=== PATIENT | male | born 1960 | race Caucasian/White ===

== ENCOUNTER 2019-09-05 14:11 | Inpatient (IN) | payer OTHER, SELFPAY ==
[2019-09-05] VITALS (10 sets, daily range): BP systolic 158–192; BP diastolic 67–90; PULSE 64–92; RESP 16–24; TEMP 36.2–36.9; O2SAT 93–97; BMI 31.1
--- NOTE | ~2019-09-05 | XR_ITS ---
EXAMINATION: XR chest 2V EXAM DATE: 09/05/2019 16:00 INDICATION: Shortness of breath, right-sided chest pain. Lightheadedness. TECHNIQUE: Frontal and lateral projections of the chest obtained and reviewed. Comparison is made to prior examination from 08/29/2019. FINDINGS: Near-complete resolution of previously seen rather extensive abnormal reticulation. There a re no pleural effusions. The cardiomediastinal silhouette is within normal limits. There is no pneu mothorax suspected. The bones and soft tissues are unremarkable. IMPRESSION: Nearly resolved bilateral edema or pneumonia. Reviewed, dictated and finalized at location A. [place] ASSOCIATE
--- NOTE | ~2019-09-05 | US_ITS ---
EXAMINATION: US venous doppler LE EXAM DATE: 09/06/2019 08:31 INDICATION: Shortness of breath and bilateral leg edema. TECHNIQUE: Multiple grayscale, color flow and Doppler images of the lower extremity deep venous syste ms bilaterally were obtained and reviewed. Comparison is made to prior examination from 03/31/2013. FINDINGS: Right side: The right common femoral, femoral and profunda veins demonstrate normal color flow, respi ratory variation, augmentation and compressibility. Compressibility, color flow confirmed within the right popliteal, posterior tibial, peroneal, and greater saphenous veins. Left side: The left common femoral, femoral and profunda veins demonstrate normal color flow, respira tory variation, augmentation and compressibility. Compressibility, color flow confirmed within the l eft popliteal, posterior tibial, peroneal, and greater saphenous veins. IMPRESSION: 1. No lower extremity deep venous thrombosis bilaterally. Reviewed, dictated and finalized at location A. EWORKING BELT SANDER
--- NOTE | 2019-09-05 14:33 | ECG_ITS ---
Measurements Intervals [place] Rate: 69 P: 60 TN: 175 QRS: 80 QRSD: 89 T: 70 QT: 371 QTc: 400 Interpretive Statements SINUS RHYTHM WITH SINUS ARRHYTHMIA NORMAL ECG Electronically Signed On 09-05-2019 16:38:56 [employer] by Carmelo Graham D.O.
[2019-09-05 14:49] LABS: Basophils Absolute Auto 0.1 K/mm3 (0.0-0.1); Basophils Percent Auto 0.2 % (0.2-1.2); Eosinophils Absolute Auto 0.1 K/mm3 (0-0.3); Eosinophils Percent Auto 0.6 % (0-4.4); Hematocrit 44.7 % (42.0-52.0); Hemoglobin 14.2 g/dL (14.0-18.0); Immature Granulocyte Absolute 0.24 K/mm3 (0.00-0.031); Immature Granulocyte Percent A 1.1 % (0-0.5); Lymphocytes Absolute Auto 4.31 K/mm3 (0.9-3.2); Mean Corpuscular HGB Conc 31.8 g/dl (32-36); Mean Corpuscular Hemoglobin 29.5 pg (26-34); Mean Corpuscular Volume 92.9 fl (80-100); Monocytes Absolute Auto 0.9 K/mm3 (0.1-0.6); Monocytes Percent Auto 4.1 % (2.6-8.5); Platelet Count Result 329 k/mm3 (150-375); Red Blood Count 4.81 M/mm3 (4.6-6.20); Red Cell Distribution Width 15.2 % (11.5-14.5); White Blood Count 21.6 K/mm3 (4.5-10.0)
--- NOTE | 2019-09-05 14:49 | ED.GENADULT ---
HPI - General Adult General Chief complaint: Shortness of Breath/Dyspnea Stated complaint: sob Time Seen by Provider: 09/05/19 14:44 Source: patient Mode of arrival: ambulatory Limitations: no limitations History of Present Illness HPI narrative: The pt is a 58 y/o male who presents to the ED with c/o SOB that began 1 week ago. The pt was just here last week and was diagnosed with pneumonia. He left against advice but states that he has been taking his antibiotics as prescribed. He states that he feels like he is choking and cannot catch his breath. He reports a cough, rt sided CP upon coughing, and dysphagia, but denies fever. The pt has a PMHx of COPD, for which he uses 5 different inhalers for and O2 at night. He smokes 1/2 PPD. complaint: SOB Onset (ago): week(s) (1) Associated symptoms: chest pain (upon coughing), cough and other (dysphagia) Related Data Home Medications Medication Instructions Recorded Confirmed Incruse Ellipta 1 inh INHALATION DAILY 08/30/19 08/30/19 fluticasone propion-salmeterol 1 puff INHALATION BID 08/30/19 08/30/19 hydrocodone-acetaminophen 1 tablet PO TID 08/30/19 08/30/19 lisinopril 40 mg PO DAILY 08/30/19 08/30/19 montelukast 10 mg PO DAILY 08/30/19 08/30/19 Allergies Allergy/AdvReac Type Severity Reaction Status Date / Time codeine Allergy Unknown Verified 09/03/18 07:08 iohexol Allergy Unknown Verified 08/30/19 00:05 [From CONTRAST - CT, XRAY] Review of Systems Review of Systems: All systems reviewed & are unremarkable except as noted in HPI and below Constitutional: Constitutional: Denies fever(s) ENT: Reports dysphagia Cardiovascular: Cardiovascular: Reports chest pain (upon coughing) Respiratory: Respiratory: Reports cough and Reports dyspnea PMFSH Past Medical History Medical History (Updated 09/05/19 @ 16:24 by Richie Vance MD) Arthritis (Acute) Asthma (Acute) Back pain (Acute) Cataracts, bilateral (Acute) COPD (chronic obstructive pulmonary disease) (Acute) Use uses home O2 most of the time GERD (gastroesophageal reflux disease) (Acute) HTN (hypertension) (Chronic) Kidney stones (Acute) Peripheral neuropathy (Acute) Pneumonia (Acute) Pulmonary hypertension (Acute) Sleep apnea (Acute) No longer uses CPAP Surgical History Surgical History History of prostate surgery (Acute) Hx of cataract surgery (Acute) Hx of cholecystectomy (Acute) Social History Social History (Updated 09/05/19 @ 14:57 by Shara Soto) Social History: but from his for 20 years. 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 No children. Smoking packs per day: 0.5 Smoking cigarettes per day: 10.0 Years smoked: 50 Smoking pack-years: 25.00 Smoking status: Current every day smoker Tobacco type: cigarettes Alcohol intake: former Substance use: never Substance use type: does not use Gender identity (if verbalized by the patient): Male Agree to blood products: Yes Exam Const: General: healthy appearing, no acute distress and well developed Nutritional Appearance: well nourished Orientation/consciousness: oriented x3 (alert) and other (Alert) Limitations: no limitations HENMT: Head: normocephalic and atraumatic Ears: external ears normal General nose exam: no nasal discharge and no epistaxis Face and sinus: face symmetric Mouth: Yes lip normal and Yes moist mucous membranes Eyes: Conjunctivae: conjunctivae normal Sclera: sclerae normal EOM: EOM intact bilaterally Neck: Neck: full ROM Chest: Chest palpation & inspection: no tenderness Resp: Effort & Inspection: normal respiratory effort Auscultation: rales on the right, no rhonchi, wheezes (scattered, bilateral) and other (breath sounds equal) Other: decreased breath sounds Cardio: Rate: regular rate Rhythm: regular rhythm Heart sounds: no gallops and no murmurs GI: Inspection: non-distended Palpation (GI): No abdomina
[2019-09-05] MEDS: ALBUTEROL SULFATE NEB 2.5 MG/0.5 ML INH 5 MG INHALATION ×2 (15:05→20:48)
[2019-09-05] MEDS: IPRATROPIUM BR 0.02% INH SOLN 0.5 MG/2.5 ML VIAL INHALATION ×2 (15:05→20:48)
[2019-09-05 15:13] LABS: Alveolar/Arterial O2 Gradient 30.7 mmHg; Base Excess ABG 7.5 mEq/l (+/-2.0); Fractional Inspired Oxygen 21 %; Oxygen Content ABG 18.6 %vol (16.0-22.0); Oxygen Saturation ABG 94.2 % (95.0-100.0); Oxyhemoglobin 91.2 % THb (90.0-100.0); PCO2 ABG 44.3 mmHg (35.0-45.0); PO2 FiO2 Ratio Arterial Blood 3.14 %; Total Hemoglobin 14.5 g/dL (12.0-18.0); pH ABG 7.477 (7.350-7.450)
[2019-09-05 15:14] LABS: Modified Allen's Test Pass; Site Drawn RIGHT RADIAL
[2019-09-05 15:21] LABS: Blood Urea Nitrogen 25 mg/dL (9-20); Calcium 8.8 mg/dL (8.4-10.2); Carbon Dioxide 34 mmol/L (22-30); Chloride 97 mmol/L (98-107); Estimated CRCL calculation 108 ml/min; Estimated Glomerular Filt Rate > 60; Glucose 93 mg/dL (75-110); Sodium 138 mmol/L (137-145)
[2019-09-05] MEDS: LACTATED RINGERS 1,000 ML 60 ML IV CONT (18:03)
--- NOTE | 2019-09-05 18:08 | ADMGEN ---
This patient, Manny Garcia, was admitted to Medical Room 341-01. Patient/family oriented to hospital policies and general routines including ID bracelet, bed and alarms, visiting hours, pain management, procedures, bathroom and other care routines, personal items, smoking policy, room service/diet, and visiting hours. Valuables list has been completed. Information on how to activate the Rapid Response Team has been discussed. Patient/Family are encouraged to report perceived risks to care and to ask questions if they do not understand what they are told or what they should do.
--- NOTE | 2019-09-05 19:40 | PM.IMHP ---
H&P: HPI History of Present Illness Chief complaint: Shortness of breath. Narrative: Manny Garcia is a 58 year old male smoker with COPD, sleep apnea, diastolic congestive heart failure, pulmonary hypertension, and hypertension who presented to the emergency department earlier this afternoon via private vehicle from home for evaluation of shortness of breath. He is known to the hospitalist service as he was admitted to us on August 29, 2019 after he presented to the emergency department with severe shortness of breath with findings of pulmonary edema, superimposed pneumonia, and hypercapnic respiratory failure (intolerant to BiPAP). Echocardiogram did show diastolic dysfunction and pulmonary hypertension. Sputum culture later came back growing Haemophilus influenzae. His lower extremity edema and breathing improved with IV Lasix and IV antibiotics. He was eager for discharge and asked to leave on , although probably not quite ready to go home, retrospectively. He continues to smoke despite telling the discharge physician a few days ago that he was going to quit. He was discharged on azithromycin, cefdinir, and prednisone, which he states compliance. Unfortunately he continues to be short of breath and his girlfriend notes that he is not any better than when he was initially admitted to the hospital. He continues to have a cough, which is no longer green thick sputum but is now more clear white phlegm. He continues to have pretty significant coughing jags, worse when lying supine. He chronically sleeps on 2-3 pillows and that is unchanged. He has had sweats, but is uncertain if he has had a fever. Appetite has been good and he denies nausea and vomiting. His lower extremity edema is about the same as it was when he was discharged and he denies calf pain and tenderness. He has not had chest pain or pleuritic pain. No palpitations. No dysphagia or concerns for aspiration. He is eating a Super sized [employer] meal at the time of my evaluation and he has no complaints. Review of Systems Review of Systems: All systems reviewed & are unremarkable except as noted in HPI and below PMFSH Past Medical History Medical History (Updated 09/05/19 @ 22:06 by Ya Kendall PA-C) Arthritis (Acute) Asthma (Acute) Back pain (Acute) Cataracts, bilateral (Acute) COPD (chronic obstructive pulmonary disease) (Acute) Uses 2 L nasal cannula at nighttime in lieu of CPAP. Diastolic congestive heart failure (Acute) GERD (gastroesophageal reflux disease) (Acute) HTN (hypertension) (Acute) Kidney stones (Acute) Peripheral neuropathy (Acute) Pneumonia (Acute) Pulmonary hypertension (Acute) Sleep apnea (Acute) No longer uses CPAP Tobacco dependence (Acute) Surgical History Surgical History History of prostate surgery (Acute) Hx of cataract surgery (Acute) Hx of cholecystectomy (Acute) Family History Family History Father Family history of chronic obstructive pulmonary disease, Onset Age: 74 Mother End stage renal disease on dialysis Other Carcinoma of colon Diabetes mellitus Social History Social History (Updated 09/05/19 @ 22:02 by Ya Kendall PA-C) Social History: but from his for 20 years. 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 Full code. Smoking packs per day: 0.5 Smoking cigarettes per day: 10.0 Years smoked: 50 Smoking pack-years: 25.00 Smoking status: Current every day smoker Tobacco type: cigarettes Alcohol intake: former Substance use: never Substance use type: does not use Gender identity (if verbalized by the patient): Male Spiritual care concerns: No Agree to blood products: Yes Meds Home Medications and Allergies Home Medications Medication Instructions Recorded Confirmed Type Incruse Ellipta
[2019-09-05] MEDS: CEFDINIR 300 MG CAPSULE PO (22:40)
[2019-09-05] MEDS: methylPREDNISolone SOD SUCC 125 MG VIAL IV PUSH (22:40)
[2019-09-06] VITALS (11 sets, daily range): BP systolic 157–159; BP diastolic 71–75; PULSE 63–91; RESP 18–20; TEMP 36.3–37.2; O2SAT 91–96
[2019-09-06] MEDS: ALBUTEROL SULFATE NEB 2.5 MG/0.5 ML INH 5 MG INHALATION ×4 (02:43→20:09)
[2019-09-06] MEDS: IPRATROPIUM BR 0.02% INH SOLN 0.5 MG/2.5 ML VIAL INHALATION ×4 (02:43→19:50)
[2019-09-06] MEDS: methylPREDNISolone SOD SUCC 125 MG VIAL 60 MG IV PUSH ×4 (05:29→23:12)
[2019-09-06 05:38] LABS: Basophils Percent Auto 0.1 % (0.2-1.2); Eosinophils Percent Auto 0.1 % (0-4.4); Hematocrit 44.5 % (42.0-52.0); Hemoglobin 14.3 g/dL (14.0-18.0); Immature Granulocyte Absolute 0.14 K/mm3 (0.00-0.031); Immature Granulocyte Percent A 0.9 % (0-0.5); Lymphocytes Absolute Auto 1.36 K/mm3 (0.9-3.2); Mean Corpuscular HGB Conc 32.1 g/dl (32-36); Mean Corpuscular Hemoglobin 29.6 pg (26-34); Mean Corpuscular Volume 92.1 fl (80-100); Mean Platelet Volume 9.8 fl (7.4-10.4); Monocytes Absolute Auto 0.1 K/mm3 (0.1-0.6); Monocytes Percent Auto 0.3 % (2.6-8.5); Neutrophils Absolute Auto 13.5 K/mm3 (1.3-6.7); Neutrophils Percent Auto 89.6 % (45.5-73.1); Platelet Count Result 305 k/mm3 (150-375); Red Blood Count 4.83 M/mm3 (4.6-6.20); Red Cell Distribution Width 15.1 % (11.5-14.5)
[2019-09-06 05:54] LABS: Blood Urea Nitrogen 21 mg/dL (9-20); Carbon Dioxide 33 mmol/L (22-30); Chloride 96 mmol/L (98-107); Estimated CRCL calculation 122 ml/min; Estimated Glomerular Filt Rate > 60; Glucose 179 mg/dL (75-110); Potassium 4.5 mmol/L (3.4-5.0); Sodium 139 mmol/L (137-145)
[2019-09-06] MEDS: AZITHROMYCIN 250 MG TABLET 500 MG PO (09:23)
[2019-09-06] MEDS: LISINOPRIL 20 MG TABLET 40 MG PO (09:23)
[2019-09-06] MEDS: CEFDINIR 300 MG CAPSULE PO ×2 (09:23→20:17)
[2019-09-06] MEDS: FUROSEMIDE 20 MG TABLET PO (09:23)
[2019-09-06] MEDS: MONTELUKAST SODIUM 10 MG TABLET PO (09:23)
[2019-09-06] MEDS: ENOXAPARIN 40 MG/0.4 ML SYRINGE SUB-Q (09:23)
--- NOTE | 2019-09-06 10:38 | PM.IMPN ---
Progress Note: A&P Assessment and Plan (1) COPD exacerbation: Code(s): J44.1 - Chronic obstructive pulmonary disease with (acute) exacerbation Status: Acute Assessment and Plan: -----the patient appears to be presenting with a COPD exacerbation with diffuse expiratory wheezing and dyspnea on exertion. This has improved a little bit with the current treatment. He was just admitted on August 29 and had H flu in his sputum and was treated with azithromycin, cefdinir and prednisone. Since then he has been having worsening shortness of breath and just not feeling better although he did better with the antibiotics when he was admitted. Will continue Solu-Medrol Q 6 and will add insulin to this since his blood glucose was elevated earlier today. Continue azithromycin, cefdinir and breathing treatments at this time as well. (2) Diastolic congestive heart failure: Code(s): I50.30 - Unspecified diastolic (congestive) heart failure Status: Acute Assessment and Plan: -----patient has significant swelling his lower extremities which he said happened about 2 months ago. He had an echo done August 30 which showed diastolic dysfunction with normal systolic dysfunction. I will increase his Lasix today. I will also order a UA to check for protein in his urine as this could be the cause of his lower extremity swelling as well. He has been on steroids but this started 2 months ago (before the steroids) and is not normal for him. He does, however, have a high salt diet. (3) Acute and chronic respiratory failure: Code(s): J96.20 - Acute and chronic respiratory failure, unspecified whether with hypoxia or hypercapnia Status: Acute Assessment and Plan: -----continue oxygen at night. Patient is currently on room air satting 91% which is within normal limits for patient with COPD. Continue to monitor (4) History of recent pneumonia: Code(s): Z87.01 - Personal history of pneumonia (recurrent) Status: Acute Assessment and Plan: -----see above. Continue cefdinir and azithromycin as well as steroids. (5) Tobacco dependence: Code(s): F17.200 - Nicotine dependence, unspecified, uncomplicated Status: Acute Assessment and Plan: -----patient denies the need for nicotine patch at this time. He understands smoking will only worsen his chronic disease. (6) Sleep apnea: Code(s): G47.30 - Sleep apnea, unspecified Status: Acute Assessment and Plan: -----intolerant to CPAP and understands the importance of CPAP (7) Hyperglycemia: Code(s): R73.9 - Hyperglycemia, unspecified Status: Acute Assessment and Plan: -----patient has been having hyperglycemia likely due to steroids. His last admission he was also hyperglycemic over 200. For this reason we will check an A1c. He has no personal history of diabetes. Will initiate sliding scale insulin for the meantime. Time Spent With Patient Time with patient: 25 - 35 minutes Subjective Interval history: Pt is a 58-year-old male who presented emergency room for worsening shortness of breath and dyspnea on exertion. The patient states today that his shortness of breath visible better but he still having dyspnea on exertion and is still coughing. His dyspnea on exertion has not gotten any better or worse. He denies fevers, chills, nausea, vomiting, diarrhea or hemoptysis. He says his legs are still swollen and this happened about 2 months ago and has not gotten much better. He also feels bloated in his abdomen which hurts when he coughs. He had a bowel movement yesterday but none today. He has no further complaints Review of Systems Review of Systems: All systems reviewed & are unremarkable except as noted in HPI and below Exam Narrative: Exam Narrative: General: Well developed well nourished patient resting in bed in [facility] HEENT: normocephalic Neck
[2019-09-06] MEDS: FUROSEMIDE INJ 40 MG/4 ML VIAL IV PUSH (11:54)
[2019-09-06 12:22] LABS: Add Urine Microscopic? NO; Appearance Urine Clear (Clear); Bilirubin Urine Negative (Negative); Blood Urine Negative (Negative); Color Urine Straw (Yellow); Glucose Urine UA Negative (Negative); Ketones Urine Negative (Negative); Leukocyte Esterase Ur Negative LEU/UL (Negative); Nitrate Urine Negative (Negative); Protein Urine Negative (Negative); Urobilinogen Urine Negative mg/dL (<2.0)
[2019-09-06 12:37] LABS: Glucose Point of Care 144 (65-105)
[2019-09-06] MEDS: POLYETHYLENE GLYCOL 3350 17 GM POWD.PACK PO (15:08)
[2019-09-06 16:12] LABS: Glucose Point of Care 141 (65-105)
[2019-09-06] MEDS: ACETAMINOPHEN 325 MG TABLET 650 MG PO (17:45)
[2019-09-06 20:46] LABS: Glucose Point of Care 302 (65-105)
[2019-09-07] VITALS (10 sets, daily range): BP systolic 144–151; BP diastolic 69–79; PULSE 74–100; RESP 16–20; TEMP 36.2–36.4; O2SAT 94–100
[2019-09-07] MEDS: ALBUTEROL SULFATE NEB 2.5 MG/0.5 ML INH 5 MG INHALATION ×3 (01:55→15:09)
[2019-09-07] MEDS: IPRATROPIUM BR 0.02% INH SOLN 0.5 MG/2.5 ML VIAL INHALATION ×3 (01:55→15:09)
[2019-09-07] MEDS: methylPREDNISolone SOD SUCC 125 MG VIAL 60 MG IV PUSH ×3 (05:20→19:52)
[2019-09-07 06:49] LABS: Hematocrit 46.4 % (42.0-52.0); Hemoglobin 14.8 g/dL (14.0-18.0); Mean Corpuscular HGB Conc 31.9 g/dl (32-36); Mean Corpuscular Hemoglobin 29.1 pg (26-34); Mean Corpuscular Volume 91.2 fl (80-100); Mean Platelet Volume 9.6 fl (7.4-10.4); Platelet Count Result 358 k/mm3 (150-375); Red Blood Count 5.09 M/mm3 (4.6-6.20); Red Cell Distribution Width 15.2 % (11.5-14.5); White Blood Count 21.7 K/mm3 (4.5-10.0)
[2019-09-07 07:08] LABS: Alanine Aminotransferase 78 U/L (4-50); Alkaline Phosphatase 143 U/L (38-126); Aspartate Amino Transferase 31 U/L (17-59); Bilirubin,Total 0.5 mg/dL (0.2-1.3); Blood Urea Nitrogen 27 mg/dL (9-20); Calcium 9.2 mg/dL (8.4-10.2); Carbon Dioxide 31 mmol/L (22-30); Chloride 100 mmol/L (98-107); Estimated CRCL calculation 139 ml/min; Estimated Glomerular Filt Rate > 60; Glucose 149 mg/dL (75-110); Potassium 4.4 mmol/L (3.4-5.0); Sodium 140 mmol/L (137-145)
[2019-09-07 07:43] LABS: Glucose Point of Care 182 (65-105)
[2019-09-07] MEDS: AZITHROMYCIN 250 MG TABLET 500 MG PO (07:43)
[2019-09-07] MEDS: FUROSEMIDE INJ 40 MG/4 ML VIAL IV PUSH (07:44)
[2019-09-07] MEDS: ENOXAPARIN 40 MG/0.4 ML SYRINGE SUB-Q (07:44)
[2019-09-07] MEDS: LISINOPRIL 20 MG TABLET 40 MG PO (07:44)
[2019-09-07] MEDS: CEFDINIR 300 MG CAPSULE PO ×2 (07:44→20:00)
[2019-09-07] MEDS: MONTELUKAST SODIUM 10 MG TABLET PO (07:45)
[2019-09-07] MEDS: ACETAMINOPHEN 325 MG TABLET 650 MG PO (08:07)
[2019-09-07 08:19] LABS: Hemoglobin A1C 6.5 % (<5.7)
[2019-09-07 11:13] LABS: Glucose Point of Care 151 (65-105)
--- NOTE | 2019-09-07 15:30 | PM.IMPN ---
Progress Note: A&P Assessment and Plan (1) COPD exacerbation: Code(s): J44.1 - Chronic obstructive pulmonary disease with (acute) exacerbation Status: Acute Assessment and Plan: Patient presents with COPD exacerbation with significant cough and exertional dyspnea. He was just discharged last week. He admits he did not feel very well when he left, but he insisted on leaving on Thanksgiving to see family. Sputum cultures grew Haemophilus flu during his last stay and he was treated with azithromycin, cefdinir, and prednisone. Continue the course of azithromycin and cefdinir. Continue IV Solu-Medrol, will decrease the dose today. Patient wears 2 L O2 at nighttime. Plan for home O2 eval prior to discharge. Likely discharge 1-2 days. (2) Diastolic congestive heart failure: Code(s): I50.30 - Unspecified diastolic (congestive) heart failure Status: Acute Assessment and Plan: Patient presented with significant lower extremity edema. Echocardiogram last admission showed diastolic dysfunction with normal systolic function. His Lasix was increased. Reiterated the importance of a low-sodium diet. (3) Acute and chronic respiratory failure: Code(s): J96.20 - Acute and chronic respiratory failure, unspecified whether with hypoxia or hypercapnia Status: Acute Assessment and Plan: Continue his O2 regimen at night. Tolerating. Continue to monitor. Ordered home O2 eval. (4) History of recent pneumonia: Code(s): Z87.01 - Personal history of pneumonia (recurrent) Status: Acute Assessment and Plan: See above. Admitted here last week and treated for pneumonia. Leukocytosis may be due to acute infection, could be worsened by steroids. (5) Tobacco dependence: Code(s): F17.200 - Nicotine dependence, unspecified, uncomplicated Status: Acute Assessment and Plan: Reiterate the importance smoking cessation. Patient denies need for nicotine patch. (6) Sleep apnea: Code(s): G47.30 - Sleep apnea, unspecified Status: Acute Assessment and Plan: Intolerant to CPAP. Discussed the cardiovascular and pulmonary risks of untreated sleep apnea. (7) Hyperglycemia: Code(s): R73.9 - Hyperglycemia, unspecified Status: Acute Assessment and Plan: A1c is 6.5. Patient denies a history of diabetes. Hyperglycemia is likely related to steroid use. Will wean steroids today. Continue to monitor and cover with sliding scale insulin. (8) DVT prophylaxis: Code(s): Z29.9 - Encounter for prophylactic measures, unspecified Status: Acute Assessment and Plan: Lovenox Subjective Interval history: 09/07/19 1530 Mr. Garcia is a 58yo M admitted with COPD exacerbation and acute on chronic diastolic CHF. He reports feeling a little better today. He reports some shortness of breath with activity. He continues with a productive cough today. He denies any chest pain, but he does describe discomfort to right lower ribs with coughing. His leg swelling has improved. He is tolerating PO intake without nausea or vomiting. Review of Systems Review of Systems: Narrative: Twelve systems were reviewed with pertinent positives and negatives outlined above. Except as documented, all other systems were reviewed and are negative. Exam Narrative: Exam Narrative: General: Male appears older than stated age, sitting up in bedside chair in no acute distress. HEENT: Normocephalic, EOMI, oral mucosa tacky. Cardiovascular: Rate and rhythm are regular. Respiratory: Expiratory wheezing throughout. Abdomen: Soft, non-tender, bowel sounds present. Extremities: Peripheral pulses intact. Trace lower extremity edema to mid [place]. [place]
[2019-09-07 16:51] LABS: Glucose Point of Care 162 (65-105)
[2019-09-07 19:52] LABS: Glucose Point of Care 205 (65-105)
[2019-09-08 05:08] VITALS: BP 145/81; PULSE 69; RESP 16; TEMP 36.1; O2SAT 94
[2019-09-08] MEDS: methylPREDNISolone SOD SUCC 125 MG VIAL 60 MG IV PUSH (05:11)
[2019-09-08 06:26] VITALS: BP 145/81; PULSE 69; RESP 16; TEMP 36.1; O2SAT 94
[2019-09-08 07:10] VITALS: PULSE 95; RESP 18
[2019-09-08] MEDS: ALBUTEROL SULFATE NEB 2.5 MG/0.5 ML INH 5 MG INHALATION (07:16)
[2019-09-08] MEDS: IPRATROPIUM BR 0.02% INH SOLN 0.5 MG/2.5 ML VIAL INHALATION (07:17)
[2019-09-08 07:22] VITALS: PULSE 95; RESP 18; O2SAT 95
[2019-09-08 07:44] LABS: Glucose Point of Care 129 (65-105)
[2019-09-08 08:18] LABS: Basophils Percent Auto 0.2 % (0.2-1.2); Hematocrit 48.5 % (42.0-52.0); Immature Granulocyte Absolute 0.16 K/mm3 (0.00-0.031); Immature Granulocyte Percent A 0.8 % (0-0.5); Lymphocytes Absolute Auto 1.81 K/mm3 (0.9-3.2); Lymphocytes Percent Auto 8.5 % (18.3-44.2); Mean Corpuscular HGB Conc 30.9 g/dl (32-36); Mean Corpuscular Hemoglobin 29.4 pg (26-34); Mean Corpuscular Volume 95.1 fl (80-100); Mean Platelet Volume 9.8 fl (7.4-10.4); Monocytes Absolute Auto 0.4 K/mm3 (0.1-0.6); Monocytes Percent Auto 1.7 % (2.6-8.5); Neutrophils Absolute Auto 18.9 K/mm3 (1.3-6.7); Neutrophils Percent Auto 88.8 % (45.5-73.1); Platelet Count Result 337 k/mm3 (150-375); Red Cell Distribution Width 15.8 % (11.5-14.5); White Blood Count 21.3 K/mm3 (4.5-10.0)
[2019-09-08] MEDS: AZITHROMYCIN 250 MG TABLET 500 MG PO (08:20)
[2019-09-08] MEDS: CEFDINIR 300 MG CAPSULE PO (08:20)
[2019-09-08] MEDS: LISINOPRIL 20 MG TABLET 40 MG PO (08:20)
[2019-09-08] MEDS: ENOXAPARIN 40 MG/0.4 ML SYRINGE SUB-Q (08:20)
[2019-09-08] MEDS: MONTELUKAST SODIUM 10 MG TABLET PO (08:21)
[2019-09-08] MEDS: FUROSEMIDE INJ 40 MG/4 ML VIAL IV PUSH (08:21)
[2019-09-08 08:42] LABS: Blood Urea Nitrogen 33 mg/dL (9-20); Calcium 9.1 mg/dL (8.4-10.2); Carbon Dioxide 32 mmol/L (22-30); Chloride 99 mmol/L (98-107); Estimated CRCL calculation 121 ml/min; Estimated Glomerular Filt Rate > 60; Glucose 200 mg/dL (75-110); Potassium 4.6 mmol/L (3.4-5.0); Sodium 143 mmol/L (137-145)
--- NOTE | 2019-09-08 10:00 | PM.DS ---
DS: Diagnosis Admitting Diagnosis Admitting Diagnosis: Chronic obstructive pulmonary disease with (acute) exacerbation Discharge Diagnosis (1) COPD exacerbation: Code(s): J44.1 - Chronic obstructive pulmonary disease with (acute) exacerbation Status: Acute Assessment and Plan: Date of Service 09/09/19: Mr. Garcia is a 58yo M with history of COPD, diastolic CHF, sleep apnea not able to tolerate CPAP who presented to the ED for evaluation of shortness of breath and lower extremity swelling. It was noted that he was just hospitalized the week prior to this admission and treated for COPD exacerbation and pneumonia. The patient admits he did not feel very well when he last left, but he insisted on leaving on to see family visiting from out of town. He was again treated for COPD exacerbation with IV steroids and bronchodilator therapy with duo nebs. Antibiotic therapy with azithromycin and cefdinir was continued. He wears 2L O2 at home at bedtime. Home O2 eval showed he did not need O2 during the day at rest or with ambulation. Patient was also treated for acute on chronic diastolic CHF. His lower extremity swelling greatly improved with IV lasix. He was found to be eating [employer] and other outside food brought in for him multiple times. It was discussed at length more than once the importance of him following a low-sodium diet given his heart failure. He also continues to smoke and it was explained that it is absolutely necessary for him to quit smoking. It is felt that the patient may have poor insight regarding his medical conditions. In any regard, his symptoms did improve with the therapy outlined above and he was hemodynamically stable for discharge with plans for short-interval follow up with PCP. Patient presents with COPD exacerbation with significant cough and exertional dyspnea. He was just discharged last week. He admits he did not feel very well when he left, but he insisted on leaving on to see family. Sputum cultures grew Haemophilus flu during his last stay and he was treated with azithromycin, cefdinir, and prednisone. Continued the course of azithromycin and cefdinir. Treated with IV solu-medrol, discharged with tapered course of oral prednisone. Patient wears 2 L O2 at nighttime. Home O2 eval confirms he does not have any O2 requirement at rest or with activity. (2) Diastolic congestive heart failure: Code(s): I50.30 - Unspecified diastolic (congestive) heart failure Status: Acute Assessment and Plan: Patient presented with significant lower extremity edema, improved prior to discharge. Echocardiogram last admission showed diastolic dysfunction with normal systolic function. His Lasix was increased. Reiterated the importance of a low-sodium diet. (3) Acute and chronic respiratory failure: Code(s): J96.20 - Acute and chronic respiratory failure, unspecified whether with hypoxia or hypercapnia Status: Acute Assessment and Plan: Continue his O2 regimen at night. (4) History of recent pneumonia: Code(s): Z87.01 - Personal history of pneumonia (recurrent) Status: Acute Assessment and Plan: See above. Admitted here last week and treated for pneumonia. Leukocytosis may be due to acute infection, could be worsened by steroids. (5) Tobacco dependence: Code(s): F17.200 - Nicotine dependence, unspecified, uncomplicated Status: Acute Assessment and Plan: Reiterate the importance smoking cessation. Patient denies need for nicotine patch. (6) Sleep apnea: Code(s): G47.30 - Sleep apnea, unspecified Status: Acute Assessment and Plan: Intolerant to CPAP. Discussed the cardiovascular and pulmonary risks of untreated sleep apnea.
[2019-09-08 10:30] VITALS: PULSE 89; O2SAT 96
[2019-09-08 10:40] VITALS: O2SAT 94
--- NOTE | 2019-09-08 11:08 | HOMEO2EVAL ---
Home Oxygen Evaluation RC: Home Oxygen (O2) Evaluation Start: 09/07/19 16:06 Freq: ONCE Status: Active Protocol: RPE Activity Type Activity Date Activity User E-Sign Co-Sign Detail Recorded Client Recorded Date Recorded By Document 09/08/19 10:30 KMV [id number] 09/08/19 11:07 KMV Document 09/08/19 10:40 KMV [id number] 09/08/19 11:07 KMV 09/08/19 09/08/19 10:30 10:40 Home O2 Evaluation Test Phase Resting Exercise Oxygen Delivery Room Air Room Air Pulse Oximetry (90-100 %) 96 94 Pulse Rate (60-100 beats/min) 89 Activity Tolerance Good Treatment Charges O2 Evaluation
== END 2019-09-08 11:15 | disposition home or self-care (01) | DRG 140 ==
LOC: ANHED 16:31 → ANH3MED 18:57
PROVIDERS: Physician Assistant; Admitting Provider Internal Medicine; Emergency Provider Emergency Medicine; PCP Family Medicine; Visit Provider Physician Assistant
DX: J44.1 Chronic obstructive pulmonary disease with (acute) exacerbation (principal); I50.33 Acute on chronic diastolic (congestive) heart failure; J18.9 Pneumonia, unspecified organism; M19.90 Unspecified osteoarthritis, unspecified site; Z98.41 Cataract extraction status, right eye; Z98.42 Cataract extraction status, left eye; Z87.442 Personal history of urinary calculi; K21.9 Gastro-esophageal reflux disease without esophagitis; I10 Essential (primary) hypertension; G62.9 Polyneuropathy, unspecified; I27.20 Pulmonary hypertension, unspecified; G47.30 Sleep apnea, unspecified; F17.200 Nicotine dependence, unspecified, uncomplicated; J44.0 Chronic obstructive pulmonary disease with (acute) lower respiratory infection; J96.20 Acute and chronic respiratory failure, unspecified whether with hypoxia or hypercapnia; R73.9 Hyperglycemia, unspecified
CPT/HCPCS: 36415; 36600; 71046; 80048; 80053; 81003; 82805; 83036; 85025; 85027; 93005; 93970; 94618; 94640; 99285; A9270; G0365; J1650; J1940; J2543; J2930; J7120

== ENCOUNTER 2020-11-18 07:43 | Outpatient (CLI) | payer OTHER, SELFPAY ==
--- NOTE | ~2020-11-18 | XR_ITS ---
EXAMINATION: XR chest 2V DATE: 11/18/2020 07:58 INDICATION: Cough and chest pain TECHNIQUE: PA and lateral views of the chest are obtained. COMPARISON: 10/01/2019 FINDINGS: The lungs are free of acute opacities. There is no pleural effusion or pneumothorax. The ca rdiomediastinal silhouette is normal. There is mild thoracic spondylosis. IMPRESSION: 1. No acute cardiopulmonary abnormality. Reviewed, dictated and finalized at location A. RO SERVER
== END 2020-11-18 07:44 | disposition home or self-care (01) ==
LOC: ANHCARD 07:46
PROVIDERS: PCP Family Medicine; Visit Provider Nurse Practitioner
DX: R07.9 Chest pain, unspecified (principal)
CPT/HCPCS: 71046

== ENCOUNTER 2021-02-17 14:36 | Outpatient (CLI) | payer OTHER, SELFPAY ==
--- NOTE | ~2021-02-17 | XR_ITS ---
XR chest 2V DATE: 02/17/2021 15:20 INDICATION: Chronic obstructive pulmonary disease, with acute exacerbation TECHNIQUE: Frontal and lateral views COMPARISON: 11/18/2020 2 view chest 10/01/2019 CTA chest high resolution scan FINDINGS: Normal heart size. Bilateral hyperinflation suggesting COPD. No pulmonary infiltrate or consolidation, pleural effusion or pulmonary vascular congestion or pneumo thorax is detected. Diffuse osteopenia. IMPRESSION: Bilateral hyperinflation consistent with COPD Reviewed, dictated and finalized at location A.
[2021-02-17 15:16] LABS: Basophils Absolute Auto 0.1 K/mm3 (0.0-0.1); Basophils Percent Auto 0.5 % (0.2-1.2); Eosinophils Absolute Auto 0.2 K/mm3 (0-0.3); Eosinophils Percent Auto 1.1 % (0-4.4); Hematocrit 48.8 % (42.0-52.0); Hemoglobin 15.7 g/dL (14.0-18.0); Immature Granulocyte Absolute 0.09 K/mm3 (0.00-0.031); Immature Granulocyte Percent A 0.5 % (0-0.5); Lymphocytes Absolute Auto 4.78 K/mm3 (0.9-3.2); Mean Corpuscular HGB Conc 32.2 g/dl (32-36); Mean Corpuscular Hemoglobin 28.9 pg (26-34); Mean Corpuscular Volume 89.9 fl (80-100); Mean Platelet Volume 9.5 fl (7.4-10.4); Monocytes Percent Auto 5.9 % (2.6-8.5); Neutrophils Absolute Auto 10.4 K/mm3 (1.3-6.7); Platelet Count Result 294 k/mm3 (150-375); Red Blood Count 5.43 M/mm3 (4.6-6.20); Red Cell Distribution Width 16.2 % (11.5-14.5); White Blood Count 16.5 K/mm3 (4.5-10.0)
[2021-02-17 15:26] LABS: Potassium 4.2 mmol/L (3.4-5.0)
[2021-02-17 15:40] LABS: Anion Gap 3 mmol/L (8-16); Blood Urea Nitrogen 20 mg/dL (9-20); Calcium 10.1 mg/dL (8.4-10.2); Carbon Dioxide 36 mmol/L (22-30); Chloride 101 mmol/L (98-107); Estimated Glomerular Filt Rate > 60; Glucose 109 mg/dL (75-110); Sodium 140 mmol/L (137-145)
[2021-02-17 16:07] LABS: Atypical Lymphocytes Present; Platelet Estimate Adequate (Adequate)
== END 2021-02-17 14:37 | disposition home or self-care (01) ==
LOC: ANHLAB 14:39
PROVIDERS: PCP Family Medicine; Visit Provider Internal Medicine Critical Care Medicine
DX: J44.1 Chronic obstructive pulmonary disease with (acute) exacerbation (principal)
CPT/HCPCS: 36415; 71046; 80048; 85025

== ENCOUNTER 2021-02-17 17:57 | Emergency (ER) | payer OTHER, SELFPAY ==
[2021-02-17] VITALS (10 sets, daily range): BP systolic 133–153; BP diastolic 61–74; PULSE 70–100; RESP 14–32; TEMP 36.7; O2SAT 88–100
--- NOTE | 2021-02-17 18:14 | ECG_ITS ---
Measurements Intervals [place] Rate: 76 P: 56 [place]: 193 QRS: 80 QRSD: 81 T: 76 QT: 335 QTc: 377 Interpretive Statements SINUS RHYTHM BASELINE ARTIFACT- I, II, III, AVR, AVL,A VF NORMAL ECG Electronically Signed On 02-17-2021 18:55:59 CDT by Carmelo Graham D.O.
--- NOTE | 2021-02-17 18:18 | PC.NURSE ---
Pt states he is supposed to wear 02 at 2l NC at all times. Has not had any oxygen on since 1300 today because he was at the doctor's office and then here for testing. Didn't bring his oxygen because it doesn't have wheels.
--- NOTE | 2021-02-17 18:51 | ED.RECABL ---
HPI - Recheck/Abnormal Lab/Rx General Chief Complaint: Recheck/Abnormal Lab/Rx Stated Complaint: recheck Time Seen by Provider: 02/17/21 18:51 History of Present Illness HPI narrative: 60 yo male w/ h/o COPD presents to the ED for lab check. He is a very poor historian, but tells me that he was here earlier today for labs and a chest x-ray and he was called and told to come back for an EKG. He says that they told him that if he goes to sleep he may not wake up. He reports that he has had a cough productive of green sputum for 2 weeks. On review of the chart he was called by pulmonology because he had an elevated bicarb level and they were concerned that he may be retaining CO2. They want him to get an ABG. There was no mention of an EKG in their note. Related Data Home Medications Medication Instructions Recorded Confirmed fluticasone propion-salmeterol 1 puff INHALATION BID 08/30/19 10/01/19 hydrocodone-acetaminophen 1 tablet PO TID 08/30/19 10/01/19 lisinopril 40 mg PO DAILY 08/30/19 10/01/19 montelukast 10 mg PO DAILY 08/30/19 10/01/19 fenofibrate 160 mg tablet 160 mg PO DAILY 02/17/21 furosemide 40 mg tablet 40 mg PO QAM 02/17/21 gabapentin 300 mg capsule 300 mg PO TID 02/17/21 prednisone 20 mg tablet 20 mg PO DAILY 02/17/21 Allergies Allergy/AdvReac Type Severity Reaction Status Date / Time codeine Allergy Unknown Itching Verified 02/17/21 18:11 iohexol Allergy Unknown Redness of Verified 02/17/21 18:11 [From CONTRAST - CT, XRAY] Skin Review of Systems Review of Systems: All systems reviewed & are unremarkable except as noted in HPI and below Constitutional: Constitutional: Denies chills and Denies fever(s) ENT: Reports system reviewed and no additional complaints, except as documented Cardiovascular: Cardiovascular: Reports chest pain Respiratory: Respiratory: Reports cough, Reports dyspnea and Reports wheezing Gastrointestinal: Gastrointestinal: Reports no additional gastrointestinal complaints Genitourinary: Genitourinary: Reports no additional male genitourinary complaints Musculoskeletal: Musculoskeletal: Reports no additional musculoskeletal complaints Neurologic: Reports system reviewed and no additional complaints, except as documented PMFSH Past Medical History Medical History (Updated 02/17/21 @ 20:26 by Forest Constantino MD) Arthritis Asthma Back pain Cataracts, bilateral COPD (chronic obstructive pulmonary disease) Uses 2 L nasal cannula at nighttime in lieu of CPAP. Diastolic congestive heart failure GERD (gastroesophageal reflux disease) HTN (hypertension) Kidney stones Peripheral neuropathy Pneumonia Pulmonary hypertension Sleep apnea No longer uses CPAP Tobacco dependence Surgical History Surgical History History of prostate surgery Hx of cataract surgery Hx of cholecystectomy Family History Family History Father Family history of chronic obstructive pulmonary disease, Onset Age: 74 Mother End stage renal disease on dialysis Other Carcinoma of colon Diabetes mellitus Social History Social History Social History: but from his for 20 years. 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 No children. Full code. Smoking packs per day: 1.5 Smoking cigarettes per day: 30.0 Years smoked: 50 Smoking pack-years: 75.00 Smoking status: Heavy tobacco smoker Tobacco type: cigarettes Alcohol intake: former Substance use: never Substance use type: does not use Gender identity (if verbalized by the patient): Male Spiritual care concerns: No Agree to blood products: Yes Exam Const: General: no acute distress, alert and ill appearing Nutritional Appearance: obese Orientation/consciousness: patient oriented x3 HENMT:
[2021-02-17] MEDS: DEXAMETHASONE SOD PHOS INJ 4 MG/ML VIAL 10 MG IV PUSH (19:05)
--- NOTE | 2021-02-17 19:13 | PC.NURSE ---
Assumed care at this time. Report from Lorena WARD.
[2021-02-17] MEDS: ALBUTEROL SULFATE NEB 2.5 MG/0.5 ML INH 10 MG INHALATION (19:15)
[2021-02-17] MEDS: IPRATROPIUM BR 0.02% INH SOLN 0.5 MG/2.5 ML VIAL 1 MG INHALATION (19:15)
[2021-02-17 19:25] LABS: Alveolar/Arterial O2 Gradient 79.9 mmHg; Base Excess ABG 4.8 mEq/l (+/-2.0); Carboxyhemoglobin 4.9 % THb (0-2.0); Fractional Inspired Oxygen 30 %; HCO3 ABG 30.8 mEq/l (22.0-26.0); Methemoglobin ABG 0.1 %THb (0-1.5); Oxygen Content ABG 20.7 %vol (16.0-22.0); Oxygen Saturation ABG 94.9 % (95.0-100.0); Oxyhemoglobin 90.3 % THb (90.0-100.0); PCO2 ABG 50.3 mmHg (35.0-45.0); PO2 ABG 74.9 mmHg (80.0-100.0); Reduced Hemoglobin 4.7 %THb (0-5.0); Total Hemoglobin 16.3 g/dL (12.0-18.0); pH ABG 7.405 (7.350-7.450)
[2021-02-17 19:28] LABS: Device NASAL CANNULA; Liters per Minute 2.5 LPM; Modified Allen's Test Pass; Site Drawn LEFT RADIAL
[2021-02-17 19:58] LABS: Alanine Aminotransferase 45 U/L (4-50); Albumin Level 4.3 g/dL (3.5-5.1); Alkaline Phosphatase 117 U/L (38-126); Aspartate Amino Transferase 31 U/L (17-59); Bilirubin,Total 0.4 mg/dL (0.2-1.3)
[2021-02-17 20:11] LABS: NT Pro B Type Natriuretic Pept 116 pg/mL (5-100); Troponin I < 0.012 ng/mL (0.000-0.034)
== END 2021-02-17 20:44 | disposition home or self-care (01) ==
PROVIDERS: Emergency Provider Emergency Medicine; PCP Family Medicine
DX: J44.1 Chronic obstructive pulmonary disease with (acute) exacerbation (principal); F17.210 Nicotine dependence, cigarettes, uncomplicated; I11.0 Hypertensive heart disease with heart failure; I50.30 Unspecified diastolic (congestive) heart failure; K21.9 Gastro-esophageal reflux disease without esophagitis; G62.9 Polyneuropathy, unspecified; G47.30 Sleep apnea, unspecified; M19.90 Unspecified osteoarthritis, unspecified site
CPT/HCPCS: 36415; 36600; 71046; 80048; 80076; 82375; 82805; 83050; 83880; 84484; 85025; 93005; 94640; 96374; 99284; J1100

== ENCOUNTER 2021-03-16 08:04 | Observation (INO) | payer OTHER, SELFPAY ==
[2021-03-16] VITALS (24 sets, daily range): BP systolic 85–129; BP diastolic 42–109; PULSE 61–96; RESP 14–27; TEMP 36.3–37.1; O2SAT 88–98; BMI 35.2; BMI 34.3
--- NOTE | ~2021-03-16 | XR_ITS ---
EXAMINATION: XR chest 1V portable EXAM DATE: 03/16/2021 08:56 INDICATION: Dyspnea COPD HTN. TECHNIQUE: Portable AP frontal chest x-ray was obtained. Comparison is made to prior examination from 02/17/2021. FINDINGS: The lungs are clear. There are no pleural effusions. Cardiac silhouette is prominent but magnified on this AP technique. There is no pneumothorax suspected. The bones and soft tissues are unremarkable. IMPRESSION: No acute cardiopulmonary findings. Reviewed, dictated and finalized at location A.
--- NOTE | 2021-03-16 08:28 | ECG_ITS ---
Measurements Intervals [place] Rate: 80 P: 71 [place]: 195 QRS: 82 QRSD: 82 T: 58 QT: 305 QTc: 353 Interpretive Statements SINUS RHYTHM BORDERLINE ST ABNORMALITY- INFERIOR LEADS BASELINE ARTIFACT- V3-V6 BORDERLINE ECG Electronically Signed On 03-16-2021 10:09:52 CDT by Carmelo Graham D.O.
[2021-03-16 08:36] LABS: Basophils Absolute Auto 0.1 K/mm3 (0.0-0.1); Basophils Percent Auto 0.5 % (0.2-1.2); Eosinophils Absolute Auto 0.2 K/mm3 (0-0.3); Eosinophils Percent Auto 2.3 % (0-4.4); Hematocrit 47.2 % (42.0-52.0); Hemoglobin 14.5 g/dL (14.0-18.0); Immature Granulocyte Absolute 0.02 K/mm3 (0.00-0.031); Immature Granulocyte Percent A 0.2 % (0-0.5); Lymphocytes Absolute Auto 4.66 K/mm3 (0.9-3.2); Mean Corpuscular HGB Conc 30.7 g/dl (32-36); Mean Corpuscular Hemoglobin 29.3 pg (26-34); Mean Corpuscular Volume 95.4 fl (80-100); Mean Platelet Volume 9.6 fl (7.4-10.4); Monocytes Absolute Auto 0.9 K/mm3 (0.1-0.6); Monocytes Percent Auto 8.8 % (2.6-8.5); Neutrophils Absolute Auto 4.7 K/mm3 (1.3-6.7); Neutrophils Percent Auto 44.2 % (45.5-73.1); Platelet Count Result 236 k/mm3 (150-375); Red Blood Count 4.95 M/mm3 (4.6-6.20); Red Cell Distribution Width 16.6 % (11.5-14.5); White Blood Count 10.6 K/mm3 (4.5-10.0)
--- NOTE | 2021-03-16 08:37 | ED.GENADULT ---
HPI - General Adult General Chief complaint: Unspecified Stated complaint: SHAKES AND DROPPING THINGS Time Seen by Provider: 03/16/21 08:17 History of Present Illness HPI narrative: Patient is a 60-year-old male who presents ER with shaking. Patient reports since waking up he has been having shaking his hands when he intends to do something. When he tries to take a drink water drinking coffee he spells the liquid. Patient reports he is chronically O2 dependent and wears 3 L at a time. No increased shortness of breath or productive cough. No chest pain or chest pressure. Reports he had spent some time outside yesterday in the heat that may have caused some weakness. Patient continues to smoke. He has been without fevers and chills. Related Data Home Medications Medication Instructions Recorded Confirmed fluticasone propion-salmeterol 1 puff INHALATION BID 08/30/19 03/16/21 lisinopril 40 mg PO DAILY 08/30/19 03/16/21 montelukast 10 mg PO DAILY 08/30/19 03/16/21 fenofibrate 160 mg tablet 160 mg PO DAILY 02/17/21 03/16/21 furosemide 40 mg tablet 40 mg PO QAM 02/17/21 03/16/21 gabapentin 300 mg capsule 1,200 mg PO TID 02/17/21 03/16/21 amlodipine 10 mg PO DAILY 03/16/21 03/16/21 hydrocodone-acetaminophen 1 tablet PO Q4-6H 03/16/21 03/16/21 Allergies Allergy/AdvReac Type Severity Reaction Status Date / Time codeine Allergy Unknown Itching Verified 02/17/21 18:11 iohexol Allergy Unknown Redness of Verified 02/17/21 18:11 [From CONTRAST - CT, XRAY] Skin Review of Systems Review of Systems: All systems reviewed & are unremarkable except as noted in HPI and below Constitutional: Constitutional: Denies chills, Reports fatigue, Denies fever(s) and Denies night sweats ENT: Denies nasal congestion and Denies sore throat Cardiovascular: Cardiovascular: Denies chest pain, Denies palpitations and Denies dyspnea Respiratory: Respiratory: Denies cough and Denies dyspnea Neurologic: Denies dizziness, Denies syncope, Denies focal weakness, Denies numbness and Reports tremor(s) [facility] Past Medical History Medical History (Updated 03/16/21 @ 15:14 by Josh Andrews) Arthritis Asthma Back pain Chronic obstructive pulmonary disease Diastolic congestive heart failure Gastroesophageal reflux disease Hypertension Kidney stones Learning disability Patient is unable to read or write fluently. Obstructive sleep apnea Uses 2 L nasal cannula at nighttime in lieu of CPAP. Peripheral neuropathy Pneumonia Pulmonary hypertension Pulmonary nodule Tobacco dependence Surgical History Surgical History (Updated 03/16/21 @ 15:01 by Ya Kendall PA-C) History of cataract extraction History of cholecystectomy History of prostate surgery Family History Family History (Updated 03/16/21 @ 11:29 by Muriel Rosen, ED) Father Family history of chronic obstructive pulmonary disease, Onset Age: 74 Acute myocardial infarction Cerebrovascular accident Mother End stage renal disease on dialysis Acute myocardial infarction Cerebrovascular accident Sibling History of blood clots Diabetes mellitus Sibling Chronic obstructive pulmonary disease Hypertension Grandparent Diabetes mellitus Son Leukemia Other Carcinoma of colon Social History Social History (Updated 03/16/21 @ 14:08 by Ya Kendall PA-C) Social History: but from his for 20 years. 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 No children. Full code. Smoking packs per day: 1.5 Smoking cigarettes per day: 30.0 Years smoked: 54 Smoking pack-years: 81.00 Smoking status: Current every day smoker Tobacco type: cigarettes Alcohol intake: former Substance use: former Substance use type: marijuana Sexual Orientation (if Verbalized by the Patient): . Exam Narrative: Exam Narrative: GENERAL: Chronically ill-appearing, obese, and in no acute distress. HEAD: [place]
[2021-03-16 08:50] LABS: Anion Gap 8 mmol/L (8-16); Blood Urea Nitrogen 51 mg/dL (9-20); Calcium 9.5 mg/dL (8.4-10.2); Carbon Dioxide 28 mmol/L (22-30); Chloride 106 mmol/L (98-107); Estimated CRCL calculation 34 ml/min; Estimated Glomerular Filt Rate 25; Glucose 137 mg/dL (75-110); Potassium 5.2 mmol/L (3.4-5.0); Sodium 142 mmol/L (137-145)
[2021-03-16] MEDS: IPRATROPIUM BR 0.02% INH SOLN 0.5 MG/2.5 ML VIAL INHALATION (08:52)
[2021-03-16] MEDS: ALBUTEROL SULFATE NEB 2.5 MG/0.5 ML INH 5 MG INHALATION (08:52)
[2021-03-16] MEDS: SODIUM CHLORIDE 0.9% IV 1,000 ML 999 ML IV CONT ×2 (09:05)
--- NOTE | 2021-03-16 11:08 | PC.NURSE ---
This patient, Manny Garcia, was admitted to Medical Room 261-01. Patient/family oriented to hospital policies and general routines including ID bracelet, bed and alarms, visiting hours, pain management, procedures, bathroom and other care routines, personal items, smoking policy, room service/diet, and visiting hours. Information on how to activate the Rapid Response Team has been discussed. Patient/Family are encouraged to report perceived risks to care and to ask questions if they do not understand what they are told or what they should do.
--- NOTE | 2021-03-16 13:00 | PM.IMHP ---
H&P: HPI History of Present Illness Date/Time: 03/16/21 13:00 Chief Complaint: Shaky. Narrative: This is a 60-year-old male smoker with COPD, sleep apnea on nighttime oxygen, diastolic congestive heart failure, pulmonary hypertension, hypertension, and dyslipidemia who presented to the emergency department earlier today with reports of feeling ?shaky.? He and his sister went to visit family in [place] and returned home yesterday evening. He seemed to be in his usual state at that time but when he woke this morning he was shaky, and was having a difficult time holding on to a glass of water or even his coffee cup without spilling it. On arrival to the emergency department his blood pressures were soft but have responded to IV fluids. He was found to have an acute kidney injury and with further questioning he thinks he may be a bit dehydrated as he was out in the heat quite a bit during his recent travel. He was admitted for IV fluid rehydration and not long after arrival to the floor I received a call from his nurse that he was hypoxic and had to be placed on 3 liters nasal cannula. A subsequent ABG demonstrated acute respiratory acidosis and he was started on BiPAP and transferred to the IMU. He does not tolerate the BiPAP well and in fact does not use a CPAP at home and is only on oxygen at nighttime to treat his sleep apnea. He has restless sleep a majority of the time however over the last several days he has slept really well which he thinks is due to the muscle relaxer he was prescribed recently for back spasms. Aside from the muscle relaxer he has not had any recent change in medications. He does admit having issues starting his urinary stream on occasion it sounds like he may have had a TURP at 1 point in time. On exam his bladder was markedly distended and upon Fuentes catheter insertion, 1300 cc of urine was collected prior to clamping. At the time of my evaluation he is not having any shakes and his only complaint is that of having to wear the BiPAP. He denies fever, chills, syncope, near syncope, headache, paresthesias, focal weakness, auditory and visual changes, cold and flu symptoms, chest pain, pleuritic pain, palpitations, shortness of breath worse than baseline, wheezing, nausea, vomiting, diarrhea, and dysuria. Review of Systems Review of Systems: Narrative: Twelve systems were reviewed with pertinent positives and negatives as per HPI. He reports that he sweats a lot. He has lost about 7 pounds in the last couple of months and has been trying to lose weight. He has been having issues with back spasms and was given a muscle relaxer which seems to have helped. Reportedly the patient had imaging of his spine that he had degenerative disease although for some reason he thinks he may have cancer in his spine but he cannot further elaborate. Except as documented, all other systems were reviewed and are negative. [facility] Past Medical History Medical History Arthritis Asthma Back pain Chronic obstructive pulmonary disease Diastolic congestive heart failure Gastroesophageal reflux disease Hypertension Kidney stones Learning disability Patient is unable to read or write fluently. Obstructive sleep apnea Uses 2 L nasal cannula at nighttime in lieu of CPAP. Peripheral neuropathy Pneumonia Pulmonary hypertension Pulmonary nodule Tobacco dependence Surgical History Surgical History History of cataract extraction History of cholecystectomy History of prostate surgery Family History Family History Father Family history of chronic obstructive pulmonary disease, Onset Age: 74 Acute myocardial infarction Cerebrovascular accident Mother End stage renal disease on dialysis Acute myocardial infarction Cerebrovascular accident Sibling Hi
[2021-03-16] MEDS: SODIUM CHLORIDE 0.9% IV 1,000 ML 125 ML IV CONT (13:14)
[2021-03-16 13:15] LABS: Base Excess ABG -2.5 mEq/l (+/-2.0); Carboxyhemoglobin 5.3 % THb (0-2.0); Fractional Inspired Oxygen 30 %; HCO3 ABG 26.5 mEq/l (22.0-26.0); Methemoglobin ABG 0.2 %THb (0-1.5); Oxygen Content ABG 18.3 %vol (16.0-22.0); Oxygen Saturation ABG 90.7 % (95.0-100.0); Oxyhemoglobin 88.4 % THb (90.0-100.0); PO2 ABG 70.9 mmHg (80.0-100.0); PO2 FiO2 Ratio Arterial Blood 2.36 %; Reduced Hemoglobin 6.1 %THb (0-5.0); Total Hemoglobin 14.7 g/dL (12.0-18.0)
[2021-03-16 13:16] LABS: PCO2 ABG 64.7 mmHg (35.0-45.0)
[2021-03-16 13:17] LABS: Device NASAL CANNULA; Liters per Minute 2.5 LPM; Site Drawn RIGHT BRACHIAL
[2021-03-16 15:30] LABS: Magnesium 1.9 mg/dL (1.6-2.3)
[2021-03-16 15:31] LABS: Alanine Aminotransferase 27 U/L (4-50); Albumin Level 3.9 g/dL (3.5-5.1); Alkaline Phosphatase 102 U/L (38-126); Anion Gap 6 mmol/L (8-16); Aspartate Amino Transferase 35 U/L (17-59); Bilirubin,Total 0.5 mg/dL (0.2-1.3); Blood Urea Nitrogen 43 mg/dL (9-20); Calcium 8.8 mg/dL (8.4-10.2); Carbon Dioxide 28 mmol/L (22-30); Chloride 107 mmol/L (98-107); Creatine Kinase 203 U/L (55-170); Estimated CRCL calculation 54 ml/min; Estimated Glomerular Filt Rate 41; Glucose 91 mg/dL (75-110); Potassium 5.1 mmol/L (3.4-5.0); Sodium 141 mmol/L (137-145)
[2021-03-16 17:15] LABS: Alveolar/Arterial O2 Gradient 82.5 mmHg; Base Excess ABG 0.5 mEq/l (+/-2.0); Carboxyhemoglobin 3.5 % THb (0-2.0); Fractional Inspired Oxygen 30 %; HCO3 ABG 28.1 mEq/l (22.0-26.0); Methemoglobin ABG 0.3 %THb (0-1.5); Oxygen Content ABG 18.6 %vol (16.0-22.0); Oxygen Saturation ABG 90.2 % (95.0-100.0); Oxyhemoglobin 88.7 % THb (90.0-100.0); PCO2 ABG 57.2 mmHg (35.0-45.0); PO2 ABG 64.2 mmHg (80.0-100.0); PO2 FiO2 Ratio Arterial Blood 2.14 %; Reduced Hemoglobin 7.5 %THb (0-5.0); Total Hemoglobin 14.9 g/dL (12.0-18.0); pH ABG 7.309 (7.350-7.450)
[2021-03-16 17:16] LABS: Device NON-INVASIVE VENT; Modified Allen's Test Pass; Non-Invasive Expiratory Pressure 8 CMH2O; Non-Invasive Inspiratory Pressure 15 CMH2O; Non-Invasive Vent Rate 20 /MIN; Site Drawn LEFT RADIAL
--- NOTE | 2021-03-16 20:18 | PC.NURSE ---
pt adamant about leaving pt alert to self and place. States that nurse thinks i am dumb. Explained to the patient that he was admitted for respiratory failure due to copd. That the dr had ordered the use of he bipap machine to decrease the CO2 to a safe level and that if he goes home his condition will get worse and his respiratory condition will get worse. PT said I dont care thats your fault I want to go home and I will be calling the police.PT signed AMA paperwork IV discontinued and mojica cath removed. pt transported to [facility] in a wheelchair and assisted to a vehicle
== END 2021-03-16 20:05 | disposition left against medical advice (07) ==
LOC: ANHED 08:58 → ANH2MED 10:32 → ANHIMU 15:13
PROVIDERS: Physician Assistant; Admitting Provider Internal Medicine; Emergency Provider Emergency Medicine; PCP Family Medicine; Visit Provider Internal Medicine
DX: N17.9 Acute kidney failure, unspecified (principal); J96.02 Acute respiratory failure with hypercapnia; J96.01 Acute respiratory failure with hypoxia; R25.1 Tremor, unspecified; J44.9 Chronic obstructive pulmonary disease, unspecified; G47.33 Obstructive sleep apnea (adult) (pediatric); E78.5 Hyperlipidemia, unspecified; I11.0 Hypertensive heart disease with heart failure; I50.30 Unspecified diastolic (congestive) heart failure; R33.9 Retention of urine, unspecified; F17.210 Nicotine dependence, cigarettes, uncomplicated; Z99.81 Dependence on supplemental oxygen
CPT/HCPCS: 36415; 36600; 71045; 80048; 80053; 82375; 82550; 82805; 83050; 83735; 85025; 93005; 94002; 94640; 96360; 99285; G0378; G0379; J7030

== ENCOUNTER → 2021-03-21 05:01 | Outpatient (CLI) | payer OTHER, SELFPAY ==
[2021-03-21 18:46] LABS: SARS-CoV-2 RNA PCR Negative
== END ==
PROVIDERS: PCP Family Medicine; Visit Provider Internal Medicine Critical Care Medicine
DX: J44.9 Chronic obstructive pulmonary disease, unspecified (principal); Z20.822 Contact with and (suspected) exposure to COVID-19
CPT/HCPCS: C9803; U0003; U0005

== ENCOUNTER 2021-03-21 11:08 | Emergency (ER) | payer OTHER, SELFPAY ==
--- NOTE | ~2021-03-21 | XR_ITS ---
EXAMINATION: XR chest 1V portable 03/21/2021 12:10 INDICATION: Shortness PROCEDURE: AP portable chest COMPARISON: Comparison to multiple prior studies sequentially, with oldest reviewed study dated 09/04. FINDINGS: The lungs are clear. The cardiomediastinal silhouette is within normal limits. There are no pleural effusions. There is no pneumothorax suspected. IMPRESSION: 1: NO ACUTE CARDIOPULMONARY DISEASE. Reviewed, dictated and finalized at location A.
[2021-03-21 11:22] VITALS: BP 69/31; PULSE 91; RESP 16; O2SAT 91
[2021-03-21 11:30] VITALS: BP 64/52; PULSE 85; RESP 15; O2SAT 93
--- NOTE | 2021-03-21 11:48 | ECG_ITS ---
Measurements Intervals [place] Rate: 81 P: 51 [place]: 185 QRS: 72 QRSD: 102 T: 56 QT: 329 QTc: 383 Interpretive Statements SINUS RHYTHM BASELINE ARTIFACT- V5 NORMAL ECG Electronically Signed On 03-21-2021 11:59:10 CDT by Carmelo Graham D.O.
[2021-03-21] MEDS: SODIUM CHLORIDE 0.9% IV 1,000 ML 999 ML (11:52)
--- NOTE | 2021-03-21 12:04 | PC.NURSE ---
patient reports that he signed out AMA this past week because he was not going to have people being mean to him. Patient states They were putting that machine on my face and I didnt like how they put it on so I left. I have not been wearing my oxygen at home and if you need any medical history of medications you can call my PCP because she can tell you. patient has oxygen of 83% at time of arrival to ED room 8. Patient placed on 3L (which patient is supposed to have at all times) and oxygen up to 96%. Patient threatening to push his medical alert button to go to another hospital if people are mean to him.
[2021-03-21 12:05] LABS: Basophils Absolute Auto 0.1 K/mm3 (0.0-0.1); Basophils Percent Auto 0.3 % (0.2-1.2); Eosinophils Absolute Auto 0.1 K/mm3 (0-0.3); Eosinophils Percent Auto 0.9 % (0-4.4); Hematocrit 49.3 % (42.0-52.0); Hemoglobin 15.3 g/dL (14.0-18.0); Immature Granulocyte Absolute 0.08 K/mm3 (0.00-0.031); Immature Granulocyte Percent A 0.5 % (0-0.5); Mean Corpuscular Hemoglobin 29.3 pg (26-34); Mean Corpuscular Volume 94.3 fl (80-100); Mean Platelet Volume 9.6 fl (7.4-10.4); Monocytes Absolute Auto 1.3 K/mm3 (0.1-0.6); Monocytes Percent Auto 7.6 % (2.6-8.5); Neutrophils Absolute Auto 9.4 K/mm3 (1.3-6.7); Neutrophils Percent Auto 56.7 % (45.5-73.1); Platelet Count Result 258 k/mm3 (150-375); Red Blood Count 5.23 M/mm3 (4.6-6.20); Red Cell Distribution Width 16.5 % (11.5-14.5); White Blood Count 16.5 K/mm3 (4.5-10.0)
[2021-03-21 12:17] VITALS: BP 95/39; PULSE 87; RESP 19; O2SAT 96
[2021-03-21 12:22] LABS: Lactic Acid Reflex 1.7 mmol/L (0.7-2.1)
[2021-03-21 12:23] LABS: Anion Gap 18 mmol/L (8-16); Blood Urea Nitrogen 59 mg/dL (9-20); Calcium 9.4 mg/dL (8.4-10.2); Carbon Dioxide 22 mmol/L (22-30); Chloride 100 mmol/L (98-107); Estimated CRCL calculation 13 ml/min; Estimated Glomerular Filt Rate 8; Glucose 125 mg/dL (75-110); Potassium 5.3 mmol/L (3.4-5.0); Sodium 140 mmol/L (137-145)
[2021-03-21 12:34] VITALS: BP 98/48; PULSE 89; RESP 16; O2SAT 98
--- NOTE | 2021-03-21 12:55 | PC.NURSE ---
patient requesting to leave ED KYM, patient angry and reporting that he wants to go to [place] because the food and care are better there. patient states last week they were mean to me and I am not eating shit food here this time. I have been coming here for 14 years and I am not staying. Patient denies any poor care today and states that he is upset about his care the last time he was here. Patient states I am not wanting to be hateful, and you have taken care of me, but I want to go to [facility]. Patient told of the risks and concerns from the RN and EDP with him leaving hospital. patient's anger escalating and patient starts to yell about leaving. patients sister at bedside, understands the risks of patient leaving facility. patient taken out of ED by wheelchair.
--- NOTE | 2021-03-21 18:08 | ED.GENADULT ---
HPI - General Adult General Chief complaint: Recheck/Abnormal Lab/Rx Stated complaint: low bp Time Seen by Provider: 03/21/21 12:37 Source: patient Mode of arrival: ambulatory Limitations: no limitations History of Present Illness HPI narrative: 60-year-old with a history of hypertension tension, COPD, chronic back pain here with complaints of fall. Patient states that he was unable to sleep last night because of pain in the lower back which he has been having it for quite some time this morning he was trying to fix his car fell. He also complains of shortness of breath. He denies any chest pain, nausea or vomiting. Onset (ago): hour(s) (2) Exacerbating factors: none Associated symptoms: denies other symptoms Related Data Home Medications Medication Instructions Recorded Confirmed fluticasone propion-salmeterol 1 puff INHALATION BID 08/30/19 03/16/21 lisinopril 40 mg PO DAILY 08/30/19 03/16/21 montelukast 10 mg PO DAILY 08/30/19 03/16/21 fenofibrate 160 mg tablet 160 mg PO DAILY 02/17/21 03/16/21 furosemide 40 mg tablet 40 mg PO QAM 02/17/21 03/16/21 gabapentin 300 mg capsule 1,200 mg PO TID 02/17/21 03/16/21 amlodipine 10 mg PO DAILY 03/16/21 03/16/21 hydrocodone-acetaminophen 1 tablet PO Q4-6H 03/16/21 03/16/21 Allergies Allergy/AdvReac Type Severity Reaction Status Date / Time codeine Allergy Unknown Itching Verified 03/21/21 11:46 iohexol Allergy Unknown Redness of Verified 03/21/21 11:46 [From CONTRAST - CT, XRAY] Skin Review of Systems Review of Systems: All systems reviewed & are unremarkable except as noted in HPI and below Constitutional: Constitutional: Reports no additional constitutional complaints Eyes: Eyes: Reports no additional eye complaints ENT: Reports system reviewed and no additional complaints, except as documented Cardiovascular: Cardiovascular: Reports no additional cardiovascular complaints Respiratory: Respiratory: Reports as per HPI Gastrointestinal: Gastrointestinal: Reports no additional gastrointestinal complaints Musculoskeletal: Musculoskeletal: Reports no additional musculoskeletal complaints PMFSH Past Medical History Medical History Arthritis Asthma Back pain Chronic obstructive pulmonary disease Diastolic congestive heart failure Gastroesophageal reflux disease Hypertension Kidney stones Learning disability Patient is unable to read or write fluently. Obstructive sleep apnea Uses 2 L nasal cannula at nighttime in lieu of CPAP. Peripheral neuropathy Pneumonia Pulmonary hypertension Pulmonary nodule Tobacco dependence Surgical History Surgical History History of cataract extraction History of cholecystectomy History of prostate surgery Family History Family History Father Family history of chronic obstructive pulmonary disease, Onset Age: 74 Acute myocardial infarction Cerebrovascular accident Mother End stage renal disease on dialysis Acute myocardial infarction Cerebrovascular accident Sibling History of blood clots Diabetes mellitus Sibling Chronic obstructive pulmonary disease Hypertension Grandparent Diabetes mellitus Son Leukemia Other Carcinoma of colon Social History Social History (Updated 03/17/21 @ 00:44 by Ya Kendall PA-C) Social History: The patient lives in a trailer in [place]. He is but he and his have been for well over 20 years. He has one son. 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 No alcohol or illicit substance use. He designates his step daughter, Karely Flores, as his surrogate decision maker. Code status: Full code. Smoking packs per day: 1.5 Smoking cigarettes per day: 30.0 Years smoked: 50 Smoking pack-years: 75.00 Exam [place]
--- NOTE | 2021-03-27 08:13 | PC.NURSE ---
LATE ENTRY This note is being entered to document information to the patient's record. The following information was omitted on [03/21/2021], by [Hyacinth Cruz RN pt 1000 mL of IV normal saline finished at 1253].
== END 2021-03-21 13:11 | disposition left against medical advice (07) ==
PROVIDERS: Emergency Provider Family Medicine; PCP Family Medicine
DX: I95.9 Hypotension, unspecified (principal); M19.90 Unspecified osteoarthritis, unspecified site; J45.909 Unspecified asthma, uncomplicated; I10 Essential (primary) hypertension; K21.9 Gastro-esophageal reflux disease without esophagitis; F17.210 Nicotine dependence, cigarettes, uncomplicated
CPT/HCPCS: 36415; 71045; 80048; 83605; 85025; 87040; 93005; 96360; 99284; C9803; J7030; U0003; U0005

== ENCOUNTER 2021-03-24 12:40 | Inpatient (IN) | payer OTHER, SELFPAY ==
[2021-03-24] VITALS (46 sets, daily range): BP systolic 72–142; BP diastolic 41–78; PULSE 53–85; RESP 12–25; TEMP 36–37.1; O2SAT 91–99; BMI 31.6
--- NOTE | ~2021-03-24 | XR_ITS ---
XR abdomen NG/feed tube insert INDICATION: Evaluate NG tube position. TECHNIQUE: Limited KUB perform for evaluating NG tube . COMPARISON: 06/06/2013 FINDINGS: NG tube tip in the stomach. Visualized bowel gas pattern is nonspecific with mild dilation of small bowel in the left abdomen. IMPRESSION: 1: NG tube tip in the stomach. 2: Nonspecific bowel gas pattern, incompletely visualized. Mild small bowel dilation may represent il eus or obstruction. Reviewed, dictated and finalized at location B. IMPRESSION: 1: NG tube tip in the stomach. 2: Nonspecific bowel gas pattern, incompletely visualized. Mild small bowel dil ation may represent ileus or obstruction.
--- NOTE | ~2021-03-24 | XR_ITS ---
EXAMINATION: XR chest ET placement, XR abdomen NG/feed tube insert DATE: 03/27/2021 08:53 INDICATION: Endotracheal tube and orogastric tube placement TECHNIQUE: 1. Frontal view of the chest was obtained. 2. Portable AP supine view of the abdomen was obtained. COMPARISON: Chest radiograph dated 03/27/2021 FINDINGS: Chest: Endotracheal tube tip 1.5 cm above the ramiro. Right internal jugular central venous catheter with di stal tip at the midsuperior vena cava. Persistent airspace opacity at the left lower lung zone consistent with atelectasis and/or pneumonia. Small calcified nodule at the lateral left lower lung zone consistent with old granulomatous disease . Mild streaky right basilar atelectasis. No pulmonary edema, pleural effusion or pneumothorax. The c ardiomediastinal silhouette is normal. KUB: Orogastric tube tip in proximal side port in the body of the stomach. IMPRESSION: 1. Endotracheal tube and orogastric tube in expected positions. 2. Unchanged patchy airspace opacity left lower lung zone consistent with atelectasis and/or pneumoni a. Reviewed, dictated and finalized at location A. IMPRESSION: 1. Endotracheal tube and orogastric tube in expected positions. 2. Unchanged patchy airspace opacity left lower lung zone consistent with atele ctasis and/or pneumonia.
--- NOTE | ~2021-03-24 | XR_ITS ---
EXAMINATION: XR chest 1V portable DATE: 03/27/2021 05:37 INDICATION: Respiratory failure TECHNIQUE: frontal view of the chest was obtained. COMPARISON: Chest radiograph dated 03/26/2021 FINDINGS: Endotracheal tube tip 3.5 cm above the ramiro. Nasogastric tube extends below the left hemidiaphragm with distal tip collimated off the study. Right internal jugular central venous catheter with distal tip at the midsuperior vena cava. No significant change in patchy airspace opacities in the bilateral lower lung zones. Interval improv ement in the early superimposed mild pulmonary edema. No pneumothorax. Small left pleural effusions. The cardiomediastinal silhouette is normal. IMPRESSION: 1. Resolution of prior pulmonary edema with no significant change in a more patchy airspace opacities in the lateral lower lung zones which could represent atelectasis and/or pneumonia. 2. Unchanged small left pleural effusion. Reviewed, dictated and finalized at location A. IMPRESSION: 1. Resolution of prior pulmonary edema with no significant change in a more pat suzie airspace opacities in the lateral lower lung zones which could represent at electasis and/or pneumonia. 2. Unchanged small left pleural effusion.
--- NOTE | ~2021-03-24 | XR_ITS ---
XR abdomen obstructive series 03/29/2021 10:22 Indication: Distended abdomen Procedure: Supine and upright views of the abdomen Comparison: Comparison to multiple prior studies sequentially, with oldest reviewed study dated 11/2012. Findings: There are is moderate gas throughout the colon. NG tube in the stomach. No free intraperito francisca air. No significant small bowel dilation.. Small left pleural effusion. Left basilar atelectasis . Impression: 1: Moderate gas throughout the colon, likely ileus. Reviewed, dictated and finalized at location A. Impression: 1: Moderate gas throughout the colon, likely ileus.
--- NOTE | ~2021-03-24 | XR_ITS ---
XR chest 1V portable 03/29/2021 05:19 Indication: Acute respiratory failure. Pneumonia. Procedure: AP portable chest Comparison: Comparison to multiple prior studies sequentially, with oldest reviewed study dated 03/26. Findings: Endotracheal tube tip 4.6 cm above the ramiro. NG tube not visualized distally. Mild inters titial edema. Small left pleural effusion. No pneumothorax. Impression: 1: Diffuse bilateral interstitial infiltrates with perihilar prevalence, likely interstitial edema. P neumonia less favored. Reviewed, dictated and finalized at location A. Impression: 1: Diffuse bilateral interstitial infiltrates with perihilar prevalence, likely interstitial edema. Pneumonia less favored.
--- NOTE | ~2021-03-24 | XR_ITS ---
EXAMINATION: XR chest 1V portable DATE: 04/02/2021 05:57 INDICATION: Respiratory failure and pneumonia. TECHNIQUE: frontal view of the chest was obtained. COMPARISON: Chest radiograph dated 04/01/2021 FINDINGS: Endotracheal tube tip 6.1 cm above the ramiro. Right upper extremity peripherally inserted central ve nous catheter (PICC) tip at the mid superior vena cava. Nasogastric tube extends below the left hem idiaphragm with distal tip collimated off the study. Scattered opacities in the bilateral perihilar regions and lower lung zones with improvement in the l eft lower lung zone. Blunting at the left costophrenic angle consistent with small left pleural effus ion. No pneumothorax. The cardiomediastinal silhouette is normal. IMPRESSION: 1. Mild bilateral perihilar and lower lung zone opacities which could represent mild pulmonary edema, atelectasis, pneumonia or some combination thereof. 2. Small left pleural effusion. Reviewed, dictated and finalized at location A.
--- NOTE | ~2021-03-24 | XR_ITS ---
EXAMINATION: XR chest 1V portable DATE: 03/28/2021 05:34 INDICATION: Acute respiratory failure. Pneumonia. TECHNIQUE: frontal view of the chest was obtained. COMPARISON: Chest radiograph dated 03/27/2021 FINDINGS: Endotracheal tube tip 3.2 cm above the ramiro. Nasogastric tube extends below the left hemidiaphragm with distal tip collimated off the study. Right internal jugular central venous catheter with distal tip at the midsuperior vena cava. No significant change in airspace opacity along with a small calcified nodule left lower lung zone or streaky mild right basilar atelectasis. Small left pleural effusion. No pneumothorax. The cardiomedi astinal silhouette is normal. IMPRESSION: 1. Unchanged opacities in the left lower lobe which could represent atelectasis and/or pneumonia. 2. Small left pleural effusion. Reviewed, dictated and finalized at location A.
--- NOTE | ~2021-03-24 | XR_ITS ---
XR abdomen obstructive series 03/30/2021 08:32 Indication: Ileus. Procedure: Supine and upright views of the abdomen Comparison: Comparison to multiple prior studies sequentially, with oldest reviewed study dated 12/2012. Findings: Persistent dilation of the transverse colon. NG tube in the stomach. No free air identified . No significant small bowel dilation. There is gas throughout the colon and rectum. Bibasilar atelec tasis. Probable small effusions. Impression: 1: Mild persistent dilation of the transverse colon without significant change, likely ileus. Reviewed, dictated and finalized at location A. Impression: 1: Mild persistent dilation of the transverse colon without significant change, likely ileus.
--- NOTE | ~2021-03-24 | CT_ITS ---
EXAMINATION:CT diagnostic chest wo con DATE: 03/24/2021 16:29 INDICATION: Respiratory failure. TECHNIQUE: Computed tomography (CT) of the chest was performed without intravenous contrast. Automate d exposure control and iterative reconstruction technique were employed. The dose-length product (DLP ) was 681.00 mGy-cm. COMPARISON: Chest CT 10/01/2019 FINDINGS: There is mild emphysema. There is a stable 5 mm nodule in right upper lobe. There are tree- in-bud opacities in right upper lobe, consistent with pneumonia. There is mild atelectasis in right l edilma. There is volume loss of left hemithorax. There is complete collapse of left lower lobe. There is opacification of the left lower lobe bronchus. There is moderate atelectasis in left upper lobe. A c alcified left lung nodule is consistent with old granulomatous disease. There is no pleural effusion. The endotracheal tube tip is 1.7 cm above the ramiro. The heart size is normal. There are coronary a rtery calcifications. No pericardial effusion. There is diffuse hepatic steatosis. There is a 2.0 cm mass in the right gland measuring low-attenuation, consistent with an adenoma. IMPRESSION: 1. Areas of atelectasis including complete collapse of left lower lobe. Opacification of the left low er lobe bronchus may be mucous plugging. 2. Mild pneumonia in right upper lobe. 3. Mild emphysema. 4. Diffuse hepatic steatosis. Reviewed, dictated and finalized at location A. IMPRESSION: 1. Areas of atelectasis including complete collapse of left lower lobe. Opacifi cation of the left lower lobe bronchus may be mucous plugging. 2. Mild pneumonia in right upper lobe. 3. Mild emphysema. 4. Diffuse hepatic steatosis.
--- NOTE | ~2021-03-24 | XR_ITS ---
EXAMINATION: XR chest 1V portable DATE: 03/31/2021 05:36 INDICATION: Acute respiratory failure. Pneumonia. TECHNIQUE: frontal view of the chest was obtained. COMPARISON: Chest radiograph dated 03/30/2021 FINDINGS: Endotracheal tube tip 7.0 cm above the ramiro. Nasogastric tube extends below the left hemidiaphragm with distal tip collimated off the study. Bilateral mild diffuse increased interstitial pattern consistent with mild pulmonary edema. Mild airs pace opacities in the bilateral lower lung zones which could represent more focal pulmonary edema, at electasis or pneumonia. No pneumothorax or right-sided pleural effusion. Possible small left pleural effusion. The cardiomediastinal silhouette is normal. IMPRESSION: 1. Diffuse interstitial pattern with more focal opacities in the bilateral lower lung zones consisten t with mild pulmonary edema and basilar atelectasis and/or pneumonia. 2. Possible small left pleural effusion. Reviewed, dictated and finalized at location A. IMPRESSION: 1. Diffuse interstitial pattern with more focal opacities in the bilateral lowe r lung zones consistent with mild pulmonary edema and basilar atelectasis and/o r pneumonia. 2. Possible small left pleural effusion.
--- NOTE | ~2021-03-24 | XR_ITS ---
EXAMINATION: XR chest 1V portable, XR abdomen NG/feed tube insert DATE: 04/01/2021 05:44 INDICATION: Acute respiratory failure. Orogastric tube placement. TECHNIQUE: 1. Frontal view of the chest was obtained. 2. Semiupright AP view of the abdomen was obtained. COMPARISON: Chest radiograph dated 03/31/2021 and obstructive series dated 03/30/2021 FINDINGS: Chest: Endotracheal tube tip 5.5 cm above the ramiro. Improvement in prior pulmonary edema. Persistent mild bibasilar opacities. Small calcified nodule at the left lower lung zone consistent with old granuloma tous disease. No pneumothorax or definitive pleural effusion. The cardiomediastinal silhouette is nor mal. Abdomen: Orogastric tube tip in proximal side port in the body of the stomach. Gas is seen extending across th e visualized portion of the transverse colon. The lower abdomen and pelvis are excluded from the fiel d-of-view. IMPRESSION: 1. Improvement in prior pulmonary edema with residual bibasilar opacities which could represent atele ctasis, minimal residual pulmonary edema or pneumonia. 2. Endotracheal tube and orogastric tubes in expected positions. Reviewed, dictated and finalized at location A. IMPRESSION: 1. Improvement in prior pulmonary edema with residual bibasilar opacities which could represent atelectasis, minimal residual pulmonary edema or pneumonia. 2. Endotracheal tube and orogastric tubes in expected positions.
--- NOTE | ~2021-03-24 | XR_ITS ---
XR chest 1V portable 03/30/2021 06:09 Indication: Acute respiratory failure. Pneumonia. Procedure: AP portable chest Comparison: Comparison to multiple prior studies sequentially, with oldest reviewed study dated 03/27. Findings: Stable diffuse bilateral airspace disease with peribronchial thickening. Endotracheal tube tip 6 cm above the ramiro. NG tube in the stomach. Right IJ central venous catheter removed. Possible small left pleural effusion. No pneumothorax. Impression: 1: Stable diffuse bilateral airspace disease which may represent edema or pneumonia. Reviewed, dictated and finalized at location A. Impression: 1: Stable diffuse bilateral airspace disease which may represent edema or pneum onia.
--- NOTE | ~2021-03-24 | US_ITS ---
US renal BI 03/24/2021 16:11 Procedure: Realtime transabdominal ultrasound of the kidneys and bladder. Indication: Acute renal insufficiency Comparison: Ultrasound dated 12/19/2012. Findings: Renal echotexture is normal bilaterally without hydronephrosis, contour deforming mass or r enal calculus. The right kidney measures 11.8 cm and left kidney measures 11.2 cm. Bladder not well visualized due to Fuentes catheter. Impression: 1: Unremarkable renal ultrasound. No stones, masses or hydronephrosis. Reviewed, dictated and finalized at location B. Impression: 1: Unremarkable renal ultrasound. No stones, masses or hydronephrosis.
--- NOTE | ~2021-03-24 | CT_ITS ---
EXAMINATION: CT brain wo con DATE: 03/24/2021 16:28 INDICATION: Confusion. Lethargy. TECHNIQUE: Computed tomography (CT) of the head was performed without intravenous contrast. The mA wa s adjusted according to patient size. Iterative reconstruction technique was employed. The dose-lengt h product was 681.00 mGy-cm. COMPARISON: Head CT 03/19/2013 FINDINGS: There is no intracranial hemorrhage, acute infarction, or abnormal intracranial mass lesion . The ventricles are normal in size. There are likely changes of ocular lens replacement surgeries. T here is a small right mastoid effusion. There is mild mucosal thickening in the paranasal sinuses. IMPRESSION: 1. Normal brain. Reviewed, dictated and finalized at location A. IMPRESSION: 1. Normal brain.
--- NOTE | ~2021-03-24 | XR_ITS ---
XR chest ET placement 03/24/2021 14:05 Indication: Respiratory distress Procedure: AP view of the chest Comparison: Comparison to multiple prior studies sequentially, with oldest reviewed study dated 11/18. Findings: Cardiomegaly with mild interstitial edema. Endotracheal tube tip 2.4 cm above the ramiro. N G tube in the stomach. Small left effusion. Right costophrenic recess is excluded limiting evaluation for right effusion. No pneumothorax. Impression: 1: Cardiomegaly with mild interstitial edema. Pneumonia less favored. Reviewed, dictated and finalized at location B. Impression: 1: Cardiomegaly with mild interstitial edema. Pneumonia less favored.
--- NOTE | ~2021-03-24 | XR_ITS ---
EXAMINATION: XR chest 1V portable DATE: 03/26/2021 05:32 INDICATION: Pneumonia TECHNIQUE: frontal view of the chest was obtained. COMPARISON: Chest radiograph dated 03/25/2021 FINDINGS: Endotracheal tube tip 3.8 cm above the ramiro. Nasogastric tube extends below the left hemidiaphragm with distal tip collimated off the study. And right internal jugular central venous catheter with di stal tip at the midsuperior vena cava. Continued slight improvement in airspace opacity in the left lower lung zone. Increased interstitial pattern with perihilar bronchial wall thickening suggesting developing mild pulmonary edema. Unchange d small left pleural effusion. No pneumothorax. The cardiomediastinal silhouette is normal. IMPRESSION: 1. Continued slight improvement in the airspace opacities in the left lower lung zone consistent with improving pneumonia. 2. Bronchial wall thickening/peribronchial cuffing with increase in a subtle interstitial pattern rosio picious for developing mild pulmonary edema. 3. Unchanged small left pleural effusion. Reviewed, dictated and finalized at location A. IMPRESSION: 1. Continued slight improvement in the airspace opacities in the left lower reema g zone consistent with improving pneumonia. 2. Bronchial wall thickening/peribronchial cuffing with increase in a subtle in terstitial pattern suspicious for developing mild pulmonary edema. 3. Unchanged small left pleural effusion.
--- NOTE | ~2021-03-24 | XR_ITS ---
EXAMINATION: XR chest port-a-cath/central DATE: 03/24/2021 17:31 INDICATION: Central line placement. TECHNIQUE: A single frontal view of the chest was obtained. COMPARISON: Chest single view at 1:41 PM, chest CT 03/24/2021, chest single view 03/21/2021 FINDINGS: There is volume loss of left hemithorax. There are airspace opacities in left lung with a p eripheral dominance, worst at left lung base. There are mild airspace opacities in right lower lung z one. No definite pleural effusion. No pneumothorax. The heart size is normal. The endotracheal tube t ip is 1.7 cm above the ramiro. The nasogastric tube tip is beyond the inferior margin of the radiogra ph, but at least to the stomach. A right internal jugular central venous catheter is seen with tip in the superior vena cava. IMPRESSION: 1. Central line tip in superior vena cava. 2. Volume loss of left hemithorax with airspace opacities in left lung and right lower lung zone, lik teto atelectasis. Reviewed, dictated and finalized at location A. IMPRESSION: 1. Central line tip in superior vena cava. 2. Volume loss of left hemithorax with airspace opacities in left lung and righ t lower lung zone, likely atelectasis.
--- NOTE | ~2021-03-24 | XR_ITS ---
EXAMINATION: XR chest PICC line INDICATION: PICC insertion TECHNIQUE: Portable AP chest at zero 942 and 0947 hours COMPARISON: 04/01/2021 FINDINGS: A right upper extremity PICC has been inserted which ends at the superior cavoatrial juncti on on the lateral the two submitted images. The endotracheal tube is 6.1 cm above the ramiro. The lolita ogastric tube is followed as far as the stomach. Its tip is beyond the inferior margin of the radiogr aph. Bibasilar airspace opacities persist with slight worsening on the left. There is no pneumothorax . No definite pleural effusion is identified. The cardiomediastinal silhouette is stable. IMPRESSION: 1. Right upper extremity PICC ending at the superior cavoatrial junction. 2. Bibasilar airspace opacities with slight worsening on the left, consistent with atelectasis versus pneumonia. Reviewed, dictated and finalized at location B. IMPRESSION: 1. Right upper extremity PICC ending at the superior cavoatrial junction. 2. Bibasilar airspace opacities with slight worsening on the left, consistent w ith atelectasis versus pneumonia.
--- NOTE | ~2021-03-24 | US_ITS ---
EXAMINATION:US venous doppler LE BI INDICATION:Fevers. Leg edema. TECHNIQUE: Multiple grayscale, color flow and Doppler images of the right and left lower extremity de ep venous systems were obtained and reviewed. COMPARISON:09/06/2019 FINDINGS: The common femoral, superficial femoral and popliteal veins demonstrate normal respiratory variation, augmentation and compressibility. Color flow is also seen within the posterior tibial, pe roneal, greater saphenous and profunda veins. IMPRESSION: 1: No lower extremity deep venous thrombosis. Reviewed, dictated and finalized at location A.
--- NOTE | ~2021-03-24 | XR_ITS ---
EXAMINATION: XR chest 1V portable DATE: 03/25/2021 06:04 INDICATION: Respiratory failure TECHNIQUE: frontal view of the chest was obtained. COMPARISON: Chest radiograph dated 03/24/2021 FINDINGS: Endotracheal tube tip 2.0 cm above the ramiro. Nasogastric tube extends below the left hemidiaphragm with distal tip collimated off the study. Right internal jugular central venous catheter with distal tip at the caudal superior vena cava. There is been some interval improvement in airspace opacities in the left lower lung zone along with decrease in size of a small left pleural effusion. Additional mild opacities scattered throughout the remainder of the lungs. The cardiomediastinal silhouette is normal. IMPRESSION: 1. Decrease in size of a small left pleural effusion as well as in opacities predominantly left lower lung zone which could represent improving atelectasis and/or pneumonia. Reviewed, dictated and finalized at location A. IMPRESSION: 1. Decrease in size of a small left pleural effusion as well as in opacities pr edominantly left lower lung zone which could represent improving atelectasis an d/or pneumonia.
--- NOTE | 2021-03-24 12:45 | ECG_ITS ---
Measurements Intervals [place] Rate: 62 P: -31 SC: 240 QRS: 122 QRSD: 118 T: 2 QT: 360 QTc: 368 Interpretive Statements SINUS RHYTHM WITH FIRST DEGREE AV BLOCK FREQUENT ATRIAL PREMATURE COMPLEXES LEFT POSTERIOR FASCICULAR BLOCK BORDERLINE ST ABNORMALITY- INFERIOR LEADS BASELINE ARTIFACT- II, III, AVR, AVF, V3-V6 ABNORMAL ECG Electronically Signed On 03-24-2021 15:29:19 CDT by Carmelo Graham D.O.
--- NOTE | 2021-03-24 12:51 | ED.AMS ---
HPI - Altered Mental Status General Chief Complaint: Altered Mental Status Stated Complaint: low bp Time Seen by Provider: 03/24/21 12:47 History of Present Illness HPI narrative: 60 yo male w/ h/o COPD, diastolic heart failure brought in by EMS from home for altered mental status. He has reportedly been obtunded since yesterday afternoon. It seems that he has a h/o CO2 retention. On chart review it appears that he has had worsening renal function. He has reportedly signed out AMA on at least a few occasions. History limited by mental status Related Data Home Medications Medication Instructions Recorded Confirmed fluticasone propion-salmeterol 1 puff INHALATION BID 08/30/19 03/16/21 lisinopril 40 mg PO DAILY 08/30/19 03/16/21 montelukast 10 mg PO DAILY 08/30/19 03/16/21 fenofibrate 160 mg tablet 160 mg PO DAILY 02/17/21 03/16/21 furosemide 40 mg tablet 40 mg PO QAM 02/17/21 03/16/21 gabapentin 300 mg capsule 1,200 mg PO TID 02/17/21 03/16/21 amlodipine 10 mg PO DAILY 03/16/21 03/16/21 hydrocodone-acetaminophen 1 tablet PO Q4-6H 03/16/21 03/16/21 Allergies Allergy/AdvReac Type Severity Reaction Status Date / Time codeine Allergy Unknown Itching Verified 03/21/21 11:46 iohexol Allergy Unknown Redness of Verified 03/21/21 11:46 [From CONTRAST - CT, XRAY] Skin Review of Systems Review of Systems: ROS unobtainable: Yes unobtainable due to mental status [facility] Past Medical History Medical History Arthritis Asthma Back pain Chronic obstructive pulmonary disease Diastolic congestive heart failure Gastroesophageal reflux disease Hypertension Kidney stones Learning disability Patient is unable to read or write fluently. Obstructive sleep apnea Uses 2 L nasal cannula at nighttime in lieu of CPAP. Peripheral neuropathy Pneumonia Pulmonary hypertension Pulmonary nodule Tobacco dependence Surgical History Surgical History History of cataract extraction History of cholecystectomy History of prostate surgery Family History Family History Father Family history of chronic obstructive pulmonary disease, Onset Age: 74 Acute myocardial infarction Cerebrovascular accident Mother End stage renal disease on dialysis Acute myocardial infarction Cerebrovascular accident Sibling History of blood clots Diabetes mellitus Sibling Chronic obstructive pulmonary disease Hypertension Grandparent Diabetes mellitus Son Leukemia Other Carcinoma of colon Social History Social History Social History: The patient lives in a trailer in [place]. He is but he and his have been for well over 20 years. He has one son. 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 No alcohol or illicit substance use. He designates his step daughter, Karely Flores, as his surrogate decision maker. Code status: Full code. Smoking packs per day: 1.5 Smoking cigarettes per day: 30.0 Years smoked: 50 Smoking pack-years: 75.00 Exam Const: General: ill appearing Other: moderate distress, obtunded, HENMT: Head: normal to inspection, no contusions and no lacerations Mouth: Yes dry mucous membranes Eyes: Pupils: Equal, round and reactive pupils present Neck: Neck: normal visual inspection Resp: Auscultation: wheezes and diminished lung sounds Cardio: Rate: regular rate Rhythm: regular rhythm GI: GI Palp: Yes Soft to palpation Skin: General skin exam: normal color Neuro: General: moves all extremities Other: responds to painful stimuli. Not following commands or answering questions Extrem: General: edema bilateral (trace) Course Vital Signs Vital signs: Vital Signs Temperature 36.5 C 03/24
[2021-03-24 12:55] LABS: Glucose Point of Care 155 mg/dl (65-105)
[2021-03-24 13:05] LABS: Basophils Percent Auto 0.1 % (0.2-1.2); Hematocrit 47.7 % (42.0-52.0); Hemoglobin 13.8 g/dL (14.0-18.0); Immature Granulocyte Percent A 0.7 % (0-0.5); Lymphocytes Absolute Auto 1.82 K/mm3 (0.9-3.2); Lymphocytes Percent Auto 13.6 % (18.3-44.2); Mean Corpuscular HGB Conc 28.9 g/dl (32-36); Mean Corpuscular Hemoglobin 29.2 pg (26-34); Mean Corpuscular Volume 100.8 fl (80-100); Mean Platelet Volume 10.3 fl (7.4-10.4); Monocytes Absolute Auto 1.2 K/mm3 (0.1-0.6); Neutrophils Absolute Auto 10.3 K/mm3 (1.3-6.7); Neutrophils Percent Auto 76.6 % (45.5-73.1); Platelet Count Result 232 k/mm3 (150-375); Red Blood Count 4.73 M/mm3 (4.6-6.20); Red Cell Distribution Width 18.1 % (11.5-14.5); White Blood Count 13.4 K/mm3 (4.5-10.0)
[2021-03-24 13:14] LABS: Alveolar/Arterial O2 Gradient 501.4 mmHg; Base Excess ABG -14.3 mEq/l (+/-2.0); Fractional Inspired Oxygen 100 %; Oxygen Content ABG 20.1 %vol (16.0-22.0); Oxygen Saturation ABG 97.2 % (95.0-100.0); Oxyhemoglobin 95.1 % THb (90.0-100.0); PO2 ABG 138.8 mmHg (80.0-100.0); PO2 FiO2 Ratio Arterial Blood 1.39 %; Total Hemoglobin 14.9 g/dL (12.0-18.0)
[2021-03-24 13:15] LABS: Ammonia 33 umol/L (9-30)
[2021-03-24 13:15] LABS: Lactic Acid Reflex 0.8 mmol/L (0.7-2.1)
[2021-03-24 13:17] LABS: Modified Allen's Test Pass; PCO2 ABG 72.8 mmHg (35.0-45.0); Site Drawn RIGHT RADIAL; pH ABG 7.011 (7.350-7.450)
[2021-03-24 13:18] LABS: Device NON-REBREATHER MASK
[2021-03-24 13:23] LABS: Alanine Aminotransferase 27 U/L (4-50); Albumin Level 4.4 g/dL (3.5-5.1); Alkaline Phosphatase 79 U/L (38-126); Anion Gap 21 mmol/L (8-16); Aspartate Amino Transferase 38 U/L (17-59); Bilirubin,Total 0.8 mg/dL (0.2-1.3); Blood Urea Nitrogen 107 mg/dL (9-20); Calcium 8.3 mg/dL (8.4-10.2); Carbon Dioxide 17 mmol/L (22-30); Chloride 102 mmol/L (98-107); Creatine Kinase 505 U/L (55-170); Estimated Glomerular Filt Rate 3; Glucose 153 mg/dL (75-110); Potassium 8.8 mmol/L (3.4-5.0); Sodium 140 mmol/L (137-145)
[2021-03-24 13:28] LABS: Troponin I 0.019 ng/mL (0.000-0.034)
[2021-03-24] MEDS: SODIUM BICARBONATE 8.4% 50 MEQ/50 ML VIAL IV PUSH (13:35)
[2021-03-24] MEDS: DEXTROSE 50% 25 GM/50 ML SYRINGE IV PUSH (13:40)
[2021-03-24] MEDS: CALCIUM GLUCONATE 1,000 MG/10 ML VIAL 1000 MG IV PUSH (13:40)
[2021-03-24] MEDS: INSULIN HUMAN REGULAR (*BKC) 100 UNITS/ML 10 UNITS IV PUSH (13:40)
--- NOTE | 2021-03-24 13:40 | PC.NURSE ---
ALVA Constantino in room for intubation. Verbal orders received for Atomidate 20mg administered at 1341, Harley 50mg administered at 1342. Patient intubated with an 8tube with a measurement 26 at lip. Good color change for end tidal. Breath sounds equal bilaterally, good rise and fall in chest.
[2021-03-24 13:47] LABS: Thyroid Stimulating Hormone 0.347 uIU/mL (0.465-4.680)
[2021-03-24] MEDS: SODIUM CHLORIDE 0.9% IV 1,000 ML 999 ML IV CONT ×2 (13:58→18:16)
[2021-03-24] MEDS: SODIUM BICARBONATE 8.4% 50 MEQ/50 ML SYRINGE IV PUSH (13:58)
[2021-03-24] MEDS: NALOXONE HCL 0.4 MG/ML VIAL IV PUSH (14:02)
[2021-03-24] MEDS: FENTANYL 2,500MCG/NS250ML(*CRX 2,500 MCG/250 ML BAG IV CONT (14:09)
[2021-03-24] MEDS: MIDAZOLAM 100MG/NS 100ML(*CRX) 100 MG/100 ML BAG IV CONT (14:10)
[2021-03-24 14:12] LABS: INR 1.1; Prothrombin Time 15.1 Seconds (11.1-14.7)
[2021-03-24 14:14] LABS: Partial Thromboplastin Time 27.1 SECONDS (22.3-36.8)
--- NOTE | 2021-03-24 14:15 | PC.NURSE ---
Patient became more alert after initiating Fentanyl and Versed drips. Patient was pulling and biting at lines. Rates increased per protocol.
[2021-03-24] MEDS: ALBUTEROL SULFATE NEB 2.5 MG/0.5 ML INH 10 MG INHALATION (14:18)
[2021-03-24] MEDS: MIDAZOLAM HCL (*CRX) 2 MG/2 ML VIAL 4 MG IV PUSH (14:33)
[2021-03-24 14:45] LABS: Add Urine Microscopic? YES; Appearance Urine Cloudy (Clear); Bacteria Urine Trace /hpf; Bilirubin Urine Negative (Negative); Blood Urine 2+ (Negative); Color Urine Amber (Yellow); Glucose Urine UA Negative (Negative); Ketones Urine Negative (Negative); Leukocyte Esterase Ur Negative LEU/UL (Negative); Nitrate Urine Negative (Negative); Protein Urine 1+ mg/dL (Negative); Squamous Epithelial Cell Urine Rare /hpf (Few); Urobilinogen Urine Negative mg/dL (<2.0); WBC Urine 0-3 /hpf
[2021-03-24 14:48] LABS: Amphetamine Screen Urine Negative (Negative); Barbiturate Screen Urine Negative (Negative); Benzodiazepines Screen Urine Negative (Negative); Cannabinoid Screen Urine Negative (Negative); Cocaine Screen Urine Negative (Negative); Methadone Screen Urine Negative (Negative); Opiate Screen Urine Positive (Negative); Phencyclidine Screen Urine Negative (Negative)
[2021-03-24] MEDS: SODIUM CHLORIDE 0.9% IV 1,000 ML 125 ML IV CONT ×2 (15:00→21:58)
--- NOTE | 2021-03-24 17:02 | ADMGEN ---
This patient, Manny Garcia, was admitted to Intensive Care Unit-4 at 1645. Patient/family oriented to hospital policies and general routines including ID bracelet, bed and alarms, visiting hours, pain management, procedures, bathroom and other care routines, personal items, smoking policy, room service/diet, and visiting hours. Information on how to activate the Rapid Response Team has been discussed. Patient/Family are encouraged to report perceived risks to care and to ask questions if they do not understand what they are told or what they should do.
--- NOTE | 2021-03-24 17:06 | ADMGEN ---
This patient, Manny Garcia, was admitted to Intensive Care Unit-4. Patient/family oriented to hospital policies and general routines including ID bracelet, bed and alarms, visiting hours, pain management, procedures, bathroom and other care routines, personal items, smoking policy, room service/diet, and visiting hours. Information on how to activate the Rapid Response Team has been discussed. Patient/Family are encouraged to report perceived risks to care and to ask questions if they do not understand what they are told or what they should do.
--- NOTE | 2021-03-24 17:16 | PM.CNGS ---
Assessment and Plan Assessment and plan (1) Acute hyperkalemia: Code(s): E87.5 - Hyperkalemia Status: Acute Assessment and Plan: Due to patient's severe hyperkalemia and acute renal failure, he is in need of emergent dialysis. Temporary dialysis catheter placement will be performed in the ICU. Dialysis will be able to be initiated once adequate placement is confirmed on x-ray. (2) Acute renal failure: Code(s): N17.9 - Acute kidney failure, unspecified Status: Acute (3) Acute respiratory failure with hypoxia and hypercarbia: Code(s): J96.01 - Acute respiratory failure with hypoxia; J96.02 - Acute respiratory failure with hypercapnia Status: Acute (4) Chronic obstructive pulmonary disease: Code(s): J44.9 - Chronic obstructive pulmonary disease, unspecified Status: Acute History of Present Illness Consult details Consult date: 03/24/21 Reason for consult: central line Requesting physician: Alfred Escamilla MD Narrative: This is a 60-year-old man who I am asked to see emergently for placement temporary dialysis access. He is currently intubated and unresponsive. Brief history is obtained from the chart. He has a history of COPD and frequent exacerbations. He also has been having declining renal function and congestive heart failure. He presented to the emergency department today obtunded. He was intubated to protect his airway. Labs revealed that he was significantly acidotic and his potassium level is 8.8. He is in need of emergent dialysis. He is currently in the ICU just shortly after being brought up from the ED. Review of Systems Review of Systems: ROS unobtainable: Yes unobtainable due to endotracheal tube, unobtainable due to medical condition and unobtainable due to mental status PMF Past Medical History Medical History Arthritis Asthma Back pain Chronic obstructive pulmonary disease Diastolic congestive heart failure Gastroesophageal reflux disease Hypertension Kidney stones Learning disability Patient is unable to read or write fluently. Obstructive sleep apnea Uses 2 L nasal cannula at nighttime in lieu of CPAP. Peripheral neuropathy Pneumonia Pulmonary hypertension Pulmonary nodule Tobacco dependence Surgical History Surgical History History of cataract extraction History of cholecystectomy History of prostate surgery Family History Family History Father Family history of chronic obstructive pulmonary disease, Onset Age: 74 Acute myocardial infarction Cerebrovascular accident Mother End stage renal disease on dialysis Acute myocardial infarction Cerebrovascular accident Sibling History of blood clots Diabetes mellitus Sibling Chronic obstructive pulmonary disease Hypertension Grandparent Diabetes mellitus Son Leukemia Other Carcinoma of colon Social History Social History Social History: The patient lives in a trailer in [place]. He is but he and his have been for well over 20 years. He has one son. 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 No alcohol or illicit substance use. He designates his step daughter, Karely Flores, as his surrogate decision maker. Code status: Full code. Smoking packs per day: 1.5 Smoking cigarettes per day: 30.0 Years smoked: 50 Smoking pack-years: 75.00 Smoking status: Current every day smoker Tobacco type: cigarettes Meds Home Medications and Allergies Home Medications Medication Instructions Recorded Confirmed Type fluticasone propion-salmeterol 1 puff INHALATION BID 08/30/19 03/24/21 History lisinopril 40 mg PO DAILY 08/30/19 03/24/21 History
--- NOTE | 2021-03-24 17:27 | P.OP_ITS ---
Procedure Note - Detailed Date of Procedure 03/24/21 Pre-op Diagnosis Acute hyperkalemia, acute kidney injury, acute respiratory failure Post-op Diagnosis same Procedure Performed Right IJ Montez dialysis catheter placement using ultrasound guidance Surgeon Angel Luis Gonzales, DO Anesthesia local (1% Lidocaine) Indications This is a 60-year-old man who presented to the emergency department obtunded and with acute respiratory failure. He was intubated and is in critical condition. He has severe hyperkalemia with a potassium level of 8.8 and evidence of acute renal failure. He is in need of emergent dialysis and was just admitted to the ICU. Findings Ultrasound guidance was used to identify the right internal jugular vein. This was visualized as a compressible vessel just lateral to the pulsatile right carotid artery. An 18 gauge introducer needle was advanced under ultrasound guidance directly into the lumen of the right internal jugular vein. Triple- lumen dialysis catheter was inserted. Chest x-ray is pending to confirm placement Description of Procedure Consent implied given the emergent nature of the patient's condition. Patient was placed supine in hospital bed and placed in slight Trendelenburg position. Time-out was done to confirm patient and procedure. The right neck and chest area was prepped and draped in sterile fashion using chlorhexidine prep. SonoSite ultrasound was used to identify the right internal jugular vein. 1% lidocaine was infiltrated directly over this area. An 18 gauge introducer needle was advanced under ultrasound guidance directly into the right internal jugular vein. Dark nonpulsatile blood was aspirated. A 0.035 in guidewire was then advanced through the needle. The guidewire advanced smoothly. The needle was then withdrawn leaving the guidewire in place. A small emmy incision was made at the insertion site using an 11 blade scalpel. The blue dilators were then advanced over the guidewire to dilate the vessel. The 12 Tamazight triple lum en 16 cm dialysis catheter was then advanced over the guidewire until it was in place. The guidewire was removed. All 3 lumens were then aspirated and flushed with sterile saline. All 3 lumens function with ease. Caps were placed over the lumens. Glue was placed at the insertion site and the catheter was secured in place using 3 0 nylon simple interrupted sutures. A Tegaderm dressing was then applied over top. The patient was then sat up in bed and chest x-ray was ordered to confirm placement. Implants 12 Tamazight triple-lumen 16 cm dialysis catheter Estimated Blood Loss 5 Complications No immediate complications Condition critical Disposition ICU
--- NOTE | 2021-03-24 17:46 | PM.IMHP ---
H&P: HPI History of Present Illness Date/Time: 03/24/21 17:46 this is a 60-year-old male patient who has a history of COPD and diastolic congestive heart failure.. The patient was brought in via EMS from home for altered mental status. Patient reportedly was obtunded since yesterday afternoon. The patient had been in the emergency room on 03/21/2021 due to a fall and the patient signed out against medical advice 10 minutes after his initial examination from the emergency room on that day. The patient was noted to have a 5.3 potassium on that day and his creatinine was noted to be 7.2 with a BUN of 59. The patient was made aware of his labs on that day and he still decided to sign out against medical advice. Today the patient's potassium was listed at 8.8. Today his ABGs pH 7.0 with a CO2 was 72.8. The patient was intubated in the emergency room. He was placed on a ventilator and the computer trainer had been notified. Patient was given an IV bolus, narcan, sodium bicarb, calcium gluconate, 10 units of regular insulin with D50, and the nebulizer treatment. Dr. Gonzales was consulted for a temporary dialysis catheter. The patient was swabbed for COVID-19 and placed in contact with droplet isolation. Repeat potassium is still pending. Ammonia level 33. Total creatinine kinase 505. The patient was positive for opiates. Chest CT was read as the following 1. Areas of atelectasis including complete collapse of left lower lobe. Opacification of the left lower lobe bronchus may be mucous plugging. 2. Mild pneumonia in right upper lobe. 3. Mild emphysema. 4. Diffuse hepatic steatosis. The patient is being admitted to ICU inpatient status on the date of service of 03/24/2021. Chief Complaint: Unresponsive Review of Systems Review of Systems: ROS unobtainable: Yes unobtainable due to endotracheal tube PMFSH Past Medical History Medical History (Updated 03/24/21 @ 18:18 by Lizz Segura NP) Arthritis Asthma Back pain Chronic obstructive pulmonary disease Diastolic congestive heart failure Gastroesophageal reflux disease Hypertension Kidney stones Learning disability Patient is unable to read or write fluently. Obstructive sleep apnea Uses 2 L nasal cannula at nighttime in lieu of CPAP. Peripheral neuropathy Pneumonia Pulmonary hypertension Pulmonary nodule Tobacco dependence Surgical History Surgical History History of cataract extraction History of cholecystectomy History of prostate surgery Family History Family History Father Family history of chronic obstructive pulmonary disease, Onset Age: 74 Acute myocardial infarction Cerebrovascular accident Mother End stage renal disease on dialysis Acute myocardial infarction Cerebrovascular accident Sibling History of blood clots Diabetes mellitus Sibling Chronic obstructive pulmonary disease Hypertension Grandparent Diabetes mellitus Son Leukemia Other Carcinoma of colon Social History Social History Social History: The patient lives in a trailer in [place]. He is but he and his have been for well over 20 years. He has one son. 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 No alcohol or illicit substance use. He designates his step daughter, Karely Flores, as his surrogate decision maker. Code status: Full code. Smoking packs per day: 1.5 Smoking cigarettes per day: 30.0 Years smoked: 50 Smoking pack-years: 75.00 Smoking status: Current every day smoker Tobacco type: cigarettes Meds Home Medications and Allergies Home Medications Medication Instructions Recorded Confirmed Type fluticasone propion-salmeterol 1 puff INHALATION BID 08/30/19 03/24/21 History lisinopril 40 mg PO DAILY
--- NOTE | 2021-03-24 17:59 | PM.CNNEP ---
Assessment and Plan Additional Plan Acute kidney injury: The patient has acute kidney injury. Renal ultrasound shows no obstruction and normal kidneys. Etiology is not entirely clear. It is possible he had obstructive uropathy; however a Fuentes catheter has been placed and there is no record of how much urine he made. In the Fuentes bag has about 800 her a 1000cc. Dehydration is a possibility. Out think he has been the eating or drinking very well the last few days. Glomerulonephritis is always a possibility as well. He does have protein and blood in the urine. Interstitial nephritis is less likely because he has not changed any medications sick as he has not been in the hospital for long. Vascular disease is always a possibility but unlikely in this scenario. Rhabdomyolysis is a possibility but the CK is only 500 so this would not be hurting the kidneys. At this point would get urine electrolytes and eosinophils. Will get serology and immunofixation as well. I talked with the daughter , Karely, and updated her on the condition of her father. I also talked about dialysis. We discussed the risks namely hypotension, benefits namely Lower and Potassium possible life-saving, alternatives there is not a lot here that is going to help the potassium very quickly, and process of the dialysis. I told her that her potassium is at a heart stopping level and that we need to get this down pretty quickly. He already received some medications in the emergency room so it might have come down a little bit. The EKG does not look too bad right now. He does have peaked T-waves but the QRS complex is fairly narrow. Hyperkalemia: Etiology of the hyperkalemia is most likely from the renal failure. He also was on lisinopril which would tend to make the potassium higher. Endogenous sources of potassium including rhabdomyolysis and hemolysis are unlikely to cause this bad of a Potassium in his situation because the CK is not very high and his hemoglobin has not dropped very much. Intake of potassium is always a possibility as well. GI bleeding as possible however he again has not had much of a fall in his hemoglobin. The fact that he has metabolic acidosis, hyperkalemia, and renal failure does suggest that BPH might be playing a role. Will keep the catheter in for now until we work this out. Shock: The patient has hypotension. This is probably multifactorial. He is dehydrated. He received sedatives for intubation. He has positive pressure ventilation causing some of the low blood pressure as well. Will give fluids and Levophed. Nurses are in touch with Dr. Merlos Metabolic acidosis: The patient has metabolic acidosis. His delta bicarb is about 6. His delta anion gap seems to be about 6 or 8. His lactic acid is normal. He does not have diabetes. Most likely this is uremic poisons causing this anion gap. He will get dialysis most see how his acidosis is tomorrow. Elevated CPK: CPK is mildly elevated private because of his renal failure and some increased turnover of muscles with his illness. I do not think this mild rhabdomyolysis is having much of an effect on his kidneys. Elevated ammonia level: Ammonia level is high. He has hepatic steatosis. His INR is slightly high. He apparently does not drink but may have some issues with his liver may be related to his body mass index. Anemia: Hemoglobin is slightly low. Will follow this along. He may have some hemoconcentration so his hemoglobin may worsen with fluids. Abnormal urinary findings: He has blood and protein in the urine. Will follow up on this. COPD: He smokes cigarettes. Hypertension: His blood pressure is not high right now. We are holding antihypertensives. History of Present Illness Reason for Consult Consult date: 03/24/21 Chief Complaint Chief complaint: Acute respiratory failure/acute renal failure/hype History of Present Illness Narrative: Manny
[2021-03-24] MEDS: NOREPINEPHRINE 8 MG/D5W 250 ML 8 MG/250 ML BAG 9.38 MG IV CONT (18:08)
[2021-03-24 18:27] LABS: Potassium 7.9 mmol/L (3.4-5.0)
--- NOTE | 2021-03-24 18:35 | PM.EVENT ---
Event Note Event Note Event Note: Manny is on dialysis. Tolerating it well. He got a L of fluid and also is on Levophed. His blood pressure is now up to 89. Blood flow for dialysis starting off slowly at 300 and I told the nurse that once his blood pressure is above 100 we can go up to 400 mils per minute he was seen at 6:32 p.m..
[2021-03-24 18:42] LABS: Creatine Kinase 565 U/L (55-170)
[2021-03-24 19:39] LABS: Hepatitis B Surface Antigen Negative (Negative)
[2021-03-24] MEDS: CENTRAL LINE FLUSH 10 ML IV PUSH ×2 (19:43→21:57)
[2021-03-24 19:49] LABS: Hepatitis B Surface Anti Res Negative
--- NOTE | 2021-03-24 20:20 | PC.NURSE ---
Spoke with Dr. Merlos regarding no post intubation ABG and current rate of 12 of the vent. Increase rate to 18RR. Recheck ABG 1 hour after. BMP after dialysis.
[2021-03-24 20:23] LABS: Complement C3 118 mg/dL (88-165)
[2021-03-24 20:29] LABS: Erythrocyte Sedimentation Rate 20 mm/hr (0-20)
--- NOTE | 2021-03-24 20:59 | PC.NURSE ---
Spoke with Lizz VIRGEN, do serial troponins starting with BMP after dialysis.
[2021-03-24 21:11] LABS: Creatine Kinase 622 U/L (55-170); Lactate Dehydrogenase 613 U/L (313-618)
[2021-03-24 21:16] LABS: Total Protein Urine Random 42 mg/dL; Ur Ttl Prot Creatinine Ratio 0.12 mg/mg (0-0.20)
[2021-03-24 21:24] LABS: Sodium Urine Random 53 meq/L
[2021-03-24 21:34] LABS: Alveolar/Arterial O2 Gradient 373.7 mmHg; Base Excess ABG -2.2 mEq/l (+/-2.0); Carboxyhemoglobin 0.3 % THb (0-2.0); Fractional Inspired Oxygen 70 %; HCO3 ABG 26.1 mEq/l (22.0-26.0); Methemoglobin ABG 0.4 %THb (0-1.5); Oxygen Content ABG 18.2 %vol (16.0-22.0); Oxygen Saturation ABG 87.1 % (95.0-100.0); Oxyhemoglobin 90.7 % THb (90.0-100.0); PCO2 ABG 59.9 mmHg (35.0-45.0); PO2 FiO2 Ratio Arterial Blood 0.87 %; Reduced Hemoglobin 8.6 %THb (0-5.0); Total Hemoglobin 14.3 g/dL (12.0-18.0)
[2021-03-24 21:35] LABS: Device VENTILATOR; Modified Allen's Test Unable to perform; Site Drawn RIGHT RADIAL; pH ABG 7.257 (7.350-7.450)
[2021-03-24 21:36] LABS: Eosinophil Urine None Seen % (None Seen)
[2021-03-24 21:36] LABS: Arterial Blood Gas PEEP 5 cmH2O; Arterial Blood Gas Tidal Volume 500 ml; Arterial Blood Gas Vent Mode CMV; Arterial Blood Gas Ventilator rate 18 /MIN
[2021-03-24] MEDS: HEPARIN SODIUM 5,000 UNITS/ML VIAL 5000 UNITS SUB-Q (21:56)
[2021-03-24] MEDS: methylPREDNISolone SOD SUCC 125 MG VIAL 80 MG IV PUSH (21:56)
[2021-03-24 22:09] LABS: Anion Gap 12 mmol/L (8-16); Blood Urea Nitrogen 45 mg/dL (9-20); Carbon Dioxide 27 mmol/L (22-30); Chloride 103 mmol/L (98-107); Estimated CRCL calculation 15 ml/min; Estimated Glomerular Filt Rate 10; Glucose 161 mg/dL (75-110); Potassium 4.4 mmol/L (3.4-5.0); Sodium 142 mmol/L (137-145)
[2021-03-24] MEDS: MINERAL OIL/WHITE PETROLATUM OINTMENT 1 APPLIC EACH EYE (22:09)
[2021-03-24 22:13] LABS: Troponin I 0.015 ng/mL (0.000-0.034)
--- NOTE | 2021-03-24 22:13 | PC.NURSE ---
Updated Dr. Merlos regarding Labs and current vital signs. No further orders. Continue to monitor.
--- NOTE | 2021-03-24 22:18 | PC.NURSE ---
Updated Lizz ETIOLOGIST regarding troponin and also recent set of labs and vitals. No further orders.
[2021-03-25] VITALS (59 sets, daily range): BP systolic 96–133; BP diastolic 51–71; PULSE 67–108; RESP 18–22; TEMP 36–37.4; O2SAT 92–98; BMI 32.8
[2021-03-25] MEDS: IPRATROPIUM BR 0.02% INH SOLN 0.5 MG/2.5 ML VIAL INHALATION ×4 (03:00→19:50)
[2021-03-25] MEDS: ALBUTEROL SULFATE NEB 2.5 MG/0.5 ML INH INHALATION ×4 (03:00→19:50)
[2021-03-25] MEDS: FENTANYL 2,500MCG/NS250ML(*CRX 2,500 MCG/250 ML BAG 12.5 MCG IV CONT (04:49)
[2021-03-25 05:03] LABS: Basophils Percent Auto 0.1 % (0.2-1.2); Hematocrit 44.3 % (42.0-52.0); Hemoglobin 13.8 g/dL (14.0-18.0); Immature Granulocyte Absolute 0.04 K/mm3 (0.00-0.031); Immature Granulocyte Percent A 0.4 % (0-0.5); Mean Corpuscular HGB Conc 31.2 g/dl (32-36); Mean Corpuscular Volume 96.3 fl (80-100); Mean Platelet Volume 10.3 fl (7.4-10.4); Monocytes Absolute Auto 0.1 K/mm3 (0.1-0.6); Monocytes Percent Auto 1.1 % (2.6-8.5); Neutrophils Absolute Auto 9.4 K/mm3 (1.3-6.7); Neutrophils Percent Auto 93.4 % (45.5-73.1); Platelet Count Result 211 k/mm3 (150-375); Red Cell Distribution Width 17.1 % (11.5-14.5); White Blood Count 10.1 K/mm3 (4.5-10.0)
[2021-03-25] MEDS: HEPARIN SODIUM 5,000 UNITS/ML VIAL 5000 UNITS SUB-Q ×3 (05:03→20:19)
[2021-03-25] MEDS: SODIUM CHLORIDE 0.9% IV 1,000 ML 125 ML IV CONT (05:04)
[2021-03-25] MEDS: methylPREDNISolone SOD SUCC 125 MG VIAL 80 MG IV PUSH (05:11)
[2021-03-25] MEDS: CENTRAL LINE FLUSH 10 ML IV PUSH ×4 (05:12→20:20)
[2021-03-25 05:14] LABS: Alanine Aminotransferase 30 U/L (4-50); Albumin Level 3.7 g/dL (3.5-5.1); Alkaline Phosphatase 77 U/L (38-126); Anion Gap 9 mmol/L (8-16); Aspartate Amino Transferase 43 U/L (17-59); Bilirubin,Total 0.6 mg/dL (0.2-1.3); Blood Urea Nitrogen 47 mg/dL (9-20); Calcium 8.6 mg/dL (8.4-10.2); Carbon Dioxide 29 mmol/L (22-30); Chloride 105 mmol/L (98-107); Creatine Kinase 574 U/L (55-170); Estimated CRCL calculation 22 ml/min; Estimated Glomerular Filt Rate 15; Glucose 123 mg/dL (75-110); Lactate Dehydrogenase 508 U/L (313-618); Magnesium 1.8 mg/dL (1.6-2.3); Potassium 5.4 mmol/L (3.4-5.0); Sodium 143 mmol/L (137-145)
[2021-03-25 05:21] LABS: Complement C3 120 mg/dL (88-165)
[2021-03-25 05:30] LABS: Alveolar/Arterial O2 Gradient 153.8 mmHg; Base Excess ABG 0.1 mEq/l (+/-2.0); Fractional Inspired Oxygen 40 %; Methemoglobin ABG 0.3 %THb (0-1.5); Oxygen Saturation ABG 93.1 % (95.0-100.0); Oxyhemoglobin 93.8 % THb (90.0-100.0); PCO2 ABG 52.3 mmHg (35.0-45.0); PO2 ABG 71.3 mmHg (80.0-100.0); PO2 FiO2 Ratio Arterial Blood 1.78 %; Reduced Hemoglobin 5.9 %THb (0-5.0); Total Hemoglobin 14.4 g/dL (12.0-18.0)
[2021-03-25 05:31] LABS: Arterial Blood Gas PEEP 5 cmH2O; Arterial Blood Gas Tidal Volume 500 ml; Arterial Blood Gas Vent Mode CMV; Arterial Blood Gas Ventilator rate 18 /MIN; Device VENTILATOR; Modified Allen's Test Unable to perform; Site Drawn RIGHT RADIAL
--- NOTE | 2021-03-25 08:10 | WPDCNINT ---
Assessment and Plan Assessment and plan (1) Shock: Code(s): R57.9 - Shock, unspecified Status: Acute Assessment and Plan: Likely septic, normal lactic acid but given acute kidney injury, pneumonia on chest x-ray, elevated WBC count, metabolic acidosis -patient started on azithromycin, ceftriaxone and vancomycin -patient required Levophed overnight, currently off -continue to maintain mean arterial pressures greater than 70 mmHg for adequate renal and other organ perfusion (2) Acute respiratory failure with hypoxia and hypercarbia: Code(s): J96.01 - Acute respiratory failure with hypoxia; J96.02 - Acute respiratory failure with hypercapnia Status: Acute Assessment and Plan: Acute respiratory failure likely related to respiratory and metabolic acidosis, pneumonia, COPD exacerbation -patient was intubated in the ER on 03/24/2021 -initial ABGs was 7.01/72/138/18/90 7% on 15 L -patient currently on 40% FiO2, peep of 5 -with much improved ABGs -continue azithromycin, ceftriaxone, vancomycin -continue steroids -continue bronchodilators (3) Acute kidney injury: Code(s): N17.9 - Acute kidney failure, unspecified Status: Acute Assessment and Plan: Acute kidney injury be multifactorial, hypovolemia, decreased p.o. 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 and 47, creatinine 4.10, CO2 of 29 -discussed with Nephrology, will dialyze patient again today -continue to monitor urine output, renal function and electrolytes (4) Acute hyperkalemia: Code(s): E87.5 - Hyperkalemia Status: Acute Assessment and Plan: Patient was emergently dialyzed, potassium much improved -dialysis again per Nephrology (5) Suspected COVID-19 virus infection: Code(s): Z20.822 - Contact with and (suspected) exposure to COVID-19 Status: Acute Assessment and Plan: Patient swabbed for SARS-CoV-2 PCR, currently pending -SARS-CoV-2 PCR was negative on 03/21/2021 -continue droplet, contact, airborne isolation precautions (6) Pneumonia: Code(s): J18.9 - Pneumonia, unspecified organism Status: Acute Assessment and Plan: CT chest showed possible pneumonia -continue antibiotics as above -blood and sputum cultures have been obtained and pending (7) Hypertension: Code(s): I10 - Essential (primary) hypertension Status: Acute Assessment and Plan: History of essential hypertension, patient was on Levophed, hold all antihypertensives at this time (8) Chronic obstructive pulmonary disease: Code(s): J44.9 - Chronic obstructive pulmonary disease, unspecified Status: Acute Assessment and Plan: History of COPD, patient presented with hypercapnic respiratory failure -continue bronchodilators, steroids and mechanical ventilation along with antibiotics (9) DVT prophylaxis: Code(s): Z29.9 - Encounter for prophylactic measures, unspecified Status: Acute Assessment and Plan: DVT prophylaxis: Subcu heparin Stress ulcer prophylaxis: Protonix (10) Diastolic congestive heart failure: Code(s): I50.30 - Unspecified diastolic (congestive) heart failure Status: Acute Assessment and Plan: Patient has a history of grade 2 diastolic dysfunction on echocardiogram done in August 2019, EF was 65-70% -will recheck echocardiogram (11) Encephalopathy: Code(s): G93.40 - Encephalopathy, unspecified Status: Acute Assessment and Plan: Patient presented with altered mental status which could be multifactorial, likely related to hypercapnia, uremia, hypotension/shock, infection -patient also had a fall 03/21/2021 for which she had
[2021-03-25 08:14] LABS: Thyroid Stimulating Hormone Reflex 0.135 uIU/mL (0.465-4.68)
[2021-03-25] MEDS: MINERAL OIL/WHITE PETROLATUM OINTMENT 1 APPLIC EACH EYE ×2 (08:22→20:19)
[2021-03-25] MEDS: MIDAZOLAM 100MG/NS 100ML(*CRX) 100 MG/100 ML BAG IV CONT (08:23)
--- NOTE | 2021-03-25 08:25 | ECHO_ITS ---
Patient Info Name: Manny Garcia Age: 60 years : 1960 Gender: Male Ht: 72 in Wt: 242 lbs BSA: 2.39 m2 HR: 91 bpm BP: 123 / 63 mmHg Technical Quality: Good Exam Date: 03/25/2021 8:48 AM Exam Location: [facility] Pulmonary Patient Status: Inpatient Admit Date: 03/24/2021 Staff Ordering Physician: Ector Merlos MD Diabetes Manager: Stanislaw Sanches, PAULINACS, RT Attending Provider: Yelitza Ochoa MD Exam Type: CA echo doppler color flow Study Info Complete two-dimensional, color flow and Doppler transthoracic echocardiogram is performed. Summary 1. Complete two-dimensional, color flow and Doppler transthoracic echocardiogram is performed. 2. Left ventricular chamber dimension is normal. 3. Left ventricular systolic function is normal, estimated at 60-65%. 4. There is mildly increased left ventricular wall thickness. 5. The left ventricular diastolic function is grade I diastolic dysfunction. 6. There is trace tricuspid valve regurgitation. 7. IVC is dilated. No sniff as patient is unresponsive. Left Ventricle Tissue doppler E/e' is not calculated. Left ventricular chamber dimension is normal. Left ventricular systolic function is normal, estimated at 60-65%. There is mildly increased left ventricular wall thickness. The left ventricular diastolic function is grade I diastolic dysfunction. Right Ventricle Right ventricular systolic function is normal and with normal TAPSE 2.4 cm. Right ventricular chamber dimension is normal. Left Atria Left atrial chamber dimension is normal. Right Atria Right atrial chamber dimension is normal. Aortic Valve The aortic valve is trileaflet. There is no aortic valve stenosis. There is no aortic valve regurgitation. Pulmonic Valve There is no pulmonic regurgitation. Mitral Valve There is no mitral valve stenosis. There is no mitral valve regurgitation. Tricuspid Valve RVSP is not calculated due to an inadequate TR jet. There is trace tricuspid valve regurgitation. Pericardium/Pleural There is no pericardial effusion. Inferior Vena Cava IVC is dilated. No sniff as patient is unresponsive. Aorta The aortic root size at the sinus of Valsalva is normal. Left Ventricular Outflow Tract Name Value Normal LVOT 2D LVOT Diameter 2.0 cm LVOT Doppler LVOT Peak Velocity 126 cm/s LVOT Peak Gradient 6 mmHg LVOT Mean Gradient 3 mmHg LVOT VTI 19 cm LVOT VTI/AV VTI Ratio 0.7 LVOT Stroke Volume 56 ml LVOT CO 5.3 l/min LVOT CI 2.2 l/min/m2 Mitral Valve Name Value Normal MV Doppler MV Peak Gradient 10 mmHg MV Mean Gradient
--- NOTE | 2021-03-25 08:36 | PM.IMPN ---
Progress Note: A&P Assessment and Plan (1) Shock: Code(s): R57.9 - Shock, unspecified Status: Acute Assessment and Plan: Patient was hypotensive when in the ED 03/21/2021. Blood pressure did improve prior to the patient signing out against medical advice. Patient's blood pressure was normal on admission here but dropped to 72/41 during HD requiring Levophed. Patient required up to 9mc/min before being able to be weaned off. Blood pressure stable off Levophed. Patient on Lasix at home so suspect a component of dehydration and/or sepsis from PNA. Continue to monitor closely ICU. (2) Acute respiratory failure with hypoxia and hypercarbia: Code(s): J96.01 - Acute respiratory failure with hypoxia; J96.02 - Acute respiratory failure with hypercapnia Status: Acute Assessment and Plan: The patient has a hx of DANNA, COPD and diastolic CHF. Patient was found to be obtunded at home. CXR clear on 03/[address] chest here showing LLL collapse from mucous plugging and RUL PNA. ABG on admission 7.01/73/139 on NRB and thus was intubated. Improved with treatment with IV steroids, IV abx and nebulizer treatments. Also underwent HD. Currently at PEEP 5 and FiO2 40%. Continue aggressive P+PD. Appreciate cooker pie filling input. (3) Acute hyperkalemia: Code(s): E87.5 - Hyperkalemia Status: Acute Assessment and Plan: Potassium 8.8 on admission. Related to his acute kidney injury. Patient was on lisinopril and Lasix on admission. Patient and ordered emergent hemodialysis after Montez catheter placed. Repeat potassium normalized. Potassium this morning however has climbed back to 5.4 again felt related to his acute kidney injury. Continue to use dialysis to control hyperkalemia. (4) CAP (community acquired pneumonia): Qualifiers: Laterality: unspecified laterality Qualified Code(s): J18.9 - Pneumonia, unspecified organism Code(s): J18.9 - Pneumonia, unspecified organism Status: Acute Assessment and Plan: CT scan as mentioned above. Continue Azithromycin, Rocephin ,and vancomycin. Continue nebulizer treatments. Follow up on blood and sputum cultures. (5) Sepsis: Code(s): A41.9 - Sepsis, unspecified organism Status: Acute Assessment and Plan: Present on admission with leukocytosis, respiratory failure, bradycardia and transistent HoTN. [place] related to the PNA. Treatment as above. (6) Acute renal failure: Code(s): N17.9 - Acute kidney failure, unspecified Status: Acute Assessment and Plan: Patient has normal baseline creatinine. Creatinine 0.9 in February. Patient was seen here on March 16 with elevated creatinine but he signed himself out against medical advice. Patient was seen again on March 21 with a creatinine of 7.2 but he again signed himself out against medical advice. Creatinine on presentation this admission was 16.4. Suspect at least a component of dehydration. He is on Lasix and lisinopril at home. TCK mildly elevated but felt related to poor clearance then the etiology of his GOYO. No evidence of nephrotic syndrome. UA showing 2+ blood and 1+ protein but no WBC. Workup in process. Surgery was consulted and a temporary dialysis catheter was placed. Patient did undergo hemodialysis yesterday. Patient currently on IV fluids. Nephrology has been consulted. Creatinine has trended down to 4.1 today. He is making urine. Continue to follow. Nephrology has been consulted. (7) Hypertension: Code(s): I10 - Essential (primary) hypertension Status: Acute Assessment and Plan: BP stable now. Continue to hold all hypertensive medication. Resume as needed. (8) Obstructive sleep apnea: Code(s): G47.33 - Obstructive sleep apnea (adult) (pediatric) Status: Acute Assessment and Plan: Patient uses 2 L nasal cannula at nighttime in lieu of CPAP. Untreated DANNA co
[2021-03-25 08:57] LABS: Free T4 Free Thyroxine Reflex 1.25 ng/dL (0.78-2.19)
--- NOTE | 2021-03-25 09:18 | P.PNNP_ITS ---
Progress Note: A&P Assessment and Plan (1) Acute kidney injury: Code(s): N17.9 - Acute kidney failure, unspecified Status: Acute Assessment and Plan: * likely multifactorial: - prerenal factors - history of obstruction/urinary retention - concurrent use of LEDA-I and diuretics - hypotension/hemodynamic instability * s/p urgent hemodialysis yesterday due to #2 * plan HD today as well * given blood and protein in urine, follow-up on serological testing * follow repeat labs and UOP (2) Acute hyperkalemia: Code(s): E87.5 - Hyperkalemia Status: Acute Assessment and Plan: * due to #1 and LEDA-I use * s/p HD last night * HD today since K+ moderately elevated this AM * follow trend (3) Shock: Code(s): R57.9 - Shock, unspecified Status: Acute Assessment and Plan: * soft BPs on admission * reponsive to IVFs but required levophed with HD yesterday * holding BP medications * Levophed currently off... (4) Acute respiratory failure with hypoxia and hypercarbia: Code(s): J96.01 - Acute respiratory failure with hypoxia; J96.02 - Acute respiratory failure with hypercapnia Status: Acute Assessment and Plan: * due to acidosis, pneumonia, and COPD exacerbation * on ventilator support (5) Pneumonia: Code(s): J18.9 - Pneumonia, unspecified organism Status: Acute Assessment and Plan: * as noted by admission imaging * blood cultures pending * on antibiotics (6) COPD (chronic obstructive pulmonary disease): Qualifiers: COPD type: COPD with acute lower respiratory infection Qualified Code(s): J44.0 - Chronic obstructive pulmonary disease with (acute) lower respiratory infection Code(s): J44.9 - Chronic obstructive pulmonary disease, unspecified Status: Acute Assessment and Plan: * continue bronchodilators and steroids * ventilator support with weaning as tolerated Will continue to follow. Subjective Date/time seen: 03/25/21 09:18 Chart reviewed -- tolerated hemodialysis treatment yesterday evening although di d require levophed to maintain his MAP; levophed has since been weaned off with stable hemodynamics at this time; remains intubated and on mechanical ventilation; no apparent distress at this time. Exam Narrative: Exam Narrative: General: WD/WN male currently intubated Heart: normal S1 and S2; no rub Lungs: clear to auscultation Abdomen: soft, nontender, nondistended, positive bowel sounds Extremities: no cyanosis or clubbing; no edema Skin: warm and dry Objective Data Vital Signs Vital Signs: Vital Signs Temp Pulse Resp BP Pulse Ox 03/25/21 08:48 80 18 03/25/21 08:25 93 92 03/25/21 08:24 84 18 03/25/21 08:23 84 18 03/25/21 08:00 37.2 C 82 18 123/63 93 03/25/21 07:20 78 18 03/25/21 06:00 80 18 96/53 L 95 03/25/21 05:10 80 94 03/25/21 05:00 37.4 C 78 18 124/68 94 03/25/21 04:51 83 18 03/25/21 04:50 82 18 03/25/21 04:49 80 18 03/25/21 04:00 76 18 106/54 L 95 03/25/21 03:31 75 18 97 03/25/21 03:10 75 18 03/25/21 03:00 76 18 03/25/21 02:12 74 97 03/25/21 02:00 76 18 114/60 96 03/25/21 01:54 84
--- NOTE | 2021-03-25 09:18 | PM.PNNEP ---
Progress Note: A&P Assessment and Plan (1) Acute kidney injury: Code(s): N17.9 - Acute kidney failure, unspecified Status: Acute Assessment and Plan: likely multifactorial: - prerenal factors - history of obstruction/urinary retention - concurrent use of LEDA-I and diuretics - hypotension/hemodynamic instability s/p urgent hemodialysis yesterday due to #2 plan HD today as well given blood and protein in urine, follow-up on serological testing follow repeat labs and UOP (2) Acute hyperkalemia: Code(s): E87.5 - Hyperkalemia Status: Acute Assessment and Plan: due to #1 and LEDA-I use s/p HD last night HD today since K+ moderately elevated this AM follow trend (3) Shock: Code(s): R57.9 - Shock, unspecified Status: Acute Assessment and Plan: soft BPs on admission reponsive to IVFs but required levophed with HD yesterday holding BP medications Levophed currently off... (4) Acute respiratory failure with hypoxia and hypercarbia: Code(s): J96.01 - Acute respiratory failure with hypoxia; J96.02 - Acute respiratory failure with hypercapnia Status: Acute Assessment and Plan: due to acidosis, pneumonia, and COPD exacerbation on ventilator support (5) Pneumonia: Code(s): J18.9 - Pneumonia, unspecified organism Status: Acute Assessment and Plan: as noted by admission imaging blood cultures pending on antibiotics (6) COPD (chronic obstructive pulmonary disease): Qualifiers: COPD type: COPD with acute lower respiratory infection Qualified Code(s): J44.0 - Chronic obstructive pulmonary disease with (acute) lower respiratory infection Code(s): J44.9 - Chronic obstructive pulmonary disease, unspecified Status: Acute Assessment and Plan: continue bronchodilators and steroids ventilator support with weaning as tolerated Will continue to follow. Subjective Date/time seen: 03/25/21 09:18 Chart reviewed -- tolerated hemodialysis treatment yesterday evening although did require levophed to maintain his MAP; levophed has since been weaned off with stable hemodynamics at this time; remains intubated and on mechanical ventilation; no apparent distress at this time. Exam Narrative: Exam Narrative: General: WD/WN male currently intubated Heart: normal S1 and S2; no rub Lungs: clear to auscultation Abdomen: soft, nontender, nondistended, positive bowel sounds Extremities: no cyanosis or clubbing; no edema Skin: warm and dry Objective Data Vital Signs Vital Signs: Vital Signs Temp Pulse Resp BP Pulse Ox 03/25/21 08:48 80 18 03/25/21 08:25 93 92 03/25/21 08:24 84 18 03/25/21 08:23 84 18 03/25/21 08:00 37.2 C 82 18 123/63 93 03/25/21 07:20 78 18 03/25/21 06:00 80 18 96/53 L 95 03/25/21 05:10 80 94 03/25/21 05:00 37.4 C 78 18 124/68 94 03/25/21 04:51 83 18 03/25/21 04:50 82 18 03/25/21 04:49 80 18 03/25/21 04:00 76 18 106/54 L 95 03/25/21 03:31 75 18 97 03/25/21 03:10 75 18 03/25/21 03:00 76 18 03/25/21 02:12 74 97 03/25/21 02:00 76 18 114/60 96 03/25/21 01:54 84 124/58 L 03/25/21 01:51 91 22 H 03/25/21 01:08 80 18 03/25/21 01:07 78 125/71 03/25/21 00:18 78 18 03/25/21 00:17 83 18 03/25/21 00:16 36.3 C L 81 18 116/66 98 03/25/21 00:00 83 18 98 03/24/21 23:11 85 98 03/24/21 23:00 79 18 119/78 98 03/24/21 22:47 75 18 03/24/21 22:45 78 18 03/24/21 22:01 76 117/57 L 03/24/21 22:00 36.4 C L 80 18 117/57 L 98 03/24/21 21:45 36.8 C 76 16 142/75 H 98 03/24/21 21:27 77 133/76 03/24/21 21:20 77 95 03/24/21 21:00 72 18 126/74 95 03/24/21 20:45 73 126/65 03/24/21 20:42 73 18 95 03/24/21 20:30
[2021-03-25 09:59] LABS: Total Triiodothyronine (T3) 1.04 NG/ML (0.97-1.69)
[2021-03-25] MEDS: PANTOPRAZOLE SODIUM IV 40 MG VIAL IV PUSH (10:24)
[2021-03-25] MEDS: methylPREDNISolone SOD SUCC 125 MG VIAL 40 MG IV PUSH ×3 (12:20→23:49)
[2021-03-25 13:53] LABS: SARS-CoV-2 RNA PCR Negative (Negative)
[2021-03-25] MEDS: SODIUM CHLORIDE 0.9% IV 1,000 ML 75 ML IV CONT (15:21)
[2021-03-25] MEDS: FENTANYL 2,500MCG/NS250ML(*CRX 2,500 MCG/250 ML BAG 17.5 MCG IV CONT (22:16)
[2021-03-26] VITALS (50 sets, daily range): BP systolic 120–148; BP diastolic 58–76; PULSE 46–85; RESP 16–30; TEMP 35.7–36.7; O2SAT 92–98
[2021-03-26] MEDS: IPRATROPIUM BR 0.02% INH SOLN 0.5 MG/2.5 ML VIAL INHALATION ×4 (01:57→20:20)
[2021-03-26] MEDS: ALBUTEROL SULFATE NEB 2.5 MG/0.5 ML INH INHALATION ×4 (01:57→20:20)
--- NOTE | 2021-03-26 03:41 | PC.NURSE ---
Patient unable to be calmed down while on sedation. Patient trying to rip out medical equipment and not following commands. Dr. Merlos notified. Start precedex drip
[2021-03-26] MEDS: dexmedeTOMIDine 400 MCG/100 ML 400 MCG/100 ML BAG 11 MCG IV CONT ×2 (03:42→09:43)
[2021-03-26] MEDS: MIDAZOLAM 100MG/NS 100ML(*CRX) 100 MG/100 ML BAG 6 MG IV CONT (03:54)
[2021-03-26] MEDS: SODIUM CHLORIDE 0.9% IV 1,000 ML 75 ML IV CONT (04:29)
[2021-03-26 04:30] LABS: Basophils Percent Auto 0.1 % (0.2-1.2); Hematocrit 37.9 % (42.0-52.0); Hemoglobin 12.3 g/dL (14.0-18.0); Immature Granulocyte Absolute 0.05 K/mm3 (0.00-0.031); Immature Granulocyte Percent A 0.5 % (0-0.5); Lymphocytes Absolute Auto 0.86 K/mm3 (0.9-3.2); Lymphocytes Percent Auto 7.8 % (18.3-44.2); Mean Corpuscular HGB Conc 32.5 g/dl (32-36); Mean Corpuscular Hemoglobin 29.9 pg (26-34); Mean Platelet Volume 10.3 fl (7.4-10.4); Monocytes Absolute Auto 0.5 K/mm3 (0.1-0.6); Monocytes Percent Auto 4.8 % (2.6-8.5); Neutrophils Absolute Auto 9.6 K/mm3 (1.3-6.7); Neutrophils Percent Auto 86.8 % (45.5-73.1); Nucleated Red Blood Cells Perc 0.2 % (0.0-0.2); Platelet Count Result 227 k/mm3 (150-375); Red Blood Count 4.12 M/mm3 (4.6-6.20); Red Cell Distribution Width 16.6 % (11.5-14.5); White Blood Count 11.1 K/mm3 (4.5-10.0)
[2021-03-26] MEDS: HEPARIN SODIUM 5,000 UNITS/ML VIAL 5000 UNITS SUB-Q ×3 (04:30→20:13)
[2021-03-26] MEDS: methylPREDNISolone SOD SUCC 125 MG VIAL 40 MG IV PUSH (04:30)
[2021-03-26] MEDS: CENTRAL LINE FLUSH 10 ML IV PUSH ×4 (04:30→20:14)
[2021-03-26 04:43] LABS: Alanine Aminotransferase 25 U/L (4-50); Albumin Level 3.4 g/dL (3.5-5.1); Alkaline Phosphatase 75 U/L (38-126); Anion Gap 4 mmol/L (8-16); Aspartate Amino Transferase 32 U/L (17-59); Bilirubin,Total 0.2 mg/dL (0.2-1.3); Blood Urea Nitrogen 37 mg/dL (9-20); Carbon Dioxide 31 mmol/L (22-30); Chloride 107 mmol/L (98-107); Estimated CRCL calculation 74 ml/min; Estimated Glomerular Filt Rate > 60; Glucose 169 mg/dL (75-110); Phosphorus 2.3 mg/dL (2.5-4.5); Potassium 5.5 mmol/L (3.4-5.0); Sodium 142 mmol/L (137-145)
[2021-03-26 04:52] LABS: Carboxyhemoglobin 0.3 % THb (0-2.0); Device VENTILATOR; Fractional Inspired Oxygen 35 %; HCO3 ABG 29.1 mEq/l (22.0-26.0); Methemoglobin ABG 0.3 %THb (0-1.5); Modified Allen's Test Unable to perform; Oxygen Content ABG 17.8 %vol (16.0-22.0); Oxygen Saturation ABG 93.8 % (95.0-100.0); Oxyhemoglobin 93.1 % THb (90.0-100.0); PCO2 ABG 45.4 mmHg (35.0-45.0); PO2 ABG 67.8 mmHg (80.0-100.0); PO2 FiO2 Ratio Arterial Blood 1.94 %; Reduced Hemoglobin 6.3 %THb (0-5.0); Site Drawn RIGHT RADIAL; Total Hemoglobin 13.6 g/dL (12.0-18.0); pH ABG 7.424 (7.350-7.450)
[2021-03-26 04:53] LABS: Arterial Blood Gas PEEP 5 cmH2O; Arterial Blood Gas Tidal Volume 500 ml; Arterial Blood Gas Vent Mode CMV; Arterial Blood Gas Ventilator rate 18 /MIN
--- NOTE | 2021-03-26 08:12 | WPDINTPN ---
Progress Note: A&P Assessment and Plan (1) Shock: Code(s): R57.9 - Shock, unspecified Status: Acute Assessment and Plan: RESOLVED Likely septic, normal lactic acid but given acute kidney injury, pneumonia on chest x-ray, elevated WBC count, metabolic acidosis -continue azithromycin, ceftriaxone and vancomycin -patient required Levophed overnight, currently off -continue to maintain mean arterial pressures greater than 70 mmHg for adequate renal and other organ perfusion -sputum cultures growing gram-negative bacilli and Gram-positive cocci -blood culture also growing gram-positive cocci 1/2 bottles (2) Acute respiratory failure with hypoxia and hypercarbia: Code(s): J96.01 - Acute respiratory failure with hypoxia; J96.02 - Acute respiratory failure with hypercapnia Status: Acute Assessment and Plan: Acute respiratory failure likely related to respiratory and metabolic acidosis, pneumonia, COPD exacerbation -patient was intubated in the ER on 03/24/2021 -initial ABGs was 7.01/72/138/18/90 7% on 15 L -patient currently on 35% FiO2, peep of 5 -with much improved ABGs -continue azithromycin, ceftriaxone, vancomycin -continue steroids -continue bronchodilators -sedated with fentanyl, Versed, and remained agitated so Precedex infusion was added. -will start weaning fentanyl Versed increase Precedex infusion, I will add Seroquel (3) Acute kidney injury: Code(s): N17.9 - Acute kidney failure, unspecified Status: Acute Assessment and Plan: Acute kidney injury be multifactorial, hypovolemia, decreased p.o. 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 -patient was adequately fluid-resuscitated -initial creatinine was 16.4 8.8, BUN of 107 and CO2 of 17 -patient was emergently dialyzed on 03/24/2021 after surgery placed a dialysis catheter -patient received dialysis on 03/24 and 03/25 -creatinine 1.10 this morning -discussed with Nephrology, will dialyze patient again today -continue to monitor urine output, renal function and electrolytes (4) Acute hyperkalemia: Code(s): E87.5 - Hyperkalemia Status: Acute Assessment and Plan: Patient was emergently dialyzed, potassium much improved -potassium improved but remains 5.5 this morning (5) Suspected COVID-19 virus infection: Code(s): Z20.822 - Contact with and (suspected) exposure to COVID-19 Status: Acute Assessment and Plan: Patient swabbed for SARS-CoV-2 PCR, currently pending -SARS-CoV-2 PCR was negative on 03/21/2021 -SARS-CoV-2 PCR PCR negative on 03/24/2021 -discontinue precautions (6) Pneumonia: Code(s): J18.9 - Pneumonia, unspecified organism Status: Acute Assessment and Plan: CT chest showed possible pneumonia -continue azithromycin, ceftriaxone and vancomycin -cultures growing gram-negative bacilli and Gram-positive cocci (7) Hypertension: Code(s): I10 - Essential (primary) hypertension Status: Acute Assessment and Plan: History of essential hypertension, patient was on Levophed, hold all antihypertensives at this time (8) Chronic obstructive pulmonary disease: Code(s): J44.9 - Chronic obstructive pulmonary disease, unspecified Status: Acute Assessment and Plan: History of COPD, patient presented with hypercapnic respiratory failure -continue bronchodilators, steroids and mechanical ventilator (9) DVT prophylaxis: Code(s): Z29.9 - Encounter for prophylactic measures, unspecified Status: Acute Assessment and Plan: DVT prophylaxis: Subcu heparin Stress ulcer prophylaxis: Protonix (10) Diastolic congestive heart failure: Code(s): I50.30 - Unspecified diastolic (congestive) heart failure Status: Acute Assessment and Plan: Patient has a history of grade 2 diastolic dysfunction on echocardiogram done in August 2019, EF was 65-70% - echocardiogram
[2021-03-26] MEDS: PANTOPRAZOLE SODIUM IV 40 MG VIAL IV PUSH (08:52)
[2021-03-26] MEDS: QUEtiapine FUMARATE 25 MG TABLET 50 MG PO ×2 (08:52→20:13)
[2021-03-26] MEDS: MINERAL OIL/WHITE PETROLATUM OINTMENT 1 APPLIC EACH EYE ×2 (08:52→20:13)
--- NOTE | 2021-03-26 11:12 | PCDIET ---
ICU Rounding Note: Patient tolerating Nepro at 45mL/hr goal rate with 30mL water flush every 4 hours. RN reports 250mL residual this morning. MD aware. Last recorded weight is 108.5kg which is down from last review. I/O noted. Bowel Motility: No documented BM as of yet. Labs Reviewed: Hgb (12.3), Hct (37.9), Glu (169), BUN (37), K (5.5), Alb (3.4), PO4 (2.3) Meds Noted: Albuterol, Precedex, Solu Medrol, Zithromax, Fentanyl, Versed, Vancomycin, Rocephin, Atrovent, Protonix Additional Notes: No documented skin breakdown. Tube feeding providing 1049mg potassium, given 22 hour daily infusion. Following daily in ICU rounds. Assessing/reassessing every Wednesday/Wednesday.
--- NOTE | 2021-03-26 13:05 | P.PNNP_ITS ---
Progress Note: A&P Assessment and Plan (1) Acute kidney injury: Code(s): N17.9 - Acute kidney failure, unspecified Status: Acute Assessment and Plan: * likely multifactorial: - prerenal factors - history of obstruction/urinary retention - concurrent use of LEDA-I and diuretics - hypotension/hemodynamic instability * s/p urgent hemodialysis on day of admission * HD yesterday as well - hold HD today * given blood and protein in urine, follow-up on serological testing * follow repeat labs and UOP (2) Acute hyperkalemia: Code(s): E87.5 - Hyperkalemia Status: Acute Assessment and Plan: * due to #1 and LEDA-I use * s/p HD yesterday (2 sessions to date) * HD today since K+ moderately elevated this AM * follow trend (3) Shock: Code(s): R57.9 - Shock, unspecified Status: Acute Assessment and Plan: * soft BPs on admission * responsive to IVFs but required levophed with HD transiently on day of admission * holding BP medications * Levophed currently off... * follow hemodynamics (4) Acute respiratory failure with hypoxia and hypercarbia: Code(s): J96.01 - Acute respiratory failure with hypoxia; J96.02 - Acute respiratory failure with hypercapnia Status: Acute Assessment and Plan: * due to acidosis, pneumonia, and COPD exacerbation * on ventilator support (5) Pneumonia: Code(s): J18.9 - Pneumonia, unspecified organism Status: Acute Assessment and Plan: * as noted by admission imaging * blood/sputun cultures noted * on antibiotics (6) COPD (chronic obstructive pulmonary disease): Qualifiers: COPD type: COPD with acute lower respiratory infection Qualified Code(s): J44.0 - Chronic obstructive pulmonary disease with (acute) lower respiratory infection Code(s): J44.9 - Chronic obstructive pulmonary disease, unspecified Status: Acute Assessment and Plan: * continue bronchodilators and steroids * ventilator support with weaning as tolerated Will continue to follow. Subjective Date/time seen: 03/26/21 13:05 Patient tolerated dialysis treatment yesterday and although BUN + creatinine better, potassium remains marginally high; remains on mechanical ventilation at this time; reasonable urine output noted; no new issues/events to report at this time. Exam Narrative: Exam Narrative: General: WD/WN male currently intubated Heart: normal S1 and S2; no rub Lungs: coarse breath sounds Abdomen: soft, nontender, nondistended, positive bowel sounds Extremities: no cyanosis or clubbing; no edema Skin: warm and intact Objective Data Vital Signs Vital Signs: Vital Signs Temp Pulse Resp BP Pulse Ox 03/26/21 12:36 49 L 18 03/26/21 12:00 35.7 C L 49 L 18 145/76 H 96 03/26/21 11:45 49 L 18 03/26/21 11:32 50 L 96 03/26/21 10:00 49 L 18 142/73 H 96 03/26/21 09:46 57 L 18 03/26/21 09:43 57 L 18 03/26/21 08:45 57 L 18 03/26/21 08:00 36.0 C L 57 L 18 138/68 94 03/26/21 07:51 58 L 94 03/26/21 07:50 56 L 18 03/26/21 06:00 58 L 18 148/68 H 95 03/26/21 04:56 61 93 03/26/21 04:00 65 17 138/68 93 03/26/21 03:54 85 30 H 03/26/21 03:42 85 30 H
--- NOTE | 2021-03-26 13:05 | PM.PNNEP ---
Progress Note: A&P Assessment and Plan (1) Acute kidney injury: Code(s): N17.9 - Acute kidney failure, unspecified Status: Acute Assessment and Plan: likely multifactorial: - prerenal factors - history of obstruction/urinary retention - concurrent use of LEDA-I and diuretics - hypotension/hemodynamic instability s/p urgent hemodialysis on day of admission HD yesterday as well - hold HD today given blood and protein in urine, follow-up on serological testing follow repeat labs and UOP (2) Acute hyperkalemia: Code(s): E87.5 - Hyperkalemia Status: Acute Assessment and Plan: due to #1 and LEDA-I use s/p HD yesterday (2 sessions to date) HD today since K+ moderately elevated this AM follow trend (3) Shock: Code(s): R57.9 - Shock, unspecified Status: Acute Assessment and Plan: soft BPs on admission responsive to IVFs but required levophed with HD transiently on day of admission holding BP medications Levophed currently off... follow hemodynamics (4) Acute respiratory failure with hypoxia and hypercarbia: Code(s): J96.01 - Acute respiratory failure with hypoxia; J96.02 - Acute respiratory failure with hypercapnia Status: Acute Assessment and Plan: due to acidosis, pneumonia, and COPD exacerbation on ventilator support (5) Pneumonia: Code(s): J18.9 - Pneumonia, unspecified organism Status: Acute Assessment and Plan: as noted by admission imaging blood/sputun cultures noted on antibiotics (6) COPD (chronic obstructive pulmonary disease): Qualifiers: COPD type: COPD with acute lower respiratory infection Qualified Code(s): J44.0 - Chronic obstructive pulmonary disease with (acute) lower respiratory infection Code(s): J44.9 - Chronic obstructive pulmonary disease, unspecified Status: Acute Assessment and Plan: continue bronchodilators and steroids ventilator support with weaning as tolerated Will continue to follow. Subjective Date/time seen: 03/26/21 13:05 Patient tolerated dialysis treatment yesterday and although BUN + creatinine better, potassium remains marginally high; remains on mechanical ventilation at this time; reasonable urine output noted; no new issues/events to report at this time. Exam Narrative: Exam Narrative: General: WD/WN male currently intubated Heart: normal S1 and S2; no rub Lungs: coarse breath sounds Abdomen: soft, nontender, nondistended, positive bowel sounds Extremities: no cyanosis or clubbing; no edema Skin: warm and intact Objective Data Vital Signs Vital Signs: Vital Signs Temp Pulse Resp BP Pulse Ox 03/26/21 12:36 49 L 18 03/26/21 12:00 35.7 C L 49 L 18 145/76 H 96 03/26/21 11:45 49 L 18 03/26/21 11:32 50 L 96 03/26/21 10:00 49 L 18 142/73 H 96 03/26/21 09:46 57 L 18 03/26/21 09:43 57 L 18 03/26/21 08:45 57 L 18 03/26/21 08:00 36.0 C L 57 L 18 138/68 94 03/26/21 07:51 58 L 94 03/26/21 07:50 56 L 18 03/26/21 06:00 58 L 18 148/68 H 95 03/26/21 04:56 61 93 03/26/21 04:00 65 17 138/68 93 03/26/21 03:54 85 30 H 03/26/21 03:42 85 30 H 03/26/21 03:31 85 30 H 03/26/21 02:05 68 18 03/26/21 02:04 76 18 03/26/21 02:00 71 19 120/63 94 03/26/21 01:58 69 93 03/26/21 01:57 70 18 03/26/21 00:00 36.7 C 73 18 123/58 L 95 03/25/21 23:54 70 18 95 03/25/21 23:03 75 95 03/25/21 22:16 74 19 03/25/21 22:14 74 19 03/25/21 22:00 72 19 119/57 L 94 03/25/21 20:24 85 18 03/25/21 20:23 85 18 03/25/21 20:00 36.4 C L 77 18 106/55 L 93 03/25/21 19:57 78 18 03/25/21 19:55 78 93 03/25/21 19:51 77 19 93 03/25/21 19:50 77 19 03/25/21 18:15 81 119/58 L 03/25/21 18:05 79
[2021-03-26] MEDS: methylPREDNISolone SOD SUCC 40 MG VIAL IV PUSH (17:12)
[2021-03-26] MEDS: FENTANYL 2,500MCG/NS250ML(*CRX 2,500 MCG/250 ML BAG 10 MCG IV CONT (17:17)
[2021-03-26] MEDS: dexmedeTOMIDine 400 MCG/100 ML 400 MCG/100 ML BAG 13.75 MCG IV CONT (17:23)
--- NOTE | 2021-03-26 18:37 | PM.IMPN ---
Progress Note: A&P Assessment and Plan (1) Shock: Code(s): R57.9 - Shock, unspecified Status: Acute Assessment and Plan: Patient was hypotensive when in the ED 03/21/2021. Blood pressure did improve prior to the patient signing out against medical advice. Patient's blood pressure was normal on admission here but dropped to 72/41 during HD requiring Levophed. Levophed able to be weaned off quickly. Blood pressure stable off Levophed. Patient on Lasix at home so suspect dehydration and/or sepsis from PNA. Continue to monitor closely ICU. (2) Acute respiratory failure with hypoxia and hypercarbia: Code(s): J96.01 - Acute respiratory failure with hypoxia; J96.02 - Acute respiratory failure with hypercapnia Status: Acute Assessment and Plan: The patient has a hx of DANNA, COPD and diastolic CHF. Patient was found to be obtunded at home. CXR clear on 03/[address] chest here showing LLL collapse from mucous plugging and RUL PNA. Sputum and Blood cultures positive. ABG on admission 7.01/73/139 on NRB and thus was intubated. Improved with treatment with IV steroids, IV abx and nebulizer treatments. Also underwent HD. Continue aggressive P+PD. Wean vent as toelrated. Appreciate supervisor treating and pumping input. (3) Acute hyperkalemia: Code(s): E87.5 - Hyperkalemia Status: Acute Assessment and Plan: Potassium 8.8 on admission. Related to his acute kidney injury. Patient was on lisinopril and Lasix on admission. Patient had emergent hemodialysis after Montez catheter placed. Repeat potassium normalized. Potassium this morning remaining normal. Continue to use dialysis to control hyperkalemia. (4) CAP (community acquired pneumonia): Qualifiers: Laterality: unspecified laterality Qualified Code(s): J18.9 - Pneumonia, unspecified organism Code(s): J18.9 - Pneumonia, unspecified organism Status: Acute Assessment and Plan: CT scan as mentioned above. Sputum growing Klebsiella and Haemophilis. BCx (1of2) positive for Coag Negative Staph. Continue Azithromycin, Rocephin ,and vancomycin. Continue nebulizer treatments. Repeat blood cultures. Follow up on sensitivities. (5) Sepsis: Code(s): A41.9 - Sepsis, unspecified organism Status: Acute Assessment and Plan: Present on admission with leukocytosis, respiratory failure, bradycardia and transient HoTN. Now with bacteremia but overall feel this is a contaminent. [place] sepsis related to the PNA with now positive sputum. Treatment as above. (6) Acute renal failure: Code(s): N17.9 - Acute kidney failure, unspecified Status: Acute Assessment and Plan: Patient has normal baseline creatinine. Creatinine 0.9 in February. Patient was seen here on March 16 with elevated creatinine but he signed himself out against medical advice. Patient was seen again on March 21 with a creatinine of 7.2 but he again signed himself out against medical advice. Creatinine on presentation this admission was 16.4. Suspect mostly from dehydration. He is on Lasix and lisinopril at home. TCK mildly elevated but felt related to poor clearance then the etiology of his GOYO. No evidence of nephrotic syndrome. UA showing 2+ blood and 1+ protein but no WBC. Workup in process. Surgery was consulted and a temporary dialysis catheter was placed. Patient did undergo hemodialysis on 03/24. Patient currently on IV fluids and Cr has trended to normal. Nephrology following and appreciate their input (7) Hypertension: Code(s): I10 - Essential (primary) hypertension Status: Acute Assessment and Plan: BP remaining stable. Continue to hold all hypertensive medication. Resume as needed. (8) Obstructive sleep apnea: Code(s): G47.33 - Obstructive sleep apnea (adult) (pediatric) Status: Acute Assessment and Plan: Patient uses 2 L nasal cannula at nighttime i
[2021-03-26] MEDS: MIDAZOLAM 100MG/NS 100ML(*CRX) 100 MG/100 ML BAG IV CONT (20:12)
[2021-03-26] MEDS: dexmedeTOMIDine 400 MCG/100 ML 400 MCG/100 ML BAG 19.25 MCG IV CONT (23:16)
[2021-03-27] VITALS (53 sets, daily range): BP systolic 134–151; BP diastolic 56–109; PULSE 47–116; RESP 18–32; TEMP 36.4–36.9; O2SAT 91–100
[2021-03-27] MEDS: ALBUTEROL SULFATE NEB 2.5 MG/0.5 ML INH INHALATION ×4 (03:47→20:34)
[2021-03-27] MEDS: IPRATROPIUM BR 0.02% INH SOLN 0.5 MG/2.5 ML VIAL INHALATION ×4 (03:47→20:34)
[2021-03-27] MEDS: dexmedeTOMIDine 400 MCG/100 ML 400 MCG/100 ML BAG 19.25 MCG IV CONT (04:42)
[2021-03-27 05:03] LABS: Hematocrit 43.3 % (42.0-52.0); Hemoglobin 13.7 g/dL (14.0-18.0); Mean Corpuscular HGB Conc 31.6 g/dl (32-36); Mean Corpuscular Hemoglobin 29.5 pg (26-34); Mean Corpuscular Volume 93.1 fl (80-100); Mean Platelet Volume 10.3 fl (7.4-10.4); Platelet Count Result 251 k/mm3 (150-375); Red Blood Count 4.65 M/mm3 (4.6-6.20); White Blood Count 16.5 K/mm3 (4.5-10.0)
[2021-03-27 05:05] LABS: Kappa\\Lambda Light Chains 1.15 (0.26-1.65); Lambda Light Chain 51.4 mg/L (5.7-26.3)
[2021-03-27] MEDS: HEPARIN SODIUM 5,000 UNITS/ML VIAL 5000 UNITS SUB-Q ×3 (05:09→20:37)
[2021-03-27] MEDS: methylPREDNISolone SOD SUCC 40 MG VIAL IV PUSH ×2 (05:09→17:09)
[2021-03-27] MEDS: CENTRAL LINE FLUSH 10 ML IV PUSH ×3 (05:09→20:38)
[2021-03-27 05:17] LABS: Alanine Aminotransferase 34 U/L (4-50); Albumin Level 3.4 g/dL (3.5-5.1); Alkaline Phosphatase 75 U/L (38-126); Anion Gap 5 mmol/L (8-16); Aspartate Amino Transferase 43 U/L (17-59); Bilirubin,Total 0.4 mg/dL (0.2-1.3); Blood Urea Nitrogen 41 mg/dL (9-20); Calcium 9.6 mg/dL (8.4-10.2); Carbon Dioxide 30 mmol/L (22-30); Chloride 108 mmol/L (98-107); Estimated CRCL calculation 73 ml/min; Estimated Glomerular Filt Rate > 60; Glucose 142 mg/dL (75-110); Potassium 5.3 mmol/L (3.4-5.0); Sodium 143 mmol/L (137-145)
[2021-03-27 05:49] LABS: Alveolar/Arterial O2 Gradient 89.6 mmHg; Base Excess ABG 4.4 mEq/l (+/-2.0); Carboxyhemoglobin 0.2 % THb (0-2.0); Fractional Inspired Oxygen 30 %; HCO3 ABG 29.1 mEq/l (22.0-26.0); Methemoglobin ABG 0.4 %THb (0-1.5); Oxygen Content ABG 21.9 %vol (16.0-22.0); Oxygen Saturation ABG 95.3 % (95.0-100.0); Oxyhemoglobin 94.4 % THb (90.0-100.0); PCO2 ABG 43.1 mmHg (35.0-45.0); PO2 ABG 73.7 mmHg (80.0-100.0); PO2 FiO2 Ratio Arterial Blood 2.46 %; Total Hemoglobin 16.5 g/dL (12.0-18.0); pH ABG 7.447 (7.350-7.450)
[2021-03-27 05:50] LABS: Device VENTILATOR; Modified Allen's Test Pass; Site Drawn LEFT RADIAL
[2021-03-27 05:51] LABS: Arterial Blood Gas PEEP 5 cmH2O; Arterial Blood Gas Vent Mode CMV; Arterial Blood Gas Ventilator rate 18 /MIN
[2021-03-27 05:52] LABS: Arterial Blood Gas Tidal Volume 500 ml
--- NOTE | 2021-03-27 06:11 | PC.NURSE ---
Patient woke up and hand was held for reassurance, however patient not able to follow commands and with a firm business objects developer pulled my thumb backwards in a very forceful and painful manner.
[2021-03-27] MEDS: PANTOPRAZOLE SODIUM IV 40 MG VIAL IV PUSH (09:39)
[2021-03-27] MEDS: MINERAL OIL/WHITE PETROLATUM OINTMENT 1 APPLIC EACH EYE ×2 (09:39→20:36)
[2021-03-27] MEDS: QUEtiapine FUMARATE 25 MG TABLET 50 MG PO (09:40)
[2021-03-27] MEDS: dexmedeTOMIDine 400 MCG/100 ML 400 MCG/100 ML BAG 16.5 MCG IV CONT (09:54)
--- NOTE | 2021-03-27 11:07 | WPDINTPN ---
Progress Note: A&P Assessment and Plan (1) Acute respiratory failure with hypoxia and hypercarbia: Code(s): J96.01 - Acute respiratory failure with hypoxia; J96.02 - Acute respiratory failure with hypercapnia Status: Acute Assessment and Plan: Acute respiratory failure likely related to respiratory and metabolic acidosis, pneumonia, COPD exacerbation -patient was intubated in the ER on 03/24/2021 -self extubated on 03/27/2021 in the morning. Put patient on nasal cannula, he was desaturating, tried Airvo but would not cooperate. Patient was also confused. He was using accessory muscles, was tachypneic and respiratory distress, it was read intubated on 03/27/2021. Intubation was uneventful. Thick secretions suctioned out post re-intubation -chest x-ray and KUB reviewed -continue azithromycin, ceftriaxone, vancomycin -continue steroids -continue bronchodilators -sedated with fentanyl, Versed, and remained agitated so Precedex infusion was added. -continue Seroquel, will increase does (2) Shock: Code(s): R57.9 - Shock, unspecified Status: Acute Assessment and Plan: RESOLVED Likely septic, normal lactic acid but given acute kidney injury, pneumonia on chest x-ray, elevated WBC count, metabolic acidosis -continue azithromycin, ceftriaxone and vancomycin -patient required Levophed overnight, currently off -continue to maintain mean arterial pressures greater than 70 mmHg for adequate renal and other organ perfusion -sputum cultures growing Klebsiella and Hemophilus influenzae -blood culture also growing gram-positive cocci 1/2 bottles. Repeat blood cultures pending. If negative will discontinue vancomycin (3) Acute kidney injury: Code(s): N17.9 - Acute kidney failure, unspecified Status: Acute Assessment and Plan: Acute kidney injury be multifactorial, hypovolemia, decreased p.o. 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 -patient was adequately fluid-resuscitated -initial creatinine was 16.4 8.8, BUN of 107 and CO2 of 17 -patient was emergently dialyzed on 03/24/2021 after surgery placed a dialysis catheter -patient received dialysis on 03/24, 621, 03/26 -creatinine 1.20 this morning -dialysis per Nephrology -continue to monitor urine output, renal function and electrolytes (4) Acute hyperkalemia: Code(s): E87.5 - Hyperkalemia Status: Acute Assessment and Plan: Patient was emergently dialyzed, potassium much improved -potassium improved but remains 53 this morning (5) Suspected COVID-19 virus infection: Code(s): Z20.822 - Contact with and (suspected) exposure to COVID-19 Status: Acute Assessment and Plan: Patient swabbed for SARS-CoV-2 PCR, currently pending -SARS-CoV-2 PCR was negative on 03/21/2021 -SARS-CoV-2 PCR PCR negative on 03/24/2021 -discontinue precautions (6) Pneumonia: Code(s): J18.9 - Pneumonia, unspecified organism Status: Acute Assessment and Plan: CT chest showed possible pneumonia -continue azithromycin, ceftriaxone and vancomycin -sputum cultures growing Klebsiella and Hemophilus (7) Hypertension: Code(s): I10 - Essential (primary) hypertension Status: Acute Assessment and Plan: History of essential hypertension, -blood pressure is elevated -will start home amlodipine -hold home Lasix and lisinopril given patient presented with acute kidney injury and hyperkalemia (8) Chronic obstructive pulmonary disease: Code(s): J44.9 - Chronic obstructive pulmonary disease, unspecified Status: Acute Assessment and Plan: History of COPD, patient presented with hypercapnic respiratory failure -continue bronchodilators, steroids and mechanical ventilator -patient continued to have wheezing post re-intubation, was given bronchodilators -continue steroids (9) DVT prophylaxis: Code(s): Z29.9 - Encounter for prophylactic measures
--- NOTE | 2021-03-27 11:16 | PCDIET ---
ICU Rounding Note: Patient self-extubated earlier today, but has been reintubated and tube feedings resumed (Nepro at 45mL/hr with 30mL water flush every 4 hours). Documented residuals 200mL and below. Last recorded weight is 111kg which is increased from last review. +I/O. Bowel Motility: No documented BM as of yet. Labs Reviewed: WBC (16.5), Hgb (13.7), Glu (142), BUN (41), K (5.3), Alb (3.4) Meds Noted: Solu Medrol, Versed, Precedex, Albuterol, Zithromax, Atrovent, Rocephin, Versed, Fentanyl, Protonix, Seroquel, Vancomycin Additional Notes: No skin breakdown reported. Following daily in ICU rounds. Assessing/reassessing every Wednesday/Wednesday.
--- NOTE | 2021-03-27 11:32 | WPDPROCEDUR ---
Procedures Intubation Intubation Date: 03/27/21 Intubation Time: 08:05 A pre-procedural Time-Out was completed immediately before starting the procedure and confirmed: Patient Identification, Site, Procedure, Patient Position and the Availability of Requisite Equipment: Yes Sedative: etomidate Paralytic: rocuronium Laryngoscope: fiber optic video scope Assist device used: fiber optic device ET tube size: 8 Tube secured depth (cm): 26 Tube secured location: lips Tube placement confirmation: visualized tube passing through cords, equal breath sounds bilaterally, no breath sounds over epigastrium and confirmation by capnometry Patient tolerated procedure: well and no complications Intubation complications: none
[2021-03-27] MEDS: amLODIPine BESYLATE 5 MG TABLET 10 MG PO (11:40)
[2021-03-27 15:03] LABS: Complement Total CH50 >60 U/mL (31-60)
--- NOTE | 2021-03-27 15:48 | PM.PNNEP ---
Progress Note: A&P Assessment and Plan (1) Acute kidney injury: Code(s): N17.9 - Acute kidney failure, unspecified Status: Acute Assessment and Plan: likely multifactorial: - prerenal factors - history of obstruction/urinary retention - concurrent use of LEDA-I and diuretics - hypotension/hemodynamic instability s/p urgent hemodialysis on day of admission HD yesterday as well - hold HD today given blood and protein in urine, follow-up on serological testing follow repeat labs and UOP (2) Acute hyperkalemia: Code(s): E87.5 - Hyperkalemia Status: Acute Assessment and Plan: due to #1 and LEDA-I use s/p HD yesterday x 2 hold HD for now follow trend (3) Shock: Code(s): R57.9 - Shock, unspecified Status: Acute Assessment and Plan: soft BPs on admission responsive to IVFs but required levophed with HD transiently on day of admission holding BP medications Levophed currently off... follow hemodynamics (4) Acute respiratory failure with hypoxia and hypercarbia: Code(s): J96.01 - Acute respiratory failure with hypoxia; J96.02 - Acute respiratory failure with hypercapnia Status: Acute Assessment and Plan: due to acidosis, pneumonia, and COPD exacerbation on ventilator support (5) Pneumonia: Code(s): J18.9 - Pneumonia, unspecified organism Status: Acute Assessment and Plan: as noted by admission imaging blood/sputun cultures noted on antibiotics (6) COPD (chronic obstructive pulmonary disease): Qualifiers: COPD type: COPD with acute lower respiratory infection Qualified Code(s): J44.0 - Chronic obstructive pulmonary disease with (acute) lower respiratory infection Code(s): J44.9 - Chronic obstructive pulmonary disease, unspecified Status: Acute Assessment and Plan: continue bronchodilators and steroids ventilator support with weaning as tolerated Will continue to follow. Subjective Date/time seen: 03/27/21 15:48 Remains on ventilator support at this time; stable hemodynamics and making reasonably urine output; K+ remains relatively stable; no other apparent issues to report other than patient has on/off moments of aggressiveness toward nursing staff. Exam Narrative: Exam Narrative: General: WD/WN male currently intubated Heart: normal S1 and S2; no rub Lungs: coarse breath sounds Abdomen: soft, nontender, nondistended, positive bowel sounds Extremities: no cyanosis or clubbing; no edema Skin: no rash or nodules Objective Data Vital Signs Vital Signs: Vital Signs Temp Pulse Resp BP Pulse Ox 03/27/21 14:00 59 L 18 139/65 97 03/27/21 13:53 58 L 18 03/27/21 13:48 52 L 98 03/27/21 13:44 54 L 18 03/27/21 12:00 36.6 C 58 L 18 151/83 H 98 03/27/21 10:44 53 L 97 03/27/21 10:00 54 L 18 150/73 H 97 03/27/21 09:54 55 L 18 03/27/21 09:33 84 23 H 03/27/21 08:59 103 H 23 H 03/27/21 08:37 95 19 03/27/21 08:30 88 32 H 03/27/21 08:15 102 H 98 03/27/21 08:00 116 H 32 H 134/109 H 94 03/27/21 07:39 91 03/27/21 07:25 66 22 H 92 03/27/21 07:15 64 20 03/27/21 06:16 55 L 20 03/27/21 06:15 58 L 20 03/27/21 06:00 65 21 H 140/56 L 94 03/27/21 05:19 61 19 03/27/21 05:18 60 20 03/27/21 04:59 47 L 97 03/27/21 04:42 50 L 20 03/27/21 04:00 36.6 C 51 L 19 150/64 H 96 03/27/21 03:59 52 L 19 03/27/21 03:49 50 L 19 97 03/27/21 03:16 55 L 18 96 03/27/21 03:15 56 L 18 03/27/21 02:18 75 20 03/27/21 02:00 60 19 146/70 H 94 03/27/21 00:00 36.6 C 48 L 19 148/70 H 97 03/26/21 23:49 47 L 18 97 03/26/21 23:42 47 L 18 03/26/21 23:21 52 L 19 03/26/21 23:16 55 L 19 03/26/21 23:09 70 25 H 03/26/21 22:19 65 22
--- NOTE | 2021-03-27 15:48 | P.PNNP_ITS ---
Progress Note: A&P Assessment and Plan (1) Acute kidney injury: Code(s): N17.9 - Acute kidney failure, unspecified Status: Acute Assessment and Plan: * likely multifactorial: - prerenal factors - history of obstruction/urinary retention - concurrent use of LEDA-I and diuretics - hypotension/hemodynamic instability * s/p urgent hemodialysis on day of admission * HD yesterday as well - hold HD today * given blood and protein in urine, follow-up on serological testing * follow repeat labs and UOP (2) Acute hyperkalemia: Code(s): E87.5 - Hyperkalemia Status: Acute Assessment and Plan: * due to #1 and LEDA-I use * s/p HD yesterday x 2 * hold HD for now * follow trend (3) Shock: Code(s): R57.9 - Shock, unspecified Status: Acute Assessment and Plan: * soft BPs on admission * responsive to IVFs but required levophed with HD transiently on day of admiss ion * holding BP medications * Levophed currently off... * follow hemodynamics (4) Acute respiratory failure with hypoxia and hypercarbia: Code(s): J96.01 - Acute respiratory failure with hypoxia; J96.02 - Acute respiratory failure with hypercapnia Status: Acute Assessment and Plan: * due to acidosis, pneumonia, and COPD exacerbation * on ventilator support (5) Pneumonia: Code(s): J18.9 - Pneumonia, unspecified organism Status: Acute Assessment and Plan: * as noted by admission imaging * blood/sputun cultures noted * on antibiotics (6) COPD (chronic obstructive pulmonary disease): Qualifiers: COPD type: COPD with acute lower respiratory infection Qualified Code(s): J44.0 - Chronic obstructive pulmonary disease with (acute) lower respiratory infection Code(s): J44.9 - Chronic obstructive pulmonary disease, unspecified Status: Acute Assessment and Plan: * continue bronchodilators and steroids * ventilator support with weaning as tolerated Will continue to follow. Subjective Date/time seen: 03/27/21 15:48 Remains on ventilator support at this time; stable hemodynamics and making reasonably urine output; K+ remains relatively stable; no other apparent issues to report other than patient has on/off moments of aggressiveness toward nursing staff. Exam Narrative: Exam Narrative: General: WD/WN male currently intubated Heart: normal S1 and S2; no rub Lungs: coarse breath sounds Abdomen: soft, nontender, nondistended, positive bowel sounds Extremities: no cyanosis or clubbing; no edema Skin: no rash or nodules Objective Data Vital Signs Vital Signs: Vital Signs Temp Pulse Resp BP Pulse Ox 03/27/21 14:00 59 L 18 139/65 97 03/27/21 13:53 58 L 18 03/27/21 13:48 52 L 98 03/27/21 13:44 54 L 18 03/27/21 12:00 36.6 C 58 L 18 151/83 H 98 03/27/21 10:44 53 L 97 03/27/21 10:00 54 L 18 150/73 H 97 03/27/21 09:54 55 L 18 03/27/21 09:33 84 23 H 03/27/21 08:59 103 H 23 H 03/27/21 08:37 95 19 03/27/21 08:30 88 32 H 03/27/21 08:15 102 H 98 03/27/21 08:00 116 H 32 H 134/109 H 94 03/27/21 07:39 91 03/27/21 07:25 66 22 H 92 03/27/21 07:15 64 20
[2021-03-27] MEDS: dexmedeTOMIDine 400 MCG/100 ML 400 MCG/100 ML BAG 13.75 MCG IV CONT ×2 (15:49→22:49)
[2021-03-27] MEDS: FENTANYL 2,500MCG/NS250ML(*CRX 2,500 MCG/250 ML BAG 17.5 MCG IV CONT (16:31)
--- NOTE | 2021-03-27 17:18 | PM.IMPN ---
Progress Note: A&P Assessment and Plan (1) Acute respiratory failure with hypoxia and hypercarbia: Code(s): J96.01 - Acute respiratory failure with hypoxia; J96.02 - Acute respiratory failure with hypercapnia Status: Acute Assessment and Plan: The patient has a hx of DANNA, COPD and diastolic CHF. Patient was found to be obtunded at home. CXR clear on 03/[address] chest here showing LLL collapse from mucous plugging and RUL PNA. Sputum and Blood cultures positive. ABG on admission ./139 on NRB and thus was intubated. Improved with treatment with IV steroids, IV abx and nebulizer treatments. Also underwent HD. Continue aggressive P+PD. Wean vent as tolerated. Appreciate poultry husbandman input. (2) Encephalopathy: Code(s): G93.40 - Encephalopathy, unspecified Status: Acute Assessment and Plan: Patient encephalopathic on admission felt related to metabolic with BUN 107. CT brain showing no acute findings. Still having trouble transitioning off MV due to mental status. Monitor closely as sedation is weaned. Seroquel added to control agitation. (3) Acute hyperkalemia: Code(s): E87.5 - Hyperkalemia Status: Acute Assessment and Plan: Potassium 8.8 on admission. Related to his acute kidney injury. Patient was on lisinopril and Lasix on admission. Patient had emergent hemodialysis after Montez catheter placed. Repeat potassium normalized. Potassium remains mildly elevated at 5.3. Cortisol level okay. TSH slightly low but FT4 normal. He is on Nepro for nutrition. RTA? Continue to use dialysis to control hyperkalemia. (4) CAP (community acquired pneumonia): Qualifiers: Laterality: unspecified laterality Qualified Code(s): J18.9 - Pneumonia, unspecified organism Code(s): J18.9 - Pneumonia, unspecified organism Status: Acute Assessment and Plan: CT scan as mentioned above. Sputum growing Klebsiella (sensitive to Rocephin) and Haemophilus (sensitivities pending). BCx (1of2) positive for Coag Negative Staph sensitive to Vanco but felt to be a contaminant. Continue Azithromycin, Rocephin and vancomycin. Continue nebulizer treatments. Repeat blood cultures pending. Follow up on sensitivities. (5) Shock: Code(s): R57.9 - Shock, unspecified Status: Acute Assessment and Plan: Patient was hypotensive when in the ED 03/21/2021. Blood pressure did improve prior to the patient signing out against medical advice. Patient's blood pressure was normal on admission here but dropped to 72/41 during HD requiring Levophed. Levophed able to be weaned off quickly. Blood pressure stable off Levophed. Patient on Lasix at home so suspect dehydration and/or sepsis from PNA. Continue to monitor closely ICU. (6) Sepsis: Code(s): A41.9 - Sepsis, unspecified organism Status: Acute Assessment and Plan: Present on admission with leukocytosis, respiratory failure, bradycardia and transient HoTN. Now with bacteremia but overall feel this is a contaminent. [place] sepsis related to the PNA with now positive sputum. Treatment as above. (7) Acute renal failure: Code(s): N17.9 - Acute kidney failure, unspecified Status: Acute Assessment and Plan: Patient has normal baseline creatinine. Creatinine 0.9 in February. Patient was seen here on March 16 with elevated creatinine but he signed himself out against medical advice. Patient was seen again on March 21 with a creatinine of 7.2 but he again signed himself out against medical advice. Creatinine on presentation this admission was 16.4. Suspect mostly from dehydration. He is on Lasix and lisinopril at home. TCK mildly elevated but felt related to poor clearance then the etiology of his GOYO. No evidence of nephrotic syndrome. UA showing 2+ blood and 1+ protein but no WBC. Workup in process. Surgery was consulted and a temporary dialysis catheter was
[2021-03-27] MEDS: MIDAZOLAM 100MG/NS 100ML(*CRX) 100 MG/100 ML BAG IV CONT (18:43)
[2021-03-27 19:47] LABS: Anti Glomerular Basement Memb <1.0 AI (<1.0)
[2021-03-27] MEDS: QUEtiapine FUMARATE 25 MG TABLET 75 MG PO (20:36)
[2021-03-28] VITALS (42 sets, daily range): BP systolic 106–166; BP diastolic 50–79; PULSE 59–115; RESP 18–35; TEMP 36.7–38.4; O2SAT 92–95
[2021-03-28 00:54] LABS: Lambda Light Chain 100.6 mg/L (5.7-26.3)
[2021-03-28] MEDS: ALBUTEROL SULFATE NEB 2.5 MG/0.5 ML INH INHALATION ×4 (02:41→21:08)
[2021-03-28] MEDS: IPRATROPIUM BR 0.02% INH SOLN 0.5 MG/2.5 ML VIAL INHALATION ×4 (02:42→21:08)
[2021-03-28 04:50] LABS: Alveolar/Arterial O2 Gradient 88.4 mmHg; Device VENTILATOR; Fractional Inspired Oxygen 30 %; HCO3 ABG 32.2 mEq/l (22.0-26.0); Methemoglobin ABG 0.5 %THb (0-1.5); Modified Allen's Test Pass; Oxygen Content ABG 18.3 %vol (16.0-22.0); Oxygen Saturation ABG 94.3 % (95.0-100.0); Oxyhemoglobin 93.6 % THb (90.0-100.0); PCO2 ABG 48.1 mmHg (35.0-45.0); Reduced Hemoglobin 5.9 %THb (0-5.0); Site Drawn LEFT RADIAL; Total Hemoglobin 13.9 g/dL (12.0-18.0); pH ABG 7.444 (7.350-7.450)
[2021-03-28 04:51] LABS: Arterial Blood Gas PEEP 5 cmH2O; Arterial Blood Gas Tidal Volume 500 ml; Arterial Blood Gas Vent Mode CMV; Arterial Blood Gas Ventilator rate 18 /MIN
[2021-03-28] MEDS: HEPARIN SODIUM 5,000 UNITS/ML VIAL 5000 UNITS SUB-Q ×2 (05:01→13:59)
[2021-03-28] MEDS: dexmedeTOMIDine 400 MCG/100 ML 400 MCG/100 ML BAG 13.75 MCG IV CONT ×3 (05:02→20:22)
[2021-03-28 05:11] LABS: Hematocrit 40.1 % (42.0-52.0); Hemoglobin 12.8 g/dL (14.0-18.0); Mean Corpuscular HGB Conc 31.9 g/dl (32-36); Mean Corpuscular Hemoglobin 29.6 pg (26-34); Mean Corpuscular Volume 92.8 fl (80-100); Mean Platelet Volume 10.2 fl (7.4-10.4); Platelet Count Result 243 k/mm3 (150-375); Red Blood Count 4.32 M/mm3 (4.6-6.20)
[2021-03-28] MEDS: FENTANYL 2,500MCG/NS250ML(*CRX 2,500 MCG/250 ML BAG 17.5 MCG IV CONT ×2 (05:16→20:23)
[2021-03-28 05:24] LABS: Alanine Aminotransferase 56 U/L (4-50); Albumin Level 3.1 g/dL (3.5-5.1); Alkaline Phosphatase 81 U/L (38-126); Anion Gap 4 mmol/L (8-16); Aspartate Amino Transferase 55 U/L (17-59); Bilirubin,Total 0.3 mg/dL (0.2-1.3); Blood Urea Nitrogen 35 mg/dL (9-20); Calcium 9.6 mg/dL (8.4-10.2); Carbon Dioxide 34 mmol/L (22-30); Chloride 104 mmol/L (98-107); Estimated CRCL calculation 81 ml/min; Estimated Glomerular Filt Rate > 60; Glucose 115 mg/dL (75-110); Magnesium 1.7 mg/dL (1.6-2.3); Phosphorus 3.2 mg/dL (2.5-4.5); Potassium 4.7 mmol/L (3.4-5.0); Sodium 142 mmol/L (137-145)
[2021-03-28] MEDS: CENTRAL LINE FLUSH 10 ML IV PUSH ×3 (05:43→20:05)
[2021-03-28] MEDS: MINERAL OIL/WHITE PETROLATUM OINTMENT 1 APPLIC EACH EYE ×2 (08:10→20:01)
[2021-03-28] MEDS: QUEtiapine FUMARATE 25 MG TABLET 75 MG PO (08:10)
[2021-03-28] MEDS: amLODIPine BESYLATE 5 MG TABLET 10 MG PO (08:10)
[2021-03-28] MEDS: PANTOPRAZOLE SODIUM IV 40 MG VIAL IV PUSH (08:10)
--- NOTE | 2021-03-28 09:07 | WPDINTPN ---
Progress Note: A&P Assessment and Plan (1) Acute respiratory failure with hypoxia and hypercarbia: Code(s): J96.01 - Acute respiratory failure with hypoxia; J96.02 - Acute respiratory failure with hypercapnia Status: Acute Assessment and Plan: Acute respiratory failure likely related to respiratory and metabolic acidosis, pneumonia, COPD exacerbation -patient was intubated in the ER on 03/24/2021 -self extubated on 03/27/2021 in the morning. Put patient on nasal cannula, he was desaturating, tried Airvo but would not cooperate. Patient was also confused. He was using accessory muscles, was tachypneic and respiratory distress, it was read intubated on 03/27/2021. Intubation was uneventful. Thick secretions suctioned out post re-intubation -chest x-ray and KUB reviewed -continue azithromycin, ceftriaxone, repeat blood cultures were negative, will discontinue vancomycin -off steroids -continue bronchodilators -sedated with fentanyl, Versed, and remained agitated so Precedex infusion was added. -continue Seroquel, will increase does (2) Shock: Code(s): R57.9 - Shock, unspecified Status: Acute Assessment and Plan: RESOLVED Likely septic, normal lactic acid but given acute kidney injury, pneumonia on chest x-ray, elevated WBC count, metabolic acidosis -continue azithromycin, ceftriaxone and vancomycin -patient required Levophed overnight, currently off -continue to maintain mean arterial pressures greater than 70 mmHg for adequate renal and other organ perfusion -sputum cultures growing Klebsiella and Hemophilus influenzae -blood culture also growing gram-positive cocci 1/2 bottles. Repeat blood cultures negative. DISCONTINUE VANCOMYCIN (3) Acute kidney injury: Code(s): N17.9 - Acute kidney failure, unspecified Status: Acute Assessment and Plan: RESOLVED Acute kidney injury be multifactorial, hypovolemia, decreased p.o. 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 -patient was adequately fluid-resuscitated -initial creatinine was 16.4 8.8, BUN of 107 and CO2 of 17 -patient was emergently dialyzed on 03/24/2021 after surgery placed a dialysis catheter -patient received dialysis on 03/24, 621, 03/26 -creatinine 1.10 this morning -dialysis per Nephrology -continue to monitor urine output, renal function and electrolytes (4) Acute hyperkalemia: Code(s): E87.5 - Hyperkalemia Status: Acute Assessment and Plan: RESOLVED Patient was emergently dialyzed, potassium much improved -potassium improved but remains 53 this morning (5) Suspected COVID-19 virus infection: Code(s): Z20.822 - Contact with and (suspected) exposure to COVID-19 Status: Acute Assessment and Plan: Patient swabbed for SARS-CoV-2 PCR, currently pending -SARS-CoV-2 PCR was negative on 03/21/2021 -SARS-CoV-2 PCR PCR negative on 03/24/2021 -discontinue precautions (6) Pneumonia: Code(s): J18.9 - Pneumonia, unspecified organism Status: Acute Assessment and Plan: CT chest showed possible pneumonia -continue azithromycin, ceftriaxone -sputum cultures growing Klebsiella and Hemophilus (7) Hypertension: Code(s): I10 - Essential (primary) hypertension Status: Acute Assessment and Plan: History of essential hypertension, -blood pressure is elevated -continue amlodipine -hold home Lasix and lisinopril given patient presented with acute kidney injury and hyperkalemia, will discuss with Nephrology (8) Chronic obstructive pulmonary disease: Code(s): J44.9 - Chronic obstructive pulmonary disease, unspecified Status: Acute Assessment and Plan: History of COPD, patient presented with hypercapnic respiratory failure -continue bronchodilators, mechanical ventilator -off steroids (9) DVT prophylaxis: Code(s): Z29.9 - Encounter for prophylactic measures, unspecified Status: Acute
[2021-03-28 11:26] LABS: ANCA Screen Negative (Negative)
--- NOTE | 2021-03-28 11:27 | PCDIET ---
Nutrition Follow-Up Complete: Nutrition Diagnosis: Inadequate oral intake related to oral intubation as evidenced by NPO status. Nutrition Goal: Patient to meet estimated nutritional needs. Goal met. Patient tolerating Nepro at 45mL/hr goal rate with 30mL water flush every 4 hours. Last recorded weight is 107.9 kg which is decreased from last review. Bowel Motility: No documented BM. MD adding Miralax. Labs Reviewed: WBC (19.0), Hgb (12.8), Hct (40.1), Glu (115), BUN (35) Meds Noted: Albuterol, Zithromax, Precedex, Versed, Norvasc, Rocephin, Fentanyl, Atrovent, Levophed, Protonix, Vancomycin Additional Notes: No skin breakdown. RN reports protective Mepilex was placed on bottom. Will continue to monitor with same goal. Nutrition Monitoring and Evaluation: Follow up every Wednesday/Wednesday.
[2021-03-28] MEDS: polyethylene glycoL 3350 17 GM POWD.PACK PO (11:51)
[2021-03-28] MEDS: ACETAMINOPHEN ELIXIR 325 MG/10.15 ML UDC 650 MG PO ×2 (12:11→18:05)
[2021-03-28 13:05] LABS: Vancomycin Trough 7.9 ug/mL (10.0-20.0)
--- NOTE | 2021-03-28 13:57 | P.PNNP_ITS ---
Progress Note: A&P Assessment and Plan (1) Acute kidney injury: Code(s): N17.9 - Acute kidney failure, unspecified Status: Acute Assessment and Plan: * resolved * likely multifactorial: - prerenal factors - history of obstruction/urinary retention - concurrent use of LEDA-I and diuretics - hypotension/hemodynamic instability * s/p HD x 2 sessions - okay to remove HD catheter * follow repeat labs and UOP (2) Acute hyperkalemia: Code(s): E87.5 - Hyperkalemia Status: Acute Assessment and Plan: * resolved * due to #1 and LEDA-I use * s/p HD x2 sessions * hold HD for now * follow trend (3) Shock: Code(s): R57.9 - Shock, unspecified Status: Acute Assessment and Plan: * soft BPs on admission * responsive to IVFs but required levophed with HD transiently on day of admission * holding BP medications * Levophed currently off... * follow hemodynamics (4) Acute respiratory failure with hypoxia and hypercarbia: Code(s): J96.01 - Acute respiratory failure with hypoxia; J96.02 - Acute respiratory failure with hypercapnia Status: Acute Assessment and Plan: * due to acidosis, pneumonia, and COPD exacerbation * on ventilator support (5) Pneumonia: Code(s): J18.9 - Pneumonia, unspecified organism Status: Acute Assessment and Plan: * as noted by admission imaging * blood/sputun cultures noted * on antibiotics (6) COPD (chronic obstructive pulmonary disease): Qualifiers: COPD type: COPD with acute lower respiratory infection Qualified Code(s ): J44.0 - Chronic obstructive pulmonary disease with (acute) lower respiratory infection Code(s): J44.9 - Chronic obstructive pulmonary disease, unspecified Status: Acute Assessment and Plan: * continue bronchodilators and steroids * ventilator support with weaning as tolerated Not much else to add -- will continue to follow intermittently.... Subjective Date/time seen: 03/28/21 13:57 Continues to remain on require mechanical ventilation at this time; hemodynamically stable and making good urine output; kidney function and potassium are within normal limits; no apparent distress at this time; still with on/off agitation per nursing. Exam Narrative: Exam Narrative: General: WD/WN male currently intubated Heart: normal S1 and S2; no rub Lungs: coarse breath sounds Abdomen: soft, nontender, nondistended, positive bowel sounds Extremities: no cyanosis or clubbing; no edema Skin: warm and dry Objective Data Vital Signs Vital Signs: Vital Signs Temp Pulse Resp BP Pulse Ox 03/28/21 13:50 68 19 93 03/28/21 13:26 70 19 03/28/21 13:11 37.8 C H 03/28/21 12:11 38.2 C H 03/28/21 12:00 38.2 C H 73 21 H 138/59 L 93 03/28/21 11:02 70 95 03/28/21 10:00 71 21 H 132/60 95 03/28/21 08:11 81 20 03/28/21 08:00 37.7 C H 85 20 166/73 H 94 03/28/21 07:59 80 21 H 95 03/28/21 06:00 62 18 153/79 H 95 03/28/21 05:16 64 20 03/28/21 05:02 63 18 03/28/21 04:53 63 95 03/28/21 04:00 36.7 C 70 18 144/63 H 93 03/28/21 03:17 115 H 35 H 03/28/21 03:10 115 H 35 H 03/28/21 0
--- NOTE | 2021-03-28 13:57 | PM.PNNEP ---
Progress Note: A&P Assessment and Plan (1) Acute kidney injury: Code(s): N17.9 - Acute kidney failure, unspecified Status: Acute Assessment and Plan: resolved likely multifactorial: - prerenal factors - history of obstruction/urinary retention - concurrent use of LEDA-I and diuretics - hypotension/hemodynamic instability s/p HD x 2 sessions - okay to remove HD catheter follow repeat labs and UOP (2) Acute hyperkalemia: Code(s): E87.5 - Hyperkalemia Status: Acute Assessment and Plan: resolved due to #1 and LEDA-I use s/p HD x2 sessions hold HD for now follow trend (3) Shock: Code(s): R57.9 - Shock, unspecified Status: Acute Assessment and Plan: soft BPs on admission responsive to IVFs but required levophed with HD transiently on day of admission holding BP medications Levophed currently off... follow hemodynamics (4) Acute respiratory failure with hypoxia and hypercarbia: Code(s): J96.01 - Acute respiratory failure with hypoxia; J96.02 - Acute respiratory failure with hypercapnia Status: Acute Assessment and Plan: due to acidosis, pneumonia, and COPD exacerbation on ventilator support (5) Pneumonia: Code(s): J18.9 - Pneumonia, unspecified organism Status: Acute Assessment and Plan: as noted by admission imaging blood/sputun cultures noted on antibiotics (6) COPD (chronic obstructive pulmonary disease): Qualifiers: COPD type: COPD with acute lower respiratory infection Qualified Code(s): J44.0 - Chronic obstructive pulmonary disease with (acute) lower respiratory infection Code(s): J44.9 - Chronic obstructive pulmonary disease, unspecified Status: Acute Assessment and Plan: continue bronchodilators and steroids ventilator support with weaning as tolerated Not much else to add -- will continue to follow intermittently.... Subjective Date/time seen: 03/28/21 13:57 Continues to remain on require mechanical ventilation at this time; hemodynamically stable and making good urine output; kidney function and potassium are within normal limits; no apparent distress at this time; still with on/off agitation per nursing. Exam Narrative: Exam Narrative: General: WD/WN male currently intubated Heart: normal S1 and S2; no rub Lungs: coarse breath sounds Abdomen: soft, nontender, nondistended, positive bowel sounds Extremities: no cyanosis or clubbing; no edema Skin: warm and dry Objective Data Vital Signs Vital Signs: Vital Signs Temp Pulse Resp BP Pulse Ox 03/28/21 13:50 68 19 93 03/28/21 13:26 70 19 03/28/21 13:11 37.8 C H 03/28/21 12:11 38.2 C H 03/28/21 12:00 38.2 C H 73 21 H 138/59 L 93 03/28/21 11:02 70 95 03/28/21 10:00 71 21 H 132/60 95 03/28/21 08:11 81 20 03/28/21 08:00 37.7 C H 85 20 166/73 H 94 03/28/21 07:59 80 21 H 95 03/28/21 06:00 62 18 153/79 H 95 03/28/21 05:16 64 20 03/28/21 05:02 63 18 03/28/21 04:53 63 95 03/28/21 04:00 36.7 C 70 18 144/63 H 93 03/28/21 03:17 115 H 35 H 03/28/21 03:10 115 H 35 H 03/28/21 02:54 98 19 03/28/21 02:44 68 19 95 03/28/21 02:04 63 18 03/28/21 02:03 63 18 03/28/21 02:00 67 18 132/57 L 95 03/28/21 01:55 59 L 18 03/28/21 00:00 36.9 C 59 L 18 144/71 H 95 03/27/21 23:20 60 96 03/27/21 22:51 73 18 03/27/21 22:50 73 18 03/27/21 22:49 73 18 03/27/21 22:45 66 20 143/66 H 95 03/27/21 22:42 73 18 03/27/21 20:45 89 18 03/27/21 20:41 110 H 25 H 03/27/21 20:40 86 25 H 94 03/27/21 20:39 110 H 25 H 03/27/21 20:35 86 22 H 03/27/21 20:15 36.9 C 110 H 25 H 145/85 H 100 03/27/21 20:00 59 L 03/27/21 18:43 58 L 03/27/21 18:00 55 L
[2021-03-28] MEDS: MIDAZOLAM 100MG/NS 100ML(*CRX) 100 MG/100 ML BAG IV CONT (13:59)
[2021-03-28 14:59] LABS: Albumin 3.2 g/dL (3.8-4.8); Alpha 1 Globulin 0.4 g/dL (0.2-0.3); Alpha 2 Globulin 0.9 g/dL (0.5-0.9); Beta 1 Globulin 0.5 g/dL (0.4-0.6); Gamma Globulin 0.7 g/dL (0.8-1.7); Protein, Total 6.1 g/dL (6.1-8.1)
[2021-03-28 15:16] LABS: Complement Total CH50 >60 U/mL (31-60)
--- NOTE | 2021-03-28 16:57 | PM.IMPN ---
Progress Note: A&P Assessment and Plan (1) Sepsis: Code(s): A41.9 - Sepsis, unspecified organism Status: Acute Assessment and Plan: Present on admission with leukocytosis, respiratory failure, bradycardia and transient HoTN. Now with bacteremia (1of2) on 03/24 growing Coag Negative staph - probably a contaminant. Repeat BCx (1of2) on 03/26 growing gram positive cocci in clusters from aerobic and anaerobic bottles. Could still be contaminant. Sputum growing Klebsiella (sensitive to Rocephin) and Haemophilus (pending sensitivities). [place] sepsis related to the PNA with now positive sputum. Having low grade fevers. ESBL? Follow up on culture results. (2) Acute respiratory failure with hypoxia and hypercarbia: Code(s): J96.01 - Acute respiratory failure with hypoxia; J96.02 - Acute respiratory failure with hypercapnia Status: Acute Assessment and Plan: The patient has a hx of DANNA, COPD and diastolic CHF. Patient was found to be obtunded at home. CXR clear on 03/[address] chest here showing LLL collapse from mucous plugging and RUL PNA. Sputum and Blood cultures positive. ABG on admission 7./73/139 on NRB and thus was intubated. Improved with treatment with IV steroids, IV abx and nebulizer treatments. Also underwent HD. Continue aggressive P+PD. Wean vent as tolerated. Appreciate field marketing coordinator input. (3) Encephalopathy: Code(s): G93.40 - Encephalopathy, unspecified Status: Acute Assessment and Plan: Patient encephalopathic on admission felt related to metabolic with BUN [address] brain showing no acute findings. Still having trouble transitioning off MV due to mental status. Monitor closely as sedation is weaned. Seroquel added to control agitation. (4) CAP (community acquired pneumonia): Qualifiers: Laterality: unspecified laterality Qualified Code(s): J18.9 - Pneumonia, unspecified organism Code(s): J18.9 - Pneumonia, unspecified organism Status: Acute Assessment and Plan: CT scan as mentioned above. Sputum growing Klebsiella (sensitive to Rocephin) and Haemophilus (sensitivities pending). BCx (1of2) positive for Coag Negative Staph sensitive to Vanco but felt to be a contaminant. Currently on Azithromycin, Rocephin and vancomycin. Concern that Haemophilus is ESBL to explain the fevers. Continue nebulizer treatments. Repeat blood cultures (1of2) also positive. Follow up on ID and sensitivities. (5) Acute hyperkalemia: Code(s): E87.5 - Hyperkalemia Status: Acute Assessment and Plan: Potassium 8.8 on admission. Related to his acute kidney injury. Patient was on lisinopril and Lasix on admission. Patient had emergent hemodialysis after Montez catheter placed. Repeat potassium normalized. Potassium better at 4.7 today. Cortisol level okay. TSH slightly low but FT4 normal. He is on Nepro for nutrition. RTA? Continue to use dialysis to control hyperkalemia. (6) Shock: Code(s): R57.9 - Shock, unspecified Status: Acute Assessment and Plan: Patient was hypotensive when in the ED 03/21/2021. Blood pressure did improve prior to the patient signing out against medical advice. Patient's blood pressure was normal on admission here but dropped to 72/41 during HD requiring Levophed. Levophed able to be weaned off quickly. Blood pressure stable off Levophed. Patient on Lasix at home so suspect dehydration and/or sepsis from PNA. Continue to monitor closely ICU. (7) Acute renal failure: Code(s): N17.9 - Acute kidney failure, unspecified Status: Acute Assessment and Plan: Patient has normal baseline creatinine. Creatinine 0.9 in February. Patient was seen here on March 16 with elevated creatinine but he signed himself out against medical advice. Patient was seen again on March 21 with a creatinine of 7.2 but he again signed himself out against medical advice
[2021-03-28] MEDS: ENOXAPARIN 40 MG/0.4 ML SYRINGE SUB-Q (17:52)
[2021-03-28] MEDS: QUEtiapine FUMARATE 100 MG TABLET PO (20:01)
[2021-03-28 23:01] LABS: Creatinine, Random Urine 313 mg/dL (20-320); Total Protein/Creatinine Ratio 313 mg/g creat (22-128)
[2021-03-29] VITALS (34 sets, daily range): BP systolic 103–136; BP diastolic 53–65; PULSE 60–103; RESP 17–28; TEMP 37.1–38.3; O2SAT 92–96
[2021-03-29] MEDS: IPRATROPIUM BR 0.02% INH SOLN 0.5 MG/2.5 ML VIAL INHALATION ×4 (02:20→20:15)
[2021-03-29] MEDS: ALBUTEROL SULFATE NEB 2.5 MG/0.5 ML INH INHALATION ×4 (02:21→20:15)
[2021-03-29] MEDS: dexmedeTOMIDine 400 MCG/100 ML 400 MCG/100 ML BAG 13.75 MCG IV CONT ×3 (03:36→18:08)
[2021-03-29 04:50] LABS: Alveolar/Arterial O2 Gradient 98.7 mmHg; Base Excess ABG 6.2 mEq/l (+/-2.0); Fractional Inspired Oxygen 30 %; Methemoglobin ABG 0.3 %THb (0-1.5); Oxygen Content ABG 16.1 %vol (16.0-22.0); Oxygen Saturation ABG 92.6 % (95.0-100.0); PCO2 ABG 45.4 mmHg (35.0-45.0); PO2 ABG 61.9 mmHg (80.0-100.0); PO2 FiO2 Ratio Arterial Blood 2.06 %; Reduced Hemoglobin 7.7 %THb (0-5.0); Total Hemoglobin 12.4 g/dL (12.0-18.0); pH ABG 7.452 (7.350-7.450)
[2021-03-29 04:52] LABS: Device VENTILATOR; Modified Allen's Test Pass; Site Drawn LEFT RADIAL
[2021-03-29 04:53] LABS: Arterial Blood Gas PEEP 5 cmH2O; Arterial Blood Gas Tidal Volume 500 ml; Arterial Blood Gas Vent Mode CMV; Arterial Blood Gas Ventilator rate 18 /MIN
[2021-03-29] MEDS: CENTRAL LINE FLUSH 10 ML IV PUSH ×2 (05:57→14:49)
[2021-03-29 06:13] LABS: Hematocrit 38.7 % (42.0-52.0); Hemoglobin 12.4 g/dL (14.0-18.0); Mean Corpuscular Hemoglobin 29.6 pg (26-34); Mean Corpuscular Volume 92.4 fl (80-100); Mean Platelet Volume 10.3 fl (7.4-10.4); Platelet Count Result 229 k/mm3 (150-375); Red Blood Count 4.19 M/mm3 (4.6-6.20); Red Cell Distribution Width 16.5 % (11.5-14.5); White Blood Count 20.7 K/mm3 (4.5-10.0)
[2021-03-29 06:24] LABS: Alanine Aminotransferase 45 U/L (4-50); Albumin Level 3.1 g/dL (3.5-5.1); Alkaline Phosphatase 82 U/L (38-126); Anion Gap 6 mmol/L (8-16); Aspartate Amino Transferase 31 U/L (17-59); Bilirubin,Total 0.4 mg/dL (0.2-1.3); Blood Urea Nitrogen 25 mg/dL (9-20); Calcium 9.6 mg/dL (8.4-10.2); Carbon Dioxide 32 mmol/L (22-30); Chloride 101 mmol/L (98-107); Estimated CRCL calculation 80 ml/min; Estimated Glomerular Filt Rate > 60; Glucose 126 mg/dL (75-110); Magnesium 1.6 mg/dL (1.6-2.3); Phosphorus 4.4 mg/dL (2.5-4.5); Potassium 4.1 mmol/L (3.4-5.0); Sodium 139 mmol/L (137-145)
[2021-03-29] MEDS: MIDAZOLAM 100MG/NS 100ML(*CRX) 100 MG/100 ML BAG IV CONT (08:24)
[2021-03-29] MEDS: ACETAMINOPHEN ELIXIR 325 MG/10.15 ML UDC 650 MG PO (08:28)
[2021-03-29] MEDS: polyethylene glycoL 3350 17 GM POWD.PACK PO (08:28)
[2021-03-29] MEDS: FUROSEMIDE INJ 40 MG/4 ML VIAL 20 MG IV PUSH ×2 (08:28→20:31)
[2021-03-29] MEDS: MINERAL OIL/WHITE PETROLATUM OINTMENT 1 APPLIC EACH EYE ×2 (08:29→20:31)
[2021-03-29] MEDS: amLODIPine BESYLATE 5 MG TABLET 10 MG PO (08:29)
[2021-03-29] MEDS: QUEtiapine FUMARATE 100 MG TABLET PO ×2 (08:29→20:28)
[2021-03-29] MEDS: ENOXAPARIN 40 MG/0.4 ML SYRINGE SUB-Q (08:29)
[2021-03-29] MEDS: PANTOPRAZOLE SODIUM IV 40 MG VIAL IV PUSH (08:29)
--- NOTE | 2021-03-29 08:49 | PM.IMPN ---
Progress Note: A&P Assessment and Plan (1) Sepsis: Code(s): A41.9 - Sepsis, unspecified organism Status: Acute Assessment and Plan: Present on admission with leukocytosis, respiratory failure, bradycardia and transient HoTN. Now with bacteremia (1of2) on 03/24 growing Coag Negative staph - probably a contaminant. Repeat BCx (1of2) on 03/26 growing gram positive cocci in clusters from aerobic and anaerobic bottles. Could still be contaminant. Sputum growing Klebsiella (sensitive to Rocephin) and Haemophilus (pending sensitivities). [place] sepsis related to the PNA with now positive sputum. Having low grade fevers. ESBL? Follow up on culture results. (2) Acute respiratory failure with hypoxia and hypercarbia: Code(s): J96.01 - Acute respiratory failure with hypoxia; J96.02 - Acute respiratory failure with hypercapnia Status: Acute Assessment and Plan: The patient has a hx of DANNA, COPD and diastolic CHF. Patient was found to be obtunded at home. CXR clear on 03/[address] chest here showing LLL collapse from mucous plugging and RUL PNA. Sputum and Blood cultures positive. ABG on admission 7./73/139 on NRB and thus was intubated. Improved with treatment with IV steroids, IV abx and nebulizer treatments. Also underwent HD. Continue aggressive P+PD. Wean vent as tolerated. Appreciate press tender long goods input. (3) Encephalopathy: Code(s): G93.40 - Encephalopathy, unspecified Status: Acute Assessment and Plan: Patient encephalopathic on admission felt related to metabolic with BUN [address] brain showing no acute findings. Still having trouble transitioning off MV due to mental status. Monitor closely as sedation is weaned. Seroquel added to control agitation. (4) CAP (community acquired pneumonia): Qualifiers: Laterality: unspecified laterality Qualified Code(s): J18.9 - Pneumonia, unspecified organism Code(s): J18.9 - Pneumonia, unspecified organism Status: Acute Assessment and Plan: CT scan as mentioned above. Sputum growing Klebsiella (sensitive to Rocephin) and Haemophilus (sensitivities STILL pending on 03/29). BCx (1of2) positive for Coag Negative Staph sensitive to Vanco but felt to be a contaminant. Currently on Azithromycin, Rocephin and Vancomycin. Concern that Haemophilus is ESBL to explain the fevers. Continue nebulizer treatments. Repeat blood cultures (1of2) also positive. Follow up on ID and sensitivities. (5) Acute hyperkalemia: Code(s): E87.5 - Hyperkalemia Status: Acute Assessment and Plan: Potassium 8.8 on admission. Related to his acute kidney injury. Patient was on lisinopril and Lasix on admission. Patient had emergent hemodialysis after Montez catheter placed. Repeat potassium normalized. Potassium better at 4.1 03/29. Cortisol level okay. TSH slightly low but FT4 normal. He is on Nepro for nutrition. Dialysis now on hold. (6) Shock: Code(s): R57.9 - Shock, unspecified Status: Acute Assessment and Plan: Patient was hypotensive when in the ED 03/21/2021. Blood pressure did improve prior to the patient signing out against medical advice. Patient's blood pressure was normal on admission here but dropped to 72/41 during HD requiring Levophed. Levophed able to be weaned off quickly. Blood pressure stable off Levophed. Patient on Lasix at home so suspect dehydration and/or sepsis from PNA. Continue to monitor closely ICU. (7) Acute renal failure: Code(s): N17.9 - Acute kidney failure, unspecified Status: Acute Assessment and Plan: Patient has normal baseline creatinine. Creatinine 0.9 in February. Patient was seen here on March 16 with elevated creatinine but he signed himself out against medical advice. Patient was seen again on March 21 with a creatinine of 7.2 but he again signed himself out against medical advice. Creatinine on pres
--- NOTE | 2021-03-29 09:14 | WPDINTPN ---
Progress Note: A&P Assessment and Plan (1) Acute respiratory failure with hypoxia and hypercarbia: Code(s): J96.01 - Acute respiratory failure with hypoxia; J96.02 - Acute respiratory failure with hypercapnia Status: Acute Assessment and Plan: Acute respiratory failure likely related to respiratory and metabolic acidosis, pneumonia, COPD exacerbation -patient was intubated in the ER on 03/24/2021 -self extubated on 03/27/2021 in the morning. Put patient on nasal cannula, he was desaturating, tried Airvo but would not cooperate. Patient was also confused. He was using accessory muscles, was tachypneic and respiratory distress, it was read intubated on 03/27/2021. Intubation was uneventful. Thick secretions suctioned out post re-intubation -chest x-ray and ABGs reviewed -continue azithromycin, ceftriaxone, vancomycin -off steroids -continue bronchodilators -sedated with fentanyl, Versed, and remained agitated so Precedex infusion was added. -continue Seroquel, (2) Shock: Code(s): R57.9 - Shock, unspecified Status: Acute Assessment and Plan: RESOLVED: Likely septic, normal lactic acid but given acute kidney injury, pneumonia on chest x-ray, elevated WBC count, metabolic acidosis -continue azithromycin, ceftriaxone -03/24/2021: Blood cultures growing coag-negative staph 1/2 bottles -623 repeat blood cultures growing Gram-positive cocci in clusters from an aerobic and anaerobic bottles -sputum cultures growing Klebsiella and Hemophilus influenzae -patient has been febrile since yesterday with a T-max of 101.1? -will obtain lower extremity Dopplers -Continue vancomycin, ceftriaxone, azithromycin (3) Acute kidney injury: Code(s): N17.9 - Acute kidney failure, unspecified Status: Acute Assessment and Plan: RESOLVED Acute kidney injury be multifactorial, hypovolemia, decreased p.o. 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 -patient was adequately fluid-resuscitated -initial creatinine was 16.4 8.8, BUN of 107 and CO2 of 17 -patient was emergently dialyzed on 03/24/2021 after surgery placed a dialysis catheter -patient received dialysis on 03/24, 621, 03/26 -creatinine 1.10 this morning -now that patient is BUN and creatinine along with potassium levels are within normal limits, okay to remove dialysis catheter -continue to monitor urine output, renal function and electrolytes (4) Acute hyperkalemia: Code(s): E87.5 - Hyperkalemia Status: Acute Assessment and Plan: RESOLVED (5) Suspected COVID-19 virus infection: Code(s): Z20.822 - Contact with and (suspected) exposure to COVID-19 Status: Acute Assessment and Plan: Patient swabbed for SARS-CoV-2 PCR, currently pending -SARS-CoV-2 PCR was negative on 03/21/2021 -SARS-CoV-2 PCR PCR negative on 03/24/2021 -discontinue precautions (6) Pneumonia: Code(s): J18.9 - Pneumonia, unspecified organism Status: Acute Assessment and Plan: CT chest showed possible pneumonia -continue azithromycin, ceftriaxone -sputum cultures growing Klebsiella and Hemophilus (7) Hypertension: Code(s): I10 - Essential (primary) hypertension Status: Acute Assessment and Plan: History of essential hypertension, -blood pressure is elevated -continue amlodipine -hold home Lasix and lisinopril given patient presented with acute kidney injury and hyperkalemia, will discuss with Nephrology (8) Chronic obstructive pulmonary disease: Code(s): J44.9 - Chronic obstructive pulmonary disease, unspecified Status: Acute Assessment and Plan: History of COPD, patient presented with hypercapnic respiratory failure -continue bronchodilators, mechanical ventilator -off steroids (9) DVT prophylaxis: Code(s): Z29.9 - Encounter for prophylactic measures, unspecified Status: Acute Assessment and Plan: DVT prophyla
[2021-03-29] MEDS: FENTANYL 2,500MCG/NS250ML(*CRX 2,500 MCG/250 ML BAG 15 MCG IV CONT (10:30)
[2021-03-30] VITALS (39 sets, daily range): BP systolic 91–168; BP diastolic 51–72; PULSE 60–99; RESP 18–26; TEMP 36.4–37.7; O2SAT 92–97
[2021-03-30] MEDS: dexmedeTOMIDine 400 MCG/100 ML 400 MCG/100 ML BAG 16.5 MCG IV CONT (00:38)
[2021-03-30 01:49] LABS: Vancomycin Trough 16.6 ug/mL (10.0-20.0)
[2021-03-30] MEDS: IPRATROPIUM BR 0.02% INH SOLN 0.5 MG/2.5 ML VIAL INHALATION ×4 (01:57→19:57)
[2021-03-30] MEDS: ALBUTEROL SULFATE NEB 2.5 MG/0.5 ML INH INHALATION ×4 (01:57→19:57)
[2021-03-30] MEDS: FENTANYL 2,500MCG/NS250ML(*CRX 2,500 MCG/250 ML BAG 10 MCG IV CONT (02:54)
[2021-03-30 04:04] LABS: Alveolar/Arterial O2 Gradient 133.8 mmHg; Base Excess ABG 4.9 mEq/l (+/-2.0); Carboxyhemoglobin 0.2 % THb (0-2.0); Fractional Inspired Oxygen 35 %; HCO3 ABG 29.3 mEq/l (22.0-26.0); Methemoglobin ABG 0.3 %THb (0-1.5); Oxyhemoglobin 92.5 % THb (90.0-100.0); PCO2 ABG 42.5 mmHg (35.0-45.0); PO2 ABG 66.3 mmHg (80.0-100.0); PO2 FiO2 Ratio Arterial Blood 1.89 %; Total Hemoglobin 13.8 g/dL (12.0-18.0); pH ABG 7.456 (7.350-7.450)
[2021-03-30 04:07] LABS: Modified Allen's Test Pass; Site Drawn RIGHT RADIAL
[2021-03-30 04:08] LABS: Device VENTILATOR
[2021-03-30 04:09] LABS: Arterial Blood Gas PEEP 5 cmH2O; Arterial Blood Gas Tidal Volume 500 ml; Arterial Blood Gas Vent Mode CMV; Arterial Blood Gas Ventilator rate 18 /MIN
[2021-03-30 04:32] LABS: Hematocrit 38.5 % (42.0-52.0); Hemoglobin 12.2 g/dL (14.0-18.0); Mean Corpuscular HGB Conc 31.7 g/dl (32-36); Mean Corpuscular Hemoglobin 29.5 pg (26-34); Mean Platelet Volume 10.7 fl (7.4-10.4); Platelet Count Result 229 k/mm3 (150-375); Red Blood Count 4.14 M/mm3 (4.6-6.20); Red Cell Distribution Width 16.1 % (11.5-14.5); White Blood Count 19.1 K/mm3 (4.5-10.0)
[2021-03-30] MEDS: dexmedeTOMIDine 400 MCG/100 ML 400 MCG/100 ML BAG 19.25 MCG IV CONT ×3 (05:06→19:14)
[2021-03-30 05:23] LABS: Alanine Aminotransferase 34 U/L (4-50); Albumin Level 3.2 g/dL (3.5-5.1); Alkaline Phosphatase 68 U/L (38-126); Anion Gap 6 mmol/L (8-16); Aspartate Amino Transferase 26 U/L (17-59); Bilirubin,Total 0.7 mg/dL (0.2-1.3); Blood Urea Nitrogen 25 mg/dL (9-20); Calcium 9.5 mg/dL (8.4-10.2); Carbon Dioxide 32 mmol/L (22-30); Chloride 98 mmol/L (98-107); Estimated CRCL calculation 87 ml/min; Estimated Glomerular Filt Rate > 60; Glucose 104 mg/dL (75-110); Magnesium 1.5 mg/dL (1.6-2.3); Phosphorus 3.7 mg/dL (2.5-4.5); Potassium 3.9 mmol/L (3.4-5.0); Sodium 136 mmol/L (137-145)
[2021-03-30] MEDS: MAGNESIUM SULF 2 GM/WATER 50ML 2 GM/50 ML BAG IVPB (08:58)
[2021-03-30] MEDS: FUROSEMIDE INJ 40 MG/4 ML VIAL 20 MG IV PUSH ×2 (08:58→20:06)
[2021-03-30] MEDS: polyethylene glycoL 3350 17 GM POWD.PACK PO (08:59)
[2021-03-30] MEDS: QUEtiapine FUMARATE 100 MG TABLET PO ×2 (08:59→20:06)
[2021-03-30] MEDS: PANTOPRAZOLE SODIUM IV 40 MG VIAL IV PUSH (08:59)
[2021-03-30] MEDS: ENOXAPARIN 40 MG/0.4 ML SYRINGE SUB-Q (08:59)
[2021-03-30] MEDS: MINERAL OIL/WHITE PETROLATUM OINTMENT 1 APPLIC EACH EYE ×2 (09:15→20:07)
--- NOTE | 2021-03-30 09:17 | PM.IMPN ---
Progress Note: A&P Assessment and Plan (1) Sepsis: Qualifiers: Sepsis type: sepsis due to unspecified organism Sepsis acute organ dysfunction status: with acute organ dysfunction Severe sepsis acute organ dysfunction type: acute respiratory failure Acute respiratory failure type: with hypoxia Severe sepsis shock status: without septic shock Qualified Code(s): A41.9 - Sepsis, unspecified organism; R65.20 - Severe sepsis without septic shock; J96.01 - Acute respiratory failure with hypoxia Code(s): A41.9 - Sepsis, unspecified organism Status: Acute Assessment and Plan: Present on admission with leukocytosis, respiratory failure, bradycardia and transient HoTN. Now with bacteremia (1of2) on 03/24 growing Coag Negative staph - probably a contaminant. Repeat BCx (1of2) on 03/26 growing gram positive cocci in clusters from aerobic and anaerobic bottles. Could still be contaminant. Sputum growing Klebsiella (sensitive to Rocephin) and Haemophilus (pending sensitivities). [place] sepsis related to the PNA with now positive sputum. Having low grade fevers. Resistance devloped vs new or undetected organism or source of infection. Follow up on culture results. (2) Acute respiratory failure with hypoxia and hypercarbia: Code(s): J96.01 - Acute respiratory failure with hypoxia; J96.02 - Acute respiratory failure with hypercapnia Status: Acute Assessment and Plan: The patient has a hx of DANNA, COPD and diastolic CHF. Patient was found to be obtunded at home. CXR clear on 03/[address] chest here showing LLL collapse from mucous plugging and RUL PNA. Sputum and Blood cultures positive. ABG on admission 7.01//139 on NRB and thus was intubated. Improved with treatment with IV steroids, IV abx and nebulizer treatments. Also underwent HD. Continue aggressive P+PD. Wean vent as tolerated. (3) Encephalopathy: Code(s): G93.40 - Encephalopathy, unspecified Status: Acute Assessment and Plan: Patient encephalopathic on admission felt related to metabolic with BUN [address] brain showing no acute findings. Still having trouble transitioning off MV due to mental status. Monitor closely as sedation is weaned. Seroquel added to control agitation. (4) CAP (community acquired pneumonia): Qualifiers: Laterality: unspecified laterality Qualified Code(s): J18.9 - Pneumonia, unspecified organism Code(s): J18.9 - Pneumonia, unspecified organism Status: Acute Assessment and Plan: CT scan as mentioned above. Sputum growing Klebsiella (sensitive to Rocephin) and Haemophilus (sensitivities STILL pending on 03/29). BCx (1of2) positive for Coag Negative Staph sensitive to Vanco but felt to be a contaminant. Currently on Azithromycin, Rocephin and Vancomycin. Concern for resistance or new or undetected organism. Continue nebulizer treatments. Repeat blood cultures (1of2) also positive. Follow up on ID and sensitivities. (5) Acute hyperkalemia: Code(s): E87.5 - Hyperkalemia Status: Acute Assessment and Plan: Potassium 8.8 on admission. Related to his acute kidney injury. Patient was on lisinopril and Lasix on admission. Patient had emergent hemodialysis after Montez catheter placed. Repeat potassium normalized. Potassium better at 4.1 03/29. Cortisol level okay. TSH slightly low but FT4 normal. He is on Nepro for nutrition. Dialysis now on hold. (6) Shock: Code(s): R57.9 - Shock, unspecified Status: Acute Assessment and Plan: Patient was hypotensive when in the ED 03/21/2021. Blood pressure did improve prior to the patient signing out against medical advice. Patient's blood pressure was normal on admission here but dropped to 72/41 during HD requiring Levophed. Levophed able to be weaned off quickly. Blood pressure stable off Levophed. Patient on Lasix at home so suspect dehydration and/or sepsis
[2021-03-30] MEDS: dexmedeTOMIDine 400 MCG/100 ML 400 MCG/100 ML BAG 22 MCG IV CONT ×2 (10:13→23:22)
[2021-03-30] MEDS: MIDAZOLAM 100MG/NS 100ML(*CRX) 100 MG/100 ML BAG IV CONT (11:24)
[2021-03-30] MEDS: METOCLOPRAMIDE HCL INJ 10 MG/2 ML VIAL 5 MG IV PUSH ×3 (11:24→23:48)
--- NOTE | 2021-03-30 13:37 | WPDINTPN ---
Progress Note: A&P Assessment and Plan (1) Acute respiratory failure with hypoxia and hypercarbia: Code(s): J96.01 - Acute respiratory failure with hypoxia; J96.02 - Acute respiratory failure with hypercapnia Status: Acute Assessment and Plan: Acute respiratory failure likely related to respiratory and metabolic acidosis, pneumonia, COPD exacerbation -patient was intubated in the ER on 03/24/2021 -self extubated on 03/27/2021 in the morning. Put patient on nasal cannula, he was desaturating, tried Airvo but would not cooperate. Patient was also confused. He was using accessory muscles, was tachypneic and respiratory distress, it was read intubated on 03/27/2021. Intubation was uneventful. Thick secretions suctioned out post re-intubation -chest x-ray and ABGs reviewed -continue azithromycin, ceftriaxone, vancomycin -off steroids -continue bronchodilators -sedated with fentanyl, Versed, and remained agitated so Precedex infusion was added. -continue Seroquel, (2) Shock: Code(s): R57.9 - Shock, unspecified Status: Acute Assessment and Plan: RESOLVED: Likely septic, normal lactic acid but given acute kidney injury, pneumonia on chest x-ray, elevated WBC count, metabolic acidosis -continue azithromycin, ceftriaxone -03/24: Blood cultures growing coag-negative staph 1/2 bottles -03/26: repeat blood cultures growing Coag-negative staph 1/2 bottles. will discontinue vancomycin -sputum cultures growing Klebsiella and Hemophilus influenzae -patient has been febrile since yesterday with a T-max of 101.1? -will obtain lower extremity Dopplers -Continue vancomycin, ceftriaxone, azithromycin (3) Acute kidney injury: Code(s): N17.9 - Acute kidney failure, unspecified Status: Acute Assessment and Plan: RESOLVED Acute kidney injury be multifactorial, hypovolemia, decreased p.o. 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 -patient was adequately fluid-resuscitated -initial creatinine was 16.4 8.8, BUN of 107 and CO2 of 17 -patient was emergently dialyzed on 03/24/2021 after surgery placed a dialysis catheter -patient received dialysis on 03/24, 621, 03/26 -creatinine 1.10 this morning -now that patient is BUN and creatinine along with potassium levels are within normal limits, okay to remove dialysis catheter -continue to monitor urine output, renal function and electrolytes (4) Acute hyperkalemia: Code(s): E87.5 - Hyperkalemia Status: Acute Assessment and Plan: RESOLVED (5) Suspected COVID-19 virus infection: Code(s): Z20.822 - Contact with and (suspected) exposure to COVID-19 Status: Acute Assessment and Plan: Patient swabbed for SARS-CoV-2 PCR, currently pending -SARS-CoV-2 PCR was negative on 03/21/2021 -SARS-CoV-2 PCR PCR negative on 03/24/2021 -discontinue precautions (6) Pneumonia: Code(s): J18.9 - Pneumonia, unspecified organism Status: Acute Assessment and Plan: CT chest showed possible pneumonia -continue azithromycin, ceftriaxone -sputum cultures growing Klebsiella and Hemophilus (7) Hypertension: Qualifiers: Hypertension type: unspecified Qualified Code(s): I10 - Essential (primary) hypertension Code(s): I10 - Essential (primary) hypertension Status: Acute Assessment and Plan: History of essential hypertension, -blood pressure is elevated -continue amlodipine -hold home Lasix and lisinopril given patient presented with acute kidney injury and hyperkalemia, will discuss with Nephrology (8) Chronic obstructive pulmonary disease: Qualifiers: COPD type: unspecified COPD Qualified Code(s): J44.9 - Chronic obstructive pulmonary disease, unspecified Code(s): J44.9 - Chronic obstructive pulmonary disease, unspecified Status: Acute Assessment and Plan: History of COPD, patient presented with hypercapnic r
[2021-03-31] VITALS (38 sets, daily range): BP systolic 102–130; BP diastolic 50–67; PULSE 59–92; RESP 18–28; TEMP 36.6–37.3; O2SAT 92–98
[2021-03-31] MEDS: ALBUTEROL SULFATE NEB 2.5 MG/0.5 ML INH INHALATION ×4 (01:18→20:19)
[2021-03-31] MEDS: IPRATROPIUM BR 0.02% INH SOLN 0.5 MG/2.5 ML VIAL INHALATION ×4 (01:18→20:19)
[2021-03-31] MEDS: dexmedeTOMIDine 400 MCG/100 ML 400 MCG/100 ML BAG 24.75 MCG IV CONT (03:47)
[2021-03-31 04:16] LABS: Alveolar/Arterial O2 Gradient 106.5 mmHg; Base Excess ABG 7.4 mEq/l (+/-2.0); Carboxyhemoglobin 0.1 % THb (0-2.0); Fractional Inspired Oxygen 35 %; HCO3 ABG 32.3 mEq/l (22.0-26.0); Methemoglobin ABG 0.4 %THb (0-1.5); Oxygen Content ABG 18.4 %vol (16.0-22.0); Oxygen Saturation ABG 97.2 % (95.0-100.0); Oxyhemoglobin 95.8 % THb (90.0-100.0); PCO2 ABG 46.2 mmHg (35.0-45.0); PO2 ABG 89.3 mmHg (80.0-100.0); PO2 FiO2 Ratio Arterial Blood 2.55 %; Reduced Hemoglobin 3.7 %THb (0-5.0); Total Hemoglobin 13.6 g/dL (12.0-18.0); pH ABG 7.462 (7.350-7.450)
[2021-03-31 04:17] LABS: Device VENTILATOR; Modified Allen's Test Pass; Site Drawn LEFT RADIAL
[2021-03-31 04:18] LABS: Arterial Blood Gas PEEP 5 cmH2O; Arterial Blood Gas Tidal Volume 500 ml; Arterial Blood Gas Vent Mode CMV; Arterial Blood Gas Ventilator rate 18 /MIN
[2021-03-31 04:47] LABS: Hematocrit 40.7 % (42.0-52.0); Hemoglobin 12.9 g/dL (14.0-18.0); Mean Corpuscular HGB Conc 31.7 g/dl (32-36); Mean Corpuscular Hemoglobin 29.5 pg (26-34); Mean Corpuscular Volume 92.9 fl (80-100); Mean Platelet Volume 10.7 fl (7.4-10.4); Platelet Count Result 284 k/mm3 (150-375); Red Blood Count 4.38 M/mm3 (4.6-6.20); Red Cell Distribution Width 15.7 % (11.5-14.5); White Blood Count 14.8 K/mm3 (4.5-10.0)
[2021-03-31 04:56] LABS: Alanine Aminotransferase 35 U/L (4-50); Albumin Level 3.4 g/dL (3.5-5.1); Alkaline Phosphatase 79 U/L (38-126); Anion Gap 8 mmol/L (8-16); Aspartate Amino Transferase 32 U/L (17-59); Bilirubin,Total 0.6 mg/dL (0.2-1.3); Blood Urea Nitrogen 25 mg/dL (9-20); Calcium 9.3 mg/dL (8.4-10.2); Carbon Dioxide 33 mmol/L (22-30); Chloride 94 mmol/L (98-107); Estimated CRCL calculation 86 ml/min; Estimated Glomerular Filt Rate > 60; Glucose 190 mg/dL (75-110); Magnesium 1.9 mg/dL (1.6-2.3); Phosphorus 3.6 mg/dL (2.5-4.5); Potassium 3.7 mmol/L (3.4-5.0); Sodium 135 mmol/L (137-145)
[2021-03-31] MEDS: METOCLOPRAMIDE HCL INJ 10 MG/2 ML VIAL 5 MG IV PUSH (05:01)
[2021-03-31] MEDS: dexmedeTOMIDine 400 MCG/100 ML 400 MCG/100 ML BAG 27.5 MCG IV CONT ×2 (07:53→11:53)
[2021-03-31] MEDS: MINERAL OIL/WHITE PETROLATUM OINTMENT 1 APPLIC EACH EYE ×2 (08:04→20:45)
[2021-03-31] MEDS: PANTOPRAZOLE SODIUM IV 40 MG VIAL IV PUSH (08:04)
[2021-03-31] MEDS: polyethylene glycoL 3350 17 GM POWD.PACK PO (08:04)
[2021-03-31] MEDS: FUROSEMIDE INJ 40 MG/4 ML VIAL 20 MG IV PUSH ×2 (08:05→19:39)
[2021-03-31] MEDS: ENOXAPARIN 40 MG/0.4 ML SYRINGE SUB-Q (08:05)
[2021-03-31] MEDS: QUEtiapine FUMARATE 100 MG TABLET PO ×2 (08:05→20:45)
--- NOTE | 2021-03-31 08:10 | PM.IMPN ---
Progress Note: A&P Assessment and Plan (1) Sepsis: Qualifiers: Acute respiratory failure type: with hypoxia Sepsis acute organ dysfunction status: with acute organ dysfunction Sepsis type: sepsis due to unspecified organism Severe sepsis acute organ dysfunction type: acute respiratory failure Severe sepsis shock status: without septic shock Qualified Code(s): A41.9 - Sepsis, unspecified organism; R65.20 - Severe sepsis without septic shock; J96.01 - Acute respiratory failure with hypoxia Code(s): A41.9 - Sepsis, unspecified organism Status: Acute Assessment and Plan: Present on admission with leukocytosis, respiratory failure, bradycardia and transient HoTN. Now with bacteremia (1of2) on 03/24 growing Coag Negative Staph - probably a contaminant. Repeat BCx (1of2) on 03/26 growing Coag Negative Staph from aerobic and anaerobic bottles. Could still be contaminant. Sputum growing Klebsiella (sensitive to Rocephin) and Haemophilus (beta lact positive). [place] sepsis related to the PNA with now positive sputum. Fevers resolved. Follow up on culture results. Continue current abx. (2) Acute respiratory failure with hypoxia and hypercarbia: Code(s): J96.01 - Acute respiratory failure with hypoxia; J96.02 - Acute respiratory failure with hypercapnia Status: Acute Assessment and Plan: The patient has a hx of DANNA, COPD and diastolic CHF. Patient was found to be obtunded at home. CXR clear on 03/[address] chest here showing LLL collapse from mucous plugging and RUL PNA. Sputum and Blood cultures positive as detailed below. ABG on admission 7.01/73/139 on NRB and thus was intubated. Improved with treatment with IV steroids, IV abx and nebulizer treatments. Also underwent HD. Self-extubated 03/27 requiring re-intubation. Abx narrowed and steroids stopped. Continue aggressive P+PD. Wean vent as tolerated. (3) Ileus: Code(s): K56.7 - Ileus, unspecified Status: Acute Assessment and Plan: No BM despite Miralax. KUB showing moderate gas t/o the colon c/w ileus 03/29. Metoclopramide added 03/30. Still no BM. Dulcolax x1. (4) Encephalopathy: Code(s): G93.40 - Encephalopathy, unspecified Status: Acute Assessment and Plan: Patient encephalopathic on admission felt related to metabolic with BUN [address] brain showing no acute findings. Still having trouble transitioning off MV due to mental status but better today. Monitor closely as sedation is weaned. Seroquel added to control agitation. (5) CAP (community acquired pneumonia): Qualifiers: Laterality: unspecified laterality Qualified Code(s): J18.9 - Pneumonia, unspecified organism Code(s): J18.9 - Pneumonia, unspecified organism Status: Acute Assessment and Plan: CT scan as mentioned above. Sputum growing Klebsiella (sensitive to Rocephin) and Haemophilus (beta lact positive). BCx (1of2) positive for Coag Negative Staph sensitive to Vanco but felt to be a contaminant. Repeat blood cultures (1of2) also positive for Coag Negative Staph also sensitive to Vanco. Currently on Azithromycin and Rocephin; Vancomycin stopped. Continue abx and nebulizer treatments. (6) Acute hyperkalemia: Code(s): E87.5 - Hyperkalemia Status: Acute Assessment and Plan: Potassium 8.8 on admission. Related to his acute kidney injury. Patient was on lisinopril and Lasix on admission. Patient had emergent hemodialysis after Montez catheter placed. Repeat potassium normalized. Cortisol level okay. TSH slightly low but FT4 normal. He is on Nepro for nutrition. Potassium remaining normal. (7) Shock: Code(s): R57.9 - Shock, unspecified Status: Acute Assessment and Plan: Patient was hypotensive when in the ED 03/21/2021. Blood pressure did improve prior to the patient signing out against medical advice. Patient's blood press
[2021-03-31] MEDS: amLODIPine BESYLATE 5 MG TABLET 10 MG PO (10:40)
[2021-03-31] MEDS: BISACODYL 10 MG SUPPOSITORY RECTAL (10:40)
--- NOTE | 2021-03-31 10:55 | PCDIET ---
ICU Rounding Note: Tube feedings held over the weekend due to ileus. Nepro currently infusing at 20mL/hr with residuals 190mL and below. increasing Reglan. Last recorded weight is 106.3kg which is decreased from last review. -I/O. Significant urine output noted. Bowel Motility: No documented BM. Patient receiving Miralax and Dulcolax today. Labs Reviewed: Hgb (12.9), Hct (40.7), Glu (190), Na (135), Alb (3.4) Meds Noted: Albuterol, Precedex, Atrovent, Dulcolax, Zithromax, Fentanyl, Reglan, Seroquel, Rocephin, Lasix, Versed, Protonix, Miralax Additional Notes: No pressure sores documented. Following daily in ICU rounds. Assessing/reassessing every Wednesday/Wednesday.
--- NOTE | 2021-03-31 11:36 | WPDINTPN ---
Progress Note: A&P Assessment and Plan (1) Acute respiratory failure with hypoxia and hypercarbia: Code(s): J96.01 - Acute respiratory failure with hypoxia; J96.02 - Acute respiratory failure with hypercapnia Status: Acute Assessment and Plan: Acute respiratory failure likely related to respiratory and metabolic acidosis, pneumonia, COPD exacerbation -patient was intubated in the ER on 03/24/2021 -self extubated on 03/27/2021 in the morning. Put patient on nasal cannula, he was desaturating, tried Airvo but would not cooperate. Patient was also confused. He was using accessory muscles, was tachypneic and respiratory distress, it was read intubated on 03/27/2021. Intubation was uneventful. Thick secretions suctioned out post re-intubation -chest x-ray and ABGs reviewed -continue azithromycin, ceftriaxone, vancomycin -off steroids -continue bronchodilators -sedated with fentanyl, Versed, and remained agitated so Precedex infusion was added. will further wean fentanyl and Versed to off, patient is more awake will place him on SBT and re-evaluate for extubation -continue Seroquel, - continue diuresis (2) Shock: Code(s): R57.9 - Shock, unspecified Status: Acute Assessment and Plan: RESOLVED: Likely septic, normal lactic acid but given acute kidney injury, pneumonia on chest x-ray, elevated WBC count, metabolic acidosis -continue azithromycin, ceftriaxone -03/24: Blood cultures growing coag-negative staph 1/2 bottles -03/26: repeat blood cultures growing Coag-negative staph 1/2 bottles. vancomycin was discontinued - 03/24: sputum cultures growing Klebsiella and Hemophilus influenzae - - 03/29/2021: Bilateral lower extremity venous Dopplers negative for DVT -Continue ceftriaxone, azithromycin (3) Acute kidney injury: Code(s): N17.9 - Acute kidney failure, unspecified Status: Acute Assessment and Plan: RESOLVED Acute kidney injury be multifactorial, hypovolemia, decreased p.o. 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 -patient was adequately fluid-resuscitated -initial creatinine was 16.4 8.8, BUN of 107 and CO2 of 17 -patient was emergently dialyzed on 03/24/2021 after surgery placed a dialysis catheter -patient received dialysis on 03/24, 621, 03/26 -creatinine 1.00 this morning -now that patient is BUN and creatinine along with potassium levels are within normal limits, okay to remove dialysis catheter -continue to monitor urine output, renal function and electrolytes (4) Acute hyperkalemia: Code(s): E87.5 - Hyperkalemia Status: Acute Assessment and Plan: RESOLVED (5) Suspected COVID-19 virus infection: Code(s): Z20.822 - Contact with and (suspected) exposure to COVID-19 Status: Acute Assessment and Plan: Patient swabbed for SARS-CoV-2 PCR, currently pending -SARS-CoV-2 PCR was negative on 03/21/2021 -SARS-CoV-2 PCR PCR negative on 03/24/2021 -discontinue precautions (6) Pneumonia: Code(s): J18.9 - Pneumonia, unspecified organism Status: Acute Assessment and Plan: CT chest showed possible pneumonia -continue azithromycin, ceftriaxone -sputum cultures growing Klebsiella and Hemophilus (7) Hypertension: Qualifiers: Hypertension type: unspecified Qualified Code(s): I10 - Essential (primary) hypertension Code(s): I10 - Essential (primary) hypertension Status: Acute Assessment and Plan: History of essential hypertension, -blood pressure is elevated -continue amlodipine -hold home lisinopril given patient presented with acute kidney injury and hyperkalemia, will discuss with Nephrology (8) Chronic obstructive pulmonary disease: Qualifiers: COPD type: unspecified COPD Qualified Code(s): J44.9 - Chronic obstructive pulmonary disease, unspecified Code(s): J44.9 - Chronic obstructive pulmonary disease, unspecified
[2021-03-31] MEDS: METOCLOPRAMIDE HCL INJ 10 MG/2 ML VIAL IV PUSH ×2 (12:11→17:55)
[2021-03-31] MEDS: dexmedeTOMIDine 400 MCG/100 ML 400 MCG/100 ML BAG 41.25 MCG IV CONT ×4 (14:43→21:52)
[2021-03-31 15:00] LABS: IFOB Positive Control Positive; Immunochemical Fecal Occult Bl Positive (N)
[2021-04-01] VITALS (51 sets, daily range): BP systolic 94–123; BP diastolic 47–58; PULSE 57–74; RESP 18–29; TEMP 36.6–37.3; O2SAT 91–98
[2021-04-01] MEDS: dexmedeTOMIDine 400 MCG/100 ML 400 MCG/100 ML BAG 41.25 MCG IV CONT ×4 (00:17→06:52)
[2021-04-01] MEDS: METOCLOPRAMIDE HCL INJ 10 MG/2 ML VIAL IV PUSH ×5 (00:21→23:05)
[2021-04-01] MEDS: PROPOFOL IV EMULSION 100 ML 3.19 MG IV CONT (01:50)
[2021-04-01] MEDS: IPRATROPIUM BR 0.02% INH SOLN 0.5 MG/2.5 ML VIAL INHALATION ×4 (02:11→20:52)
[2021-04-01] MEDS: ALBUTEROL SULFATE NEB 2.5 MG/0.5 ML INH INHALATION ×4 (02:11→20:52)
--- NOTE | 2021-04-01 02:37 | PC.NURSE ---
At 0130 patients ventilator was alarming high minute volume. Patient was found curled up in the bed with his head down around his hand that was restrained attempting to grab his ET tube. Patient had pulled out his OG tube. Tube feedings turned off. patient repositioned and restraints adjusted. patient continues to try to climb out of bed. Patient continuing to scoot down in bed and reach for his ET tube. Patient very agitated this time and continues to fight staff. Phone call initiated to regarding uncontrolled patient agitation. Orders to start propofol gtt initiated.
[2021-04-01 04:48] LABS: Hematocrit 38.8 % (42.0-52.0); Hemoglobin 12.7 g/dL (14.0-18.0); Mean Corpuscular HGB Conc 32.7 g/dl (32-36); Mean Corpuscular Hemoglobin 29.8 pg (26-34); Mean Corpuscular Volume 91.1 fl (80-100); Mean Platelet Volume 10.4 fl (7.4-10.4); Platelet Count Result 320 k/mm3 (150-375); Red Blood Count 4.26 M/mm3 (4.6-6.20); Red Cell Distribution Width 15.5 % (11.5-14.5); White Blood Count 15.8 K/mm3 (4.5-10.0)
[2021-04-01 04:48] LABS: Alveolar/Arterial O2 Gradient 124.2 mmHg; Base Excess ABG 8.2 mEq/l (+/-2.0); Carboxyhemoglobin 0.2 % THb (0-2.0); Fractional Inspired Oxygen 35 %; Methemoglobin ABG 0.4 %THb (0-1.5); Oxygen Content ABG 17.5 %vol (16.0-22.0); Oxygen Saturation ABG 95.1 % (95.0-100.0); Oxyhemoglobin 93.7 % THb (90.0-100.0); PCO2 ABG 46.6 mmHg (35.0-45.0); PO2 ABG 71.2 mmHg (80.0-100.0); PO2 FiO2 Ratio Arterial Blood 2.03 %; Reduced Hemoglobin 5.7 %THb (0-5.0); Total Hemoglobin 13.3 g/dL (12.0-18.0); pH ABG 7.468 (7.350-7.450)
[2021-04-01 04:49] LABS: Site Drawn RIGHT RADIAL
[2021-04-01 04:50] LABS: Arterial Blood Gas Vent Mode CMV; Arterial Blood Gas Ventilator rate 18 /MIN; Device VENTILATOR; Modified Allen's Test Unable to perform
[2021-04-01 04:51] LABS: Arterial Blood Gas PEEP 5 cmH2O; Arterial Blood Gas Tidal Volume 500 ml
[2021-04-01 04:59] LABS: Alanine Aminotransferase 55 U/L (4-50); Albumin Level 3.5 g/dL (3.5-5.1); Alkaline Phosphatase 118 U/L (38-126); Anion Gap 10 mmol/L (8-16); Aspartate Amino Transferase 59 U/L (17-59); Bilirubin,Total 0.6 mg/dL (0.2-1.3); Blood Urea Nitrogen 30 mg/dL (9-20); Calcium 9.2 mg/dL (8.4-10.2); Carbon Dioxide 32 mmol/L (22-30); Chloride 95 mmol/L (98-107); Estimated CRCL calculation 79 ml/min; Estimated Glomerular Filt Rate > 60; Glucose 160 mg/dL (75-110); Magnesium 1.9 mg/dL (1.6-2.3); Phosphorus 4.4 mg/dL (2.5-4.5); Potassium 3.9 mmol/L (3.4-5.0); Sodium 137 mmol/L (137-145)
--- NOTE | 2021-04-01 08:45 | PM.IMPN ---
Progress Note: A&P Assessment and Plan (1) Sepsis: Qualifiers: Acute respiratory failure type: with hypoxia Sepsis acute organ dysfunction status: with acute organ dysfunction Sepsis type: sepsis due to unspecified organism Severe sepsis acute organ dysfunction type: acute respiratory failure Severe sepsis shock status: without septic shock Qualified Code(s): A41.9 - Sepsis, unspecified organism; R65.20 - Severe sepsis without septic shock; J96.01 - Acute respiratory failure with hypoxia Code(s): A41.9 - Sepsis, unspecified organism Status: Acute Assessment and Plan: Present on admission with leukocytosis, respiratory failure, bradycardia and transient HoTN. Now with bacteremia (1of2) on 03/24 growing Coag Negative Staph - probably a contaminant. Repeat BCx (1of2) on 03/26 growing Coag Negative Staph from aerobic and anaerobic bottles. Could still be contaminant. Sputum growing Klebsiella (sensitive to Rocephin) and Haemophilus (beta lact positive). [place] sepsis related to the PNA with now positive sputum. Fevers resolved. Continue current abx. (2) Acute respiratory failure with hypoxia and hypercarbia: Code(s): J96.01 - Acute respiratory failure with hypoxia; J96.02 - Acute respiratory failure with hypercapnia Status: Acute Assessment and Plan: The patient has a hx of DANNA, COPD and diastolic CHF. Patient was found to be obtunded at home related to the [place]/uremia. CXR clear on 03/[address] chest here showing LLL collapse from mucous plugging and RUL PNA. Sputum and Blood cultures positive as detailed below. ABG on admission 7.01/73/139 on NRB and thus was intubated. Improved with treatment with IV steroids, IV abx and nebulizer treatments. Also underwent HD. Self-extubated 03/27 requiring re-intubation. Abx narrowed and steroids stopped. Continue aggressive P+PD. Wean vent as tolerated. (3) Ileus: Code(s): K56.7 - Ileus, unspecified Status: Acute Assessment and Plan: One small BM after dulcolax supp. KUB showing moderate gas t/o the colon c/w ileus 03/29. Metoclopramide added 03/30. Contineu Miralax. Repeat Dulcolax x1. (4) Encephalopathy: Code(s): G93.40 - Encephalopathy, unspecified Status: Acute Assessment and Plan: Patient encephalopathic on admission felt related to metabolic with BUN [address] brain showing no acute findings. Still having trouble transitioning off sedation/MV due to mental status but improving overall. Monitor closely as sedation is weaned. Seroquel added to control agitation. (5) CAP (community acquired pneumonia): Qualifiers: Laterality: unspecified laterality Qualified Code(s): J18.9 - Pneumonia, unspecified organism Code(s): J18.9 - Pneumonia, unspecified organism Status: Acute Assessment and Plan: CT scan as mentioned above. Sputum growing Klebsiella (sensitive to Rocephin) and Haemophilus (beta lact positive). BCx (1of2) positive for Coag Negative Staph sensitive to Vanco but felt to be a contaminant. Repeat blood cultures (1of2) also positive for Coag Negative Staph also sensitive to Vanco. Currently on Azithromycin and Rocephin; Vancomycin stopped. Continue abx and nebulizer treatments. (6) Acute hyperkalemia: Code(s): E87.5 - Hyperkalemia Status: Acute Assessment and Plan: Potassium 8.8 on admission. Related to his acute kidney injury. Patient was on lisinopril and Lasix on admission. Patient had emergent hemodialysis after Montez catheter placed. Repeat potassium normalized. Cortisol level okay. TSH slightly low but FT4 normal. He is on Nepro for nutrition. Potassium remaining normal. (7) Shock: Code(s): R57.9 - Shock, unspecified Status: Acute Assessment and Plan: Patient was hypotensive when in the ED 03/21/2021. Blood pressure did improve prior to the patient signing out against medical
[2021-04-01] MEDS: MINERAL OIL/WHITE PETROLATUM OINTMENT 1 APPLIC EACH EYE ×2 (08:58→20:30)
[2021-04-01] MEDS: QUEtiapine FUMARATE 100 MG TABLET PO ×2 (08:58→20:30)
[2021-04-01] MEDS: polyethylene glycoL 3350 17 GM POWD.PACK PO (08:58)
[2021-04-01] MEDS: PANTOPRAZOLE SODIUM IV 40 MG VIAL IV PUSH (08:58)
[2021-04-01] MEDS: ENOXAPARIN 40 MG/0.4 ML SYRINGE SUB-Q (08:58)
[2021-04-01] MEDS: PROPOFOL IV EMULSION 100 ML 12.76 MG IV CONT ×2 (09:04→17:06)
[2021-04-01] MEDS: dexmedeTOMIDine 400 MCG/100 ML 400 MCG/100 ML BAG 38.5 MCG IV CONT (09:19)
--- NOTE | 2021-04-01 09:30 | WPDINTPN ---
Progress Note: A&P Assessment and Plan (1) Acute respiratory failure with hypoxia and hypercarbia: Code(s): J96.01 - Acute respiratory failure with hypoxia; J96.02 - Acute respiratory failure with hypercapnia Status: Acute Assessment and Plan: Acute respiratory failure likely related to respiratory and metabolic acidosis, pneumonia, COPD exacerbation -patient was intubated in the ER on 03/24/2021 -self extubated on 03/27/2021 in the morning. Put patient on nasal cannula, he was desaturating, tried Airvo but would not cooperate. Patient was also confused. He was using accessory muscles, was tachypneic and respiratory distress, it was re-intubated on 03/27/2021. Intubation was uneventful. Thick secretions suctioned out post re-intubation -chest x-ray and ABGs reviewed -continue azithromycin, ceftriaxone. DC vancomycin -off steroids -continue bronchodilators -sedated with f propofol and Precedex -continue Seroquel, - continue diuresis (2) Shock: Code(s): R57.9 - Shock, unspecified Status: Acute Assessment and Plan: RESOLVED: Likely septic, normal lactic acid but given acute kidney injury, pneumonia on chest x-ray, elevated WBC count, metabolic acidosis -continue azithromycin, ceftriaxone -03/24: Blood cultures growing coag-negative staph 1/2 bottles -03/26: repeat blood cultures growing Coag-negative staph 1/2 bottles. vancomycin was discontinued - 03/24: sputum cultures growing Klebsiella and Hemophilus influenzae - - 03/29/2021: Bilateral lower extremity venous Dopplers negative for DVT -Continue ceftriaxone, azithromycin (3) Acute kidney injury: Code(s): N17.9 - Acute kidney failure, unspecified Status: Acute Assessment and Plan: RESOLVED Acute kidney injury be multifactorial, hypovolemia, decreased p.o. 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 -patient was adequately fluid-resuscitated -initial creatinine was 16.4 8.8, BUN of 107 and CO2 of 17 -patient was emergently dialyzed on 03/24/2021 after surgery placed a dialysis catheter -patient received dialysis on 03/24, 621, 03/26 - creatinine now has normalized and dialysis catheter was removed earlier -continue to monitor urine output, renal function and electrolytes (4) Acute hyperkalemia: Code(s): E87.5 - Hyperkalemia Status: Acute Assessment and Plan: RESOLVED (5) Suspected COVID-19 virus infection: Code(s): Z20.822 - Contact with and (suspected) exposure to COVID-19 Status: Acute Assessment and Plan: Patient swabbed for SARS-CoV-2 PCR, currently pending -SARS-CoV-2 PCR was negative on 03/21/2021 -SARS-CoV-2 PCR PCR negative on 03/24/2021 -discontinue precautions (6) Pneumonia: Code(s): J18.9 - Pneumonia, unspecified organism Status: Acute Assessment and Plan: CT chest showed possible pneumonia -continue azithromycin, ceftriaxone -sputum cultures growing Klebsiella and Hemophilus (7) Hypertension: Qualifiers: Hypertension type: unspecified Qualified Code(s): I10 - Essential (primary) hypertension Code(s): I10 - Essential (primary) hypertension Status: Acute Assessment and Plan: History of essential hypertension, -blood pressure is elevated -continue amlodipine -hold home lisinopril given patient presented with acute kidney injury and hyperkalemia, will discuss with Nephrology (8) Chronic obstructive pulmonary disease: Qualifiers: COPD type: unspecified COPD Qualified Code(s): J44.9 - Chronic obstructive pulmonary disease, unspecified Code(s): J44.9 - Chronic obstructive pulmonary disease, unspecified Status: Acute Assessment and Plan: History of COPD, patient presented with hypercapnic respiratory failure -continue bronchodilators, mechanical ventilator -off steroids (9) DVT prophylaxis: Code(s): Z29.9 - Encounter for p
--- NOTE | 2021-04-01 10:36 | PCDIET ---
Nutrition Follow-Up Complete: Nutrition Diagnosis: Inadequate oral intake related to oral intubation as evidenced by NPO status. Nutrition Goal: Patient to meet estimated nutritional needs. Goal in progress. Patient pulled out OG which has since been replaced and verified for use. Nepro resumed at 20mL/hr with MD order to advance toward goal. Recommend change in goal rate to 40mL/hr due to initiation of Propofol which will provide 1584kcal (1920kcal with Propofol at current rate), 71g protein and 639mL free water over 22 hours/day. Water flushes of 30mL every 4 hours continued. Last recorded weight is 102.6 kg which is decreased from last review. -I/O. Bowel Motility: Small BM on 03/31/21 per RN. Patient to receive Dulcolax again today. Labs Reviewed: WBC (15.8), Hgb (12.7), Hct (38.8), Glu (160) Meds Noted: Albuterol, Atrovent, Zithromax, Reglan, Seroquel, Rocephin, Miralax, Precedex, Protonix, Dulcolax, Propofol (rate of 12.76mL/hr provides 336kcal per day) Additional Notes: No pressure sores documented. Will continue to monitor with same goal. Nutrition Monitoring and Evaluation: Follow up every Wednesday/Wednesday.
[2021-04-01] MEDS: FUROSEMIDE INJ 40 MG/4 ML VIAL 20 MG IV PUSH (10:50)
[2021-04-01] MEDS: BISACODYL 10 MG SUPPOSITORY RECTAL (11:19)
[2021-04-01] MEDS: dexmedeTOMIDine 400 MCG/100 ML 400 MCG/100 ML BAG 33 MCG IV CONT ×2 (12:22→15:35)
[2021-04-01] MEDS: CENTRAL LINE FLUSH 10 ML IV PUSH ×2 (14:20→21:20)
[2021-04-01] MEDS: dexmedeTOMIDine 400 MCG/100 ML 400 MCG/100 ML BAG 35.75 MCG IV CONT ×2 (18:36→21:19)
--- NOTE | 2021-04-01 21:29 | PC.NURSE ---
At 2127, Patient trying to bite [place] suction and continues to vigorously shake head back and forth during oral care. Eyes are open and patient is agitated. Propofol gtt. titrated per protocol. Will continue to monitor.
[2021-04-01] MEDS: PROPOFOL IV EMULSION 100 ML 15.95 MG IV CONT (22:19)
[2021-04-02] VITALS (43 sets, daily range): BP systolic 103–146; BP diastolic 52–74; PULSE 56–95; RESP 16–27; TEMP 36.5–37.3; O2SAT 91–97
[2021-04-02] MEDS: dexmedeTOMIDine 400 MCG/100 ML 400 MCG/100 ML BAG 35.75 MCG IV CONT ×3 (00:07→05:43)
[2021-04-02] MEDS: ALBUTEROL SULFATE NEB 2.5 MG/0.5 ML INH INHALATION ×4 (01:48→20:16)
[2021-04-02] MEDS: IPRATROPIUM BR 0.02% INH SOLN 0.5 MG/2.5 ML VIAL INHALATION ×4 (01:49→20:16)
[2021-04-02 04:48] LABS: Alveolar/Arterial O2 Gradient 122.1 mmHg; Base Excess ABG 6.9 mEq/l (+/-2.0); Carboxyhemoglobin 0.2 % THb (0-2.0); Fractional Inspired Oxygen 35 %; Methemoglobin ABG 0.5 %THb (0-1.5); Oxygen Content ABG 18.7 %vol (16.0-22.0); Oxygen Saturation ABG 95.1 % (95.0-100.0); Oxyhemoglobin 93.4 % THb (90.0-100.0); PCO2 ABG 47.2 mmHg (35.0-45.0); PO2 ABG 72.6 mmHg (80.0-100.0); PO2 FiO2 Ratio Arterial Blood 2.07 %; Reduced Hemoglobin 5.9 %THb (0-5.0); Total Hemoglobin 14.2 g/dL (12.0-18.0); pH ABG 7.449 (7.350-7.450)
[2021-04-02 04:49] LABS: Device VENTILATOR; Modified Allen's Test Unable to perform; Site Drawn RIGHT RADIAL
[2021-04-02 04:50] LABS: Arterial Blood Gas PEEP 5 cmH2O; Arterial Blood Gas Tidal Volume 450 ml; Arterial Blood Gas Vent Mode CMV; Arterial Blood Gas Ventilator rate 18 /MIN
[2021-04-02] MEDS: PROPOFOL IV EMULSION 100 ML 12.76 MG IV CONT (05:05)
[2021-04-02] MEDS: CENTRAL LINE FLUSH 10 ML IV PUSH ×3 (05:05→23:09)
[2021-04-02] MEDS: METOCLOPRAMIDE HCL INJ 10 MG/2 ML VIAL IV PUSH ×2 (05:05→12:17)
[2021-04-02 06:12] LABS: Basophils Absolute Auto 0.1 K/mm3 (0.0-0.1); Basophils Percent Auto 0.4 % (0.2-1.2); Eosinophils Absolute Auto 0.3 K/mm3 (0-0.3); Eosinophils Percent Auto 2.1 % (0-4.4); Hematocrit 37.5 % (42.0-52.0); Hemoglobin 11.9 g/dL (14.0-18.0); Immature Granulocyte Absolute 0.17 K/mm3 (0.00-0.031); Immature Granulocyte Percent A 1.2 % (0-0.5); Lymphocytes Absolute Auto 2.17 K/mm3 (0.9-3.2); Lymphocytes Percent Auto 15.2 % (18.3-44.2); Mean Corpuscular HGB Conc 31.7 g/dl (32-36); Mean Corpuscular Hemoglobin 29.1 pg (26-34); Mean Corpuscular Volume 91.7 fl (80-100); Mean Platelet Volume 10.4 fl (7.4-10.4); Monocytes Absolute Auto 1.5 K/mm3 (0.1-0.6); Monocytes Percent Auto 10.2 % (2.6-8.5); Neutrophils Absolute Auto 10.1 K/mm3 (1.3-6.7); Neutrophils Percent Auto 70.9 % (45.5-73.1); Platelet Count Result 348 k/mm3 (150-375); Red Blood Count 4.09 M/mm3 (4.6-6.20); Red Cell Distribution Width 15.8 % (11.5-14.5); White Blood Count 14.2 K/mm3 (4.5-10.0)
[2021-04-02 06:36] LABS: Alanine Aminotransferase 77 U/L (4-50); Albumin Level 3.3 g/dL (3.5-5.1); Alkaline Phosphatase 154 U/L (38-126); Anion Gap 10 mmol/L (8-16); Aspartate Amino Transferase 72 U/L (17-59); Bilirubin,Total 0.4 mg/dL (0.2-1.3); Blood Urea Nitrogen 43 mg/dL (9-20); Calcium 9.4 mg/dL (8.4-10.2); Carbon Dioxide 31 mmol/L (22-30); Chloride 94 mmol/L (98-107); Estimated CRCL calculation 67 ml/min; Estimated Glomerular Filt Rate 56; Glucose 151 mg/dL (75-110); Magnesium 2.2 mg/dL (1.6-2.3); Phosphorus 5.8 mg/dL (2.5-4.5); Potassium 3.6 mmol/L (3.4-5.0); Sodium 135 mmol/L (137-145)
[2021-04-02] MEDS: ENOXAPARIN 40 MG/0.4 ML SYRINGE SUB-Q (08:38)
[2021-04-02] MEDS: polyethylene glycoL 3350 17 GM POWD.PACK PO (08:38)
[2021-04-02] MEDS: QUEtiapine FUMARATE 100 MG TABLET PO ×2 (08:38→19:51)
[2021-04-02] MEDS: MINERAL OIL/WHITE PETROLATUM OINTMENT 1 APPLIC EACH EYE (08:39)
[2021-04-02] MEDS: PANTOPRAZOLE SODIUM IV 40 MG VIAL IV PUSH (08:39)
[2021-04-02 08:40] LABS: Glucose Point of Care 133 mg/dl (65-105)
[2021-04-02] MEDS: dexmedeTOMIDine 400 MCG/100 ML 400 MCG/100 ML BAG 41.25 MCG IV CONT (09:09)
--- NOTE | 2021-04-02 09:36 | WPDINTPN ---
Progress Note: A&P Assessment and Plan (1) Acute respiratory failure with hypoxia and hypercarbia: Code(s): J96.01 - Acute respiratory failure with hypoxia; J96.02 - Acute respiratory failure with hypercapnia Status: Acute Assessment and Plan: Acute respiratory failure likely related to respiratory and metabolic acidosis, pneumonia, COPD exacerbation -patient was intubated in the ER on 03/24/2021 -self extubated on 03/27/2021 in the morning. Put patient on nasal cannula, he was desaturating, tried Airvo but would not cooperate. Patient was also confused. He was using accessory muscles, was tachypneic and respiratory distress, it was re-intubated on 03/27/2021. Intubation was uneventful. Thick secretions suctioned out post re-intubation -chest x-ray and ABGs reviewed -continue ceftriaxone. DC vancomycin and completed course of azithromycin -off steroids -continue bronchodilators -sedated with propofol and Precedex - sedation holiday - will try weaning trial if patient calm and able to cooperate of sedation -continue Seroquel, (2) Shock: Code(s): R57.9 - Shock, unspecified Status: Acute Assessment and Plan: RESOLVED: Likely septic, normal lactic acid but given acute kidney injury, pneumonia on chest x-ray, elevated WBC count, metabolic acidosis -continue azithromycin, ceftriaxone -03/24: Blood cultures growing coag-negative staph 1/2 bottles -03/26: repeat blood cultures growing Coag-negative staph 1/2 bottles. vancomycin was discontinued - 03/24: sputum cultures growing Klebsiella and Hemophilus influenzae - - 03/29/2021: Bilateral lower extremity venous Dopplers negative for DVT -Continue ceftriaxone. Completed azithromycin (3) Acute kidney injury: Code(s): N17.9 - Acute kidney failure, unspecified Status: Acute Assessment and Plan: RESOLVED Acute kidney injury be multifactorial, hypovolemia, decreased p.o. 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 -patient was adequately fluid-resuscitated -initial creatinine was 16.4 8.8, BUN of 107 and CO2 of 17 -patient was emergently dialyzed on 03/24/2021 after surgery placed a dialysis catheter -patient received dialysis on 03/24, 621, 03/26 - creatinine now has normalized and dialysis catheter was removed earlier -continue to monitor urine output, renal function and electrolytes (4) Acute hyperkalemia: Code(s): E87.5 - Hyperkalemia Status: Acute Assessment and Plan: RESOLVED (5) Suspected COVID-19 virus infection: Code(s): Z20.822 - Contact with and (suspected) exposure to COVID-19 Status: Acute Assessment and Plan: Patient swabbed for SARS-CoV-2 PCR, currently pending -SARS-CoV-2 PCR was negative on 03/21/2021 -SARS-CoV-2 PCR PCR negative on 03/24/2021 -discontinue precautions (6) Pneumonia: Code(s): J18.9 - Pneumonia, unspecified organism Status: Acute Assessment and Plan: CT chest showed possible pneumonia -continue ceftriaxone. Completed course of azithromycin -sputum cultures growing Klebsiella and Hemophilus (7) Hypertension: Qualifiers: Hypertension type: unspecified Qualified Code(s): I10 - Essential (primary) hypertension Code(s): I10 - Essential (primary) hypertension Status: Acute Assessment and Plan: History of essential hypertension, -blood pressure is elevated -continue amlodipine -hold home lisinopril given patient presented with acute kidney injury and hyperkalemia, will discuss with Nephrology (8) Chronic obstructive pulmonary disease: Qualifiers: COPD type: unspecified COPD Qualified Code(s): J44.9 - Chronic obstructive pulmonary disease, unspecified Code(s): J44.9 - Chronic obstructive pulmonary disease, unspecified Status: Acute Assessment and Plan: History of COPD, patient presented with hypercapnic respiratory failure
[2021-04-02 10:06] LABS: Base Excess ABG 5.8 mEq/l (+/-2.0); Carboxyhemoglobin 0.3 % THb (0-2.0); Device VENTILATOR; Fractional Inspired Oxygen 30 %; HCO3 ABG 30.3 mEq/l (22.0-26.0); Methemoglobin ABG 0.4 %THb (0-1.5); Modified Allen's Test Pass; Oxygen Content ABG 17.5 %vol (16.0-22.0); Oxygen Saturation ABG 93.9 % (95.0-100.0); PCO2 ABG 43.5 mmHg (35.0-45.0); PO2 ABG 65.8 mmHg (80.0-100.0); PO2 FiO2 Ratio Arterial Blood 2.19 %; Reduced Hemoglobin 7.3 %THb (0-5.0); Site Drawn RIGHT RADIAL; Total Hemoglobin 13.5 g/dL (12.0-18.0); pH ABG 7.461 (7.350-7.450)
[2021-04-02 10:07] LABS: Arterial Blood Gas PEEP 5 cmH2O; Arterial Blood Gas Pressure Support 5 cmH2O; Arterial Blood Gas Vent Mode SPONTANEOUS
--- NOTE | 2021-04-02 10:23 | PCDIET ---
ICU Rounding Note: Patient tolerating Nepro at 40mL/hr goal rate with 30mL water flush every 4 hours. Last recorded weight is 105.1kg which is up from last review. Bowel Motility: Last BM on 03/31/21 - small, per nursing - patient receiving Miralax and Reglan with plan for additional Dulcolax today. Labs Reviewed: WBC (14.2), RBC (4.09), Hgb (11.9), Hct (37.5), Glu (151), BUN (43), Na (135), Alb (3.3), PO4 (5.8) Meds Noted: Albuterol, Novolog, Atrovent, Rocephin, Reglan, Precedex, Seroquel, Protonix, Miralax, Propofol (rate of 9.57mL/hr provides 252kcal per day) Additional Notes: No pressure sores reported. Patient received roughly 30% of goal tube feedings (average) from 03/30/21-04/01/21, though expect improvement now that tolerating at goal. Following daily in ICU rounds. Assessing/reassessing every Wednesday/Wednesday.
--- NOTE | 2021-04-02 10:43 | PM.IMPN ---
Progress Note: A&P Assessment and Plan (1) Sepsis: Qualifiers: Acute respiratory failure type: with hypoxia Sepsis acute organ dysfunction status: with acute organ dysfunction Sepsis type: sepsis due to unspecified organism Severe sepsis acute organ dysfunction type: acute respiratory failure Severe sepsis shock status: without septic shock Qualified Code(s): A41.9 - Sepsis, unspecified organism; R65.20 - Severe sepsis without septic shock; J96.01 - Acute respiratory failure with hypoxia Code(s): A41.9 - Sepsis, unspecified organism Status: Acute Assessment and Plan: Present on admission with leukocytosis, respiratory failure, bradycardia and transient HoTN. Now with bacteremia (1of2) on 03/24 growing Coag Negative Staph - probably a contaminant. Repeat BCx (1of2) on 03/26 growing Coag Negative Staph from aerobic and anaerobic bottles. Could still be contaminant. Sputum growing Klebsiella (sensitive to Rocephin) and Haemophilus (beta lact positive). [place] sepsis related to the PNA with now positive sputum. Fevers resolved. Continue current abx. (2) Acute respiratory failure with hypoxia and hypercarbia: Code(s): J96.01 - Acute respiratory failure with hypoxia; J96.02 - Acute respiratory failure with hypercapnia Status: Acute Assessment and Plan: The patient has a hx of DANNA, COPD and diastolic CHF. Patient was found to be obtunded at home related to the GOYO/uremia. CXR clear on 03/[address] chest here showing LLL collapse from mucous plugging and RUL PNA. Sputum and Blood cultures positive as detailed below. ABG on admission 7.01/73/139 on NRB and thus was intubated. Improved with treatment with IV steroids, IV abx and nebulizer treatments. He also underwent HD x1. Self-extubated 03/27 requiring re-intubation. Abx narrowed and steroids stopped. Able to extubated but now with stridor. Steroids and Racemic Epi x1 added. Monitor closely. (3) Ileus: Code(s): K56.7 - Ileus, unspecified Status: Acute Assessment and Plan: KUB showing moderate gas t/o the colon c/w ileus 03/29. Metoclopramide added 03/30. +BMs now. Continue Miralax. (4) Encephalopathy: Code(s): G93.40 - Encephalopathy, unspecified Status: Acute Assessment and Plan: Patient encephalopathic on admission felt related to metabolic with BUN [address] brain showing no acute findings. He has been having trouble transitioning off sedation/MV due to mental status but improved overall and able to be extubated this morning. Monitor closely. Continue Seroquel that was added to control agitation. (5) CAP (community acquired pneumonia): Qualifiers: Laterality: unspecified laterality Qualified Code(s): J18.9 - Pneumonia, unspecified organism Code(s): J18.9 - Pneumonia, unspecified organism Status: Acute Assessment and Plan: CT scan as mentioned above. Sputum growing Klebsiella (sensitive to Rocephin) and Haemophilus (beta lact positive). BCx (1of2) positive for Coag Negative Staph sensitive to Vanco but felt to be a contaminant. Repeat blood cultures (1of2) also positive for Coag Negative Staph also sensitive to Vanco. Currently on Azithromycin and Rocephin; Vancomycin stopped. Continue abx and nebulizer treatments. (6) Acute hyperkalemia: Code(s): E87.5 - Hyperkalemia Status: Acute Assessment and Plan: Potassium 8.8 on admission. Related to his acute kidney injury. Patient was on lisinopril and Lasix on admission. Patient had emergent hemodialysis after Montez catheter placed. Repeat potassium normalized. Cortisol level okay. TSH slightly low but FT4 normal. Potassium remaining normal. (7) Shock: Code(s): R57.9 - Shock, unspecified Status: Acute Assessment and Plan: Patient was hypotensive when in the ED 03/21/2021. Blood pressure did improve prior to the patient signing ou
--- NOTE | 2021-04-02 11:00 | PM.EVENT ---
Event Note Event Note Event Note: 5/5 PSV SBT done for more than 1/2 hour. RSBI, ABGI and Vitals were acceptable. Pt awake and following commands. Patient was checked for cuff leak. Patient did had drop in tidal volume on his ventilator on deflating cuff. He had size 8 tube. patient was extubated. he does have some stridor post extubation. No respiratory distress. Able to speak full sentences and is saturating adequately on 3 L nasal cannula. Will give racemic epi embolization and Solu-Medrol for next 24 hours to treat any airway edema. obviously if worsens, he may need re-intubation
[2021-04-02] MEDS: methylPREDNISolone SOD SUCC 40 MG VIAL IV PUSH ×3 (11:09→23:09)
[2021-04-02] MEDS: dexmedeTOMIDine 400 MCG/100 ML 400 MCG/100 ML BAG 27.5 MCG IV CONT ×3 (12:23→19:50)
[2021-04-02 15:29] LABS: Albumin 22 %; Creat 24 Hr 5.16 g/24 h (0.50-2.15); Measured Kappa Chains 7.53 mg/dL (<2.00); Measured Lambda Chains 5.06 mg/dL (<2.00); Pro/Creat Ratio 325 mg/g creat (<=114); Total Kappa Chains 188.25 mg/24 h; Total Lambda Chains 126.5 mg/24 h
[2021-04-02 17:07] LABS: Glucose Point of Care 121 mg/dl (65-105)
[2021-04-02 17:59] LABS: Glucose Point of Care 152 mg/dl (65-105)
[2021-04-02] MEDS: dexmedeTOMIDine 400 MCG/100 ML 400 MCG/100 ML BAG 24.75 MCG IV CONT (23:07)
[2021-04-02 23:20] LABS: Glucose Point of Care 178 mg/dl (65-105)
[2021-04-03] VITALS (25 sets, daily range): BP systolic 110–146; BP diastolic 52–97; PULSE 72–117; RESP 16–23; TEMP 36.6–37; O2SAT 91–97
[2021-04-03] MEDS: ALBUTEROL SULFATE NEB 2.5 MG/0.5 ML INH INHALATION ×3 (01:51→13:20)
[2021-04-03] MEDS: IPRATROPIUM BR 0.02% INH SOLN 0.5 MG/2.5 ML VIAL INHALATION ×4 (01:52→20:15)
[2021-04-03] MEDS: dexmedeTOMIDine 400 MCG/100 ML 400 MCG/100 ML BAG 22 MCG IV CONT (02:52)
[2021-04-03 05:06] LABS: Glucose Point of Care 184 mg/dl (65-105)
[2021-04-03 05:17] LABS: Basophils Absolute Auto 0.1 K/mm3 (0.0-0.1); Basophils Percent Auto 0.3 % (0.2-1.2); Hematocrit 37.7 % (42.0-52.0); Hemoglobin 12.1 g/dL (14.0-18.0); Immature Granulocyte Absolute 0.15 K/mm3 (0.00-0.031); Immature Granulocyte Percent A 0.8 % (0-0.5); Lymphocytes Absolute Auto 1.74 K/mm3 (0.9-3.2); Lymphocytes Percent Auto 9.2 % (18.3-44.2); Mean Corpuscular HGB Conc 32.1 g/dl (32-36); Mean Corpuscular Hemoglobin 29.3 pg (26-34); Mean Corpuscular Volume 91.3 fl (80-100); Mean Platelet Volume 10.3 fl (7.4-10.4); Monocytes Absolute Auto 0.7 K/mm3 (0.1-0.6); Monocytes Percent Auto 3.9 % (2.6-8.5); Neutrophils Absolute Auto 16.2 K/mm3 (1.3-6.7); Neutrophils Percent Auto 85.8 % (45.5-73.1); Platelet Count Result 399 k/mm3 (150-375); Red Blood Count 4.13 M/mm3 (4.6-6.20); White Blood Count 18.9 K/mm3 (4.5-10.0)
[2021-04-03] MEDS: methylPREDNISolone SOD SUCC 40 MG VIAL IV PUSH (05:18)
[2021-04-03] MEDS: METOCLOPRAMIDE HCL INJ 10 MG/2 ML VIAL IV PUSH (05:18)
[2021-04-03] MEDS: CENTRAL LINE FLUSH 10 ML IV PUSH ×3 (05:19→20:35)
[2021-04-03 05:40] LABS: Phosphorus 3.5 mg/dL (2.5-4.5)
[2021-04-03] MEDS: dexmedeTOMIDine 400 MCG/100 ML 400 MCG/100 ML BAG 13.75 MCG IV CONT (06:58)
--- NOTE | 2021-04-03 09:04 | WPDINTPN ---
Progress Note: A&P Assessment and Plan (1) Acute respiratory failure with hypoxia and hypercarbia: Code(s): J96.01 - Acute respiratory failure with hypoxia; J96.02 - Acute respiratory failure with hypercapnia Status: Acute Assessment and Plan: Acute respiratory failure likely related to respiratory and metabolic acidosis, pneumonia, COPD exacerbation -patient was intubated in the ER on 03/24/2021 -self extubated on 03/27/2021 in the morning. Put patient on nasal cannula, he was desaturating, tried Airvo but would not cooperate. Patient was also confused. He was using accessory muscles, was tachypneic and respiratory distress, it was re-intubated on 03/27/2021. Intubation was uneventful. Thick secretions suctioned out post re-intubation -04/02 patient extubated after successful weaning trial - maintaining oxygenation with nasal cannula - IS and up in chair today - will complete course of ceftriaxone today. DC vancomycin and completed course of azithromycin -off steroids now (2) Stridor: Code(s): R06.1 - Stridor Status: Acute Assessment and Plan: yesterday after extubation patient had some stridor. he was given racemic epi nebulization and also started on Solu-Medrol significantly improved today monitor (3) Shock: Code(s): R57.9 - Shock, unspecified Status: Acute Assessment and Plan: RESOLVED: Likely septic, normal lactic acid but given acute kidney injury, pneumonia on chest x-ray, elevated WBC count, metabolic acidosis -continue azithromycin, ceftriaxone -03/24: Blood cultures growing coag-negative staph 1/2 bottles -03/26: repeat blood cultures growing Coag-negative staph 1/2 bottles. vancomycin was discontinued - 03/24: sputum cultures growing Klebsiella and Hemophilus influenzae - - 03/29/2021: Bilateral lower extremity venous Dopplers negative for DVT antibiotics as above (4) Acute kidney injury: Code(s): N17.9 - Acute kidney failure, unspecified Status: Acute Assessment and Plan: RESOLVED Acute kidney injury be multifactorial, hypovolemia, decreased p.o. 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 -patient was adequately fluid-resuscitated -initial creatinine was 16.4 8.8, BUN of 107 and CO2 of 17 -patient was emergently dialyzed on 03/24/2021 after surgery placed a dialysis catheter -patient received dialysis on 03/24, 621, 03/26 - creatinine now has normalized and dialysis catheter was removed earlier -continue to monitor urine output, renal function and electrolytes (5) Acute hyperkalemia: Code(s): E87.5 - Hyperkalemia Status: Acute Assessment and Plan: RESOLVED (6) Suspected COVID-19 virus infection: Code(s): Z20.822 - Contact with and (suspected) exposure to COVID-19 Status: Acute Assessment and Plan: Patient swabbed for SARS-CoV-2 PCR, currently pending -SARS-CoV-2 PCR was negative on 03/21/2021 -SARS-CoV-2 PCR PCR negative on 03/24/2021 -discontinue precautions (7) Pneumonia: Code(s): J18.9 - Pneumonia, unspecified organism Status: Acute Assessment and Plan: CT chest showed possible pneumonia will complete a course of antibiotics today -sputum cultures growing Klebsiella and Hemophilus (8) Hypertension: Qualifiers: Hypertension type: unspecified Qualified Code(s): I10 - Essential (primary) hypertension Code(s): I10 - Essential (primary) hypertension Status: Acute Assessment and Plan: History of essential hypertension, -blood pressure is elevated -continue amlodipine -hold home lisinopril given patient presented with acute kidney injury and hyperkalemia, will discuss with Nephrology (9) Chronic obstructive pulmonary disease: Qualifiers: COPD type: unspecified COPD Qualified Code(s): J44.9 - Chronic obstructive pulmonary disease, unspecified Code(s): J44.9 - Chr
[2021-04-03] MEDS: polyethylene glycoL 3350 17 GM POWD.PACK PO (09:07)
[2021-04-03] MEDS: ENOXAPARIN 40 MG/0.4 ML SYRINGE SUB-Q (09:07)
[2021-04-03] MEDS: PANTOPRAZOLE SODIUM IV 40 MG VIAL IV PUSH (09:07)
--- NOTE | 2021-04-03 11:22 | PCDIET ---
Nutrition Follow-Up Complete: Nutrition Diagnosis: Inadequate oral intake related to oral intubation as evidenced by NPO status. Nutrition Goal: Patient to meet estimated nutritional needs. Goal in progress. Patient extubated and reports tolerating heart healthy diet. Patient reports good appetite and denies c/o or difficulty with food. Recommend adding diabetic diet to promote glucose control. Last recorded weight is 101.6 kg which is down from last review. -I/O. Will monitor. Bowel Motility: BM x 1 on 04/02/21. Labs Reviewed: WBC (18.9), Hct (4.13), Hgb (12.1), Hct (37.7), Glu (184) Meds Noted: Albuterol, Rocephin, Novolog, Protonix, Seroquel, Atrovent, Reglan, Miralax Additional Notes: No documented pressure sores. Will continue to monitor with same goal. Nutrition Monitoring and Evaluation: Follow up every 5 days.
[2021-04-03 12:01] LABS: Glucose Point of Care 160 mg/dl (65-105)
--- NOTE | 2021-04-03 13:28 | PM.IMPN ---
Progress Note: A&P Assessment and Plan (1) Sepsis: Qualifiers: Acute respiratory failure type: with hypoxia Sepsis acute organ dysfunction status: with acute organ dysfunction Sepsis type: sepsis due to unspecified organism Severe sepsis acute organ dysfunction type: acute respiratory failure Severe sepsis shock status: without septic shock Qualified Code(s): A41.9 - Sepsis, unspecified organism; R65.20 - Severe sepsis without septic shock; J96.01 - Acute respiratory failure with hypoxia Code(s): A41.9 - Sepsis, unspecified organism Status: Acute Assessment and Plan: Present on admission with leukocytosis, respiratory failure, bradycardia and transient HoTN. Now with bacteremia (1of2) on 03/24 growing Coag Negative Staph - probably a contaminant. Repeat BCx (1of2) on 03/26 growing Coag Negative Staph from aerobic and anaerobic bottles. Could still be contaminant. Sputum growing Klebsiella (sensitive to Rocephin) and Haemophilus (beta lact positive). [place] sepsis related to the PNA with now positive sputum. Fevers resolved. WBC up again but was back on sterodis. Continue current abx. (2) Acute respiratory failure with hypoxia and hypercarbia: Code(s): J96.01 - Acute respiratory failure with hypoxia; J96.02 - Acute respiratory failure with hypercapnia Status: Acute Assessment and Plan: The patient has a hx of DANNA, COPD and diastolic CHF. Patient was found to be obtunded at home related to the GOYO/uremia. CXR clear on 03/[address] chest here showing LLL collapse from mucous plugging and RUL PNA. Sputum and Blood cultures positive as detailed below. ABG on admission 7.//139 on NRB and thus was intubated. Improved with treatment with IV steroids, IV abx and nebulizer treatments. He also underwent HD x1. Self-extubated 03/27 requiring re-intubation. Medications adjusted. Able to extubated 04/02. he did develop stridor requiring 24hours of Solu-Medrol and Racemic Epi x1. Stable now. Wean O2 as tolerated. (3) Ileus: Code(s): K56.7 - Ileus, unspecified Status: Acute Assessment and Plan: KUB showing moderate gas t/o the colon c/w ileus 03/29. Metoclopramide added 03/30. Multiple +BMs now. Continue Miralax. Stop Reglan (4) Encephalopathy: Code(s): G93.40 - Encephalopathy, unspecified Status: Acute Assessment and Plan: Patient encephalopathic on admission felt related to metabolic with BUN [address] brain showing no acute findings. He has been having trouble transitioning off sedation due to mental status and Seroquel started. This improved overall and able to be extubated yesterday morning. Monitor closely. Weaning off Seroquel. Resume some home meds. (5) CAP (community acquired pneumonia): Qualifiers: Laterality: unspecified laterality Qualified Code(s): J18.9 - Pneumonia, unspecified organism Code(s): J18.9 - Pneumonia, unspecified organism Status: Acute Assessment and Plan: CT scan as mentioned above. Sputum growing Klebsiella (sensitive to Rocephin) and Haemophilus (beta lact positive). BCx (1of2) positive for Coag Negative Staph sensitive to Vanco but felt to be a contaminant. Repeat blood cultures (1of2) also positive for Coag Negative Staph also sensitive to Vanco. Was on Vanco, Azithromycin and Rocephin; Vancomycin stopped. Completed a course of Azithromycin. Continue Rocephin and nebulizer treatments. (6) Acute hyperkalemia: Code(s): E87.5 - Hyperkalemia Status: Acute Assessment and Plan: Potassium 8.8 on admission. Related to his acute kidney injury. Patient was on lisinopril and Lasix on admission. Patient had emergent hemodialysis after Montez catheter placed. Repeat potassium normalized. Cortisol level okay. TSH slightly low but FT4 normal. Potassium remaining normal. (7) Shock: Code(s): R57.9 - Shock, unspecified Stat
[2021-04-03] MEDS: METOPROLOL TARTRATE 25 MG TABLET PO ×2 (15:03→20:32)
[2021-04-03] MEDS: GABAPENTIN 300 MG CAPSULE PO (17:02)
[2021-04-03] MEDS: traZODone HCL 50 MG TABLET PO (20:32)
[2021-04-03] MEDS: MONTELUKAST SODIUM 10 MG TABLET PO (20:32)
[2021-04-03] MEDS: QUEtiapine FUMARATE 25 MG TABLET 50 MG PO (20:34)
[2021-04-03 23:45] LABS: Glucose Point of Care 111 mg/dl (65-105)
[2021-04-04] VITALS (9 sets, daily range): BP systolic 129–157; BP diastolic 60–87; PULSE 84–109; RESP 18–27; TEMP 36.7–37; O2SAT 91–95
[2021-04-04] MEDS: CENTRAL LINE FLUSH 10 ML IV PUSH (05:46)
[2021-04-04 06:01] LABS: Basophils Absolute Auto 0.1 K/mm3 (0.0-0.1); Basophils Percent Auto 0.4 % (0.2-1.2); Eosinophils Absolute Auto 0.1 K/mm3 (0-0.3); Eosinophils Percent Auto 0.5 % (0-4.4); Hematocrit 41.9 % (42.0-52.0); Hemoglobin 13.1 g/dL (14.0-18.0); Immature Granulocyte Absolute 0.12 K/mm3 (0.00-0.031); Immature Granulocyte Percent A 0.7 % (0-0.5); Lymphocytes Absolute Auto 2.93 K/mm3 (0.9-3.2); Lymphocytes Percent Auto 17.1 % (18.3-44.2); Mean Corpuscular HGB Conc 31.3 g/dl (32-36); Mean Corpuscular Hemoglobin 29.2 pg (26-34); Mean Corpuscular Volume 93.5 fl (80-100); Mean Platelet Volume 9.8 fl (7.4-10.4); Monocytes Absolute Auto 1.6 K/mm3 (0.1-0.6); Monocytes Percent Auto 9.5 % (2.6-8.5); Neutrophils Absolute Auto 12.3 K/mm3 (1.3-6.7); Neutrophils Percent Auto 71.8 % (45.5-73.1); Platelet Count Result 452 k/mm3 (150-375); Red Blood Count 4.48 M/mm3 (4.6-6.20); Red Cell Distribution Width 15.7 % (11.5-14.5); White Blood Count 17.1 K/mm3 (4.5-10.0)
[2021-04-04 06:11] LABS: Alanine Aminotransferase 121 U/L (4-50); Albumin Level 3.9 g/dL (3.5-5.1); Alkaline Phosphatase 140 U/L (38-126); Anion Gap 10 mmol/L (8-16); Aspartate Amino Transferase 86 U/L (17-59); Bilirubin,Total 0.5 mg/dL (0.2-1.3); Blood Urea Nitrogen 35 mg/dL (9-20); Calcium 9.6 mg/dL (8.4-10.2); Carbon Dioxide 30 mmol/L (22-30); Chloride 105 mmol/L (98-107); Estimated CRCL calculation 66 ml/min; Estimated Glomerular Filt Rate 56; Glucose 118 mg/dL (75-110); Magnesium 2.1 mg/dL (1.6-2.3); Phosphorus 3.8 mg/dL (2.5-4.5); Potassium 3.4 mmol/L (3.4-5.0); Sodium 145 mmol/L (137-145)
[2021-04-04] MEDS: IPRATROPIUM BR 0.02% INH SOLN 0.5 MG/2.5 ML VIAL INHALATION (07:58)
[2021-04-04] MEDS: polyethylene glycoL 3350 17 GM POWD.PACK PO (08:37)
[2021-04-04] MEDS: ENOXAPARIN 40 MG/0.4 ML SYRINGE SUB-Q (08:37)
[2021-04-04] MEDS: METOPROLOL TARTRATE 25 MG TABLET PO (08:38)
[2021-04-04] MEDS: GABAPENTIN 300 MG CAPSULE PO (08:38)
--- NOTE | 2021-04-04 10:36 | PM.DS ---
DS: Admitting Diagnosis Admitting Diagnosis Admitting Diagnosis: altered mental status. DS: Discharge Diagnosis Discharge Diagnosis (1) Sepsis: Qualifiers: Sepsis type: sepsis due to unspecified organism Sepsis acute organ dysfunction status: with acute organ dysfunction Severe sepsis acute organ dysfunction type: acute respiratory failure Acute respiratory failure type: with hypoxia Severe sepsis shock status: without septic shock Qualified Code(s): A41.9 - Sepsis, unspecified organism; R65.20 - Severe sepsis without septic shock; J96.01 - Acute respiratory failure with hypoxia Code(s): A41.9 - Sepsis, unspecified organism Status: Acute (2) Acute respiratory failure with hypoxia and hypercarbia: Code(s): J96.01 - Acute respiratory failure with hypoxia; J96.02 - Acute respiratory failure with hypercapnia Status: Acute (3) Ileus: Code(s): K56.7 - Ileus, unspecified Status: Acute (4) Encephalopathy: Code(s): G93.40 - Encephalopathy, unspecified Status: Acute (5) CAP (community acquired pneumonia): Qualifiers: Laterality: unspecified laterality Qualified Code(s): J18.9 - Pneumonia, unspecified organism Code(s): J18.9 - Pneumonia, unspecified organism Status: Acute (6) Acute hyperkalemia: Code(s): E87.5 - Hyperkalemia Status: Acute (7) Shock: Code(s): R57.9 - Shock, unspecified Status: Acute (8) Acute renal failure: Qualifiers: Acute renal failure type: unspecified Qualified Code(s): N17.9 - Acute kidney failure, unspecified Code(s): N17.9 - Acute kidney failure, unspecified Status: Acute (9) Hypertension: Qualifiers: Hypertension type: unspecified Qualified Code(s): I10 - Essential (primary) hypertension Code(s): I10 - Essential (primary) hypertension Status: Acute (10) Obstructive sleep apnea: Code(s): G47.33 - Obstructive sleep apnea (adult) (pediatric) Status: Acute (11) Chronic obstructive pulmonary disease: Qualifiers: COPD type: unspecified COPD Qualified Code(s): J44.9 - Chronic obstructive pulmonary disease, unspecified Code(s): J44.9 - Chronic obstructive pulmonary disease, unspecified Status: Acute (12) Diastolic congestive heart failure: Qualifiers: Heart failure chronicity: acute on chronic Qualified Code(s): I50.33 - Acute on chronic diastolic (congestive) heart failure Code(s): I50.30 - Unspecified diastolic (congestive) heart failure Status: Acute (13) Suspected COVID-19 virus infection: Code(s): Z20.822 - Contact with and (suspected) exposure to COVID-19 Status: Acute (14) Elevated LFTs: Code(s): R79.89 - Other specified abnormal findings of blood chemistry Status: Acute DS: Summary Hospital Course Reason for hospitalization: 60yo male with diastolic CHF, pulmonary HTN, DANNA and COPD here for altered mental status and found to have acute respiratory failure, severe hyperkalemia and GOYO. He was intubated on 03/24/21 and re-intubated on 03/27 after self-extubation. Patient able to extubated 04/02. Please see H&P for details. Hospital Course: Patient was found to be obtunded at home related to the GOYO/uremia. The patient has a hx of DANNA, COPD and diastolic CHF. CXR clear on 03/[address] chest here showing LLL collapse from mucous plugging and RUL PNA. ABG on admission 7.01/73/139 on NRB and thus was intubated. COVID-19 swab negative. Patient encephalopathic on admission felt related to metabolic with BUN [address] brain showing no acute findings. Patient met criteria for sepsis on admission with leukocytosis, respiratory failure, bradycardia and transient HoTN. He had bacteremia (1of2) on 03/24 growing Coag Negative Staph - probably a contaminant. Repeat BCx (1of2) on 03/26 also growing Coag Negative Staph from aerobic and anaerobic marco antonio
== END 2021-04-04 10:20 | disposition left against medical advice (07) | DRG 720 ==
LOC: ANHED 14:40 → ANHICU 15:20
PROVIDERS: Internal Medicine; Internal Medicine Nephrology; Nurse Practitioner; Admitting Provider Family Medicine; Emergency Provider Emergency Medicine; PCP Family Medicine; Visit Provider Internal Medicine
DX: A41.9 Sepsis, unspecified organism (principal); R65.20 Severe sepsis without septic shock; J96.01 Acute respiratory failure with hypoxia; J96.02 Acute respiratory failure with hypercapnia; I11.0 Hypertensive heart disease with heart failure; I50.33 Acute on chronic diastolic (congestive) heart failure; Z20.822 Contact with and (suspected) exposure to COVID-19; J18.9 Pneumonia, unspecified organism; G93.41 Metabolic encephalopathy; E87.5 Hyperkalemia; B95.7 Other staphylococcus as the cause of diseases classified elsewhere; N17.9 Acute kidney failure, unspecified; G47.33 Obstructive sleep apnea (adult) (pediatric); M19.90 Unspecified osteoarthritis, unspecified site; K21.9 Gastro-esophageal reflux disease without esophagitis; R33.9 Retention of urine, unspecified; G62.9 Polyneuropathy, unspecified; J43.9 Emphysema, unspecified; R91.1 Solitary pulmonary nodule; F17.210 Nicotine dependence, cigarettes, uncomplicated; Z98.42 Cataract extraction status, left eye; Z98.41 Cataract extraction status, right eye; Z90.49 Acquired absence of other specified parts of digestive tract; E87.2 Acidosis; E86.0 Dehydration; Z99.2 Dependence on renal dialysis; K56.0 Paralytic ileus
CPT/HCPCS: 31500; 36415; 36569; 36600; 51702; 70450; 71045; 71250; 74019; 76775; 80048; 80053; 80202; 80307; 81001; 81050; 82140; 82274; 82375; 82436; 82533; 82550; 82570; 82805; 82948; 83050; 83520; 83605; 83615; 83735; 83883; 84100; 84132; 84155; 84156; 84165; 84166; 84300; 84439; 84443; 84480; 84484; 85025; 85027; 85610; 85652; 85730; 85999; 86021; 86038; 86160; 86162; 86225; 86334; 86335; 86706; 87040; 87070; 87077; 87185; 87186; 87205; 87340; 93005; 93306; 93970; 94002; 94003; 94640; 96361; 96365; 96368; 96375; 97161; 97166; 99291; A9270; C1751; C1752; C9113; C9803; G0257; J0456; J0610; J0696; J1644; J1650; J1815; J1940; J2250; J2310; J2704; J2765; J2920; J2930; J3010; J3370; J3475; J7030; P9047; U0003; U0005

== ENCOUNTER 2021-04-29 16:21 | Inpatient (IN) | payer OTHER, SELFPAY ==
--- NOTE | ~2021-04-29 | XR_ITS ---
EXAMINATION: XR chest 2V EXAM DATE: 04/29/2021 16:54 INDICATION: Shortness of breath, right-sided chest pain for 4 days, pneumonia. Asthma. TECHNIQUE: Frontal and lateral projections of the chest obtained and reviewed. Comparison is made to prior examination from 04/02/2021. FINDINGS: Some small right midlung zone postinfectious residua. The lungs are otherwise clear. Ther e are no pleural effusions. The cardiomediastinal silhouette is within normal limits. There is no p neumothorax suspected. The bones and soft tissues are unremarkable. IMPRESSION: No acute cardiopulmonary findings. Reviewed, dictated and finalized at location B.
[2021-04-29 16:23] VITALS: BP 128/65; PULSE 88; RESP 30; TEMP 36.8; O2SAT 98
--- NOTE | 2021-04-29 16:26 | ECG_ITS ---
Measurements Intervals [place] Rate: 87 P: 69 TN: 196 QRS: 82 QRSD: 81 T: 70 QT: 315 QTc: 379 Interpretive Statements SINUS RHYTHM POSSIBLE LEFT ATRIAL ENLARGEMENT BASELINE ARTIFACT- V1-V2, V4-V6 BORDERLINE ECG Electronically Signed On 04-29-2021 21:08:53 CDT by Carmelo Graham D.O.
[2021-04-29 16:55] LABS: Basophils Percent Auto 0.4 % (0.2-1.2); Eosinophils Percent Auto 0.2 % (0-4.4); Hematocrit 42.5 % (42.0-52.0); Hemoglobin 13.3 g/dL (14.0-18.0); Immature Granulocyte Absolute 0.02 K/mm3 (0.00-0.031); Immature Granulocyte Percent A 0.2 % (0-0.5); Lymphocytes Absolute Auto 4.42 K/mm3 (0.9-3.2); Lymphocytes Percent Auto 48.9 % (18.3-44.2); Mean Corpuscular HGB Conc 31.3 g/dl (32-36); Mean Corpuscular Hemoglobin 29.1 pg (26-34); Mean Platelet Volume 9.8 fl (7.4-10.4); Monocytes Absolute Auto 1.3 K/mm3 (0.1-0.6); Monocytes Percent Auto 14.8 % (2.6-8.5); Neutrophils Absolute Auto 3.2 K/mm3 (1.3-6.7); Neutrophils Percent Auto 35.5 % (45.5-73.1); Platelet Count Result 216 k/mm3 (150-375); Red Blood Count 4.57 M/mm3 (4.6-6.20); Red Cell Distribution Width 16.5 % (11.5-14.5)
[2021-04-29 17:04] LABS: Anion Gap 12 mmol/L (8-16); Blood Urea Nitrogen 24 mg/dL (9-20); Calcium 9.3 mg/dL (8.4-10.2); Carbon Dioxide 28 mmol/L (22-30); Chloride 100 mmol/L (98-107); Estimated CRCL calculation 78 ml/min; Estimated Glomerular Filt Rate > 60; Glucose 106 mg/dL (65-110); Potassium 4.3 mmol/L (3.4-5.0); Sodium 140 mmol/L (137-145)
--- NOTE | 2021-04-29 20:09 | ED.SOB ---
HPI - SOB/Dyspnea General Chief Complaint: Shortness of Breath/Dyspnea Stated Complaint: SOB Time Seen by Provider: 04/29/21 20:08 History of Present Illness HPI Narrative: 60 yo male w/ h/o COPD presnets to the ED for SOB. He reports that he has not felt well for the past few days. He is short of breath. Nonproductive cough. He was admitted here recently with acute renal failure, hyperkalemia, and acute respiratory failure. He spent several days in the ICU on a ventilator. Related Data Home Medications Medication Instructions Recorded Confirmed lisinopril 40 mg PO DAILY 08/30/19 04/30/21 montelukast 10 mg PO HS 08/30/19 04/30/21 furosemide 40 mg tablet 40 mg PO QAM 02/17/21 04/30/21 gabapentin 300 mg capsule 1,200 mg PO TID 02/17/21 04/30/21 amlodipine 10 mg PO DAILY 03/16/21 04/30/21 hydrocodone-acetaminophen 1 tablet PO Q4-6H PRN 03/16/21 04/30/21 trazodone 25 - 50 mg PO HS PRN 03/24/21 04/30/21 mometasone-formoterol [Dulera] 2 puff INHALATION Q12H 04/30/21 04/30/21 tizanidine 2 mg PO Q6-8H 04/30/21 04/30/21 Allergies Allergy/AdvReac Type Severity Reaction Status Date / Time codeine Allergy Unknown Itching Verified 04/29/21 19:54 iohexol Allergy Unknown Redness of Verified 04/29/21 19:54 [From CONTRAST - CT, XRAY] Skin Review of Systems Review of Systems: All systems reviewed & are unremarkable except as noted in HPI and below Constitutional: Constitutional: Denies fever(s) Cardiovascular: Cardiovascular: Reports chest pain Respiratory: Respiratory: Reports cough and Reports dyspnea Gastrointestinal: Gastrointestinal: Denies abdominal pain Neurologic: Reports weakness PMFSH Past Medical History Medical History Arthritis Asthma Back pain Chronic obstructive pulmonary disease Diastolic congestive heart failure Gastroesophageal reflux disease Hypertension Kidney stones Learning disability Patient is unable to read or write fluently. Obstructive sleep apnea Uses 2 L nasal cannula at nighttime in lieu of CPAP. Peripheral neuropathy Pneumonia Pulmonary hypertension Pulmonary nodule Tobacco dependence Surgical History Surgical History History of cataract extraction History of cholecystectomy History of prostate surgery Family History Family History Father Family history of chronic obstructive pulmonary disease, Onset Age: 74 Acute myocardial infarction Cerebrovascular accident Mother End stage renal disease on dialysis Acute myocardial infarction Cerebrovascular accident Sibling History of blood clots Diabetes mellitus Sibling Chronic obstructive pulmonary disease Hypertension Grandparent Diabetes mellitus Son Leukemia Other Carcinoma of colon Social History Social History Social History: The patient lives in a trailer in [place]. He is but he and his have been for well over 20 years. He has one son. 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 No alcohol or illicit substance use. He designates his step daughter, Karely Flores, as his surrogate decision maker. Code status: Full code. Smoking packs per day: 1.5 Smoking cigarettes per day: 30.0 Years smoked: 31 Smoking pack-years: 46.50 Smoking status: Former smoker Tobacco type: cigarettes Smoking end date: 04/27/21 Alcohol intake: never Substance use: never Gender identity (if verbalized by the patient): Male Spiritual care concerns: No Exam Const: General: no acute distress, alert and ill appearing Orientation/consciousness: patient oriented x3 HENMT: Head: normal to inspection Neck: Neck: normal visual inspection Resp: Effort & Inspection: tachypneic Auscultation:
[2021-04-29 20:27] LABS: Base Excess ABG 3.8 mEq/l (+/-2.0); Fractional Inspired Oxygen 21 %; HCO3 ABG 29.9 mEq/l (22.0-26.0); Oxygen Content ABG 17.2 %vol (16.0-22.0); Oxyhemoglobin 87.7 % THb (90.0-100.0); PCO2 ABG 51.1 mmHg (35.0-45.0); PO2 ABG 53.5 mmHg (80.0-100.0); PO2 FiO2 Ratio Arterial Blood 2.55 %; pH ABG 7.385 (7.350-7.450)
[2021-04-29 20:29] LABS: Device ROOM AIR; Modified Allen's Test Pass; Oxygen Saturation ABG 86.9 % (95.0-100.0); Site Drawn RIGHT RADIAL
[2021-04-29 20:33] VITALS: BP 101/50; PULSE 87; RESP 26; O2SAT 95
[2021-04-29 20:35] VITALS: PULSE 78; RESP 26
--- NOTE | 2021-04-29 20:40 | PC.NURSE ---
pt states he is normally on 2-3 L of O2 at home. placed pt on 2L via nasal cannula. pt is at 100% O2 saturation on monitor.
[2021-04-29] MEDS: IPRATROPIUM BR 0.02% INH SOLN 0.5 MG/2.5 ML VIAL 1 MG INHALATION (20:47)
[2021-04-29] MEDS: ALBUTEROL SULFATE NEB 2.5 MG/0.5 ML INH 10 MG INHALATION (20:47)
--- NOTE | 2021-04-29 21:29 | PC.NURSE ---
multiple nurse attempts on IV. RN at bedside looking for IV placement w/ ultrasound.
[2021-04-29 21:30] VITALS: PULSE 87; RESP 25; O2SAT 100
[2021-04-29] MEDS: FUROSEMIDE INJ 40 MG/4 ML VIAL IV PUSH (22:33)
--- NOTE | 2021-04-29 23:21 | PM.IMHP ---
H&P: HPI History of Present Illness Date/Time: 04/29/21 23:21 Chief Complaint: shortness of breath Narrative: this is a 60-year-old male with past medical history significant for hypertension, COPD/asthma, diastolic heart failure, chronic respiratory failure. Patient presented to the emergency room due to worsening shortness of breath for the last week or so with cough he denies any sputum production states that has chest congestion but is hard to bring anything up he denies any fevers rigors or chills, No nausea no vomiting no diarrhea no abdominal pain no leg swelling no syncope no near syncope no lightheadedness no dizziness no chest pain no palpitations. upon presentation to the emergency room patient was found to have low pulse ox. preliminary workup was significant for ABG pCO2 of 51 PO2 of 53. he was placed on supplemental oxygen 2 L by nasal cannula his oxygen saturation increased to 90's. at the time of my visit patient complaining of worsening shortness of breath mainly no other issues. chest x-ray was significant for no acute cardiopulmonary finding. Review of Systems Review of Systems: Narrative: shortness of breath worsening for the last few days or so Constitutional: Constitutional: Denies chills, Reports fatigue and Denies fever(s) Eyes: Eyes: Denies change in vision ENT: Denies dysphagia and Denies odynophagia Cardiovascular: Cardiovascular: Denies irregular heart rhythm, Denies claudication, Denies radiating jaw, neck or arm pain, Denies palpitations, Reports dyspnea, Reports dyspnea on exertion and Denies orthopnea Respiratory: Respiratory: Reports chest congestion, Reports cough and Reports dyspnea Gastrointestinal: Gastrointestinal: Denies dyspepsia, Denies nausea and Denies vomiting Genitourinary: Genitourinary: Reports no additional male genitourinary complaints Musculoskeletal: Musculoskeletal: Reports no additional musculoskeletal complaints Integumentary/Breasts: Skin/Breast: Reports system reviewed and no additional complaints, except as docu Neurologic: Reports system reviewed and no additional complaints, except as documented Psychiatric: Psychiatric: Reports no additional psychiatric complaints Endocrine: Endocrine: Reports no additional endocrine complaints Hematologic/Lymphatic: Hematologic/Lymphatic: Reports no additional hematologic/lymphatic complaints Allergic/Immunologic: Allergic/Immunologic: Reports no additional allergic/immunologic complaints PMFSH Past Medical History Medical History Arthritis Asthma Back pain Chronic obstructive pulmonary disease Diastolic congestive heart failure Gastroesophageal reflux disease Hypertension Kidney stones Learning disability Patient is unable to read or write fluently. Obstructive sleep apnea Uses 2 L nasal cannula at nighttime in lieu of CPAP. Peripheral neuropathy Pneumonia Pulmonary hypertension Pulmonary nodule Tobacco dependence Surgical History Surgical History History of cataract extraction History of cholecystectomy History of prostate surgery Family History Family History Father Family history of chronic obstructive pulmonary disease, Onset Age: 74 Acute myocardial infarction Cerebrovascular accident Mother End stage renal disease on dialysis Acute myocardial infarction Cerebrovascular accident Sibling History of blood clots Diabetes mellitus Sibling Chronic obstructive pulmonary disease Hypertension Grandparent Diabetes mellitus Son Leukemia Other Carcinoma of colon Social History Social History Social History: The patient lives in a trailer in [place]. He is but he and his have been for well over 20 years. He has one son. Former [employer]
[2021-04-29 23:27] VITALS: PULSE 85; RESP 17; O2SAT 99
[2021-04-30] VITALS (18 sets, daily range): BP systolic 99–123; BP diastolic 54–69; PULSE 70–88; RESP 16–24; TEMP 36–36.1; O2SAT 92–100; BMI 28.9
[2021-04-30] MEDS: methylPREDNISolone SOD SUCC 125 MG VIAL IV PUSH (00:35)
--- NOTE | 2021-04-30 01:40 | PC.NURSE ---
pt took off bipap machine and is refusing to wear it. pt states its gagging me. pt was told the importance of wearing it, but pt is still refusing. pt wants to be put on his normal 3 L of O2 via nasal cannula. This RN put him on the 3 L via nasal cannula. EDP aware of situation.
[2021-04-30] MEDS: IPRATROPIUM BR 0.02% INH SOLN 0.5 MG/2.5 ML VIAL (02:51)
[2021-04-30] MEDS: ALBUTEROL SULFATE NEB 2.5 MG/0.5 ML INH 5 MG (02:52)
--- NOTE | 2021-04-30 05:42 | ADMGEN ---
This patient, Manny Garcia, was admitted to 2 Medical Room 259-01. Patient/family oriented to hospital policies and general routines including ID bracelet, bed and alarms, visiting hours, pain management, procedures, bathroom and other care routines, personal items, smoking policy, room service/diet, and visiting hours. Information on how to activate the Rapid Response Team has been discussed. Patient/Family are encouraged to report perceived risks to care and to ask questions if they do not understand what they are told or what they should do.
[2021-04-30] MEDS: HYDROcodone/acetaminophen (*CRX) 10-325 MG TABLET 1 TAB PO ×2 (07:01→16:17)
[2021-04-30] MEDS: methylPREDNISolone SOD SUCC 125 MG VIAL 60 MG IV PUSH ×3 (08:15→20:53)
[2021-04-30] MEDS: GABAPENTIN 400 MG CAPSULE 1200 MG PO ×3 (08:20→16:15)
[2021-04-30] MEDS: ALBUTEROL SULFATE (*SP) AEROSOL 1 PUFF 2 PUFF INHALATION (09:07)
--- NOTE | 2021-04-30 10:08 | PM.IMPN ---
Progress Note: A&P Assessment and Plan (1) Acute on chronic respiratory failure with hypoxia and hypercapnia: Code(s): J96.21 - Acute and chronic respiratory failure with hypoxia; J96.22 - Acute and chronic respiratory failure with hypercapnia Status: Acute Assessment and Plan: Chronic likely related to untreated DANNA and pHTN, acutely worsened by COPD exacerbation. Supplemental O2 as needed with goal saturation 90% or above. Wean to goal. required up to 3 L supplemental O2 but currently maintaining adequate oxygenation on room air. Continue BiPAP at bedtime Plan as detailed above (2) COPD exacerbation: Code(s): J44.1 - Chronic obstructive pulmonary disease with (acute) exacerbation Status: Acute Assessment and Plan: Wheezing on admission, improved today Continue IV Solu-Medrol, decreased to 60 mg Q8 hours. continue to wean steroids as tolerated Albuterol and ipratropium nebs Q 6 hours continue Symbicort and montelukast no signs/ symptoms to suggest need for antibiotics at this time (3) Diastolic congestive heart failure: Qualifiers: Heart failure chronicity: acute on chronic Qualified Code(s): I50.33 - Acute on chronic diastolic (congestive) heart failure Code(s): I50.30 - Unspecified diastolic (congestive) heart failure Status: Acute Assessment and Plan: CXR and physical exam without evidence of hypervolemia. Check BNP Continue with home Lasix 40 mg PO daily Echo reviewed from March 2021 with grade I diastolic dysfunction, normal EF 60-65% Monitor I&O, heart healthy diet (4) Tobacco dependence: Code(s): F17.200 - Nicotine dependence, unspecified, uncomplicated Status: Acute Assessment and Plan: Smokes 1.5 packs per day Nicotine patch as needed (5) Obstructive sleep apnea: Code(s): G47.33 - Obstructive sleep apnea (adult) (pediatric) Status: Acute Assessment and Plan: Untreated at home Continue BiPAP at night Will need outpt follow up to arrange home PAP/BiPAP (6) Hypertension: Qualifiers: Hypertension type: unspecified Qualified Code(s): I10 - Essential (primary) hypertension Code(s): I10 - Essential (primary) hypertension Status: Acute Assessment and Plan: BP running on low-normal end today. Last BP 118/54. Hold lisinopril and amlodipine Resume as BP increases Monitor BP trends Subjective Date/time seen: 04/30/21 10:08 Interval history: Date of service: 04/30/2021 Manny Garcia is a 60-year-old male with history of COPD, asthma, diastolic CHF, hypertension, DANNA, and tobacco dependence who is seen in follow-up for COPD exacerbation. He is feeling better today. His shortness of breath has improved and he is no longer wheezing. He has not been out of bed yet today therefore cannot indicate PATRICIA. He is still coughing with white-green sputum production. He has no chest pain. No sinus congestion or rhinorrhea. No palpitations. No dizziness, lightheadedness, nausea, vomiting, diarrhea, fever, chills, body aches, headache. He does have chronic back pain. he is eating well. He has no additional concerns at this time. Review of Systems Review of Systems: All systems reviewed & are unremarkable except as noted in HPI and below Exam Narrative: Exam Narrative: Ms. Garcia is a well-nourished, well-appearing 60-year-old male who is lying supine in bed. He appears comfortable and is in NARD. Neuro: awake, alert and oriented x4, speech clear, no focal neuro deficits noted HEENMT: normocephalic, atraumatic, EOMI, sclerae anicteric, moist oral mucosa Neck: supple, no lymphadenopathy Respiratory: diffuse expiratory wheezes, nonlabored breathing Cardio: regular rate, regular rhythm with S1-S2 Abdomen: nondistended, normoactive bowel sounds, soft, nontender to palpation Extremities: no edema, erythema, o
--- NOTE | 2021-04-30 10:15 | PCRCNOTE ---
Past window of treatment time.
[2021-04-30 11:44] LABS: NT Pro B Type Natriuretic Pept 101 pg/mL (5-100)
[2021-04-30] MEDS: FUROSEMIDE 40 MG TABLET PO (12:01)
[2021-04-30] MEDS: ALBUTEROL SULFATE NEB 2.5 MG/0.5 ML INH 5 MG INHALATION ×2 (14:05→20:49)
[2021-04-30] MEDS: IPRATROPIUM BR 0.02% INH SOLN 0.5 MG/2.5 ML VIAL INHALATION ×2 (14:06→20:50)
[2021-04-30] MEDS: MONTELUKAST SODIUM 10 MG TABLET PO (20:53)
[2021-05-01 00:43] VITALS: BP 115/71; PULSE 77; RESP 20; TEMP 36.1; O2SAT 95
[2021-05-01 02:20] VITALS: PULSE 74; RESP 20
[2021-05-01] MEDS: ALBUTEROL SULFATE NEB 2.5 MG/0.5 ML INH 5 MG INHALATION ×2 (02:20→09:13)
[2021-05-01] MEDS: IPRATROPIUM BR 0.02% INH SOLN 0.5 MG/2.5 ML VIAL INHALATION ×2 (02:20→09:13)
[2021-05-01 02:27] VITALS: PULSE 76; RESP 20
[2021-05-01 05:29] LABS: Hematocrit 45.1 % (42.0-52.0); Hemoglobin 14.3 g/dL (14.0-18.0); Mean Corpuscular HGB Conc 31.7 g/dl (32-36); Mean Corpuscular Hemoglobin 28.9 pg (26-34); Mean Corpuscular Volume 91.3 fl (80-100); Mean Platelet Volume 9.8 fl (7.4-10.4); Platelet Count Result 253 k/mm3 (150-375); Red Blood Count 4.94 M/mm3 (4.6-6.20); Red Cell Distribution Width 15.9 % (11.5-14.5); White Blood Count 13.8 K/mm3 (4.5-10.0)
[2021-05-01 05:36] VITALS: BP 103/61; PULSE 79; RESP 20; TEMP 36.1; O2SAT 92
[2021-05-01 05:46] LABS: Anion Gap 13 mmol/L (8-16); Blood Urea Nitrogen 33 mg/dL (9-20); Calcium 9.6 mg/dL (8.4-10.2); Carbon Dioxide 27 mmol/L (22-30); Chloride 99 mmol/L (98-107); Estimated CRCL calculation 75 ml/min; Estimated Glomerular Filt Rate > 60; Glucose 184 mg/dL (65-110); Potassium 4.6 mmol/L (3.4-5.0); Sodium 139 mmol/L (137-145)
[2021-05-01] MEDS: methylPREDNISolone SOD SUCC 125 MG VIAL 60 MG IV PUSH (06:07)
[2021-05-01] MEDS: FUROSEMIDE 40 MG TABLET PO (08:45)
[2021-05-01] MEDS: GABAPENTIN 400 MG CAPSULE 1200 MG PO (08:45)
[2021-05-01 09:14] VITALS: PULSE 85; RESP 20; O2SAT 94
[2021-05-01 09:19] VITALS: PULSE 92; RESP 20
--- NOTE | 2021-05-01 11:00 | PM.DS ---
DS: Admitting Diagnosis Admitting Diagnosis COPD exacerbation DS: Discharge Diagnosis Discharge Diagnosis (1) Acute on chronic respiratory failure with hypoxia and hypercapnia: Code(s): J96.21 - Acute and chronic respiratory failure with hypoxia; J96.22 - Acute and chronic respiratory failure with hypercapnia Status: Acute Assessment and Plan: Date of Admission 04/29/21 Date of Discharge 05/01/21 Mr. Garcia is a 60yo M with history of COPD and hypertension, recent hospitalization last month for respiratory failure requiring intubation and mechanical ventilation and acute renal failure requiring temporary dialysis, who presented to the ER for evaluation of shortness of breath. He described over the last week or so he has had increased shortness of breath with lesser activity with a nonproductive cough and wheezing. He was admitted to the hospitalist service for management of acute COPD exacerbation. Chest XR demonstrated no acute findings. He was placed on 2L supplemental oxygen and oxygen increased to 90s. He was weaned to room air and was tolerating room air with adequate oxygen saturations on day of discharge (92-95% on room air). He was treated with IV solu-medrol and nebulized bronchodilator therapy. On day of discharge he had slight wheezing but he noted he was feeling better and was adamant to be discharged. He was hemodynamically stable for discharge 05/01/21 with course of tapered prednisone and encouraged to follow up with PCP and pulmonology. Chronic likely related to untreated DANNA and pHTN, acutely worsened by COPD exacerbation. Required up to 3 L supplemental O2 but currently maintaining adequate oxygenation on room air. Continue BiPAP at bedtime (2) COPD exacerbation: Code(s): J44.1 - Chronic obstructive pulmonary disease with (acute) exacerbation Status: Acute Assessment and Plan: Wheezing on admission, improved today Treated with IV Solu-Medrol. Transitioned to oral prednisone at discharge. Albuterol and ipratropium nebs Q 6 hours Continue Symbicort and montelukast No signs/symptoms to suggest need for antibiotics at this time (3) Diastolic congestive heart failure: Qualifiers: Heart failure chronicity: acute on chronic Qualified Code(s): I50.33 - Acute on chronic diastolic (congestive) heart failure Code(s): I50.30 - Unspecified diastolic (congestive) heart failure Status: Acute Assessment and Plan: CXR and physical exam without evidence of hypervolemia. Continue with home Lasix 40 mg PO daily. Heart healthy diet. Echo reviewed from March 2021 with grade I diastolic dysfunction, normal EF 60-65% (4) Tobacco dependence: Code(s): F17.200 - Nicotine dependence, unspecified, uncomplicated Status: Acute Assessment and Plan: Smokes 1.5 packs per day. Educated on smoking cessation. Nicotine patch as needed (5) Obstructive sleep apnea: Code(s): G47.33 - Obstructive sleep apnea (adult) (pediatric) Status: Acute Assessment and Plan: Untreated at home Continue BiPAP at night Outpt pulm follow up to arrange home PAP/BiPAP (6) Hypertension: Qualifiers: Hypertension type: unspecified Qualified Code(s): I10 - Essential (primary) hypertension Code(s): I10 - Essential (primary) hypertension Status: Acute Assessment and Plan: BPs were lower end and his medications were held; BPs improved and his home regimen was resumed at discharge. DS: Summary Hospital Course Hospital Course: See above. Time Spent with Patient Time attestation: Total time spent providing and/or coordinating
== END 2021-05-01 11:48 | disposition home or self-care (01) | DRG 140 ==
LOC: ANHED 20:08 → ANH2MED 04-30 07:12
PROVIDERS: Emergency Medicine; Physician Assistant; Admitting Provider Internal Medicine; Emergency Provider Emergency Medicine; PCP Family Medicine; Visit Provider Physician Assistant
DX: J44.1 Chronic obstructive pulmonary disease with (acute) exacerbation (principal); I11.0 Hypertensive heart disease with heart failure; I50.33 Acute on chronic diastolic (congestive) heart failure; J96.21 Acute and chronic respiratory failure with hypoxia; J96.22 Acute and chronic respiratory failure with hypercapnia; G47.33 Obstructive sleep apnea (adult) (pediatric); F17.200 Nicotine dependence, unspecified, uncomplicated; M19.90 Unspecified osteoarthritis, unspecified site; K21.9 Gastro-esophageal reflux disease without esophagitis; G62.9 Polyneuropathy, unspecified; R91.1 Solitary pulmonary nodule; Z98.42 Cataract extraction status, left eye; Z98.41 Cataract extraction status, right eye; Z90.49 Acquired absence of other specified parts of digestive tract
CPT/HCPCS: 36415; 36600; 71046; 80048; 82805; 83880; 85025; 85027; 93005; 94002; 94640; 96374; 99285; A9270; J1940; J2930

== ENCOUNTER 2021-05-03 23:20 | Inpatient (IN) | payer OTHER, SELFPAY ==
--- NOTE | ~2021-05-03 | XR_ITS ---
EXAMINATION: XR chest 1V portable DATE: 05/04/2021 00:26 INDICATION: Shortness of breath TECHNIQUE: frontal view of the chest was obtained. COMPARISON: Chest radiograph dated 04/29/2021 FINDINGS: New airspace opacities in the right lower lung zone concerning for pneumonia. Equivocal mild opacitie s in the left lung base. No pleural effusion or pneumothorax. The cardiomediastinal silhouette is nor mal. IMPRESSION: 1. New airspace disease in the right lower lung zone, possibly mild in the left lower lung zone which is concerning for pneumonia or less likely asymmetric mild pulmonary edema. Reviewed, dictated and finalized at location A. IMPRESSION: 1. New airspace disease in the right lower lung zone, possibly mild in the left lower lung zone which is concerning for pneumonia or less likely asymmetric mi ld pulmonary edema.
[2021-05-03 23:21] VITALS: BP 126/65; PULSE 112; RESP 25; TEMP 36.6; O2SAT 96
--- NOTE | 2021-05-03 23:23 | ECG_ITS ---
Measurements Intervals [place] Rate: 107 P: 64 OK: 173 QRS: 106 QRSD: 90 T: 58 QT: 294 QTc: 393 Interpretive Statements SINUS TACHYCARDIA POSSIBLE LEFT ATRIAL ENLARGEMENT RIGHT AXIS DEVIATION ST-T WAVE ABNORMALITY IN INFERIOR LEADS- CONSIDER ISCHEMIA BASELINE ARTIFACT- II, III, AVR, AVF, V1, V3-V6 ABNORMAL ECG Electronically Signed On 05-04-2021 7:07:46 CDT by Carmelo Graham D.O.
[2021-05-03 23:29] VITALS: PULSE 112
--- NOTE | 2021-05-03 23:32 | ED.SOB ---
HPI - SOB/Dyspnea General Chief Complaint: Shortness of Breath/Dyspnea Stated Complaint: SOB History of Present Illness HPI Narrative: 60 yo male w/ h/o COPD presents to the ED for SOB. He has been in and out of the hospital multiple times recently for breathing. Most recently discharged from the hospital on 05/01. He was initially feeling better, but his breathing has declined since that time. Associated with cough. He is not vaccinated against COVID-19. Related Data Home Medications Medication Instructions Recorded Confirmed lisinopril 40 mg PO DAILY 08/30/19 04/30/21 montelukast 10 mg PO HS 08/30/19 04/30/21 furosemide 40 mg tablet 40 mg PO QAM 02/17/21 04/30/21 gabapentin 300 mg capsule 1,200 mg PO TID 02/17/21 04/30/21 amlodipine 10 mg PO DAILY 03/16/21 04/30/21 hydrocodone-acetaminophen 1 tablet PO Q4-6H PRN 03/16/21 04/30/21 trazodone 25 - 50 mg PO HS PRN 03/24/21 04/30/21 Dulera 2 puff INHALATION Q12H 04/30/21 04/30/21 tizanidine 2 mg PO Q6-8H 04/30/21 04/30/21 Allergies Allergy/AdvReac Type Severity Reaction Status Date / Time codeine Allergy Unknown Itching Verified 04/30/21 07:26 iohexol Allergy Unknown Redness of Verified 04/30/21 07:26 [From CONTRAST - CT, XRAY] Skin Review of Systems Constitutional: Constitutional: Denies fever(s) ENT: Denies dizziness Cardiovascular: Cardiovascular: Denies chest pain Respiratory: Respiratory: Reports cough and Reports dyspnea Gastrointestinal: Gastrointestinal: Denies abdominal pain, Denies nausea and Denies vomiting Neurologic: Denies dizziness and Denies weakness [facility] Past Medical History Medical History Arthritis Asthma Back pain Chronic obstructive pulmonary disease Diastolic congestive heart failure Gastroesophageal reflux disease Hypertension Kidney stones Learning disability Patient is unable to read or write fluently. Obstructive sleep apnea Uses 2 L nasal cannula at nighttime in lieu of CPAP. Peripheral neuropathy Pneumonia Pulmonary hypertension Pulmonary nodule Tobacco dependence Surgical History Surgical History History of cataract extraction History of cholecystectomy History of prostate surgery Family History Family History Father Family history of chronic obstructive pulmonary disease, Onset Age: 74 Acute myocardial infarction Cerebrovascular accident Mother End stage renal disease on dialysis Acute myocardial infarction Cerebrovascular accident Sibling History of blood clots Diabetes mellitus Sibling Chronic obstructive pulmonary disease Hypertension Grandparent Diabetes mellitus Son Leukemia Other Carcinoma of colon Social History Social History Social History: The patient lives in a trailer in [place]. He is but he and his have been for well over 20 years. He has one son. 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 No alcohol or illicit substance use. He designates his step daughter, Karely Flores, as his surrogate decision maker. Code status: Full code. Smoking packs per day: 1.5 Smoking cigarettes per day: 30.0 Years smoked: 31 Smoking pack-years: 46.50 Smoking status: Former smoker Tobacco type: cigarettes Smoking end date: 04/27/21 Alcohol intake: never Substance use: never Gender identity (if verbalized by the patient): Male Spiritual care concerns: No Exam Const: General: no acute distress, alert and ill appearing Orientation/consciousness: patient oriented x3 HENMT: Head: normal to inspection Neck: Neck: normal visual inspection Resp: Effort & Inspection: labored and tachypneic Auscultation: crackles and wheezes Cardio: Rate: tachycardi
[2021-05-03 23:41] VITALS: O2SAT 96
[2021-05-03 23:41] LABS: Basophils Percent Auto 0.2 % (0.2-1.2); Hematocrit 42.5 % (42.0-52.0); Hemoglobin 13.6 g/dL (14.0-18.0); Immature Granulocyte Absolute 0.07 K/mm3 (0.00-0.031); Immature Granulocyte Percent A 0.5 % (0-0.5); Lymphocytes Absolute Auto 3.55 K/mm3 (0.9-3.2); Lymphocytes Percent Auto 27.3 % (18.3-44.2); Mean Corpuscular Hemoglobin 29.2 pg (26-34); Mean Corpuscular Volume 91.2 fl (80-100); Mean Platelet Volume 9.7 fl (7.4-10.4); Monocytes Absolute Auto 0.7 K/mm3 (0.1-0.6); Monocytes Percent Auto 5.5 % (2.6-8.5); Neutrophils Absolute Auto 8.7 K/mm3 (1.3-6.7); Neutrophils Percent Auto 66.5 % (45.5-73.1); Platelet Count Result 228 k/mm3 (150-375); Red Blood Count 4.66 M/mm3 (4.6-6.20); Red Cell Distribution Width 16.1 % (11.5-14.5)
[2021-05-03] MEDS: methylPREDNISolone SOD SUCC 125 MG VIAL IV PUSH (23:45)
[2021-05-03 23:53] LABS: Alanine Aminotransferase 29 U/L (4-50); Albumin Level 3.9 g/dL (3.5-5.1); Alkaline Phosphatase 98 U/L (38-126); Anion Gap 7 mmol/L (8-16); Aspartate Amino Transferase 37 U/L (17-59); Bilirubin,Total 0.4 mg/dL (0.2-1.3); Blood Urea Nitrogen 18 mg/dL (9-20); Calcium 9.2 mg/dL (8.4-10.2); Carbon Dioxide 33 mmol/L (22-30); Chloride 97 mmol/L (98-107); Estimated CRCL calculation 87 ml/min; Estimated Glomerular Filt Rate > 60; Glucose 104 mg/dL (65-110); Potassium 3.6 mmol/L (3.4-5.0); Sodium 137 mmol/L (137-145)
[2021-05-03 23:54] LABS: INR 0.9; Prothrombin Time 12.4 Seconds (11.1-14.7)
[2021-05-03 23:55] LABS: Partial Thromboplastin Time 36.1 SECONDS (22.3-36.8)
[2021-05-03 23:58] VITALS: PULSE 107; RESP 20; O2SAT 100
--- NOTE | 2021-05-03 23:58 | PC.NURSE ---
pt initially refusing to wear bipap. this RN spoke with , and with pt while RT in room with tamica knowles. pt agreeable to wear bipap for now.
[2021-05-04] VITALS (34 sets, daily range): BP systolic 113–136; BP diastolic 52–76; PULSE 70–106; RESP 12–28; TEMP 36.4–36.7; O2SAT 93–100; BMI 28.1
[2021-05-04 00:02] LABS: NT Pro B Type Natriuretic Pept 280 pg/mL (5-100)
[2021-05-04] MEDS: ALBUTEROL SULFATE NEB 2.5 MG/0.5 ML INH 10 MG INHALATION (00:21)
[2021-05-04] MEDS: IPRATROPIUM BR 0.02% INH SOLN 0.5 MG/2.5 ML VIAL 1 MG INHALATION (00:21)
[2021-05-04 00:35] LABS: Alveolar/Arterial O2 Gradient 275.4 mmHg; Fractional Inspired Oxygen 70 %; HCO3 ABG 28.7 mEq/l (22.0-26.0); Oxygen Content ABG 19.9 %vol (16.0-22.0); Oxygen Saturation ABG 99.3 % (95.0-100.0); Oxyhemoglobin 97.7 % THb (90.0-100.0); PCO2 ABG 39.4 mmHg (35.0-45.0); PO2 ABG 181.4 mmHg (80.0-100.0); PO2 FiO2 Ratio Arterial Blood 2.59 %; Total Hemoglobin 14.2 g/dL (12.0-18.0); pH ABG 7.481 (7.350-7.450)
[2021-05-04 00:36] LABS: Device NON-INVASIVE VENT; Modified Allen's Test Pass; Site Drawn LEFT RADIAL
[2021-05-04 00:37] LABS: Non-Invasive Expiratory Pressure 8 CMH2O; Non-Invasive Inspiratory Pressure 16 CMH2O; Non-Invasive Vent Rate 14 /MIN
--- NOTE | 2021-05-04 01:12 | PC.NURSE ---
Blood cultures x 2 sets obtained and sent to lab prior to start of abx infusion.
--- NOTE | 2021-05-04 01:48 | PM.IMHP ---
H&P: HPI History of Present Illness Date/Time: 05/04/21 01:48 Chief Complaint: difficulty breathing Narrative: 60-year-old male with past medical history of learning disability, hypertension and COPD with prior intubation March 2021 who presented to the ER via EMS with shortness of breath and cough. The patient was hospitalized in March for acute hypoxic hypercapnic respiratory failure and acute renal failure requiring temporary dialysis. He left against medical advice 2 days after being extubated. He returned the hospital on 04/29/2021 due to shortness of breath and was admitted to the hospital again for COPD exacerbation and hypoxic hypercarbic respiratory failure. He was discharged from the hospital on 05/01/2021. He reports that he has been having green nasal drainage and green sputum production for the last 3 days. He reports that his shortness of breath was improved when he was discharged from the hospital but shortly after returning home he began having more shortness of breath. He denies any fevers or chills. He reports that everything tastes sour. He denies any loss of sense of smell. He denies any known Covid exposures. He denies any nausea or vomiting but has had significant decrease in appetite. He denies any diarrhea or constipation. His last bowel movement was at noon and was normally formed and brown. He denies any lower extremity swelling or orthopnea. He has obstructive sleep apnea but has not had a chance to schedule a polysomnogram And it sounds as if he does not have much intention of scheduling study. He states that he has not smoked since he was admitted to the hospital in March. He denies any fevers or chills. He denies any arthralgias or myalgias beyond his usual. The patient's oxygen saturations in the field were 90% on room air. This is equal to the oxygen saturations he had at the time of discharge. The patient has not received a Covid vaccine. Review of Systems Review of Systems: 12 systems were reviewed with pertinent positives and negatives per HPI. Except as documented in the HPI, all other systems were reviewed and are negative. [facility] Past Medical History Medical History (Updated 05/04/21 @ 04:24 by Yenni Paz DO) Acute kidney injury with severe hyperkalemia requiring temporary dialysis 03/2021 Arthritis Asthma Back pain Chronic obstructive pulmonary disease Diastolic congestive heart failure Gastroesophageal reflux disease Hypertension Kidney stones Learning disability Patient is unable to read or write fluently. Obstructive sleep apnea Uses 2 L nasal cannula at nighttime in lieu of CPAP. Peripheral neuropathy Pneumonia Pulmonary hypertension Pulmonary nodule Tobacco dependence Surgical History Surgical History (Updated 05/04/21 @ 04:24 by Yenni Paz DO) History of cataract extraction History of cholecystectomy Status post prostatectomy Family History Family History Father Family history of chronic obstructive pulmonary disease, Onset Age: 74 Acute myocardial infarction Cerebrovascular accident Mother End stage renal disease on dialysis Acute myocardial infarction Cerebrovascular accident Sibling History of blood clots Diabetes mellitus Sibling Chronic obstructive pulmonary disease Hypertension Grandparent Diabetes mellitus Son Leukemia Other Carcinoma of colon Social History Social History (Updated 05/04/21 @ 04:26 by Yenni Paz DO) Social History: The patient lives in a trailer in [place]. He is but he and his have been for well over 20 years. He has one son. 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 He smokes about 1.5 packs of cigarettes a day and has for 50 years but reports he quit smoking March 16, 2021. No alcohol or illicit substance use. He designates his step daughter, Karely Flores, as his surrogate decision maker. Code status: Full code.
[2021-05-04] MEDS: IPRATROPIUM BR 0.02% INH SOLN 0.5 MG/2.5 ML VIAL INHALATION ×3 (02:14→14:14)
[2021-05-04] MEDS: ALBUTEROL SULFATE NEB 2.5 MG/0.5 ML INH 5 MG INHALATION ×3 (02:14→14:14)
--- NOTE | 2021-05-04 03:21 | ADMGEN ---
This patient, Manny Garcia, was admitted to [facility] Surg Room 330-01. Patient/family oriented to hospital policies and general routines including ID bracelet, bed and alarms, visiting hours, pain management, procedures, bathroom and other care routines, personal items, smoking policy, room service/diet, and visiting hours. Information on how to activate the Rapid Response Team has been discussed. Patient/Family are encouraged to report perceived risks to care and to ask questions if they do not understand what they are told or what they should do.
[2021-05-04 06:09] LABS: Hematocrit 41.9 % (42.0-52.0); Hemoglobin 13.1 g/dL (14.0-18.0); Mean Corpuscular HGB Conc 31.3 g/dl (32-36); Mean Corpuscular Hemoglobin 28.7 pg (26-34); Mean Corpuscular Volume 91.9 fl (80-100); Mean Platelet Volume 10.3 fl (7.4-10.4); Platelet Count Result 250 k/mm3 (150-375); Red Blood Count 4.56 M/mm3 (4.6-6.20); Red Cell Distribution Width 15.9 % (11.5-14.5); White Blood Count 12.7 K/mm3 (4.5-10.0)
[2021-05-04 06:23] LABS: Alanine Aminotransferase 26 U/L (4-50); Albumin Level 3.6 g/dL (3.5-5.1); Alkaline Phosphatase 95 U/L (38-126); Anion Gap 15 mmol/L (8-16); Aspartate Amino Transferase 31 U/L (17-59); Bilirubin,Total 0.3 mg/dL (0.2-1.3); Blood Urea Nitrogen 18 mg/dL (9-20); Calcium 8.9 mg/dL (8.4-10.2); Carbon Dioxide 26 mmol/L (22-30); Chloride 94 mmol/L (98-107); Estimated CRCL calculation 93 ml/min; Estimated Glomerular Filt Rate > 60; Glucose 202 mg/dL (65-110); Sodium 135 mmol/L (137-145)
[2021-05-04] MEDS: GABAPENTIN 400 MG CAPSULE 1200 MG PO ×3 (08:17→18:47)
[2021-05-04] MEDS: ENOXAPARIN 40 MG/0.4 ML SYRINGE SUB-Q (08:18)
[2021-05-04] MEDS: amLODIPine BESYLATE 5 MG TABLET 10 MG PO (08:18)
[2021-05-04] MEDS: FUROSEMIDE 40 MG TABLET PO (08:18)
[2021-05-04] MEDS: lisinopriL 20 MG TABLET 40 MG PO (08:19)
[2021-05-04] MEDS: HYDROcodone/acetaminophen (*CRX) 10-325 MG TABLET 1 TAB PO ×2 (08:23→20:27)
--- NOTE | 2021-05-04 09:34 | PM.EVENT ---
Event Note Event Note Event Note: follow-up rounding note from history and physical performed this morning.
[2021-05-04 13:57] LABS: Glucose Point of Care 263 mg/dl (65-105)
[2021-05-04] MEDS: MONTELUKAST SODIUM 10 MG TABLET PO (21:32)
--- NOTE | 2021-05-04 23:48 | PCRCNOTE ---
Window of time for administration has passed. See next scheduled administration.
[2021-05-05] VITALS (14 sets, daily range): BP systolic 100–122; BP diastolic 42–68; PULSE 66–93; RESP 16–22; TEMP 36.1–36.6; O2SAT 92–99
[2021-05-05] MEDS: IPRATROPIUM BR 0.02% INH SOLN 0.5 MG/2.5 ML VIAL INHALATION ×4 (02:30→21:02)
[2021-05-05] MEDS: ALBUTEROL SULFATE NEB 2.5 MG/0.5 ML INH 5 MG INHALATION ×4 (02:30→21:02)
[2021-05-05] MEDS: HYDROcodone/acetaminophen (*CRX) 10-325 MG TABLET 1 TAB PO ×2 (09:06→15:36)
[2021-05-05] MEDS: lisinopriL 20 MG TABLET 40 MG PO (09:09)
[2021-05-05] MEDS: amLODIPine BESYLATE 5 MG TABLET 10 MG PO (09:09)
[2021-05-05] MEDS: FUROSEMIDE 40 MG TABLET PO (09:09)
[2021-05-05] MEDS: traZODone HCL 50 MG TABLET PO (09:10)
[2021-05-05] MEDS: ENOXAPARIN 40 MG/0.4 ML SYRINGE SUB-Q ×2 (09:11→20:21)
[2021-05-05] MEDS: GABAPENTIN 400 MG CAPSULE 1200 MG PO ×3 (09:15→18:25)
--- NOTE | 2021-05-05 13:31 | PM.IMPN ---
Progress Note: A&P Assessment and Plan (1) COVID-19: Code(s): U07.1 - COVID-19 Status: Acute Assessment and Plan: - positive for COVID-19 on 05/03/2021, results came back today -Continue Decadron 6 mg daily for 10 day course - was recently admitted for COPD exacerbation 04/29 to 05/01 been treated with IV Solu-Medrol and discharged with his steroid course to follow-up with PCP. He returned with shortness of breath and was later found to have COVID-19 - LFTs are within normal limits, starting remdesivir - will trend inflammatory markers, and increased DVT prophylaxis to b.i.d. for now (2) Acute respiratory failure with hypoxia: Code(s): J96.01 - Acute respiratory failure with hypoxia Status: Acute Assessment and Plan: - acute exacerbation appears to have been resolved, back down to baseline 3 L home oxygen - will continue treating underlying issue COVID-19 treatment - patient can continue home (3) Sleep apnea: Code(s): G47.30 - Sleep apnea, unspecified Status: Acute Assessment and Plan: noncompliant with CPAP (4) HTN (hypertension): Qualifiers: Hypertension type: unspecified Qualified Code(s): I10 - Essential (primary) hypertension Code(s): I10 - Essential (primary) hypertension Status: Acute Assessment and Plan: continue home lisinopril (5) Diastolic congestive heart failure: Qualifiers: Heart failure chronicity: acute on chronic Qualified Code(s): I50.33 - Acute on chronic diastolic (congestive) heart failure Code(s): I50.30 - Unspecified diastolic (congestive) heart failure Status: Acute Additional Plan diet: Heart healthy Code status: Full code Disposition: Pending clinical course, likely will need to finish 5 day course of remdesivir with his significant medical history Time Spent With Patient Time with patient: 15 - 25 minutes Subjective Date/time seen: 05/05/21 13:31 Patient examined patient states he has been coughing up green stuff. He feels okay today however still complains of shortness of breath. He is on chronically on 3 L home oxygen which is why he is on now. His COVID-19 result came back positive for COVID-19 today. Patient endorses loose cough with sputum production green color. He endorses malaise and generalized weakness. he is un-vaccinated for COVID-19. he denies nausea /vomiting /diarrhea, fever, chills. Review of Systems Review of Systems: All systems reviewed & are unremarkable except as noted in HPI and below Exam Narrative: - GENERAL: Ill-appearing male, appears older than stated age. - EYES: EOMI. Anicteric. - HENT: Moist mucous membranes. - LUNGS: diminished breath sounds throughout. breathing comfortably on 3 L oxygen by nasal cannula - CARDIOVASCULAR: Regular rate and rhythm. No murmur. - ABDOMEN: Soft, non-tender and non-distended. No palpable masses. - EXTREMITIES: No edema. Peripheral pulses 2+. Non-tender. - NEUROLOGIC: No focal neurological deficits. CN II-XII grossly intact. - PSYCHIATRIC: Awake, Alert and oriented x 3. Appropriate mood and affect. - SKIN: No rashes or lesions. Warm. - LYMPH: No cervical lymphadenopathy. Objective Data Vital Signs Vital Signs: Vital Signs - 24 hr 05/04/21 14:14 05/04/21 14:23 05/04/21 15:30 Temperature 36.6 C Pulse Rate 95 84 86 Respiratory Rate 16 16 12 Blood Pressure 126/54 L Pulse Oximetry 93 05/04/21 16:00 05/04/21 20:00 05/05/21 00:00 Temperature 36.4 C L 36.6 C Pulse Rate 90 91 70 Respiratory Rate 20 22 H Blood Pressure 122/59 L 120/68 Pulse Oximetry 94 99 05/05/21 02:30 05/05/21 02:40 05/05/21 04:00 Temperature 36.1 C L Pulse Rate 80 82 66 Respiratory Rate 16 16 20 Blood Pressure 100/42 L Pulse Oximetry 97 05/05/21 08:00 05/05/21 08:44 05/05/21 10:14 Temperature 36.6 C Pulse Rate 70 86 Respiratory Rate 21 H 20 Blood Pressure 122/62 Pulse Oximetry 96 94 92 05/05
[2021-05-05 13:58] LABS: SARS-CoV-2 RNA PCR Positive
[2021-05-05 16:24] LABS: INR 0.9; Prothrombin Time 12.2 Seconds (11.1-14.7)
[2021-05-05 16:31] LABS: Alanine Aminotransferase 30 U/L (4-50); Estimated CRCL calculation 105 ml/min; Estimated Glomerular Filt Rate > 60
[2021-05-05] MEDS: REMDESIVIR 200 MG/NS 250 ML 200 MG/250 ML BAG 250 MG IVPB (18:26)
[2021-05-05] MEDS: MONTELUKAST SODIUM 10 MG TABLET PO (20:22)
[2021-05-06] VITALS (19 sets, daily range): BP systolic 104–125; BP diastolic 57–74; PULSE 66–94; RESP 18–22; TEMP 36.1–37; O2SAT 92–97
[2021-05-06] MEDS: HYDROcodone/acetaminophen (*CRX) 10-325 MG TABLET 1 TAB PO ×3 (01:11→16:05)
[2021-05-06] MEDS: IPRATROPIUM BR 0.02% INH SOLN 0.5 MG/2.5 ML VIAL INHALATION ×4 (02:50→21:24)
[2021-05-06] MEDS: ALBUTEROL SULFATE NEB 2.5 MG/0.5 ML INH 5 MG INHALATION ×4 (02:50→21:24)
[2021-05-06 06:56] LABS: Alanine Aminotransferase 29 U/L (4-50); CRP 7.8 mg/dL (<1.0); Estimated CRCL calculation 121 ml/min; Estimated Glomerular Filt Rate > 60; Lactate Dehydrogenase 636 U/L (313-618)
[2021-05-06 06:58] LABS: Prothrombin Time 12.6 Seconds (11.1-14.7)
[2021-05-06 07:00] LABS: D Dimer 0.37 ug/mL (<0.48)
[2021-05-06] MEDS: lisinopriL 20 MG TABLET 40 MG PO (09:41)
[2021-05-06] MEDS: FUROSEMIDE 40 MG TABLET PO (09:41)
[2021-05-06] MEDS: GABAPENTIN 400 MG CAPSULE 1200 MG PO ×3 (09:41→16:06)
[2021-05-06] MEDS: amLODIPine BESYLATE 5 MG TABLET 10 MG PO (09:42)
[2021-05-06] MEDS: ENOXAPARIN 40 MG/0.4 ML SYRINGE SUB-Q ×2 (09:42→20:19)
[2021-05-06] MEDS: REMDESIVIR 100 MG/NS 250 ML 100 MG/250 ML BAG 250 MG IVPB (09:42)
--- NOTE | 2021-05-06 12:25 | PM.IMPN ---
Progress Note: A&P Assessment and Plan (1) COVID-19: Code(s): U07.1 - COVID-19 Status: Acute Assessment and Plan: - diagnosed positive on 05/03/2021 - continue remdesivir day 2, decadron day 3 - trending LFTs while on remdesivir (2) Acute respiratory failure with hypoxia: Code(s): J96.01 - Acute respiratory failure with hypoxia Status: Acute Assessment and Plan: - continue O2 therapy, home oxygen level is 3 L, can increase to keep oxygen greater 90% if needed -continue nebs q6hr -lasix 40mg daily, will continue to diurese and reassess tomorrow, strict I/Os (3) Pseudomonas pneumonia: Code(s): J15.1 - Pneumonia due to Pseudomonas Status: Acute Assessment and Plan: - sputum cultures resulting in Pseudomonas -Changing antibiotics from Rocephin azithromycin to cefepime for pseudomonal coverage, today will be day 1 of antibiotics (4) Essential (primary) hypertension: Code(s): I10 - Essential (primary) hypertension Status: Acute Assessment and Plan: continue lisinopril Additional Plan -continue trazodone for insomnia -continue zanaflex for muscle spasms Code status: Full code Disposition: plan to complete remdesivir course with his significant co-morbidities Subjective Date/time seen: 05/06/21 12:25. patient examined. he is lying comfortably in bed on 3 L on home oxygen level. He states he has more difficulty breathing. Sputum cultures resulted Pseudomonas stint we will change his Rocephin azithromycin to cefepime for pseudomonal coverage. Will continue treating COVID-19 for which we started Remdesivir and Decadron yesterday. inflammatory markers are elevated. patient sources dyspnea and cough with green sputum. He does endorse some diffuse abdominal pain. He denies fever, chills, nausea, vomiting, diarrhea, chest pain. Review of Systems Review of Systems: All systems reviewed & are unremarkable except as noted in HPI and below Exam Narrative: - GENERAL: Ill-appearing male, appears older than stated age, breathing comfortably on 3 L oxygen - EYES: EOMI. Anicteric. - HENT: Moist mucous membranes. - LUNGS: Clear but diminished to auscultation bilaterally - CARDIOVASCULAR: Regular rate and rhythm. - ABDOMEN: Soft, non-tender and non-distended. - EXTREMITIES: No edema. Peripheral pulses 2+. Non-tender. - NEUROLOGIC: No focal neurological deficits. CN II-XII grossly intact. - PSYCHIATRIC: Awake, Alert and oriented x 3. Appropriate mood and affect. - SKIN: No rashes or lesions. Warm. Objective Data Vital Signs Vital Signs: Vital Signs - 24 hr 05/05/21 14:37 05/05/21 14:46 05/05/21 16:00 Temperature 36.3 C L Pulse Rate 75 86 87 Respiratory Rate 18 18 21 H Blood Pressure 111/61 Pulse Oximetry 93 05/05/21 21:00 05/05/21 21:07 05/06/21 00:00 Temperature 36.3 C L Pulse Rate 84 85 73 Respiratory Rate 18 18 18 Blood Pressure 114/72 Pulse Oximetry 95 05/06/21 02:50 05/06/21 02:58 05/06/21 04:00 Temperature 36.3 C L Pulse Rate 86 86 66 Respiratory Rate 18 20 18 Blood Pressure 104/65 Pulse Oximetry 93 05/06/21 08:00 05/06/21 10:00 05/06/21 10:08 Temperature 36.6 C Pulse Rate 67 91 Respiratory Rate 20 20 20 Blood Pressure 113/65 Pulse Oximetry 92 05/06/21 10:14 Temperature Pulse Rate Respiratory Rate Blood Pressure Pulse Oximetry 93 Intake/Output Intake/Output: Intake & Output 05/03/21 05/04/21 05/05/21 05/06/21 23:59 23:59 23:59 23:59 Intake Total 1340 2280 1150 Output Total 600 600 Balance 740 1680 1150 Meds/Results Medications: Active Medications Generic Name Dose Route Start Last Admin Trade Name Freq PRN Reason Stop Dose Admin Hydrocodone Bitart/Acetaminophen 1 tab 05/04/21 03:51 05/06/21 09:41 Hydrocodone/Acetaminophen (*Crx) 10-325 Mg Tablet PO 1 tab Q6H PRN Administration Pain (Scale Score 4-6) Albuterol 5 mg 05/04/21 02:00 05/06/21 10:1
[2021-05-06] MEDS: MONTELUKAST SODIUM 10 MG TABLET PO (20:19)
[2021-05-06] MEDS: traZODone HCL 50 MG TABLET PO (20:21)
[2021-05-06] MEDS: TIZANIDINE HCL 2 MG TABLET PO (20:22)
[2021-05-07] VITALS (15 sets, daily range): BP systolic 104–131; BP diastolic 49–67; PULSE 65–85; RESP 16–20; TEMP 36.1–37.1; O2SAT 89–97
[2021-05-07] MEDS: HYDROcodone/acetaminophen (*CRX) 10-325 MG TABLET 1 TAB PO ×4 (00:14→21:21)
[2021-05-07] MEDS: ALBUTEROL SULFATE NEB 2.5 MG/0.5 ML INH 5 MG INHALATION ×4 (03:24→21:30)
[2021-05-07] MEDS: IPRATROPIUM BR 0.02% INH SOLN 0.5 MG/2.5 ML VIAL INHALATION ×4 (03:25→21:30)
[2021-05-07 06:53] LABS: Basophils Absolute Auto 0.1 K/mm3 (0.0-0.1); Basophils Percent Auto 0.5 % (0.2-1.2); Eosinophils Percent Auto 0.1 % (0-4.4); Hematocrit 41.9 % (42.0-52.0); Hemoglobin 13.1 g/dL (14.0-18.0); Immature Granulocyte Absolute 0.12 K/mm3 (0.00-0.031); Lymphocytes Absolute Auto 2.18 K/mm3 (0.9-3.2); Mean Corpuscular HGB Conc 31.3 g/dl (32-36); Mean Corpuscular Hemoglobin 28.5 pg (26-34); Mean Corpuscular Volume 91.3 fl (80-100); Mean Platelet Volume 10.4 fl (7.4-10.4); Monocytes Absolute Auto 0.9 K/mm3 (0.1-0.6); Monocytes Percent Auto 8.2 % (2.6-8.5); Neutrophils Absolute Auto 8.2 K/mm3 (1.3-6.7); Neutrophils Percent Auto 71.2 % (45.5-73.1); Platelet Count Result 314 k/mm3 (150-375); Red Blood Count 4.59 M/mm3 (4.6-6.20); Red Cell Distribution Width 15.8 % (11.5-14.5); White Blood Count 11.5 K/mm3 (4.5-10.0)
[2021-05-07 07:12] LABS: Alanine Aminotransferase 29 U/L (4-50); Albumin Level 3.2 g/dL (3.5-5.1); Alkaline Phosphatase 94 U/L (38-126); Anion Gap 9 mmol/L (8-16); Aspartate Amino Transferase 29 U/L (17-59); Bilirubin,Total 0.4 mg/dL (0.2-1.3); Blood Urea Nitrogen 21 mg/dL (9-20); Calcium 9.3 mg/dL (8.4-10.2); Carbon Dioxide 28 mmol/L (22-30); Chloride 99 mmol/L (98-107); Estimated CRCL calculation 121 ml/min; Estimated Glomerular Filt Rate > 60; Glucose 113 mg/dL (65-110); Potassium 4.1 mmol/L (3.4-5.0); Sodium 136 mmol/L (137-145)
[2021-05-07] MEDS: FUROSEMIDE 40 MG TABLET PO (09:31)
[2021-05-07] MEDS: ENOXAPARIN 40 MG/0.4 ML SYRINGE SUB-Q ×2 (09:31→21:13)
[2021-05-07] MEDS: amLODIPine BESYLATE 5 MG TABLET 10 MG PO (09:31)
[2021-05-07] MEDS: GABAPENTIN 400 MG CAPSULE 1200 MG PO ×3 (09:31→16:02)
[2021-05-07] MEDS: lisinopriL 20 MG TABLET 40 MG PO (09:32)
[2021-05-07] MEDS: REMDESIVIR 100 MG/NS 250 ML 100 MG/250 ML BAG 200 MG IVPB (09:40)
--- NOTE | 2021-05-07 10:32 | PM.IMPN ---
Progress Note: A&P Assessment and Plan (1) COVID-19: Code(s): U07.1 - COVID-19 Status: Acute Assessment and Plan: - diagnosed positive on 05/03/2021 - continue remdesivir day 3, decadron day 4 - trending LFTs while on remdesivir - adding Flonase for nasal congestion, adding Mucinex for cough (2) Pseudomonas pneumonia: Qualifiers: Laterality: bilateral Lung location: lower lobe of lung Qualified Code(s): J15.1 - Pneumonia due to Pseudomonas Code(s): J15.1 - Pneumonia due to Pseudomonas Status: Acute Assessment and Plan: - cultures for Pseudomonas her pansensitive, will continue cefepime for now day 2 (3) Essential (primary) hypertension: Code(s): I10 - Essential (primary) hypertension Status: Acute Assessment and Plan: continue lisinopril (4) Acute and chronic respiratory failure with hypoxia: Code(s): J96.21 - Acute and chronic respiratory failure with hypoxia Status: Acute Assessment and Plan: - acute aspect resolved, back down baseline 3 L home oxygen Additional Plan - trazodone for insomnia, Zanaflex for muscle spasms Code status: Full code Disposition: Pending clinical course continuing remdesivir and cefepime Time Spent With Patient Time with patient: 15 - 25 minutes Subjective Date/time seen: 05/07/21 10:32 Patient examined. He complains of nasal congestion and difficulty expectorating sputum. Discussed starting Flonase and Mucinex to help with the symptoms. his sputum cultures have shown pansensitive Pseudomonas, will continue cefepime for now. he is completing remdesivir and decadron course. He still is on 3L O2. Patient denies fever, chills, nausea, vomiting, diarrhea. He endorses cough and nasal congestion. Review of Systems Review of Systems: All systems reviewed & are unremarkable except as noted in HPI and below Exam Narrative: - GENERAL: pleasant elderly male appears older than stated age, breathing comfortably on 3 L oxygen with coughing episodes - EYES: EOMI. Anicteric. - HENT: Moist mucous membranes. - LUNGS: Clear but diminished to auscultation bilaterally, nonproductive cough - CARDIOVASCULAR: Regular rate and rhythm. - ABDOMEN: Soft, non-tender and non-distended. - EXTREMITIES: No edema. Peripheral pulses 2+. Non-tender. - NEUROLOGIC: No focal neurological deficits. CN II-XII grossly intact. - PSYCHIATRIC: Awake, Alert and oriented x 3. Appropriate mood and affect. - SKIN: No rashes or lesions. Warm. Objective Data Vital Signs Vital Signs: Vital Signs - 24 hr 05/06/21 12:00 05/06/21 12:43 05/06/21 15:18 Temperature 36.9 C Pulse Rate 77 79 85 Respiratory Rate 22 H 20 Blood Pressure 111/74 Pulse Oximetry 94 05/06/21 15:29 05/06/21 16:00 05/06/21 16:44 Temperature 37.0 C Pulse Rate 86 73 81 Respiratory Rate 20 20 Blood Pressure 120/57 L Pulse Oximetry 97 05/06/21 20:00 05/06/21 21:24 05/06/21 21:25 Temperature 36.1 C L Pulse Rate 76 66 Respiratory Rate 18 18 Blood Pressure 116/60 Pulse Oximetry 93 95 05/06/21 21:36 05/07/21 00:00 05/07/21 03:26 Temperature Pulse Rate 69 67 65 Respiratory Rate 18 18 Blood Pressure Pulse Oximetry 05/07/21 03:38 05/07/21 04:00 05/07/21 08:00 Temperature 36.1 C L 36.6 C Pulse Rate 67 71 78 Respiratory Rate 18 18 16 Blood Pressure 104/49 L 119/63 Pulse Oximetry 89 L 93 05/07/21 09:13 05/07/21 09:27 Temperature Pulse Rate 71 65 Respiratory Rate 18 18 Blood Pressure Pulse Oximetry Intake/Output Intake/Output: Intake & Output 05/04/21 05/05/21 05/06/21 05/07/21 23:59 23:59 23:59 23:59 Intake Total 1340 2530 3580 590 Output Total 600 600 650 Balance 740 1930 2930 590 Meds/Results Medications: Active Medications Generic Name Dose Route Start Last Admin Trade Name Freq PRN Reason Stop Dose Admin Hydrocodone Bitart/Acetaminophen 1 tab 05/04/21 03:51 05/07/21 09:48
[2021-05-07] MEDS: FLUTICASONE PROPIONATE 0.05% NA SPR 16 GM BTL (*BKC) 2 SPRAY NASAL (11:18)
[2021-05-07] MEDS: guaiFENesin 600 MG/DEXTROMETHORPHAN 30 MG SR TAB 12 HR 1 TAB PO ×2 (11:19→21:14)
[2021-05-07 16:34] LABS: Legionella pneumophila Ag Ur Not Detected (Not Detected)
[2021-05-07 19:40] LABS: Pneumococcal Antigen Urine Not Detected (Not Detected)
[2021-05-07] MEDS: MONTELUKAST SODIUM 10 MG TABLET PO (21:15)
[2021-05-07] MEDS: traZODone HCL 50 MG TABLET PO (21:22)
[2021-05-08] VITALS (13 sets, daily range): BP systolic 112–117; BP diastolic 52–78; PULSE 63–87; RESP 16–24; TEMP 36.2–37.1; O2SAT 90–96
[2021-05-08] MEDS: IPRATROPIUM BR 0.02% INH SOLN 0.5 MG/2.5 ML VIAL INHALATION ×3 (03:13→15:17)
[2021-05-08] MEDS: ALBUTEROL SULFATE NEB 2.5 MG/0.5 ML INH 5 MG INHALATION ×3 (03:13→15:17)
[2021-05-08 06:42] LABS: Basophils Percent Auto 0.2 % (0.2-1.2); Eosinophils Percent Auto 0.2 % (0-4.4); Hematocrit 41.5 % (42.0-52.0); Immature Granulocyte Absolute 0.23 K/mm3 (0.00-0.031); Immature Granulocyte Percent A 1.8 % (0-0.5); Lymphocytes Absolute Auto 2.83 K/mm3 (0.9-3.2); Lymphocytes Percent Auto 22.2 % (18.3-44.2); Mean Corpuscular HGB Conc 31.3 g/dl (32-36); Mean Corpuscular Hemoglobin 28.6 pg (26-34); Mean Corpuscular Volume 91.2 fl (80-100); Mean Platelet Volume 9.5 fl (7.4-10.4); Monocytes Absolute Auto 0.7 K/mm3 (0.1-0.6); Monocytes Percent Auto 5.8 % (2.6-8.5); Neutrophils Absolute Auto 8.9 K/mm3 (1.3-6.7); Neutrophils Percent Auto 69.8 % (45.5-73.1); Platelet Count Result 378 k/mm3 (150-375); Red Blood Count 4.55 M/mm3 (4.6-6.20); Red Cell Distribution Width 15.6 % (11.5-14.5); White Blood Count 12.8 K/mm3 (4.5-10.0)
[2021-05-08 06:54] LABS: Prothrombin Time 12.8 Seconds (11.1-14.7)
[2021-05-08 06:56] LABS: Alanine Aminotransferase 32 U/L (4-50); Albumin Level 3.2 g/dL (3.5-5.1); Alkaline Phosphatase 91 U/L (38-126); Anion Gap 7 mmol/L (8-16); Aspartate Amino Transferase 32 U/L (17-59); Bilirubin,Total 0.5 mg/dL (0.2-1.3); Blood Urea Nitrogen 21 mg/dL (9-20); Calcium 9.2 mg/dL (8.4-10.2); Carbon Dioxide 29 mmol/L (22-30); Chloride 99 mmol/L (98-107); Estimated CRCL calculation 121 ml/min; Estimated Glomerular Filt Rate > 60; Glucose 110 mg/dL (65-110); Potassium 4.1 mmol/L (3.4-5.0); Sodium 135 mmol/L (137-145)
[2021-05-08 07:54] LABS: Atypical Lymphocytes Present; Platelet Estimate Adequate (Adequate)
[2021-05-08] MEDS: FLUTICASONE PROPIONATE 0.05% NA SPR 16 GM BTL (*BKC) 2 SPRAY NASAL (08:21)
[2021-05-08] MEDS: GABAPENTIN 400 MG CAPSULE 1200 MG PO ×2 (08:21→16:20)
[2021-05-08] MEDS: lisinopriL 20 MG TABLET 40 MG PO (08:22)
[2021-05-08] MEDS: amLODIPine BESYLATE 5 MG TABLET 10 MG PO (08:22)
[2021-05-08] MEDS: TIZANIDINE HCL 2 MG TABLET PO (08:22)
[2021-05-08] MEDS: FUROSEMIDE 40 MG TABLET PO (08:22)
[2021-05-08] MEDS: guaiFENesin 600 MG/DEXTROMETHORPHAN 30 MG SR TAB 12 HR 1 TAB PO ×2 (08:23→23:10)
[2021-05-08] MEDS: REMDESIVIR 100 MG/NS 250 ML 100 MG/250 ML BAG 250 MG IVPB (11:01)
--- NOTE | 2021-05-08 14:32 | PM.IMPN ---
Progress Note: A&P Assessment and Plan (1) COVID-19: Code(s): U07.1 - COVID-19 Status: Acute Assessment and Plan: - diagnosed positive on 05/03/2021 - continue remdesivir day 4, decadron day 5 - trending LFTs while on remdesivir - continue Flonase for nasal congestion, Mucinex for cough (2) Acute and chronic respiratory failure with hypoxia: Code(s): J96.21 - Acute and chronic respiratory failure with hypoxia Status: Acute Assessment and Plan: acute worsening of chronic hypoxia on 4 L oxygen, home oxygen level 3 L (3) Essential (primary) hypertension: Code(s): I10 - Essential (primary) hypertension Status: Acute Assessment and Plan: continue lisinopril (4) Pseudomonas pneumonia: Qualifiers: Laterality: bilateral Lung location: lower lobe of lung Qualified Code(s): J15.1 - Pneumonia due to Pseudomonas Code(s): J15.1 - Pneumonia due to Pseudomonas Status: Acute Assessment and Plan: day 3 of cefepime, pansensitive Pseudomonas. IV antibiotics while inpatient Additional Plan - trazodone for insomnia, Zanaflex for muscle spasm Code status: Full code Disposition: Pending clinical course Time Spent With Patient Time with patient: 15 - 25 minutes Subjective Date/time seen: 05/08/21 14:32 Patient examined. He is doing well, completing course of remdesivir today. He is on 4 L oxygen, on 3 L at home. He has less sputum production suggesting his Pseudomonas pneumonia is improving. patient has no new concerns today. Patient denies fever, chills, nausea, vomiting, diarrhea, chest pain. Review of Systems Review of Systems: All systems reviewed & are unremarkable except as noted in HPI and below Exam Narrative: - GENERAL: pleasant elderly male appears older than stated age, breathing comfortably on 4 L oxygen - EYES: EOMI. Anicteric. - HENT: Moist mucous membranes. - LUNGS: clear to auscultation bilaterally no wheezing rhonchi or rales. - CARDIOVASCULAR: Regular rate and rhythm. - ABDOMEN: Soft, non-tender and non-distended. - EXTREMITIES: No edema. Peripheral pulses 2+. Non-tender. - NEUROLOGIC: No focal neurological deficits. CN II-XII grossly intact. - PSYCHIATRIC: Awake, Alert and oriented x 3. Appropriate mood and affect. - SKIN: No rashes or lesions. Warm. Sun exposure discoloration on chest Objective Data Vital Signs Vital Signs: Vital Signs - 24 hr 05/07/21 14:42 05/07/21 16:00 05/07/21 20:00 Temperature 37.1 C 36.4 C L Pulse Rate 70 85 69 Respiratory Rate 18 20 20 Blood Pressure 131/66 122/67 Pulse Oximetry 97 94 05/07/21 21:30 05/07/21 21:42 05/08/21 00:00 Temperature 36.3 C L Pulse Rate 67 72 71 Respiratory Rate 18 18 20 Blood Pressure 112/58 L Pulse Oximetry 90 05/08/21 03:15 05/08/21 03:24 05/08/21 04:00 Temperature 36.6 C Pulse Rate 73 63 Respiratory Rate 16 20 Blood Pressure 117/64 Pulse Oximetry 93 94 05/08/21 06:00 05/08/21 08:00 05/08/21 09:14 Temperature 36.2 C L Pulse Rate 87 75 Respiratory Rate 24 H 18 Blood Pressure 114/52 L Pulse Oximetry 94 94 05/08/21 09:26 05/08/21 12:00 Temperature 36.4 C Pulse Rate 71 73 Respiratory Rate 18 20 Blood Pressure 113/78 Pulse Oximetry 94 Intake/Output Intake/Output: Intake & Output 05/05/21 05/06/21 05/07/21 05/08/21 23:59 23:59 23:59 23:59 Intake Total 2530 3580 3070 1090 Output Total 583 905 2823 Balance 1930 2930 1870 1090 Meds/Results Medications: Active Medications Generic Name Dose Route Start Last Admin Trade Name Freq PRN Reason Stop Dose Admin Hydrocodone Bitart/Acetaminophen 1 tab 05/04/21 03:51 05/07/21 21:21 Hydrocodone/Acetaminophen (*Crx) 10-325 Mg Tablet PO 1 tab Q6H PRN Administration Pain (Scale Score 4-6) Albuterol 5 mg 05/04/21 02:00 05/08/21 09:14 Albuterol Sulfate Neb 2.5 Mg/0.5 Ml Inh INHALATION 5 mg Q6HRT NORMA Administration Amlodipi
[2021-05-08] MEDS: HYDROcodone/acetaminophen (*CRX) 10-325 MG TABLET 1 TAB PO ×2 (16:25→23:09)
[2021-05-08] MEDS: ENOXAPARIN 40 MG/0.4 ML SYRINGE SUB-Q (23:11)
[2021-05-08] MEDS: MONTELUKAST SODIUM 10 MG TABLET PO (23:11)
[2021-05-09] VITALS (8 sets, daily range): BP systolic 108–122; BP diastolic 56–67; PULSE 65–94; RESP 16–22; TEMP 36.4–36.6; O2SAT 90–96
[2021-05-09] MEDS: ALBUTEROL SULFATE NEB 2.5 MG/0.5 ML INH 5 MG INHALATION ×2 (02:05→09:30)
[2021-05-09] MEDS: IPRATROPIUM BR 0.02% INH SOLN 0.5 MG/2.5 ML VIAL INHALATION ×2 (02:05→09:30)
[2021-05-09 06:20] LABS: Basophils Absolute Auto 0.1 K/mm3 (0.0-0.1); Basophils Percent Auto 0.3 % (0.2-1.2); Eosinophils Percent Auto 0.1 % (0-4.4); Hematocrit 41.5 % (42.0-52.0); Hemoglobin 13.4 g/dL (14.0-18.0); Immature Granulocyte Absolute 0.26 K/mm3 (0.00-0.031); Immature Granulocyte Percent A 1.7 % (0-0.5); Lymphocytes Absolute Auto 2.17 K/mm3 (0.9-3.2); Lymphocytes Percent Auto 14.1 % (18.3-44.2); Mean Corpuscular HGB Conc 32.3 g/dl (32-36); Mean Corpuscular Hemoglobin 29.1 pg (26-34); Mean Corpuscular Volume 90.2 fl (80-100); Mean Platelet Volume 9.3 fl (7.4-10.4); Monocytes Absolute Auto 0.7 K/mm3 (0.1-0.6); Monocytes Percent Auto 4.7 % (2.6-8.5); Neutrophils Absolute Auto 12.2 K/mm3 (1.3-6.7); Neutrophils Percent Auto 79.1 % (45.5-73.1); Platelet Count Result 387 k/mm3 (150-375); Red Cell Distribution Width 15.3 % (11.5-14.5); White Blood Count 15.4 K/mm3 (4.5-10.0)
[2021-05-09 06:30] LABS: Prothrombin Time 12.7 Seconds (11.1-14.7)
[2021-05-09 06:34] LABS: Alanine Aminotransferase 30 U/L (4-50); Albumin Level 3.3 g/dL (3.5-5.1); Alkaline Phosphatase 92 U/L (38-126); Anion Gap 5 mmol/L (8-16); Aspartate Amino Transferase 25 U/L (17-59); Bilirubin,Total 0.5 mg/dL (0.2-1.3); Blood Urea Nitrogen 23 mg/dL (9-20); Calcium 9.4 mg/dL (8.4-10.2); Carbon Dioxide 29 mmol/L (22-30); Chloride 101 mmol/L (98-107); Estimated CRCL calculation 121 ml/min; Estimated Glomerular Filt Rate > 60; Glucose 104 mg/dL (65-110); Potassium 4.1 mmol/L (3.4-5.0); Sodium 135 mmol/L (137-145)
[2021-05-09] MEDS: FLUTICASONE PROPIONATE 0.05% NA SPR 16 GM BTL (*BKC) 2 SPRAY NASAL (07:57)
[2021-05-09] MEDS: HYDROcodone/acetaminophen (*CRX) 10-325 MG TABLET 1 TAB PO (07:57)
[2021-05-09] MEDS: amLODIPine BESYLATE 5 MG TABLET 10 MG PO (07:58)
[2021-05-09] MEDS: ENOXAPARIN 40 MG/0.4 ML SYRINGE SUB-Q (07:58)
[2021-05-09] MEDS: FUROSEMIDE 40 MG TABLET PO (07:58)
[2021-05-09] MEDS: lisinopriL 20 MG TABLET 40 MG PO (07:59)
[2021-05-09] MEDS: GABAPENTIN 400 MG CAPSULE 1200 MG PO ×2 (07:59→13:18)
[2021-05-09] MEDS: guaiFENesin 600 MG/DEXTROMETHORPHAN 30 MG SR TAB 12 HR 1 TAB PO (08:48)
[2021-05-09] MEDS: REMDESIVIR 100 MG/NS 250 ML 100 MG/250 ML BAG 250 MG IVPB (10:11)
--- NOTE | 2021-05-09 13:20 | PM.DS ---
DS: Admitting Diagnosis Admitting Diagnosis dyspnea, acute exacerbation of his chronic respiratory failure DS: Discharge Diagnosis Discharge Diagnosis (1) Pseudomonas pneumonia: Qualifiers: Laterality: bilateral Lung location: lower lobe of lung Qualified Code(s): J15.1 - Pneumonia due to Pseudomonas Code(s): J15.1 - Pneumonia due to Pseudomonas Status: Acute Assessment and Plan: Pseudomonas found in sputum, Pseudomonas pneumonia. Patient was treated with IV cefepime inpatient, will be sent home with 4 more days of p.o. Levaquin. (2) COVID-19: Code(s): U07.1 - COVID-19 Status: Acute Assessment and Plan: COVID-19 pneumonia. completed 5 days of remdesivir. Will complete total of 10 day course of decadron, Rx for 5 more doses given. Worsening leukocytosis from steroids. Patient clinically improving no fevers and sputum production is decreased. (3) Acute and chronic respiratory failure with hypoxia: Code(s): J96.21 - Acute and chronic respiratory failure with hypoxia Status: Acute Assessment and Plan: chronically on 3 L oxygen from COPD. acute worsening with pneumonia COVID and Pseudomonas, On 4 L in hopefully can wean down to 3 L home oxygen level. Patient has supplemental oxygen at home. DS: Summary Hospital Course Reason for hospitalization: acute hypoxic respiratory failure secondary Hospital Course: Patient is 60-year-old male with past medical history of learning disability, hypertension, COPD with recent hospitalization in March 2021 for which he had hypoxic hypercapnic respiratory failure and acute renal failure requiring temporary dialysis. He was extubated and then left AMA. He returned to the hospital on 04/29/2021 with shortness of breath thought to be COPD exacerbation and he was discharged 2 days later. Patient then returns to the hospital on 05/04/2021 for shortness of breath and productive sputum green in color. Patient was found to be COVID-19 positive he completed 5 days of remdesivir and will plan on finishing 10 day course of Decadron at home. he was found to have Pseudomonas in his sputum which he was started on cefepime, will be sent home with Rx for Levaquin to complete 7 day course. I opted for 7 day course of antibiotics considering his comorbidities and recent hospitalization with being on ventilator. He was inquiring about COVID-19 vaccine and I informed him he can have it after ninety days. He is chronically on 3 L oxygen will go home with 4 L oxygen acute respiratory worsening from pneumonia. patient being sent home with Rx for Levaquin and Decadron. Patient will follow-up PCP in 2 weeks. will continue quarantine for 2 weeks since date of diagnosis of COVID-19 on 05/03/2021. patient understands agrees with plan. Since vitals stable, labs stable, patient stable for discharge. Status at Discharge Cognitive/behavioral status at discharge: Baseline Functional status at discharge: independent ambulation Overall status at discharge: patient is back to baseline Time Spent with Patient Time attestation: Total time spent providing and/or coordinating discharge services: 35 Time spent: Greater than 30 minutes Exam Narrative: - GENERAL: pleasant elderly male appears older than stated age, breathing comfortably on 4 L oxygen - EYES: EOMI. Anicteric. - HENT: Moist mucous membranes. - LUNGS: clear to auscultation bilaterally no wheezing rhonchi or rales. - CARDIOVASCULAR: Regular rate and rhythm. - ABDOMEN: Soft, non-tender and non-distended. - EXTREMITIES: No edema. Peripheral pulses 2+. Non-tender. - NEUROLOGIC: No focal neurological deficits. CN II-XII grossly intact. - PSYCHIATRIC: Awake, Alert and oriented x 3. Appropriate mood and affect. - SKIN: No rashes or lesions. Warm. DS: Data Data Completed and Pending Labs on day of discharge: Labs from last 24 hours 05/09/21 05/09/21 05/09/21 06:07 06:07 06:07 WBC 15.4 H RBC
== END 2021-05-09 13:40 | disposition home or self-care (01) | DRG 137 ==
LOC: ANHED 05-04 00:07 → ANH3MEDSUR 05-04 02:58
PROVIDERS: Admitting Provider Internal Medicine; Emergency Provider Emergency Medicine; PCP Family Medicine; Visit Provider Student in an Organized Health Care Education/Training Program
DX: U07.1 COVID-19 (principal); J96.21 Acute and chronic respiratory failure with hypoxia; J12.82 Pneumonia due to coronavirus disease 2019; J15.1 Pneumonia due to Pseudomonas; I11.0 Hypertensive heart disease with heart failure; I50.33 Acute on chronic diastolic (congestive) heart failure; J44.0 Chronic obstructive pulmonary disease with (acute) lower respiratory infection; I27.20 Pulmonary hypertension, unspecified; G47.33 Obstructive sleep apnea (adult) (pediatric); K21.9 Gastro-esophageal reflux disease without esophagitis; G62.9 Polyneuropathy, unspecified; F81.0 Specific reading disorder; F81.81 Disorder of written expression; Z99.81 Dependence on supplemental oxygen; Z87.891 Personal history of nicotine dependence; Z79.899 Other long term (current) drug therapy; Z91.19 Patient's noncompliance with other medical treatment and regimen; Z98.49 Cataract extraction status, unspecified eye
CPT/HCPCS: 36415; 36600; 71045; 80053; 82565; 82805; 82948; 83615; 83880; 84460; 85025; 85027; 85380; 85610; 85730; 86140; 87040; 87070; 87077; 87186; 87205; 87449; 87581; 87899; 93005; 94002; 94640; 96365; 96375; 99291; A9270; C9803; J0456; J0692; J0696; J1100; J1650; J2930; U0003; U0005

== ENCOUNTER → 2021-06-20 01:34 | Outpatient (CLI) | payer OTHER, SELFPAY ==
[2021-06-20 19:38] LABS: SARS-CoV-2 RNA PCR Negative
== END ==
PROVIDERS: PCP Family Medicine; Visit Provider Family Medicine
DX: R68.89 Other general symptoms and signs (principal); Z20.822 Contact with and (suspected) exposure to COVID-19
CPT/HCPCS: C9803; U0003; U0005

== ENCOUNTER 2021-07-25 12:30 | Outpatient (CLI) | payer OTHER, SELFPAY ==
[2021-07-25 12:45] VITALS: PULSE 78; O2SAT 90
[2021-07-25 12:50] VITALS: PULSE 88; O2SAT 86
[2021-07-25 12:55] VITALS: PULSE 92; O2SAT 88
[2021-07-25 13:00] VITALS: PULSE 95; O2SAT 90
--- NOTE | 2021-07-25 13:08 | PCRTNOTE ---
Addendum entered by Caity Velez, [facility] 07/29/21 12:56: Correction: Respiratory Therapy Note, not Recreational Therapy Note Original Note: PT CAME IN FOR PFT, PT VERY SOB. AFTER FIRST SPIROMETRY PT COMPLAINED OF CHEST PAIN. DR. LEON NOTIFIED AND TEST WAS STOPPED. HOME O2 EVAL WAS DONE AND FAXED TO OFFICE.
[2021-07-25 13:15] VITALS: PULSE 81; O2SAT 90
--- NOTE | 2021-07-25 13:28 | HOMEO2EVAL ---
Evaluation was performed at [facility] Home Oxygen Evaluation RC: Home Oxygen (O2) Evaluation Start: 07/25/21 13:24 Freq: Status: Active Protocol: RPE Activity Type Activity Date Activity User E-Sign Co-Sign Detail Recorded Client Recorded Date Recorded By Document 07/25/21 12:45 DJO [email or web address] 07/25/21 13:28 DJO Document 07/25/21 12:50 [email or web address] [email or web address] 07/25/21 13:28 DJO Document 07/25/21 12:55 DJO [email or web address] 07/25/21 13:28 DJO Document 07/25/21 13:00 DJO [email or web address] 07/25/21 13:28 DJO Document 07/25/21 13:15 [email or web address] [email or web address] 07/25/21 13:28 DJO 07/25/21 07/25/21 07/25/21 12:45 12:50 12:55 Home O2 Evaluation Test Phase Resting Exercise Exercise Oxygen Delivery Room Air Room Air Nasal Cannula Oxygen Flow Rate (L/min) 1 Pulse Oximetry (90-100 %) 90 86 L 88 L Pulse Rate (60-100 beats/min) 78 88 92 Activity Tolerance Treatment Charges O2 Evaluation - Outpatient 07/25/21 07/25/21 13:00 13:15 Home O2 Evaluation Test Phase Exercise Resting Oxygen Delivery Nasal Cannula Room Air Oxygen Flow Rate (L/min) 2 Pulse Oximetry (90-100 %) 90 90 Pulse Rate (60-100 beats/min) 95 81 Activity Tolerance Poor Treatment Charges
== END 2021-07-25 12:31 | disposition home or self-care (01) ==
PROVIDERS: PCP Family Medicine; Visit Provider Internal Medicine Pulmonary Disease
DX: R06.02 Shortness of breath (principal)
CPT/HCPCS: 94618

== ENCOUNTER 2021-08-03 20:17 | Inpatient (IN) | payer OTHER, SELFPAY ==
[2021-08-03] VITALS (8 sets, daily range): BP systolic 121–141; BP diastolic 55–72; PULSE 68–89; RESP 12–22; TEMP 36; O2SAT 89–100
--- NOTE | ~2021-08-03 | XR_ITS ---
XR chest 2V 08/03/2021 21:12 Indication: Shortness of breath Procedure: 2 view chest Comparison: Comparison to multiple prior studies sequentially, with oldest reviewed study dated 04/01. Findings: Heart size is normal. There is bilateral interstitial infiltrates of the mid and lower lung s which may represent mild interstitial edema. No pleural effusion or pneumothorax. Impression: 1: Prominent bilateral peripheral interstitial infiltrates of the mid and lower lungs, likely mild ed kirstin. Reviewed, dictated and finalized at location A. Impression: 1: Prominent bilateral peripheral interstitial infiltrates of the mid and lower lungs, likely mild edema.
--- NOTE | 2021-08-03 20:36 | ECG_ITS ---
Measurements Intervals [place] Rate: 73 P: 66 MT: 201 QRS: 83 QRSD: 90 T: 64 QT: 342 QTc: 378 Interpretive Statements SINUS RHYTHM WITH SINUS ARRHYTHMIA BASELINE ARTIFACT- I, II, III, AVR, AVF, V1, V3-V6 NORMAL ECG Electronically Signed On 08-04-2021 6:36:07 CDT by Carmelo Graham D.O.
[2021-08-03 21:05] LABS: Basophils Absolute Auto 0.1 K/mm3 (0.0-0.1); Basophils Percent Auto 0.5 % (0.2-1.2); Eosinophils Absolute Auto 0.2 K/mm3 (0-0.3); Hematocrit 49.2 % (42.0-52.0); Immature Granulocyte Absolute 0.01 K/mm3 (0.00-0.031); Immature Granulocyte Percent A 0.1 % (0-0.5); Lymphocytes Absolute Auto 4.92 K/mm3 (0.9-3.2); Lymphocytes Percent Auto 51.3 % (18.3-44.2); Mean Corpuscular HGB Conc 30.5 g/dl (32-36); Mean Corpuscular Hemoglobin 29.9 pg (26-34); Mean Platelet Volume 9.6 fl (7.4-10.4); Monocytes Absolute Auto 1.2 K/mm3 (0.1-0.6); Monocytes Percent Auto 12.5 % (2.6-8.5); Neutrophils Absolute Auto 3.2 K/mm3 (1.3-6.7); Neutrophils Percent Auto 33.6 % (45.5-73.1); Platelet Count Result 246 k/mm3 (150-375); Red Blood Count 5.02 M/mm3 (4.6-6.20); Red Cell Distribution Width 15.7 % (11.5-14.5); White Blood Count 9.6 K/mm3 (4.5-10.0)
--- NOTE | 2021-08-03 21:11 | ED.SOB ---
HPI - SOB/Dyspnea General Chief Complaint: Shortness of Breath/Dyspnea Stated Complaint: SOB, swollen legs Time Seen by Provider: 08/03/21 20:38 History of Present Illness HPI Narrative: Patient is a 60-year-old male who presents ER with shortness of breath. Worsening over the last few days. Reports he wears 3 L of oxygen at baseline. No chest pain or chest pressure. No sinus congestion or sore throat or productive cough. Has history of COPD and this feels like an exacerbation. He endorses wheezing at home. No improvement with home medications. Related Data Home Medications Medication Instructions Recorded Confirmed lisinopril 40 mg PO DAILY 08/30/19 08/04/21 montelukast 10 mg PO HS 08/30/19 08/04/21 furosemide 40 mg tablet 40 mg PO QAM 02/17/21 08/04/21 gabapentin 300 mg capsule 1,200 mg PO TID 02/17/21 08/04/21 amlodipine 10 mg PO DAILY 03/16/21 08/04/21 hydrocodone-acetaminophen 1 tablet PO Q4-6H PRN 03/16/21 08/04/21 Dulera 2 puff INHALATION Q12H 04/30/21 08/04/21 albuterol sulfate 2 inh INHALATION Q6H PRN 08/04/21 08/04/21 fenofibrate 160 mg PO DAILY 08/04/21 08/04/21 ipratropium-albuterol 3 ml INHALATION BID 08/04/21 08/04/21 metformin 500 mg PO BID 08/04/21 08/04/21 potassium chloride 10 meq PO DAILY 08/04/21 08/04/21 trazodone 50 mg PO HS 08/04/21 08/04/21 Allergies Allergy/AdvReac Type Severity Reaction Status Date / Time codeine Allergy Unknown Itching Verified 08/03/21 20:31 iohexol Allergy Unknown Redness of Verified 08/03/21 20:31 [From CONTRAST - CT, XRAY] Skin Review of Systems Review of Systems: All systems reviewed & are unremarkable except as noted in HPI and below Constitutional: Constitutional: Denies chills, Denies fever(s) and Denies weakness ENT: Denies nasal congestion and Denies sore throat Cardiovascular: Cardiovascular: Denies chest pain and Denies radiating jaw, neck or arm pain Respiratory: Respiratory: Denies chest congestion, Reports cough, Reports dyspnea and Reports wheezing Neurologic: Denies focal weakness and Denies numbness PMFSH Past Medical History Medical History Acute kidney injury with severe hyperkalemia requiring temporary dialysis 03/2021 Arthritis Asthma Back pain Chronic obstructive pulmonary disease Diastolic congestive heart failure Gastroesophageal reflux disease Hypertension Kidney stones Learning disability Patient is unable to read or write fluently. Obstructive sleep apnea Uses 2 L nasal cannula at nighttime in lieu of CPAP. Peripheral neuropathy Pneumonia Pulmonary hypertension Pulmonary nodule Tobacco dependence Surgical History Surgical History History of cataract extraction History of cholecystectomy Status post prostatectomy Family History Family History Father Family history of chronic obstructive pulmonary disease, Onset Age: 74 Acute myocardial infarction Cerebrovascular accident Mother End stage renal disease on dialysis Acute myocardial infarction Cerebrovascular accident Sibling History of blood clots Diabetes mellitus Sibling Chronic obstructive pulmonary disease Hypertension Grandparent Diabetes mellitus Son Leukemia Other Carcinoma of colon Social History Social History Social History: The patient lives in a trailer in [place]. He is but he and his have been for well over 20 years. He has one son. 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 He smokes about 1.5 packs of cigarettes a day and has for 50 years but reports he quit smoking March 16, 2021. No alcohol or illicit substance use. He designates his step daughter, Karely Flores, as his surrogate decision maker. Code status: Full code. Smoking packs per day: 1 Smoking cigarettes per day: 20.0
[2021-08-03] MEDS: ALBUTEROL SULFATE NEB 2.5 MG/0.5 ML INH 15 MG INHALATION (21:12)
[2021-08-03] MEDS: IPRATROPIUM BR 0.02% INH SOLN 0.5 MG/2.5 ML VIAL 1.5 MG INHALATION (21:12)
[2021-08-03 21:14] LABS: Anion Gap 8 mmol/L (8-16); Blood Urea Nitrogen 42 mg/dL (9-20); Calcium 9.5 mg/dL (8.4-10.2); Carbon Dioxide 33 mmol/L (22-30); Chloride 100 mmol/L (98-107); Estimated CRCL calculation 63 ml/min; Estimated Glomerular Filt Rate 52; Glucose 114 mg/dL (65-110); Potassium 4.9 mmol/L (3.4-5.0); Sodium 141 mmol/L (137-145)
[2021-08-03] MEDS: methylPREDNISolone SOD SUCC 125 MG VIAL IV PUSH (21:25)
[2021-08-03] MEDS: SODIUM CHLORIDE 0.9% IV 1,000 ML 999 ML IV CONT (21:25)
[2021-08-03 21:59] LABS: NT Pro B Type Natriuretic Pept 168 pg/mL (5-100)
[2021-08-04] VITALS (16 sets, daily range): BP systolic 110–136; BP diastolic 53–70; PULSE 73–90; RESP 13–24; TEMP 35.9–36.5; O2SAT 91–99; BMI 30.7
--- NOTE | 2021-08-04 02:01 | ADMGEN ---
This patient, Manny Garcia, was admitted to Medical Room 247-. Patient/family oriented to hospital policies and general routines including ID bracelet, bed and alarms, visiting hours, pain management, procedures, bathroom and other care routines, personal items, smoking policy, room service/diet, and visiting hours. Information on how to activate the Rapid Response Team has been discussed. Patient/Family are encouraged to report perceived risks to care and to ask questions if they do not understand what they are told or what they should do.
[2021-08-04] MEDS: SODIUM CHLORIDE 0.9% IV 1,000 ML 125 ML IV CONT (02:15)
--- NOTE | 2021-08-04 03:09 | PCRCNOTE ---
02:00 neb treatment was not administered because pt received an hour long nebulizer treatment of 15 mg albuterol and 1.5 mg atrovent in the emergency room 3-4 hours previously. Unless pt requires a treatment sooner, he will receive his first scheduled dose of albuterol and atrovent at 08:00.
--- NOTE | 2021-08-04 04:40 | PM.IMHP ---
H&P: HPI History of Present Illness Date/Time: 08/04/21 04:40 Chief Complaint: Shortness of breath Narrative: This is a 60-year-old male with past medical history significant for chronic hypoxic respiratory failure, COPD/emphysema, strict sleep apnea on CPAP 7 at home on supplemental oxygen 4 L by nasal cannula, hypertension, diastolic heart failure, tobacco dependence, chronic kidney disease, gastroesophageal reflux disease, pulmonary hypertension, peripheral neuropathy, type 2 diabetes mellitus. Patient presented to the emergency room due to worsening shortness of breath ,cough, sputum production, wheezing, bilateral lower extremity swelling, patient was using his home meds but there was no improvement he denies any fevers, any rigors, any chills. Preliminary workup is as follows Chest x-ray with no significant infiltrates. Review of Systems Review of Systems: Worsening shortness of breath, cough. Constitutional: Constitutional: Denies chills, Denies fatigue, Denies lethargy and Denies weakness Eyes: Eyes: Denies change in vision ENT: Denies dysphagia, Denies vertigo, Denies dizziness, Denies nasal congestion, Denies nasal discharge, Denies nasal obstruction and Denies odynophagia Cardiovascular: Cardiovascular: Denies chest pain at rest, Reports pedal edema, Denies irregular heart rhythm, Denies claudication, Reports leg edema, Denies lightheadedness, Denies radiating jaw, neck or arm pain, Denies palpitations, Reports dyspnea, Denies dyspnea on exertion and Denies orthopnea Respiratory: Respiratory: Reports chest congestion, Reports cough, Reports excessive phlegm production, Reports dyspnea and Reports wheezing Gastrointestinal: Gastrointestinal: Denies abdominal pain, Denies dyspepsia, Denies heartburn, Denies diarrhea, Denies nausea and Denies vomiting Musculoskeletal: Musculoskeletal: Denies myalgias, Denies arthralgias, Denies joint swelling and Denies muscle weakness Integumentary/Breasts: Skin/Breast: Denies rash Neurologic: Denies vertigo, Denies dizziness, Denies focal weakness and Denies Sensory deficit (Neuro) Psychiatric: Psychiatric: Reports no additional psychiatric complaints and Reports as per HPI Endocrine: Endocrine: Reports no additional endocrine complaints and Reports as per HPI Hematologic/Lymphatic: Hematologic/Lymphatic: Reports no additional hematologic/lymphatic complaints and Reports as per HPI Allergic/Immunologic: Allergic/Immunologic: Reports no additional allergic/immunologic complaints and Reports as per HPI [facility] Past Medical History Medical History Acute kidney injury with severe hyperkalemia requiring temporary dialysis 03/2021 Arthritis Asthma Back pain Chronic obstructive pulmonary disease Diastolic congestive heart failure Gastroesophageal reflux disease Hypertension Kidney stones Learning disability Patient is unable to read or write fluently. Obstructive sleep apnea Uses 2 L nasal cannula at nighttime in lieu of CPAP. Peripheral neuropathy Pneumonia Pulmonary hypertension Pulmonary nodule Tobacco dependence Surgical History Surgical History History of cataract extraction History of cholecystectomy Status post prostatectomy Family History Family History Father Family history of chronic obstructive pulmonary disease, Onset Age: 74 Acute myocardial infarction Cerebrovascular accident Mother End stage renal disease on dialysis Acute myocardial infarction Cerebrovascular accident Sibling History of blood clots Diabetes mellitus Sibling Chronic obstructive pulmonary disease Hypertension Grandparent Diabetes mellitus Son Leukemia Other Carcinoma of colon Social History Social History Social History: The patient lives
--- NOTE | 2021-08-04 05:38 | PC.NURSE ---
PT STATES NEEDS TO USE RESTROOM, INFORMED PT NURSE NEEDS TO BE WITH HIM SINCE HE HAS BEEN FALLING. PT CUSSING AND REFUSING TO HAVE NURSE GO WITH HIM. [id number] TO TALK TO PT WITHOUT SUCCESS, PT YELLING AND CUSSING AND GOT UP AND WENT INTO BATHROOM SLAMMING DOOR
--- NOTE | 2021-08-04 05:44 | PC.NURSE ---
[id number] PT REFUSES TO TAKE JEANS OFF. WHEN ASKED IF HE HAS ANY WOUNDS OF ANY TYPE HE STATES HE DOES NOT
--- NOTE | 2021-08-04 05:55 | PC.NURSE ---
Pt agitated and refused to have assistance walking to the bathroom. Explained to patient that he has a hx of falls and that we are just making sure he does not fall and is watching to make sure that he is safe. Pt cursed at RN and stated that he could F... walk himself and does not need a transmission technician. Again tried to teach patient reason that we are walking with him but he continues to curse at staff. Pt refused to get into bed and refused to have bed alarm on yelling and cursing. Pt yelling stating he was fine and did not want any help.
[2021-08-04] MEDS: methylPREDNISolone SOD SUCC 125 MG VIAL 60 MG IV PUSH ×4 (06:00→23:15)
[2021-08-04] MEDS: HEPARIN SODIUM 5,000 UNITS/ML VIAL 5000 UNITS SUB-Q ×3 (06:02→21:06)
[2021-08-04] MEDS: amLODIPine BESYLATE 5 MG TABLET 10 MG PO (08:00)
[2021-08-04] MEDS: FENOFIBRATE 160 MG TABLET PO (08:01)
[2021-08-04] MEDS: FUROSEMIDE INJ 40 MG/4 ML VIAL IV PUSH ×2 (08:01→17:26)
[2021-08-04] MEDS: lisinopriL 20 MG TABLET 40 MG PO (08:01)
[2021-08-04] MEDS: GABAPENTIN 400 MG CAPSULE 1200 MG PO ×3 (08:01→17:25)
[2021-08-04] MEDS: POTASSIUM CHLORIDE 10 MEQ TABLET.ER PO (08:01)
[2021-08-04 09:05] LABS: Basophils Percent Auto 0.4 % (0.2-1.2); Eosinophils Percent Auto 0.1 % (0-4.4); Hematocrit 48.3 % (42.0-52.0); Hemoglobin 15.4 g/dL (14.0-18.0); Immature Granulocyte Absolute 0.02 K/mm3 (0.00-0.031); Immature Granulocyte Percent A 0.2 % (0-0.5); Lymphocytes Absolute Auto 2.31 K/mm3 (0.9-3.2); Lymphocytes Percent Auto 23.8 % (18.3-44.2); Mean Corpuscular HGB Conc 31.9 g/dl (32-36); Mean Corpuscular Hemoglobin 30.1 pg (26-34); Mean Corpuscular Volume 94.5 fl (80-100); Mean Platelet Volume 9.8 fl (7.4-10.4); Monocytes Percent Auto 0.4 % (2.6-8.5); Neutrophils Absolute Auto 7.3 K/mm3 (1.3-6.7); Neutrophils Percent Auto 75.1 % (45.5-73.1); Platelet Count Result 251 k/mm3 (150-375); Red Blood Count 5.11 M/mm3 (4.6-6.20); Red Cell Distribution Width 15.2 % (11.5-14.5); White Blood Count 9.7 K/mm3 (4.5-10.0)
--- NOTE | 2021-08-04 09:09 | PM.CNPUL ---
Assessment and Plan Assessment and plan (1) Acute and chronic respiratory failure with hypoxia: Code(s): J96.21 - Acute and chronic respiratory failure with hypoxia Status: Acute (2) COPD exacerbation: Code(s): J44.1 - Chronic obstructive pulmonary disease with (acute) exacerbation Status: Acute Assessment and Plan: 60-year-old man with severe COPD per PFT report in 01/20, on home supplemental oxygen 2 liters/minute, mild sleep apnea on no treatment, presented with progressively increasing shortness of breath of 2 weeks duration. Chest imaging studies showing clear lungs. Patient's history, physical findings and diagnostic studies suggest COPD exacerbation. Agree with current does of steroids and antibiotics. Continue with nebulized short-acting bronchodilators q.i.d. while awake, DVT prophylaxis. I would discontinue IV Lasix as BNP is not elevated, patient already had a good response to IV Lasix, and serum creatinine is elevated. (3) Sleep apnea: Qualifiers: Sleep apnea type: obstructive Qualified Code(s): G47.33 - Obstructive sleep apnea (adult) (pediatric) Code(s): G47.30 - Sleep apnea, unspecified Status: Acute (4) Tobacco dependence: Code(s): F17.200 - Nicotine dependence, unspecified, uncomplicated Status: Acute History of Present Illness History of Present Illness Consult date: 08/04/21 Chief complaint: COPD Exacerbation, Dehydration Narrative: This 60-year-old man presented with shortness of breath. The patient has history of COPD on home oxygen 2 liters/minute, history of frequent COPD exacerbations, history of a mild sleep apnea. He was in his usual state of health until 2 weeks ago when he started to have a shortness of breath chest congestion and cough and wheezing. Patient's shortness of breath progressively increased over the last 2 weeks. He denied having fever chills hemoptysis chest pain or orthopnea. He has had chronic lower extremity edema. On last pulmonary function testing done in January of 2019 patient had severe COPD with significant response to bronchodilators. Actual PFT measurements were not available. In addition a previous sleep study in 2019, showed mild obstructive sleep apnea. CPAP of 7 was suggested. The patient has not been using any CPAP at this point. Patient smokes more than 1 pack per day for many years. Review of Systems Review of Systems: The patient reports weight gain over the last few years. Patient has had good appetite. Patient denied having fever chills or night sweats. Patient has no chest pain palpitations or orthopnea. Patient denied having acid reflux symptoms. Patient denied having abdominal pain, diarrhea, constipation, nausea or vomiting. Patient has no urinary complaints. Patient has had lower extremity edema. [facility] Past Medical History Medical History Acute kidney injury with severe hyperkalemia requiring temporary dialysis 03/2021 Arthritis Asthma Back pain Chronic obstructive pulmonary disease Diastolic congestive heart failure Gastroesophageal reflux disease Hypertension Kidney stones Learning disability Patient is unable to read or write fluently. Obstructive sleep apnea Uses 2 L nasal cannula at nighttime in lieu of CPAP. Peripheral neuropathy Pneumonia Pulmonary hypertension Pulmonary nodule Tobacco dependence Surgical History Surgical History History of cataract extraction History of cholecystectomy Status post prostatectomy Family History Family History Father Family history of chronic obstructive pulmonary disease, Onset Age: 74 Acute myocardial infarction Cerebrovascular accident Mother End stage renal disease on dialysis Acute myocardial infarction Cerebrovascular accident Roseline
[2021-08-04] MEDS: ALBUTEROL SULFATE NEB 2.5 MG/0.5 ML INH 5 MG INHALATION ×3 (09:10→20:11)
[2021-08-04] MEDS: IPRATROPIUM BR 0.02% INH SOLN 0.5 MG/2.5 ML VIAL INHALATION ×3 (09:10→20:11)
[2021-08-04 10:06] LABS: Alanine Aminotransferase 39 U/L (4-50); Albumin Level 4.5 g/dL (3.5-5.1); Alkaline Phosphatase 80 U/L (38-126); Anion Gap 12 mmol/L (8-16); Aspartate Amino Transferase 35 U/L (17-59); Bilirubin,Total 0.2 mg/dL (0.2-1.3); Blood Urea Nitrogen 36 mg/dL (9-20); Calcium 9.7 mg/dL (8.4-10.2); Carbon Dioxide 28 mmol/L (22-30); Chloride 99 mmol/L (98-107); Estimated CRCL calculation 80 ml/min; Estimated Glomerular Filt Rate > 60; Glucose 264 mg/dL (65-110); Potassium 5.3 mmol/L (3.4-5.0); Sodium 139 mmol/L (137-145)
[2021-08-04] MEDS: HYDROcodone/acetaminophen (*CRX) 10-325 MG TABLET 1 TAB PO ×3 (12:04→21:06)
--- NOTE | 2021-08-04 17:38 | PM.IMPN ---
Progress Note: A&P Assessment and Plan (1) Acute and chronic respiratory failure with hypoxia: Code(s): J96.21 - Acute and chronic respiratory failure with hypoxia Status: Acute (2) COPD with acute exacerbation: Code(s): J44.1 - Chronic obstructive pulmonary disease with (acute) exacerbation Status: Acute (3) Obstructive sleep apnea: Code(s): G47.33 - Obstructive sleep apnea (adult) (pediatric) Status: Acute (4) Diastolic congestive heart failure: Qualifiers: Heart failure chronicity: acute on chronic Qualified Code(s): I50.33 - Acute on chronic diastolic (congestive) heart failure Code(s): I50.30 - Unspecified diastolic (congestive) heart failure Status: Acute (5) Pulmonary edema: Qualifiers: Chronicity: acute Qualified Code(s): J81.0 - Acute pulmonary edema Code(s): J81.1 - Chronic pulmonary edema Status: Acute (6) Hyperkalemia: Code(s): E87.5 - Hyperkalemia Status: Acute (7) GOYO (acute kidney injury): Code(s): N17.9 - Acute kidney failure, unspecified Status: Acute Additional Plan 1. Acute COPD exacerbation: -continue with Solu-Medrol and Levaquin- -continue nebulizations scheduled 2. Acute on chronic diastolic heart failure: -received IV Lasix 40 mg b.i.d. -patient is on home 40 mg of Lasix p.o. -given elevation of creatinine and relatively normal BNP and fact that the patient has diuresed well we will transition Lasix to p.o. 40 mg b.i.d. -daily weights and strict I's and O's will continue monitor 3. Hyperkalemia: -will monitor for now -if continues to be elevated in the a.m. can treat accordingly with possibly Kayexalate 4. GOYO: -continue to monitor -possibly secondary to prerenal causes -hold lisinopril for now Time Spent With Patient Time with patient: 25 - 35 minutes Subjective Date/time seen: 08/04/21 17:38 Interval history: 60-year-old male with past medical history significant for hypertension, hyperlipidemia, COPD, chronic hypoxic respiratory failure on 4L of nasal cannula, obstructive sleep apnea not using CPAP, diastolic heart failure, pulmonary hypertension, CKD and GERD presented with shortness of pressure. He is being managed as a case of COPD exacerbation with some concerns for acute diastolic heart failure exacerbation as well. He received IV Lasix 40 mg b.i.d. and has not been converted to p.o. Lasix after having had a good urine output and negative balance. He is continuing to receive IV levofloxacin, nebulization treatment and IV Solu-Medrol 60 mg every 6 hours. Pulmonary is on board and patient is being monitored. Was also noted to have slight elevation of creatinine to 1.4 from a baseline of 0.8 for this reason lisinopril is on hold. Review of Systems Review of Systems: A 10 point review of system was conducted which was otherwise negative Exam Narrative: GENERAL APPEARANCE: Well developed, well nourished, alert and cooperative, who appears to be in mild respiratory distress while on supplemental oxygen SKIN: Inspection of the skin reveals no rashes, ulcerations or petechiae. HEENT: Sclerae anicteric and conjunctivae pink and moist. Extraocular movements were intact and pupils were equal, round. The oral mucosa, hard and soft palate, tongue and posterior pharynx were normal. edentulous. NECK: Supple. There was no thyroid enlargement, and no tenderness, or masses were felt. CHEST: Increased AP diameter and normal contour without any kyphoscoliosis. LUNGS: Auscultation of the lungs revealed wheezing bilaterally CARDIAC: There was a regular rate and rhythm without any murmurs, gallops, rubs. ABDOMEN: Soft and nontender with normal bowel sounds. There was no organomegaly. LYMPH NODES: No lymphadenopathy was appreciated in the neck. EXTREMITIES: No cyanosis, clubbing or edema. NEUROLOGIC: Alert and oriented x 3. Normal affect. Objective Data Vital Signs Vital Signs: Vital Sig
[2021-08-04] MEDS: MONTELUKAST SODIUM 10 MG TABLET PO (21:06)
[2021-08-04] MEDS: traZODone HCL 50 MG TABLET PO (21:06)
[2021-08-05] VITALS (9 sets, daily range): BP systolic 108; BP diastolic 81; PULSE 73–90; RESP 18–22; TEMP 36.6; O2SAT 81–96
[2021-08-05] MEDS: IPRATROPIUM BR 0.02% INH SOLN 0.5 MG/2.5 ML VIAL INHALATION ×2 (01:45→08:45)
[2021-08-05] MEDS: ALBUTEROL SULFATE NEB 2.5 MG/0.5 ML INH 5 MG INHALATION ×2 (01:45→08:45)
--- NOTE | 2021-08-05 04:28 | PCRCNOTE ---
patient stated that he could not tolerate a cpap machine because he felt like he could not breathe ; RT explained the purpose/benefits of use to no avail
--- NOTE | 2021-08-05 04:47 | PC.NURSE ---
0400 PT REQUESTED SHOWER. MONICA MCCRAY ASSISTED THE PT WITH GETTING READY FOR SHOWER. WHEN PT EXITED SHOWER HE INFORMED STAFF THE ROOM WAS FLOODED. IT APPEARED THE DRAIN IN THE CENTER OF THE BATHROOM WAS BACKING UP FILLING THE ROOM WITH WATER. CLEANED FLOOR NOTIFIED HOUSEKEEPING AND MAINTENANCE.
[2021-08-05] MEDS: methylPREDNISolone SOD SUCC 125 MG VIAL 60 MG IV PUSH (05:25)
[2021-08-05] MEDS: HEPARIN SODIUM 5,000 UNITS/ML VIAL 5000 UNITS SUB-Q (05:25)
[2021-08-05] MEDS: HYDROcodone/acetaminophen (*CRX) 10-325 MG TABLET 1 TAB PO ×2 (05:35→10:06)
[2021-08-05 05:41] LABS: Basophils Percent Auto 0.1 % (0.2-1.2); Hemoglobin 14.3 g/dL (14.0-18.0); Immature Granulocyte Absolute 0.05 K/mm3 (0.00-0.031); Immature Granulocyte Percent A 0.3 % (0-0.5); Lymphocytes Absolute Auto 1.99 K/mm3 (0.9-3.2); Mean Corpuscular HGB Conc 30.4 g/dl (32-36); Mean Corpuscular Hemoglobin 29.5 pg (26-34); Mean Corpuscular Volume 97.1 fl (80-100); Mean Platelet Volume 10.3 fl (7.4-10.4); Monocytes Absolute Auto 0.5 K/mm3 (0.1-0.6); Monocytes Percent Auto 2.7 % (2.6-8.5); Neutrophils Absolute Auto 15.6 K/mm3 (1.3-6.7); Neutrophils Percent Auto 85.9 % (45.5-73.1); Platelet Count Result 257 k/mm3 (150-375); Red Blood Count 4.84 M/mm3 (4.6-6.20); Red Cell Distribution Width 15.3 % (11.5-14.5); White Blood Count 18.1 K/mm3 (4.5-10.0)
[2021-08-05 05:58] LABS: Alanine Aminotransferase 25 U/L (4-50); Alkaline Phosphatase 76 U/L (38-126); Anion Gap 12 mmol/L (8-16); Aspartate Amino Transferase 28 U/L (17-59); Bilirubin,Total 0.4 mg/dL (0.2-1.3); Blood Urea Nitrogen 55 mg/dL (9-20); CRP 1.7 mg/dL (<1.0); Calcium 9.3 mg/dL (8.4-10.2); Carbon Dioxide 27 mmol/L (22-30); Chloride 99 mmol/L (98-107); Estimated CRCL calculation 59 ml/min; Estimated Glomerular Filt Rate 48; Glucose 192 mg/dL (65-110); Magnesium 2.1 mg/dL (1.6-2.3); Sodium 138 mmol/L (137-145)
[2021-08-05] MEDS: FENOFIBRATE 160 MG TABLET PO (08:23)
[2021-08-05] MEDS: FUROSEMIDE 40 MG TABLET PO (08:23)
[2021-08-05] MEDS: amLODIPine BESYLATE 5 MG TABLET 10 MG PO (08:23)
[2021-08-05] MEDS: GABAPENTIN 400 MG CAPSULE 1200 MG PO (08:23)
[2021-08-05 12:20] LABS: Anion Gap 13 mmol/L (8-16); Blood Urea Nitrogen 50 mg/dL (9-20); Calcium 9.8 mg/dL (8.4-10.2); Carbon Dioxide 27 mmol/L (22-30); Chloride 99 mmol/L (98-107); Estimated CRCL calculation 68 ml/min; Estimated Glomerular Filt Rate 56; Glucose 224 mg/dL (65-110); Potassium 4.9 mmol/L (3.4-5.0); Sodium 139 mmol/L (137-145)
--- NOTE | 2021-08-05 12:38 | PM.IMPN ---
Subjective Date/time seen: 08/05/21 12:38 Interval history: 60-year-old male with past medical history significant for hypertension, hyperlipidemia, COPD, chronic hypoxic respiratory failure on 4L of nasal cannula, obstructive sleep apnea not using CPAP, diastolic heart failure, pulmonary hypertension, CKD and GERD presented with shortness of pressure. He is being managed as a case of COPD exacerbation with some concerns for acute diastolic heart failure exacerbation as well. He received IV Lasix 40 mg b.i.d. and has not been converted to p.o. Lasix after having had a good urine output and negative balance. He is continuing to receive IV levofloxacin, nebulization treatment and IV Solu-Medrol 60 mg every 6 hours. Pulmonary is on board and patient is being monitored. Was also noted to have slight elevation of creatinine to 1.4 from a baseline of 0.8 for this reason lisinopril is on hold. Objective Data Vital Signs Vital Signs: Vital Signs - 24 hr 08/04/21 14:20 08/04/21 14:34 08/04/21 20:00 Temperature Pulse Rate 73 73 86 Respiratory Rate 20 20 20 Blood Pressure Pulse Oximetry 94 08/04/21 20:04 08/04/21 20:05 08/04/21 20:19 Temperature 97.7 F Pulse Rate 90 84 86 Respiratory Rate 20 22 H 20 Blood Pressure 110/53 L Pulse Oximetry 94 08/05/21 01:47 08/05/21 01:48 08/05/21 01:57 Temperature Pulse Rate 78 81 Respiratory Rate 18 18 Blood Pressure Pulse Oximetry 81 L 08/05/21 02:45 08/05/21 05:00 08/05/21 08:26 Temperature 97.8 F Pulse Rate 73 90 Respiratory Rate 20 Blood Pressure 108/81 Pulse Oximetry 94 95 96 08/05/21 08:45 08/05/21 08:57 08/05/21 12:21 Temperature Pulse Rate 84 87 Respiratory Rate 22 H 20 Blood Pressure Pulse Oximetry 93 93 92 Intake/Output Intake/Output: Intake & Output 08/02/21 08/03/21 08/04/21 08/05/21 23:59 23:59 23:59 23:59 Intake Total 1000 1790 1010 Output Total 4080 900 Balance 1000 -2290 110 Meds/Results Medications: Active Medications Generic Name Dose Route Start Last Admin Trade Name Freq PRN Reason Stop Dose Admin Acetaminophen 650 mg 08/04/21 00:18 Acetaminophen 325 Mg Tablet PO Q4H PRN Mild Pain (1-3) or Fever Hydrocodone Bitart/Acetaminophen 1 tab 08/04/21 04:44 08/05/21 10:06 Hydrocodone/Acetaminophen (*Crx) 10-325 Mg Tablet PO 1 tab Q4-6H PRN Administration pain 4-10 Albuterol 5 mg 08/04/21 02:00 08/05/21 08:45 Albuterol Sulfate Neb 2.5 Mg/0.5 Ml Inh INHALATION 5 mg Q6HRT NORMA Administration Albuterol 2 puff 08/04/21 04:44 Albuterol Sulfate (*Sp) Aerosol 1 Puff INHALATION Q6H PRN Shortness Of Breath Amlodipine Besylate 10 mg 08/04/21 09:00 08/05/21 08:23 Amlodipine Besylate 5 Mg Tablet PO 10 mg DAILY NORMA Administration Budesonide/Formoterol Fumarate 2 puff 08/04/21 08:00 08/05/21 08:45 Budesonide/Form 160-4.5 Mcg (*Sp) INHALATION 2 puff Q12HRT NORMA Administration Fenofibrate 160 mg 08/04/21 09:00 08/05/21 08:23 Fenofibrate 160 Mg Tablet PO 160 mg DAILY NORMA Administration Furosemide 40 mg 08/05/21 09:00 08/05/21 08:23 Furosemide 40 Mg Tablet PO 40 mg BID NORMA Administration Gabapentin 1,200 mg 08/04/21 09:00 08/05/21 08:23 Gabapentin 400 Mg Capsule PO 1,200 mg TID NORMA Administration Heparin Sodium (Porcine) 5,000 units 08/04/21 06:00 08/05/21 05:25 Heparin Sodium 5,000 Units/Ml Vial SUB-Q 5,000 units Q8HR NORMA Administration Levofloxacin/Dextrose 750 mg in 150 mls @ 100 mls/hr 08/04/21 06:00 08/05/21 06:54 Levaquin 750 Mg/D5w 150 Ml IVPB Infused Q24H NORMA Infusion Ipratropium [place] 0.5 mg 08/04/21 02:00 08/05/21 08:45 Ipratropium Br 0.02% Inh Soln 0.5 Mg/2.5 Ml Vial INHALATION 0.5 mg Q6HRT NORMA Administration Lisinopril 40 mg 08/04/21 09:00 08/04/21 08:01 Lisinopril 20 Mg Tablet PO 40 mg DAILY NORMA Administration Methylprednisolone Sodium Succ
--- NOTE | 2021-08-05 12:43 | PM.DS ---
DS: Admitting Diagnosis Discharge Date 08/05/2021 Admitting Diagnosis CHF exacerbation COPD exacerbation DS: Discharge Diagnosis Discharge Diagnosis (1) CAP (community acquired pneumonia): Qualifiers: Laterality: unspecified laterality Qualified Code(s): J18.9 - Pneumonia, unspecified organism Code(s): J18.9 - Pneumonia, unspecified organism Status: Acute (2) COPD exacerbation: Code(s): J44.1 - Chronic obstructive pulmonary disease with (acute) exacerbation Status: Acute (3) Diastolic congestive heart failure: Qualifiers: Heart failure chronicity: acute on chronic Qualified Code(s): I50.33 - Acute on chronic diastolic (congestive) heart failure Code(s): I50.30 - Unspecified diastolic (congestive) heart failure Status: Acute (4) Hyperkalemia: Code(s): E87.5 - Hyperkalemia Status: Acute (5) GOYO (acute kidney injury): Code(s): N17.9 - Acute kidney failure, unspecified Status: Acute DS: Summary Hospital Course Reason for hospitalization: With AHF exacerbation COPD exacerbation Community-acquired pneumonia Hospital Course: 60-year-old male with past medical history significant for hypertension, hyperlipidemia, COPD, chronic hypoxic respiratory failure on 4L of nasal cannula, obstructive sleep apnea not using CPAP, diastolic heart failure, pulmonary hypertension, CKD and GERD presented with shortness of pressure. He was managed as a case of COPD exacerbation with some concerns for acute diastolic heart failure exacerbation as well. He received IV Lasix 40 mg b.i.d. which was later converted to p.o. Lasix after having had diuresed well. During the course of his stay he also received IV levofloxacin, nebulization treatment and IV Solu-Medrol 60 mg every 6 hours. Pulmonary is on board and patient is being monitored. He is now being discharged on tapering dose of PO steroids and PO Lasix increased to 40mg BID. In addition a 5 day course of PO levaquin is also being prescribed. During the course of his stay he was also noted to have hyperkalemia, in addiiton to GOYO r which reaosn his lisinoptil was held and potassium supplements were also held. he is being discharged with reduced dose of lisinopril to 20mg daily and have been advuised to hold potassium suppleemts untill he sees hs PCP. He is also being referred to get a repeat BMP in two days time and follow with PCP within a week. Status at Discharge Overall status at discharge: patient is progressing back to baseline Time Spent with Patient Time attestation: Total time spent providing and/or coordinating discharge services: Time spent: Less than 30 minutes Exam Narrative: GENERAL APPEARANCE: Well developed, well nourished, alert and cooperative, who appears to be in mild respiratory distress while on supplemental oxygen SKIN: Inspection of the skin reveals no rashes, ulcerations or petechiae. HEENT: Sclerae anicteric and conjunctivae pink and moist. Extraocular movements were intact and pupils were equal, round. The oral mucosa, hard and soft palate, tongue and posterior pharynx were normal. edentulous. NECK: Supple. There was no thyroid enlargement, and no tenderness, or masses were felt. CHEST: Increased AP diameter and normal contour without any kyphoscoliosis. LUNGS: Auscultation of the lungs revealed wheezing specially during expiration bilaterally CARDIAC: There was a regular rate and rhythm without any murmurs, gallops, rubs. ABDOMEN: Soft and nontender with normal bowel sounds. There was no organomegaly. LYMPH NODES: No lymphadenopathy was appreciated in the neck. EXTREMITIES: purple discoloration noted to B/L LE and LE distally- no cyanosis however and cap refill adequate; (patient tells me that this is his usual color) 1+ pitting edema identified B/L LE. NEUROLOGIC: Alert and oriented x 3. Normal affect. DS: Data Data Completed and Pending Labs on day of discharge: Labs from last 24 hours
--- NOTE | 2021-08-05 12:47 | PM.PNPUL ---
Progress Note: A&P Assessment and Plan (1) COPD with acute exacerbation: Code(s): J44.1 - Chronic obstructive pulmonary disease with (acute) exacerbation Status: Acute Assessment and Plan: Patient with a COPD exacerbation on supplemental oxygen and treatment which includes IV steroids bronchodilators, antibiotic, continues to have shortness of breath, and wheezing on expiration likely less than before. I would continue with the same treatment but would decrease the IV steroids and Lasix. (2) Acute and chronic respiratory failure with hypoxia: Code(s): J96.21 - Acute and chronic respiratory failure with hypoxia Status: Acute Subjective Date/time seen: 08/05/21 12:47 Patient stated he is doing better. He is anxious to go home. He has no other new respiratory symptoms. He complained about the hospital food. He remains on supplemental oxygen Review of Systems Review of Systems: All systems reviewed & are unremarkable except as noted in HPI and below (H and P and below) Exam Narrative: GENERAL APPEARANCE: Well developed, well nourished, alert and cooperative, who appears to be in mild respiratory distress while on supplemental oxygen SKIN: Inspection of the skin reveals no rashes, ulcerations or petechiae. HEENT: Sclerae anicteric and conjunctivae pink and moist. Extraocular movements were intact and pupils were equal, round. The oral mucosa, hard and soft palate, tongue and posterior pharynx were normal. edentulous. NECK: Supple. There was no thyroid enlargement, and no tenderness, or masses were felt. CHEST: Increased AP diameter and normal contour without any kyphoscoliosis. LUNGS: Auscultation of the lungs revealed wheezing specially during expiration bilaterally CARDIAC: There was a regular rate and rhythm without any murmurs, gallops, rubs. ABDOMEN: Soft and nontender with normal bowel sounds. There was no organomegaly. LYMPH NODES: No lymphadenopathy was appreciated in the neck. EXTREMITIES: No cyanosis, clubbing or edema. NEUROLOGIC: Alert and oriented x 3. Normal affect. Objective Data Vital Signs Vital Signs: Vital Signs - 24 hr 08/04/21 14:20 08/04/21 14:34 08/04/21 20:00 Temperature Pulse Rate 73 73 86 Respiratory Rate 20 20 20 Blood Pressure Pulse Oximetry 94 08/04/21 20:04 08/04/21 20:05 08/04/21 20:19 Temperature 36.5 C Pulse Rate 90 84 86 Respiratory Rate 20 22 H 20 Blood Pressure 110/53 L Pulse Oximetry 94 08/05/21 01:47 08/05/21 01:48 08/05/21 01:57 Temperature Pulse Rate 78 81 Respiratory Rate 18 18 Blood Pressure Pulse Oximetry 81 L 08/05/21 02:45 08/05/21 05:00 08/05/21 08:26 Temperature 36.6 C Pulse Rate 73 90 Respiratory Rate 20 Blood Pressure 108/81 Pulse Oximetry 94 95 96 08/05/21 08:45 08/05/21 08:57 08/05/21 12:21 Temperature Pulse Rate 84 87 Respiratory Rate 22 H 20 Blood Pressure Pulse Oximetry 93 93 92 Intake/Output Intake/Output: Intake & Output 08/02/21 08/03/21 08/04/21 08/05/21 23:59 23:59 23:59 23:59 Intake Total 1000 1790 1010 Output Total 4080 900 Balance 1000 -2290 110 Meds/Results Medications: Active Medications Generic Name Dose Route Start Last Admin Trade Name Freq PRN Reason Stop Dose Admin Acetaminophen 650 mg 08/04/21 00:18 Acetaminophen 325 Mg Tablet PO Q4H PRN Mild Pain (1-3) or Fever Hydrocodone Bitart/Acetaminophen 1 tab 08/04/21 04:44 08/05/21 10:06 Hydrocodone/Acetaminophen (*Crx) 10-325 Mg Tablet PO 1 tab Q4-6H PRN Administration pain 4-10 Albuterol 5 mg 08/04/21 02:00 08/05/21 08:45 Albuterol Sulfate Neb 2.5 Mg/0.5 Ml Inh INHALATION 5 mg Q6HRT NORMA Administration Albuterol 2 puff 08/04/21 04:44 Albuterol Sulfate (*Sp) Aerosol 1 Puff INHALATION Q6H PRN Shortness Of Breath Amlodipine Besylate 10 mg 08/04/21 09:00 08/05/21 08:23 Amlodipine Besylate 5 Mg Tablet PO 10 mg DAILY
== END 2021-08-05 13:21 | disposition home or self-care (01) | DRG 140 ==
LOC: ANHED 21:20 → ANH2MED 08-04 01:11
PROVIDERS: Emergency Medicine; Admitting Provider Internal Medicine; Emergency Provider Emergency Medicine; PCP Family Medicine; Visit Provider Internal Medicine
DX: J44.1 Chronic obstructive pulmonary disease with (acute) exacerbation (principal); J44.0 Chronic obstructive pulmonary disease with (acute) lower respiratory infection; J18.9 Pneumonia, unspecified organism; J96.11 Chronic respiratory failure with hypoxia; I13.0 Hypertensive heart and chronic kidney disease with heart failure and stage 1 through stage 4 chronic kidney disease, or unspecified chronic kidney disease; N18.9 Chronic kidney disease, unspecified; I50.33 Acute on chronic diastolic (congestive) heart failure; I27.20 Pulmonary hypertension, unspecified; F17.210 Nicotine dependence, cigarettes, uncomplicated; G47.33 Obstructive sleep apnea (adult) (pediatric); G62.9 Polyneuropathy, unspecified; Z99.81 Dependence on supplemental oxygen; N17.9 Acute kidney failure, unspecified; E87.5 Hyperkalemia; E78.5 Hyperlipidemia, unspecified; K21.9 Gastro-esophageal reflux disease without esophagitis; Z79.899 Other long term (current) drug therapy; Z98.49 Cataract extraction status, unspecified eye
CPT/HCPCS: 36415; 71046; 80048; 80053; 83735; 83880; 85025; 86140; 93005; 94640; 96361; 96365; 96372; 96374; 96375; 96376; 99232; 99253; 99285; A9270; G0378; G0379; J1644; J1940; J1956; J2930; J7030

== ENCOUNTER 2021-08-15 16:39 | Inpatient (IN) | payer OTHER, SELFPAY ==
[2021-08-15] VITALS (52 sets, daily range): BP systolic 98–139; BP diastolic 51–71; PULSE 63–92; RESP 14–28; TEMP 36.2–36.8; O2SAT 88–99
--- NOTE | ~2021-08-15 | XR_ITS ---
EXAMINATION: XR chest 2V EXAM DATE: 08/15/2021 17:04 INDICATION: Shortness of breath for 3 days. History COPD. TECHNIQUE: Frontal and lateral projections of the chest obtained and reviewed. Comparison is made to prior examination from 08/03/2021. FINDINGS: The lungs are hyperinflated which can be seen with chronic obstructive pulmonary disease (a clinical diagnosis of functional impairment), but is not diagnostic of it. The lungs are clear. T here are no pleural effusions. The cardiomediastinal silhouette is within normal limits. There is n o pneumothorax suspected. The bones and soft tissues are unremarkable. IMPRESSION: 1. No acute cardiopulmonary findings. 2. Hyperinflation. Reviewed, dictated and finalized at location A. [facility]LL[facility]
--- NOTE | 2021-08-15 16:49 | ECG_ITS ---
Measurements Intervals [place] Rate: 67 P: 66 IA: 205 QRS: 81 QRSD: 89 T: 68 QT: 336 QTc: 357 Interpretive Statements SINUS RHYTHM BASELINE ARTIFACT- I, II, III, AVR, AVL, AVF, V1-V6 NORMAL ECG Electronically Signed On 08-15-2021 19:13:39 [employer]ILDC[employer] DIRECTOR by Carmelo Graham D.O.
[2021-08-15 17:01] LABS: Basophils Absolute Auto 0.1 K/mm3 (0.0-0.1); Basophils Percent Auto 0.4 % (0.2-1.2); Eosinophils Absolute Auto 0.1 K/mm3 (0-0.3); Eosinophils Percent Auto 0.9 % (0-4.4); Hematocrit 50.5 % (42.0-52.0); Immature Granulocyte Absolute 0.06 K/mm3 (0.00-0.031); Immature Granulocyte Percent A 0.4 % (0-0.5); Lymphocytes Absolute Auto 6.08 K/mm3 (0.9-3.2); Lymphocytes Percent Auto 43.3 % (18.3-44.2); Mean Corpuscular HGB Conc 31.7 g/dl (32-36); Mean Corpuscular Hemoglobin 29.8 pg (26-34); Mean Platelet Volume 9.5 fl (7.4-10.4); Monocytes Absolute Auto 1.1 K/mm3 (0.1-0.6); Monocytes Percent Auto 7.6 % (2.6-8.5); Neutrophils Absolute Auto 6.7 K/mm3 (1.3-6.7); Neutrophils Percent Auto 47.4 % (45.5-73.1); Platelet Count Result 248 k/mm3 (150-375); Red Blood Count 5.37 M/mm3 (4.6-6.20); Red Cell Distribution Width 15.3 % (11.5-14.5); White Blood Count 14.1 K/mm3 (4.5-10.0)
[2021-08-15 17:19] LABS: Anion Gap 8 mmol/L (8-16); Blood Urea Nitrogen 41 mg/dL (9-20); Calcium 10.2 mg/dL (8.4-10.2); Carbon Dioxide 34 mmol/L (22-30); Chloride 101 mmol/L (98-107); Estimated CRCL calculation 62 ml/min; Estimated Glomerular Filt Rate 52; Glucose 132 mg/dL (65-110); Potassium 4.8 mmol/L (3.4-5.0); Sodium 143 mmol/L (137-145)
[2021-08-15 17:31] LABS: Atypical Lymphocytes Present; Platelet Estimate Adequate (Adequate)
--- NOTE | 2021-08-15 18:29 | ED.SOB ---
HPI - SOB/Dyspnea General Chief Complaint: Shortness of Breath/Dyspnea Stated Complaint: shortness of breath Time Seen by Provider: 08/15/21 18:24 Source: RN notes reviewed History of Present Illness HPI Narrative: Patient presents emergency department from home for shortness of breath. Patient states he has had progressive shortness of breath over the past 3 days states been associate with a cough this been nonproductive. Patient states he has a history of COPD and is on 2 L nasal cannula at all times states he still smokes approximately half a pack per day. He states that the shortness of breath is associated with a heaviness in his chest as he feels like he cannot take a deep breath he denies any fevers or chills abdominal pain nausea vomiting or any other symptom Related Data Home Medications Medication Instructions Recorded Confirmed montelukast 10 mg PO HS 08/30/19 08/04/21 gabapentin 300 mg capsule 1,200 mg PO TID 02/17/21 08/04/21 amlodipine 10 mg PO DAILY 03/16/21 08/04/21 hydrocodone-acetaminophen 1 tablet PO Q4-6H PRN 03/16/21 08/04/21 Dulera 2 puff INHALATION Q12H 04/30/21 08/04/21 albuterol sulfate 2 inh INHALATION Q6H PRN 08/04/21 08/04/21 fenofibrate 160 mg PO DAILY 08/04/21 08/04/21 ipratropium-albuterol 3 ml INHALATION BID 08/04/21 08/04/21 metformin 500 mg PO BID 08/04/21 08/04/21 potassium chloride 10 meq PO DAILY 08/04/21 08/04/21 trazodone 50 mg PO HS 08/04/21 08/04/21 Allergies Allergy/AdvReac Type Severity Reaction Status Date / Time codeine Allergy Unknown Itching Verified 08/15/21 18:39 iohexol Allergy Unknown Redness of Verified 08/15/21 18:39 [From CONTRAST - CT, XRAY] Skin Review of Systems Review of Systems: Gen.: Denies fevers or chills ENT: Denies congestion Respiratory: Reports shortness of breath and cough CV: Reports chest heaviness GI: Denies abdominal pain nausea, emesis or diarrhea Musculoskeletal: Denies back pain or muscle pain Neuro: Denies numbness, tingling, weakness or focal weakness Skin: Denies rash Except as documented, all other systems reviewed and negative [facility] Past Medical History Medical History Acute kidney injury with severe hyperkalemia requiring temporary dialysis 03/2021 Arthritis Asthma Back pain Chronic obstructive pulmonary disease Diastolic congestive heart failure Gastroesophageal reflux disease Hypertension Kidney stones Learning disability Patient is unable to read or write fluently. Obstructive sleep apnea Uses 2 L nasal cannula at nighttime in lieu of CPAP. Peripheral neuropathy Pneumonia Pulmonary hypertension Pulmonary nodule Tobacco dependence Surgical History Surgical History History of cataract extraction History of cholecystectomy Status post prostatectomy Family History Family History Father Family history of chronic obstructive pulmonary disease, Onset Age: 74 Acute myocardial infarction Cerebrovascular accident Mother End stage renal disease on dialysis Acute myocardial infarction Cerebrovascular accident Sibling History of blood clots Diabetes mellitus Sibling Chronic obstructive pulmonary disease Hypertension Grandparent Diabetes mellitus Son Leukemia Other Carcinoma of colon Social History Social History Social History: The patient lives in a trailer in [place]. He is but he and his have been for well over 20 years. He has one son. 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 He smokes about 1.5 packs of cigarettes a day and has for 50 years but reports he quit smoking March 16, 2021. No alcohol or illicit substance use. He designates his step daughter, Karely Flores, as his surrogate decision maker. Code status: Full code. Smoking packs per day: 1
[2021-08-15 18:47] LABS: INR 0.9; Prothrombin Time 12.1 Seconds (11.1-14.7)
[2021-08-15 18:48] LABS: Partial Thromboplastin Time 27.5 SECONDS (22.3-36.8)
[2021-08-15 18:50] LABS: Fractional Inspired Oxygen 28 %; HCO3 ABG 32.1 mEq/l (22.0-26.0); Oxygen Content ABG 22.2 %vol (16.0-22.0); Oxygen Saturation ABG 99.2 % (95.0-100.0); Oxyhemoglobin 92.3 % THb (90.0-100.0); PO2 ABG 206.4 mmHg (80.0-100.0); Total Hemoglobin 16.8 g/dL (12.0-18.0)
[2021-08-15] MEDS: IPRATROPIUM BR 0.02% INH SOLN 0.5 MG/2.5 ML VIAL INHALATION ×2 (18:50→19:12)
[2021-08-15] MEDS: ALBUTEROL SULFATE NEB 2.5 MG/0.5 ML INH 5 MG INHALATION ×2 (18:50→19:11)
[2021-08-15 18:58] LABS: PCO2 ABG 68.2 mmHg (35.0-45.0); pH ABG 7.291 (7.350-7.450)
[2021-08-15 19:00] LABS: Device NASAL CANNULA; Modified Allen's Test Pass; Site Drawn LEFT RADIAL
[2021-08-15] MEDS: methylPREDNISolone SOD SUCC 125 MG VIAL IV PUSH (19:02)
[2021-08-15 19:03] LABS: Troponin I < 0.012 ng/mL (0.000-0.034)
--- NOTE | 2021-08-15 19:10 | PC.NURSE ---
Respiratory at bedside, placing patient on BIPAP
--- NOTE | 2021-08-15 20:02 | PM.IMHP ---
H&P: HPI History of Present Illness Date/Time: 08/15/21 20:02 Chief Complaint: Shortness of breath Narrative: This is a 60-year-old male with past medical history significant for COPD/emphysema, type 2 diabetes mellitus, obstructive sleep apnea, tobacco dependence, hypertension, peripheral neuropathy, chronic back pain. Patient presented to the emergency due to progressively worsening shortness of breath for the last 3 days or so S noted the patient was just recently treated for pneumonia and discharged home earlier in the month. He denies any fevers, any rigors, any chills, no nausea no vomiting no abdominal pain, he is on 2 L of supplemental oxygen by nasal cannula, he has a dry cough. Preliminary workup is significant for ABG showed a pH of 7.29, P CO2 68, a chest x-ray showed hyperinflation but no acute cardiopulmonary abnormality. Patient was placed on BiPAP. Has been admitted for further evaluation, management and treatment. Review of Systems Review of Systems: Worsening shortness of breath for the last 3 days or so has been using his inhaler quite often dry cough Constitutional: Constitutional: Denies chills, Denies fever(s), Denies night sweats and Denies weakness Eyes: Eyes: Denies change in vision ENT: Denies dysphagia, Denies vertigo, Denies dizziness, Denies nasal congestion, Denies nasal discharge, Denies nasal obstruction and Denies odynophagia Cardiovascular: Cardiovascular: Denies irregular heart rhythm, Denies radiating jaw, neck or arm pain, Denies palpitations, Denies dyspnea on exertion and Denies orthopnea Respiratory: Respiratory: Denies change in phlegm color, Reports cough, Denies excessive phlegm production, Reports dyspnea and Reports wheezing Gastrointestinal: Gastrointestinal: Denies abdominal pain, Denies dyspepsia, Denies heartburn, Denies diarrhea, Denies nausea and Denies vomiting Genitourinary: Genitourinary: Reports no additional male genitourinary complaints and Reports as per HPI Musculoskeletal: Musculoskeletal: Reports back pain Integumentary/Breasts: Skin/Breast: Denies rash Neurologic: Denies focal weakness, Denies Sensory deficit (Neuro) and Reports paresthesias Psychiatric: Psychiatric: Reports no additional psychiatric complaints and Reports as per HPI Endocrine: Endocrine: Reports no additional endocrine complaints and Reports as per HPI Hematologic/Lymphatic: Hematologic/Lymphatic: Reports no additional hematologic/lymphatic complaints and Reports as per HPI Allergic/Immunologic: Allergic/Immunologic: Reports no additional allergic/immunologic complaints and Reports as per HPI PMFSH Past Medical History Medical History Acute kidney injury with severe hyperkalemia requiring temporary dialysis 03/2021 Arthritis Asthma Back pain Chronic obstructive pulmonary disease Diastolic congestive heart failure Gastroesophageal reflux disease Hypertension Kidney stones Learning disability Patient is unable to read or write fluently. Obstructive sleep apnea Uses 2 L nasal cannula at nighttime in lieu of CPAP. Peripheral neuropathy Pneumonia Pulmonary hypertension Pulmonary nodule Tobacco dependence Surgical History Surgical History History of cataract extraction History of cholecystectomy Status post prostatectomy Family History Family History Father Family history of chronic obstructive pulmonary disease, Onset Age: 74 Acute myocardial infarction Cerebrovascular accident Mother End stage renal disease on dialysis Acute myocardial infarction Cerebrovascular accident Sibling History of blood clots Diabetes mellitus Sibling Chronic obstructive pulmonary disease Hypertension Grandparent Diabetes mellitus Son Leukemia Other Carcinoma of colon Social History Social History (
[2021-08-15 20:10] LABS: Alveolar/Arterial O2 Gradient 63.3 mmHg; Base Excess ABG 3.8 mEq/l (+/-2.0); Fractional Inspired Oxygen 30 %; HCO3 ABG 32.5 mEq/l (22.0-26.0); Oxygen Content ABG 21.1 %vol (16.0-22.0); Oxygen Saturation ABG 93.3 % (95.0-100.0); PO2 ABG 74.1 mmHg (80.0-100.0); PO2 FiO2 Ratio Arterial Blood 2.47 %; Total Hemoglobin 16.9 g/dL (12.0-18.0); pH ABG 7.316 (7.350-7.450)
[2021-08-15 20:13] LABS: Device BIPAP; Modified Allen's Test Pass; PCO2 ABG 65.1 mmHg (35.0-45.0); Site Drawn RIGHT RADIAL
[2021-08-15 20:14] LABS: Expiratory Pressure 8 cmH2O; Inspiratory Pressure 14 cmH2O
[2021-08-15 21:25] LABS: Troponin I < 0.012 ng/mL (0.000-0.034)
--- NOTE | 2021-08-15 22:38 | ADMGEN ---
This patient, Manny Garcia, was admitted to IMU Room 201-01 at 2240 on 08/15/21. Patient/family oriented to hospital policies and general routines including ID bracelet, bed and alarms, visiting hours, pain management, procedures, bathroom and other care routines, personal items, smoking policy, room service/diet, and visiting hours. Information on how to activate the Rapid Response Team has been discussed. Patient/Family are encouraged to report perceived risks to care and to ask questions if they do not understand what they are told or what they should do.
[2021-08-16] VITALS (22 sets, daily range): BP systolic 114–131; BP diastolic 47–63; PULSE 72–110; RESP 17–24; TEMP 36.5–37.3; O2SAT 92–96
[2021-08-16 01:07] LABS: Troponin I < 0.012 ng/mL (0.000-0.034)
[2021-08-16] MEDS: methylPREDNISolone SOD SUCC 125 MG VIAL 60 MG IV PUSH ×5 (01:30→23:32)
[2021-08-16] MEDS: GABAPENTIN 400 MG CAPSULE 1200 MG PO ×4 (01:31→17:18)
[2021-08-16] MEDS: HYDROcodone/acetaminophen (*CRX) 10-325 MG TABLET 1 TAB PO ×5 (01:36→21:17)
[2021-08-16] MEDS: IPRATROPIUM BR 0.02% INH SOLN 0.5 MG/2.5 ML VIAL INHALATION ×4 (02:19→20:54)
[2021-08-16] MEDS: ALBUTEROL SULFATE NEB 2.5 MG/0.5 ML INH 5 MG INHALATION ×4 (02:19→20:53)
[2021-08-16 05:30] LABS: Basophils Percent Auto 0.1 % (0.2-1.2); Hematocrit 50.7 % (42.0-52.0); Hemoglobin 15.7 g/dL (14.0-18.0); Immature Granulocyte Absolute 0.06 K/mm3 (0.00-0.031); Immature Granulocyte Percent A 0.4 % (0-0.5); Lymphocytes Absolute Auto 2.33 K/mm3 (0.9-3.2); Lymphocytes Percent Auto 15.1 % (18.3-44.2); Mean Corpuscular Hemoglobin 29.9 pg (26-34); Mean Corpuscular Volume 96.6 fl (80-100); Mean Platelet Volume 9.6 fl (7.4-10.4); Monocytes Absolute Auto 0.1 K/mm3 (0.1-0.6); Monocytes Percent Auto 0.4 % (2.6-8.5); Platelet Count Result 238 k/mm3 (150-375); Red Blood Count 5.25 M/mm3 (4.6-6.20); Red Cell Distribution Width 15.5 % (11.5-14.5); White Blood Count 15.4 K/mm3 (4.5-10.0)
[2021-08-16 05:42] LABS: Anion Gap 10 mmol/L (8-16); Blood Urea Nitrogen 45 mg/dL (9-20); Calcium 9.9 mg/dL (8.4-10.2); Carbon Dioxide 33 mmol/L (22-30); Chloride 99 mmol/L (98-107); Estimated CRCL calculation 62 ml/min; Estimated Glomerular Filt Rate 52; Glucose 250 mg/dL (65-110); Potassium 5.1 mmol/L (3.4-5.0); Sodium 142 mmol/L (137-145)
[2021-08-16] MEDS: FUROSEMIDE 40 MG TABLET PO ×2 (08:37→17:18)
[2021-08-16] MEDS: lisinopriL 20 MG TABLET PO (08:37)
[2021-08-16] MEDS: FLUTICASONE/SALMETEROL 230-21 MCG INHALER 1 PUFF 2 PUFF INHALATION ×2 (09:29→20:53)
[2021-08-16 12:28] LABS: Alveolar/Arterial O2 Gradient 59.4 mmHg; Base Excess ABG 6.3 mEq/l (+/-2.0); Device NON-INVASIVE VENT; Fractional Inspired Oxygen 30 %; HCO3 ABG 33.4 mEq/l (22.0-26.0); Modified Allen's Test Pass; Oxygen Content ABG 22.1 %vol (16.0-22.0); Oxygen Saturation ABG 96.4 % (95.0-100.0); PCO2 ABG 56.8 mmHg (35.0-45.0); PO2 ABG 87.8 mmHg (80.0-100.0); PO2 FiO2 Ratio Arterial Blood 2.93 %; Site Drawn LEFT RADIAL; Total Hemoglobin 16.5 g/dL (12.0-18.0); pH ABG 7.387 (7.350-7.450)
[2021-08-16 12:29] LABS: Non-Invasive Expiratory Pressure 8 CMH2O; Non-Invasive Inspiratory Pressure 18 CMH2O; Non-Invasive Vent Rate 12 /MIN
--- NOTE | 2021-08-16 13:51 | PM.IMPN ---
Progress Note: A&P Assessment and Plan (1) COPD with acute exacerbation: Code(s): J44.1 - Chronic obstructive pulmonary disease with (acute) exacerbation Status: Acute Assessment and Plan: Breathing treatments Systemic steroids BiPAP p.r.n. 08/16/2021 interval history: patient with hypercapnic respiratory failure most likely secondary to hypoventilation due to obesity and sleep apnea was placed on BiPAP however patient did not wear the BiPAP, this morning patient states feeling little better not as short of breath. we have place patient on BiPAP will continue to monitor repeat ABG and further recommendation to follow. (2) Obstructive sleep apnea: Code(s): G47.33 - Obstructive sleep apnea (adult) (pediatric) Status: Acute Assessment and Plan: On 2 L oxygen by nasal cannula (3) Acute on chronic respiratory failure with hypoxia and hypercapnia: Code(s): J96.21 - Acute and chronic respiratory failure with hypoxia; J96.22 - Acute and chronic respiratory failure with hypercapnia Status: Acute Assessment and Plan: Patient still smokes about half a pack of cigarettes daily this might have contributed BiPAP p.r.n. (4) Tobacco dependence: Code(s): F17.200 - Nicotine dependence, unspecified, uncomplicated Status: Acute Assessment and Plan: Nicotine patch as needed Subjective Date/time seen: 08/16/21 13:51 Chief Complaint: Shortness of breath HPI: Narrative: This is a 60-year-old male with past medical history significant for COPD/emphysema, type 2 diabetes mellitus, obstructive sleep apnea, tobacco dependence, hypertension, peripheral neuropathy, chronic back pain. Patient presented to the emergency due to progressively worsening shortness of breath for the last 3 days or so S noted the patient was just recently treated for pneumonia and discharged home earlier in the month. He denies any fevers, any rigors, any chills, no nausea no vomiting no abdominal pain, he is on 2 L of supplemental oxygen by nasal cannula, he has a dry cough. Preliminary workup is significant for ABG showed a pH of 7.29, P CO2 68, a chest x-ray showed hyperinflation but no acute cardiopulmonary abnormality. Patient was placed on BiPAP. Has been admitted for further evaluation, management and treatment. 08/16/2021 interval history: patient with hypercapnic respiratory failure most likely secondary to hypoventilation due to obesity and sleep apnea was placed on BiPAP however patient did not wear the BiPAP, this morning patient states feeling little better not as short of breath. we have place patient on BiPAP will continue to monitor repeat ABG and further recommendation to follow. Objective Data Vital Signs Vital Signs: Vital Signs - 24 hr 08/15/21 16:43 08/15/21 16:48 08/15/21 18:02 Temperature 97.2 F L Pulse Rate 90 86 76 Respiratory Rate 24 H 21 H Blood Pressure 139/64 Pulse Oximetry 88 L 91 92 08/15/21 18:03 08/15/21 18:15 08/15/21 18:17 Temperature Pulse Rate 74 65 73 Respiratory Rate 21 H 20 19 Blood Pressure 116/63 127/63 Pulse Oximetry 91 96 94 08/15/21 18:30 08/15/21 18:32 08/15/21 18:39 Temperature Pulse Rate 74 75 76 Respiratory Rate 21 H 19 Blood Pressure 121/71 Pulse Oximetry 95 95 97 08/15/21 18:45 08/15/21 18:46 08/15/21 19:00 Temperature Pulse Rate 77 83 92 Respiratory Rate 21 H 16 18 Blood Pressure 130/61 Pulse Oximetry 95 98 94 08/15/21 19:01 08/15/21 19:08 08/15/21 19:13 Temperature Pulse Rate 73 71 70 Respiratory Rate 21 H 18 18 Blood Pressure 101/62 Pulse Oximetry 95 99 08/15/21 19:15 08/15/21 19:16 08/15/21 19:23 Temperature Pulse Rate 71 73 69 Respiratory Rate 16 15 17 Blood Pressure 117/56 L Pulse Oximetry 91 99 98 08/15/21 19:30 08/15/21 19:31 08/15/21 19:45 Temperature Pulse Rate 68 73 71 Respiratory Rate 21 H 21 H 18 Blood Pressure 118/52 L Pulse Oximetry 94 96 96 08/15
[2021-08-16] MEDS: traZODone HCL 50 MG TABLET PO (21:17)
--- NOTE | 2021-08-16 21:26 | PC.NURSE ---
Pt requested towels for a shower. Instructed pt that he needs to take a bath due to telemetry monitoring, or that a provider needs to cesia request for shower privileges. Pt states I have been coming here for 16 years. Everyone should know me. It is coming off when I go in there to shower. ROBER Mcqueen notified. Permission was not given for pt to shower. ROBER Pandya requested that if pt does remove his telemetry and showers, that staff be nearby for pt safety.
[2021-08-17] VITALS: BP 104/59; PULSE 90; PULSE 98; RESP 22; TEMP 37.1; O2SAT 90
[2021-08-17 01:55] VITALS: PULSE 72; RESP 18
[2021-08-17] MEDS: IPRATROPIUM BR 0.02% INH SOLN 0.5 MG/2.5 ML VIAL INHALATION (01:55)
[2021-08-17] MEDS: ALBUTEROL SULFATE NEB 2.5 MG/0.5 ML INH 5 MG INHALATION (01:55)
[2021-08-17 02:00] VITALS: PULSE 84
[2021-08-17 02:09] VITALS: PULSE 74; RESP 18
[2021-08-17 04:00] VITALS: BP 122/54; PULSE 83; PULSE 87; RESP 19; TEMP 36.6; O2SAT 93; O2SAT 94
[2021-08-17] MEDS: methylPREDNISolone SOD SUCC 125 MG VIAL 60 MG IV PUSH (05:41)
--- NOTE | 2021-08-17 05:50 | PC.NURSE ---
While rounding on pt, pt demanding for staff to cover his IV site in a waterproof dressing so he could take a shower. Instructed pt that per our previous conversation, ROBER Mcqueen had stated that pt was not to take a shower. Pt became belligerent, cursing at staff, pushing call light repeatedly, yelling out. Charge nurse, ED Hyman, notified of pt's behavior and previous conversation with Ya, where she stated she would not give an order for him to shower.
--- NOTE | 2021-08-17 06:14 | PC.NURSE ---
Pt yelling that he wants to take a shower and has been sitting in own filth for 3 days. Pt has been offered to wash up at bedside and refuses. Pt yells over this nurse and will not converse rationally. Attempted to explain that Ya RICHTER had not given us and order to remove his tele and let him shower. Pt yells Gilberto. Get that doctor down here . I explain she has left and again attempt to explain the safety issue of a pt on oxygen, who came in for hypercapnic respiratory failure, taking a shower and not being monitored with tele. Pt will not let this nurse talk and continues to yell abd berate nursing staff. Told pt I would call Dr Najera. Spoke to Dr Najera and she agrees he can not shower due to safety reasons. I go into pt room and explain this and he again yells gilberto . States he takes a shower every time he comes in here and I attempt to explain he is in the IMU and we do not usually let people shower. Pt states he is leaving and continues to make derogatory statements about nursing staff and hospital. This nurse continues to attempt to explain that by leaving he is leaving against medical advice and it could be life threatening. Pt will not listen or stop yelling. AMA paper obtained and signed by pt. Tele monitor, oxygen, and peripheral IV removed. Security oversaw pt leaving hospital.
--- NOTE | 2021-09-12 09:46 | PM.DS ---
DS: Admitting Diagnosis Discharge Date 08/17/21 Admitting Diagnosis shortness of breath DS: Discharge Diagnosis Discharge Diagnosis (1) COPD with acute exacerbation: Code(s): J44.1 - Chronic obstructive pulmonary disease with (acute) exacerbation Status: Acute Assessment and Plan: Breathing treatments Systemic steroids BiPAP p.r.n. 08/16/2021 interval history: patient with hypercapnic respiratory failure most likely secondary to hypoventilation due to obesity and sleep apnea was placed on BiPAP however patient did not wear the BiPAP, this morning patient states feeling little better not as short of breath. we have place patient on BiPAP will continue to monitor repeat ABG and further recommendation to follow. (2) Obstructive sleep apnea: Code(s): G47.33 - Obstructive sleep apnea (adult) (pediatric) Status: Acute Assessment and Plan: On 2 L oxygen by nasal cannula (3) Acute on chronic respiratory failure with hypoxia and hypercapnia: Code(s): J96.21 - Acute and chronic respiratory failure with hypoxia; J96.22 - Acute and chronic respiratory failure with hypercapnia Status: Acute Assessment and Plan: Patient still smokes about half a pack of cigarettes daily this might have contributed BiPAP p.r.n. (4) Tobacco dependence: Code(s): F17.200 - Nicotine dependence, unspecified, uncomplicated Status: Acute Assessment and Plan: Nicotine patch as needed DS: Summary Hospital Course Reason for hospitalization: Chief Complaint: Shortness of breath Narrative: This is a 60-year-old male with past medical history significant for COPD/emphysema, type 2 diabetes mellitus, obstructive sleep apnea, tobacco dependence, hypertension, peripheral neuropathy, chronic back pain. Patient presented to the emergency due to progressively worsening shortness of breath for the last 3 days or so S noted the patient was just recently treated for pneumonia and discharged home earlier in the month. He denies any fevers, any rigors, any chills, no nausea no vomiting no abdominal pain, he is on 2 L of supplemental oxygen by nasal cannula, he has a dry cough. Preliminary workup is significant for ABG showed a pH of 7.29, P CO2 68, a chest x-ray showed hyperinflation but no acute cardiopulmonary abnormality. Patient was placed on BiPAP. Has been admitted for further evaluation, management and treatment. Hospital Course: 08/16/2021 interval history: patient with hypercapnic respiratory failure most likely secondary to hypoventilation due to obesity and sleep apnea was placed on BiPAP however patient did not wear the BiPAP, this morning patient states feeling little better not as short of breath. we have place patient on BiPAP will continue to monitor repeat ABG and further recommendation to follow.Patient left AMA Time Spent with Patient Time attestation: Total time spent providing and/or coordinating discharge services: left AMA Exam Narrative: left AMA Discharge Plan Discharge Consulting providers: Butch Puri ; Bailey Najera V. ; Carmelo Graham Patient Disposition: Left Against Medical Advice Patient Instructions: How to Stop Smoking (DC) Discharge Medications: No Action gabapentin 300 mg capsule 1,200 mg PO TID RF: 0 metformin 500 mg tablet 500 mg PO BID RF: 0 trazodone 50 mg tablet 50 mg PO HS RF: 0 albuterol sulfate 90 mcg/actuation HFA aerosol inhaler 2 inh INHALATION Q6H PRN (Reason: Shortness Of Breath) RF: 0 ipratropium-albuterol 0.5 mg-3 mg(2.5 mg base)/3 mL solution for nebulization 3 ml INHALATION BID RF: 0 prednisone 20 mg tablet 40 mg PO DAILY Qty: 10 RF: 0 furosemide 40 mg tablet 40 mg PO BID Qty: 60 RF: 0 (DME) TruNeb Nebulizer Misc See Rx Instructions .Route Qty: 1 RF: 0 hydrocodone-acetaminophen 10-325 mg tablet 1 tablet PO Q4-6H PRN (Reason: Pain (Scale Score 4-6)) RF: 0 Dulera 200-5 mcg/ac
== END 2021-08-17 06:40 | disposition left against medical advice (07) | DRG 143 ==
LOC: ANHED 20:21 → ANHIMU 21:26
PROVIDERS: Emergency Medicine; Admitting Provider Internal Medicine; Emergency Provider Emergency Medicine; PCP Family Medicine; Visit Provider Family Medicine
DX: E66.2 Morbid (severe) obesity with alveolar hypoventilation (principal); J44.1 Chronic obstructive pulmonary disease with (acute) exacerbation; J96.22 Acute and chronic respiratory failure with hypercapnia; J96.21 Acute and chronic respiratory failure with hypoxia; Z68.31 Body mass index [BMI] 31.0-31.9, adult; I11.0 Hypertensive heart disease with heart failure; I50.32 Chronic diastolic (congestive) heart failure; M19.90 Unspecified osteoarthritis, unspecified site; K21.9 Gastro-esophageal reflux disease without esophagitis; E11.42 Type 2 diabetes mellitus with diabetic polyneuropathy; D64.9 Anemia, unspecified; F17.210 Nicotine dependence, cigarettes, uncomplicated; Z90.49 Acquired absence of other specified parts of digestive tract; Z98.42 Cataract extraction status, left eye; Z98.41 Cataract extraction status, right eye
CPT/HCPCS: 36415; 36600; 71046; 80048; 82805; 84484; 85025; 85610; 85730; 93005; 94640; 96374; 96376; 99285; A9270; G0378; G0379; J2930

== ENCOUNTER 2021-08-20 18:45 | Inpatient (IN) | payer OTHER, SELFPAY ==
[2021-08-20] VITALS (24 sets, daily range): BP systolic 122–135; BP diastolic 59–83; PULSE 74–94; RESP 15–25; TEMP 36.8–37.3; O2SAT 89–96; BMI 30.4
--- NOTE | ~2021-08-20 | XR_ITS ---
EXAMINATION: XR chest 2V DATE: 08/20/2021 19:52 INDICATION: Shortness of breath TECHNIQUE: PA and lateral views of the chest were obtained. COMPARISON: Chest radiograph dated 08/15/2021 and 04/29/2021 FINDINGS: Bilateral small paracardial fat pads and minimal streaky bibasilar atelectasis. Small calcified nodul e in the left lower lung zone consistent with old granulomatous disease. No other airspace opacities, pulmonary edema, pleural effusion or pneumothorax. The cardiomediastinal silhouette is normal. Mild thoracic spondylosis. IMPRESSION: 1. Mild streaky bibasilar atelectasis. No other acute cardiopulmonary disease. Reviewed, dictated and finalized at location A. [employer]
--- NOTE | 2021-08-20 18:58 | ECG_ITS ---
Measurements Intervals [place] Rate: 89 P: 68 [place]: 167 QRS: 81 QRSD: 93 T: 59 QT: 323 QTc: 393 Interpretive Statements SINUS RHYTHM LOW QRS VOLTAGE IN PRECORDIAL LEADS BASELINE ARTIFACT- II, III, AVR, AVF, V1-V6 BORDERLINE ECG Electronically Signed On 08-21-2021 8:04:41 SUPERVISOR EDUCATION by Carmelo Graham D.O.
[2021-08-20] MEDS: methylPREDNISolone SOD SUCC 125 MG VIAL IV PUSH (19:18)
[2021-08-20 19:28] LABS: Hematocrit 52.8 % (42.0-52.0); Mean Corpuscular HGB Conc 32.2 g/dl (32-36); Mean Corpuscular Volume 93.3 fl (80-100); Mean Platelet Volume 9.8 fl (7.4-10.4); Platelet Count Result 263 k/mm3 (150-375); Red Blood Count 5.66 M/mm3 (4.6-6.20); Red Cell Distribution Width 15.2 % (11.5-14.5); White Blood Count 14.6 K/mm3 (4.5-10.0)
[2021-08-20] MEDS: ALBUTEROL SULFATE NEB 2.5 MG/0.5 ML INH 10 MG INHALATION (19:35)
[2021-08-20] MEDS: IPRATROPIUM BR 0.02% INH SOLN 0.5 MG/2.5 ML VIAL 1 MG INHALATION (19:36)
[2021-08-20 19:41] LABS: Alanine Aminotransferase 29 U/L (4-50); Albumin Level 4.5 g/dL (3.5-5.1); Alkaline Phosphatase 113 U/L (38-126); Anion Gap 11 mmol/L (8-16); Aspartate Amino Transferase 27 U/L (17-59); Bilirubin,Total 0.5 mg/dL (0.2-1.3); Blood Urea Nitrogen 51 mg/dL (9-20); Calcium 9.9 mg/dL (8.4-10.2); Carbon Dioxide 32 mmol/L (22-30); Chloride 94 mmol/L (98-107); Estimated Glomerular Filt Rate > 60; Glucose 99 mg/dL (65-110); Potassium 4.5 mmol/L (3.4-5.0); Sodium 137 mmol/L (137-145)
[2021-08-20 19:46] LABS: Alveolar/Arterial O2 Gradient 58.4 mmHg; Base Excess ABG 5.7 mEq/l (+/-2.0); Fractional Inspired Oxygen 28 %; HCO3 ABG 32.1 mEq/l (22.0-26.0); Oxygen Content ABG 21.9 %vol (16.0-22.0); Oxygen Saturation ABG 95.7 % (95.0-100.0); Oxyhemoglobin 90.6 % THb (90.0-100.0); PCO2 ABG 52.1 mmHg (35.0-45.0); PO2 ABG 79.8 mmHg (80.0-100.0); PO2 FiO2 Ratio Arterial Blood 2.85 %; Total Hemoglobin 17.2 g/dL (12.0-18.0); pH ABG 7.407 (7.350-7.450)
[2021-08-20 19:46] LABS: Platelet Estimate Adequate (Adequate)
[2021-08-20 19:47] LABS: Device NASAL CANNULA; Modified Allen's Test Pass; Site Drawn RIGHT RADIAL
--- NOTE | 2021-08-20 21:11 | ED.SOB ---
HPI - SOB/Dyspnea General Chief Complaint: Shortness of Breath/Dyspnea Stated Complaint: sob Time Seen by Provider: 08/20/21 18:56 Source: patient Mode of arrival: ambulatory Limitations: no limitations History of Present Illness HPI Narrative: 60-year-old with a history of COPD on 3 L home oxygen, hypertension here with complaints of shortness of breath for last 3 to 4 days. Patient states that he gets coughing spells and soon after he is unable to catch his breath. He denies any fever or chills. He was just discharged from the hospital approximately a week ago. He denies any chest pain . He states home nebulizers are not helping. He continues to smoke. MD elicited complaint: shortness of breath and cough Pertinent past history: COPD Onset (ago): day(s) (3) Timing: constant Severity: moderate Exacerbating factors: nothing Relieving factors: oxygen and bronchodilators Known history of: COPD Associated symptoms: denies other symptoms Related Data Home oxygen amount: 3 liters Home Medications Medication Instructions Recorded Confirmed gabapentin 300 mg capsule 1,200 mg PO TID 02/17/21 08/15/21 hydrocodone-acetaminophen 1 tablet PO Q4-6H PRN 03/16/21 08/15/21 Dulera 2 puff INHALATION Q12H 04/30/21 08/15/21 albuterol sulfate 2 inh INHALATION Q6H PRN 08/04/21 08/15/21 ipratropium-albuterol 3 ml INHALATION BID 08/04/21 08/15/21 metformin 500 mg PO BID 08/04/21 08/15/21 trazodone 50 mg PO HS 08/04/21 08/15/21 lisinopril 20 mg PO DAILY 08/15/21 08/15/21 Allergies Allergy/AdvReac Type Severity Reaction Status Date / Time codeine Allergy Unknown Itching Verified 08/15/21 18:39 iohexol Allergy Unknown Redness of Verified 08/15/21 18:39 [From CONTRAST - CT, XRAY] Skin Review of Systems Review of Systems: All systems reviewed & are unremarkable except as noted in HPI and below Constitutional: Constitutional: Reports no additional constitutional complaints Eyes: Eyes: Reports no additional eye complaints ENT: Reports system reviewed and no additional complaints, except as documented Cardiovascular: Cardiovascular: Reports no additional cardiovascular complaints Respiratory: Respiratory: Reports as per HPI Gastrointestinal: Gastrointestinal: Reports no additional gastrointestinal complaints Musculoskeletal: Musculoskeletal: Reports no additional musculoskeletal complaints [facility] Past Medical History Medical History Acute kidney injury with severe hyperkalemia requiring temporary dialysis 03/2021 Arthritis Asthma Back pain Chronic obstructive pulmonary disease Diastolic congestive heart failure Gastroesophageal reflux disease Hypertension Kidney stones Learning disability Patient is unable to read or write fluently. Obstructive sleep apnea Uses 2 L nasal cannula at nighttime in lieu of CPAP. Peripheral neuropathy Pneumonia Pulmonary hypertension Pulmonary nodule Tobacco dependence Surgical History Surgical History History of cataract extraction History of cholecystectomy Status post prostatectomy Family History Family History Father Family history of chronic obstructive pulmonary disease, Onset Age: 74 Acute myocardial infarction Cerebrovascular accident Mother End stage renal disease on dialysis Acute myocardial infarction Cerebrovascular accident Sibling History of blood clots Diabetes mellitus Sibling Chronic obstructive pulmonary disease Hypertension Grandparent Diabetes mellitus Son Leukemia Other Carcinoma of colon Social History Social History Social History: The patient lives in a trailer in [place]. He is but he and his have been for well over 20 years. He has one son. 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 He smokes about 1.5 pa
[2021-08-20] MEDS: SODIUM CHLORIDE 0.9% IV 1,000 ML 50 ML IV CONT (22:54)
--- NOTE | 2021-08-20 22:59 | ADMGEN ---
This patient, Manny Garcia, was admitted to Medical Room 251-01. Patient/family oriented to hospital policies and general routines including ID bracelet, bed and alarms, visiting hours, pain management, procedures, bathroom and other care routines, personal items, smoking policy, room service/diet, and visiting hours. Information on how to activate the Rapid Response Team has been discussed. Patient/Family are encouraged to report perceived risks to care and to ask questions if they do not understand what they are told or what they should do.
[2021-08-20 23:41] LABS: Glucose Point of Care 194 mg/dl (65-105)
[2021-08-21] VITALS (21 sets, daily range): BP systolic 118–126; BP diastolic 49–62; PULSE 74–99; RESP 16–22; TEMP 36.3–36.8; O2SAT 91–96
--- NOTE | 2021-08-21 00:26 | PM.IMHP ---
H&P: HPI History of Present Illness Date/Time: 08/20/21 23:40 Chief Complaint: Can not breathe Narrative: 60-year-old male with past medical history of diastolic CHF, COPD with prior need for intubation, continued tobacco use who presented to the ER with difficulty breathing. The patient had just been hospitalized 08 15 2021 through 08/17/2021 at which time he left against medical advice when they would not let him to shower. The patient returned home where he continued to be short of breath. He has a cough that is nonproductive and he has been unable to produce sputum like he usually does. He has continued to have wheezing that is worsened over the last week. He has continued to smoke a pack of cigarettes per day despite his symptoms. He denies any chest pain or palpitations. He reports that over the last couple of months he has gained about 15 lb. He has intermittent lower extremity swelling that usually gets better when he elevates his legs. He has no evidence of peripheral edema at this time. He reports that his legs are chronically hurting in feel tight. He reports that the pain in his right leg is worse than the left any reports the pain is severe on palpation. He reports increased abdominal girth over recent months but denies any abdominal pain, constipation or diarrhea. He has not had any hematochezia or melena. He reports that he does have coughing fits that her so bad that he feels like he may not wake up from them. He does feel near syncopal after some of his coughing fits. He is afraid to fall asleep due to his shortness of breath as he thinks he may in his sleep. He denies any nasal congestion or rhinorrhea. He has not had any fevers or chills. He had COVID pneumonia April 2021. He received his 1st COVID vaccine before his recent hospitalization. He does not know when he is supposed to receive his 2nd vaccine. He uses chronic home O2 of 2 L at home but arrived to the ER without his oxygen in place. Currently the patient is on his home oxygen settings. He has not been using his nebulizer at home he reports that the machine broke a couple of weeks ago. He has albuterol inhalers listed on his home med rec but he states that he does not use rescue inhalers in his only been using his twice daily inhalers. He denies any nausea or vomiting but has had decreased appetite. Review of Systems Review of Systems: 12 systems were reviewed with pertinent positives and negatives per HPI. Except as documented in the HPI, all other systems were reviewed and are negative. [facility] Past Medical History Medical History (Updated 08/21/21 @ 01:09 by Yenni Paz DO) Acute kidney injury with severe hyperkalemia requiring temporary dialysis 03/2021 Arthritis Asthma Back pain Chronic obstructive pulmonary disease Chronic respiratory failure with hypoxia and hypercapnia Requiring intubation 03/2021 COVID-19 (04/2021) Diabetes mellitus Diastolic congestive heart failure Echocardiogram 03/25/2021: Left ventricular systolic function 60-65%, mildly increased left ventricular wall thickness, diastolic dysfunction grade 1, dilated IVC Gastroesophageal reflux disease Hepatic steatosis Hypertension Kidney stones Learning disability Patient is unable to read or write fluently. Obstructive sleep apnea Uses 2 L nasal cannula at nighttime in lieu of CPAP. Peripheral neuropathy Pseudomonas pneumonia (05/2021) Pulmonary hypertension Pulmonary nodule Tobacco dependence Surgical History Surgical History History of cataract extraction History of cholecystectomy Status post prostatectomy Family History Family History Father Family history of chronic obstructive pulmonary disease, Onset Age: 74 Acute myocardial infarction Cerebrovascular accident Mother End stage renal disease on dialysis Acute myocardial
[2021-08-21] MEDS: methylPREDNISolone SOD SUCC 125 MG VIAL 60 MG IV PUSH ×4 (01:02→17:53)
[2021-08-21] MEDS: traZODone HCL 50 MG TABLET PO ×2 (01:03→20:59)
[2021-08-21] MEDS: HYDROcodone/acetaminophen (*CRX) 10-325 MG TABLET 1 TAB PO ×4 (01:03→21:02)
[2021-08-21] MEDS: ALBUTEROL SULFATE NEB 2.5 MG/0.5 ML INH 5 MG INHALATION ×4 (01:44→21:08)
[2021-08-21] MEDS: IPRATROPIUM BR 0.02% INH SOLN 0.5 MG/2.5 ML VIAL INHALATION ×4 (01:44→21:08)
[2021-08-21 05:49] LABS: Anion Gap 9 mmol/L (8-16); Blood Urea Nitrogen 50 mg/dL (9-20); Calcium 9.4 mg/dL (8.4-10.2); Carbon Dioxide 32 mmol/L (22-30); Chloride 98 mmol/L (98-107); Estimated CRCL calculation 85 ml/min; Estimated Glomerular Filt Rate > 60; Glucose 189 mg/dL (65-110); Potassium 4.7 mmol/L (3.4-5.0); Sodium 139 mmol/L (137-145)
[2021-08-21 07:57] LABS: Glucose Point of Care 153 mg/dl (65-105)
[2021-08-21] MEDS: ENOXAPARIN 40 MG/0.4 ML SYRINGE SUB-Q (09:01)
[2021-08-21] MEDS: lisinopriL 20 MG TABLET PO (09:01)
[2021-08-21] MEDS: FUROSEMIDE 40 MG TABLET PO ×2 (09:01→16:40)
[2021-08-21] MEDS: GABAPENTIN 400 MG CAPSULE 1200 MG PO ×3 (09:02→16:41)
[2021-08-21] MEDS: metFORMIN HCL 500 MG TABLET PO ×2 (09:02→16:40)
[2021-08-21] MEDS: FLUTICASONE/SALMETEROL 230-21 MCG INHALER 1 PUFF 2 PUFF INHALATION ×2 (09:24→21:08)
[2021-08-21 11:23] LABS: Glucose Point of Care 181 mg/dl (65-105)
--- NOTE | 2021-08-21 13:20 | PM.IMPN ---
Progress Note: A&P Assessment and Plan (1) COPD with acute exacerbation: Code(s): J44.1 - Chronic obstructive pulmonary disease with (acute) exacerbation Status: Acute Assessment and Plan: Presented with SOB. Diffuse wheezes on exam. Patient was hospitalized for same from 08/15-08/16 and signed out against medical advice, though unfortunately his symptoms persisted and he returned. Patient has been placed on scheduled nebulizers with albuterol and Atrovent q.6 hours. Continue IV Solu-Medrol 60 mg q6h. Wean as tolerated Continue home nasal cannula oxygen 2 L. O2 requirements are at baseline. Continue home Advair (2) Continuous tobacco abuse: Code(s): Z72.0 - Tobacco use Status: Acute Assessment and Plan: He smokes 1.5 packs of cigarettes/day He has been educated on smoking cessation. Continue to reinforce. Declines need for nicotine patch during this hospitalization. (3) Type 2 diabetes mellitus with hyperglycemia: Qualifiers: Diabetes mellitus ruling machine feeder insulin use: without [facility] use Qualified Code(s): E11.65 - Type 2 diabetes mellitus with hyperglycemia Code(s): E11.65 - Type 2 diabetes mellitus with hyperglycemia Status: Acute Assessment and Plan: A1c is 6.5 Continue home metformin The patient is on steroid therapy and likely have increased hyperglycemia. Moderate sliding scale insulin with Accu-Cheks ACHS have been ordered. Monitor glucose trends closely and adjust medications as needed (4) Essential (primary) hypertension: Code(s): I10 - Essential (primary) hypertension Status: Acute Assessment and Plan: Blood pressure reviewed and has been stable. Last BP 126/62 Continue lisinopril 20 mg daily Subjective Date/time seen: 08/21/21 13:20 Interval history: Date of service: 08/21/2021 Manny Ramseyjohn 60-year-old male with a history of COPD, CHF, hypertension, DANNA, tobacco dependence, diabetes mellitus, and several other medical problems who is seen in follow-up for COPD exacerbation. He is feeling slightly better today. He still endorses wheezing but this has improved and overall his shortness of breath has improved. Continues to endorse mild PATRICIA. He has been coughing and feels that he has sputum which he needs to clear, though he notes that he has not able to cough anything up. His cough has been dry and barking in nature. He does think that this is improving, however. Denies nausea, vomiting, fever, chills, dizziness, lightheadedness, or weakness. Appetite is good. He has no additional concerns at this time. Review of Systems Review of Systems: All systems reviewed & are unremarkable except as noted in HPI and below Exam Narrative: Mr. Garcia is a well-nourished, well-appearing 60-year-old male who is lying semi recumbent in bed. He appears comfortable and is in NARD. Neuro: awake, alert and oriented x4, speech clear, no focal neuro deficits noted HEENMT: normocephalic, atraumatic, EOMI, sclerae anicteric, moist oral mucosa Neck: supple, no lymphadenopathy Respiratory: Diffuse wheezes bilaterally, nonlabored breathing, able to speak in complete sentences Cardio: regular rate, regular rhythm with S1-S2 Abdomen: nondistended, normoactive bowel sounds, soft, nontender to palpation Extremities: no edema, erythema, or tenderness to palpation, DP pulses 2+ bilaterally Skin: no rashes or lesions, warm and dry Psych: appropriate mood and affect, judgment and insight intact Objective Data Vital Signs Vital Signs: Vital Signs - 24 hr 08/20/21 18:51 08/20/21 18:56 08/20/21 18:57 Temperature Pulse Rate 93 85 86 Respiratory Rate 24 H 20 Blood Pressure 130/83 Pulse Oximetry 89 L 93 08/20/21 19:00 08/20/21 19:01 08/20/21 19:15 Temperature Pulse Rate 88 86 83 Respiratory Rate 24 H 21 H 25 H Blood Pressure 127/70 Pulse Oximetry 08/20/21 19:30 08/20/21 1
[2021-08-21 16:35] LABS: Glucose Point of Care 158 mg/dl (65-105)
[2021-08-21] MEDS: SODIUM CHLORIDE 0.9% IV 1,000 ML 50 ML IV CONT (17:57)
[2021-08-21 21:14] LABS: Glucose Point of Care 178 mg/dl (65-105)
[2021-08-22] VITALS (17 sets, daily range): BP systolic 109–125; BP diastolic 48–60; PULSE 72–101; RESP 16–22; TEMP 36.4–37.2; O2SAT 92–97
[2021-08-22] MEDS: methylPREDNISolone SOD SUCC 125 MG VIAL 60 MG IV PUSH ×4 (00:32→20:06)
[2021-08-22] MEDS: ALBUTEROL SULFATE NEB 2.5 MG/0.5 ML INH 5 MG INHALATION ×4 (02:09→20:16)
[2021-08-22] MEDS: IPRATROPIUM BR 0.02% INH SOLN 0.5 MG/2.5 ML VIAL INHALATION ×4 (02:10→20:16)
[2021-08-22 05:12] LABS: Hemoglobin 14.7 g/dL (14.0-18.0); Mean Corpuscular HGB Conc 32.7 g/dl (32-36); Mean Corpuscular Hemoglobin 29.9 pg (26-34); Mean Corpuscular Volume 91.6 fl (80-100); Mean Platelet Volume 9.5 fl (7.4-10.4); Platelet Count Result 235 k/mm3 (150-375); Red Blood Count 4.91 M/mm3 (4.6-6.20); Red Cell Distribution Width 14.6 % (11.5-14.5)
[2021-08-22] MEDS: HYDROcodone/acetaminophen (*CRX) 10-325 MG TABLET 1 TAB PO ×4 (05:23→23:43)
[2021-08-22 05:33] LABS: Anion Gap 10 mmol/L (8-16); Blood Urea Nitrogen 46 mg/dL (9-20); Calcium 8.9 mg/dL (8.4-10.2); Carbon Dioxide 28 mmol/L (22-30); Chloride 97 mmol/L (98-107); Estimated CRCL calculation 77 ml/min; Estimated Glomerular Filt Rate > 60; Glucose 181 mg/dL (65-110); Potassium 4.5 mmol/L (3.4-5.0); Sodium 135 mmol/L (137-145)
[2021-08-22] MEDS: FLUTICASONE/SALMETEROL 230-21 MCG INHALER 1 PUFF 2 PUFF INHALATION ×2 (06:38→20:17)
[2021-08-22 07:48] LABS: Glucose Point of Care 210 mg/dl (65-105)
[2021-08-22] MEDS: INSULIN ASPART (*BKC) 100 UNITS/ML SUB-Q (07:55)
[2021-08-22] MEDS: metFORMIN HCL 500 MG TABLET PO ×2 (07:56→16:02)
[2021-08-22] MEDS: GABAPENTIN 400 MG CAPSULE 1200 MG PO ×3 (08:00→16:02)
[2021-08-22] MEDS: FUROSEMIDE 40 MG TABLET PO ×2 (08:01→16:02)
[2021-08-22] MEDS: ENOXAPARIN 40 MG/0.4 ML SYRINGE SUB-Q (08:01)
[2021-08-22] MEDS: lisinopriL 20 MG TABLET PO (08:01)
--- NOTE | 2021-08-22 10:41 | PM.IMPN ---
Progress Note: A&P Assessment and Plan (1) COPD with acute exacerbation: Code(s): J44.1 - Chronic obstructive pulmonary disease with (acute) exacerbation Status: Acute Assessment and Plan: Presented with SOB. Diffuse wheezes on exam. Patient was hospitalized for same from 08/15-08/16 and signed out against medical advice, though unfortunately his symptoms persisted and he returned. Scheduled nebulizers with albuterol and Atrovent q.6 hours. IV Solu-Medrol 60 mg q8h. Wean as tolerated Continue home nasal cannula oxygen 2 L. O2 requirements are at baseline. Continue home Advair Not a candidate for antibiotics at this time given no change in sputum patterns (2) Continuous tobacco abuse: Code(s): Z72.0 - Tobacco use Status: Acute Assessment and Plan: He smokes 1.5 packs of cigarettes/day He has been educated on smoking cessation. Continue to reinforce. Declines need for nicotine patch during this hospitalization. (3) Type 2 diabetes mellitus with hyperglycemia: Qualifiers: Diabetes mellitus retirement insulin use: without board certified orthodontist use Qualified Code(s): E11.65 - Type 2 diabetes mellitus with hyperglycemia Code(s): E11.65 - Type 2 diabetes mellitus with hyperglycemia Status: Acute Assessment and Plan: A1c is 6.5 Continue home metformin The patient is on steroid therapy and likely to have increased hyperglycemia. Moderate sliding scale insulin with Accu-Cheks ACHS have been ordered. Monitor glucose trends closely and adjust medications as needed (4) Essential (primary) hypertension: Code(s): I10 - Essential (primary) hypertension Status: Acute Assessment and Plan: Blood pressure reviewed and has been stable. Last BP 109/55 Continue lisinopril 20 mg daily Subjective Date/time seen: 08/22/21 10:41 Interval history: Date of service: 08/22/2021 Manny Ramseyjohn 60-year-old male with a history of COPD, CHF, hypertension, DANNA, tobacco dependence, diabetes mellitus, and several other medical problems who is seen in follow-up for COPD exacerbation. Feeling about the same today, slightly improved. Still endorses wheezing. reports chest tightness that occurs when he coughs. His cough is becoming looser and he is having white sputum production. He endorses PATRICIA. Also reports orthopnea states that he has been sleeping in recliner at home. Appetite is good. No nausea, vomiting, fever, chills. He has been having regular bowel movements. Denies dizziness, lightheadedness, weakness. Review of Systems Review of Systems: All systems reviewed & are unremarkable except as noted in HPI and below Exam Narrative: Mr. Garcia is a well-nourished, well-appearing 60-year-old male who is lying semi recumbent in bed. He appears comfortable and is in NARD. Neuro: awake, alert and oriented x4, speech clear, no focal neuro deficits noted HEENMT: normocephalic, atraumatic, EOMI, sclerae anicteric, moist oral mucosa Neck: supple, no lymphadenopathy Respiratory: Diffuse expiratory wheezes on anterior and posterior lung exam, nonlabored breathing, able to speak in complete sentences Cardio: regular rate, regular rhythm with S1-S2 Abdomen: nondistended, normoactive bowel sounds, soft, nontender to palpation Extremities: no edema, erythema, or tenderness to palpation, DP pulses 2+ bilaterally Skin: no rashes or lesions, warm and dry Psych: appropriate mood and affect, judgment and insight intact Objective Data Vital Signs Vital Signs: Vital Signs - 24 hr 08/21/21 12:00 08/21/21 14:04 08/21/21 14:14 Temperature 97.4 F L Pulse Rate 99 90 87 Respiratory Rate 22 H 18 Blood Pressure 120/60 Pulse Oximetry 94 08/21/21 14:23 08/21/21 16:00 08/21/21 19:34 Temperature 98.2 F Pulse Rate 88 81 83 Respiratory Rate 18 16 Blood Pressure 118/49 L Pulse Oximetry 91 08/21/21 20:00 08/21/21 21:11
[2021-08-22 11:44] LABS: Glucose Point of Care 129 mg/dl (65-105)
[2021-08-22 16:23] LABS: Glucose Point of Care 143 mg/dl (65-105)
[2021-08-22] MEDS: traZODone HCL 50 MG TABLET PO (20:06)
[2021-08-22 21:31] LABS: Glucose Point of Care 189 mg/dl (65-105)
[2021-08-23] VITALS (14 sets, daily range): BP systolic 130; BP diastolic 60; PULSE 75–115; RESP 16–18; TEMP 36.9; O2SAT 87–97
[2021-08-23] MEDS: IPRATROPIUM BR 0.02% INH SOLN 0.5 MG/2.5 ML VIAL INHALATION ×2 (03:03→09:24)
[2021-08-23] MEDS: ALBUTEROL SULFATE NEB 2.5 MG/0.5 ML INH 5 MG INHALATION ×2 (03:04→09:24)
[2021-08-23] MEDS: methylPREDNISolone SOD SUCC 125 MG VIAL 60 MG IV PUSH (05:54)
[2021-08-23] MEDS: HYDROcodone/acetaminophen (*CRX) 10-325 MG TABLET 1 TAB PO (05:54)
--- NOTE | 2021-08-23 06:05 | PC.NURSE ---
Wasted Morning Sun 10 with Simona Kolesa Pill was accidently lost into trash can beside pt bed. Brought out and wasted in proper receptacle
[2021-08-23 07:25] LABS: Hematocrit 45.8 % (42.0-52.0); Hemoglobin 14.8 g/dL (14.0-18.0)
[2021-08-23 07:32] LABS: Anion Gap 8 mmol/L (8-16); Blood Urea Nitrogen 46 mg/dL (9-20); Carbon Dioxide 29 mmol/L (22-30); Chloride 97 mmol/L (98-107); Estimated CRCL calculation 71 ml/min; Estimated Glomerular Filt Rate > 60; Glucose 148 mg/dL (65-110); Potassium 4.5 mmol/L (3.4-5.0); Sodium 134 mmol/L (137-145)
[2021-08-23 07:59] LABS: Glucose Point of Care 170 mg/dl (65-105)
[2021-08-23] MEDS: ENOXAPARIN 40 MG/0.4 ML SYRINGE SUB-Q (08:47)
[2021-08-23] MEDS: lisinopriL 20 MG TABLET PO (08:47)
[2021-08-23] MEDS: GABAPENTIN 400 MG CAPSULE 1200 MG PO (08:47)
[2021-08-23] MEDS: FUROSEMIDE 40 MG TABLET PO (08:47)
[2021-08-23] MEDS: metFORMIN HCL 500 MG TABLET PO (08:47)
--- NOTE | 2021-08-23 09:02 | PM.IMPN ---
Progress Note: A&P Assessment and Plan (1) COPD with acute exacerbation: Code(s): J44.1 - Chronic obstructive pulmonary disease with (acute) exacerbation Status: Acute Assessment and Plan: Patient originally presented with SOB. Diffuse wheezes on exam. Patient was hospitalized for same from 08/15-08/16 and signed out against medical advice. He has a non functional nebulizer at home. Although he was scheduled to see his briquette maker, he did not make it to his appointment was was recently admitted earlier this month. Stat nebulizer treatment ordered IV lasix 40 mg plus metolazine 1.25 mg PO once. Continue scheduled nebulizers with albuterol and Atrovent q.6 hours. IV Solu-Medrol 60 mg q8h. Wean as tolerated Continue home nasal cannula oxygen 2 L. O2 requirements are at baseline. Continue home Advair Not indication for antibiotics at this time given no change in sputum patterns (2) Continuous tobacco abuse: Code(s): Z72.0 - Tobacco use Status: Acute Assessment and Plan: He smokes 1.5 packs of cigarettes/day He has been educated on smoking cessation. Continue to reinforce. Declines need for nicotine patch during this hospitalization. (3) Type 2 diabetes mellitus with hyperglycemia: Qualifiers: Diabetes mellitus internal communications writer insulin use: without [facility] use Qualified Code(s): E11.65 - Type 2 diabetes mellitus with hyperglycemia Code(s): E11.65 - Type 2 diabetes mellitus with hyperglycemia Status: Acute Assessment and Plan: A1c is 6.5 Continue home metformin Fasting blood glucose 148. Accuchecks in the 170-189 range. The patient is on steroid therapy and likely to have increased hyperglycemia. Moderate sliding scale insulin with Accu-Cheks ACHS have been ordered. Monitor glucose trends closely and adjust medications as needed (4) Essential (primary) hypertension: Code(s): I10 - Essential (primary) hypertension Status: Acute Assessment and Plan: Blood pressure reviewed and has been stable. Last BP 130/60 Continue lisinopril 20 mg daily Additional Plan Patient has been admitted as observation status. Subjective Date/time seen: Narrative : Manny Garcia 60-year-old male with a history of COPD, CHF, hypertension, DANNA, tobacco dependence, diabetes mellitus, and several other medical problems who is seen in follow-up for COPD exacerbation 08/23/21 09:02 S: patient is examined at the bedside. For he denies any complaints and wants to go home. Patient is slightly dyspneic after speak a few sentences. He confirms that this is baseline and he is already on home oxygen 1-2 L depending on his pulse oximetry. Interval history: Manny Garcia 60-year-old male with a history of COPD, CHF, hypertension, DANNA, tobacco dependence, diabetes mellitus, and several other medical problems who is seen in follow-up for COPD exacerbation. He reports using better today, however diffuse wheezing persists. Patient is short of breath after speak a few sentences. He previously reported orthopnea and has been sleeping in a recliner at home. Review of Systems Review of Systems: All systems reviewed & are unremarkable except as noted in HPI and below Exam Narrative: Mr. Garcia is a well-nourished, well-appearing 60-year-old male who is lying semi recumbent in bed. He appears uncomfortable and is in NARD. Tmax 98.9F, pulse 100-115, pulse oximetry 87-94% on 2 liters Neuro: awake, alert and oriented x4, speech clear, no focal neuro deficits noted HEENMT: normocephalic, atraumatic, EOMI, sclerae anicteric, moist oral mucosa Neck: supple, no lymphadenopathy Respiratory: Diffuse expiratory wheezes on anterior and posterior lung exam, bilateral diffuse crackles, labored breathing, able to speak in complete sentences Cardio: regular rate, regular rhythm with S1-S2 Abdomen: nondistended, normoactive bowel sounds, soft, nontend
--- NOTE | 2021-08-23 09:02 | PM.DS ---
DS: Admitting Diagnosis Discharge Date 08/23/2021 Admitting Diagnosis COPD exacerbation. DS: Discharge Diagnosis Discharge Diagnosis (1) COPD with acute exacerbation: Code(s): J44.1 - Chronic obstructive pulmonary disease with (acute) exacerbation Status: Acute Assessment and Plan: Patient originally presented with SOB. Diffuse wheezes on prior exam. significant clinical improvement after 1 nebulizer treatment. Patient was hospitalized for same from 08/15-08/16 and signed out against medical advice. He has a non functional nebulizer at home. Although he was scheduled to see his change of address clerk, he did not make it to his appointment was was recently admitted earlier this month. Discharge on home nebulizer treatment. discharged on a short prednisone taper 40 mg p.o. daily for 5 days. Continue scheduled nebulizers with albuterol and Atrovent q.6 hours. IV Solu-Medrol 60 mg q8h. Wean as tolerated Continue home nasal cannula oxygen 2 L. O2 requirements are at baseline. Continue home Advair Not indication for antibiotics at this time given no change in sputum patterns (2) Continuous tobacco abuse: Code(s): Z72.0 - Tobacco use Status: Acute Assessment and Plan: He smokes 1.5 packs of cigarettes/day He has been educated on smoking cessation. Continue to reinforce. Declines need for nicotine patch during this hospitalization. 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 Accuchecks in the 170-189 range. The patient is on steroid therapy and likely to have increased hyperglycemia. Moderate sliding scale insulin with Accu-Cheks ACHS have been ordered. Monitor glucose trends closely and adjust medications as needed (4) Essential (primary) hypertension: Code(s): I10 - Essential (primary) hypertension Status: Acute Assessment and Plan: Blood pressure reviewed and has been stable. Last BP 130/60 Continue lisinopril 20 mg daily DS: Summary Hospital Course Reason for hospitalization: shortness of breath. Hospital Course: Please refer to admission H and P. Briefly, this is a 60-year-old gentleman with a past medical history including but not limited to diastolic CHF, COPD with prior need for intubation, continued tobacco use who presented to the ER with difficulty breathing. The patient had just been hospitalized from 08/15/2021 through 08/17/2021 at which time he left against medical advice when they would not let him in the shower. The patient returned home where he continued to be short of breath. He has a cough that is nonproductive and he has been unable to produce sputum like he usually does. He has continued to have wheezing that is worsened over the last week. He has continued to smoke a pack of cigarettes per day despite his symptoms. He denies any chest pain or palpitations. He reports that over the last couple of months he has gained about 15 lb. He has intermittent lower extremity swelling that usually gets better when he elevates his legs. He has no evidence of peripheral edema at this time. He reports that his legs are chronically hurting in feel tight. He reports that the pain in his right leg is worse than the left any reports the pain is severe on palpation. He reports increased abdominal girth over recent months but denies any abdominal pain, constipation or diarrhea. He has not had any hematochezia or melena. He reports that he does have coughing fits that her so bad that he feels like he may not wake up from them. He does feel near syncopal after some of his coughing fits. He is afraid to fall asleep due
[2021-08-23] MEDS: FLUTICASONE/SALMETEROL 230-21 MCG INHALER 1 PUFF 2 PUFF INHALATION (09:25)
[2021-08-23 10:20] LABS: Basophils Percent Auto 0.2 % (0.2-1.2); Hematocrit 47.5 % (42.0-52.0); Hemoglobin 15.4 g/dL (14.0-18.0); Immature Granulocyte Absolute 0.12 K/mm3 (0.00-0.031); Immature Granulocyte Percent A 0.6 % (0-0.5); Lymphocytes Absolute Auto 1.25 K/mm3 (0.9-3.2); Lymphocytes Percent Auto 6.3 % (18.3-44.2); Mean Corpuscular HGB Conc 32.4 g/dl (32-36); Mean Corpuscular Hemoglobin 29.3 pg (26-34); Mean Corpuscular Volume 90.3 fl (80-100); Mean Platelet Volume 9.7 fl (7.4-10.4); Monocytes Absolute Auto 0.5 K/mm3 (0.1-0.6); Monocytes Percent Auto 2.7 % (2.6-8.5); Neutrophils Absolute Auto 17.9 K/mm3 (1.3-6.7); Neutrophils Percent Auto 90.2 % (45.5-73.1); Platelet Count Result 228 k/mm3 (150-375); Red Blood Count 5.26 M/mm3 (4.6-6.20); Red Cell Distribution Width 14.8 % (11.5-14.5); White Blood Count 19.8 K/mm3 (4.5-10.0)
[2021-08-23] MEDS: FUROSEMIDE INJ 40 MG/4 ML VIAL IV PUSH (10:29)
[2021-08-23] MEDS: metOLazone 1.25 MG TABLET PO (10:29)
--- NOTE | 2021-08-23 10:59 | PCRCNOTE ---
Patient SpO2 93 on room air at rest. Pt required 2 L/Min about half way through walk down [address] [place] [address] hallway due to low sat at 86%. Pt will stay at his previous home setting of 2 L/Min with activity. Nurse Stephenie Rutherford notified of evaluation.
--- NOTE | 2021-08-23 11:18 | PM.IMPN ---
Progress Note: A&P Assessment and Plan (1) COPD with acute exacerbation: Code(s): J44.1 - Chronic obstructive pulmonary disease with (acute) exacerbation Status: Acute Assessment and Plan: Patient originally presented with SOB. Diffuse wheezes on prior exam. significant clinical improvement after 1 nebulizer treatment. Patient was hospitalized for same from 08/15-08/16 and signed out against medical advice. He has a non functional nebulizer at home. Although he was scheduled to see his patternmaker grader, he did not make it to his appointment was was recently admitted earlier this month. Discharge on home nebulizer treatment. discharged on a short prednisone taper 40 mg p.o. daily for 5 days. Continue scheduled nebulizers with albuterol and Atrovent q.6 hours. IV Solu-Medrol 60 mg q8h. Wean as tolerated Continue home nasal cannula oxygen 2 L. O2 requirements are at baseline. Continue home Advair Not indication for antibiotics at this time given no change in sputum patterns (2) Continuous tobacco abuse: Code(s): Z72.0 - Tobacco use Status: Acute Assessment and Plan: He smokes 1.5 packs of cigarettes/day He has been educated on smoking cessation. Continue to reinforce. Declines need for nicotine patch during this hospitalization. 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 Accuchecks in the 170-189 range. The patient is on steroid therapy and likely to have increased hyperglycemia. Moderate sliding scale insulin with Accu-Cheks ACHS have been ordered. Monitor glucose trends closely and adjust medications as needed (4) Essential (primary) hypertension: Code(s): I10 - Essential (primary) hypertension Status: Acute Assessment and Plan: Blood pressure reviewed and has been stable. Last BP 130/60 Continue lisinopril 20 mg daily Additional Plan Patient has been admitted as observation status. Subjective Date/time seen: 08/23/21 11:18 S: Patient was examined at the bedside. He required no oxygen supplementation at rest with a saturation of 93%. However with effort is saturation dropped to 86% and quickly improved to with oxygen 2 L which was is previous requirement. Interval history: Manny Garcia 60-year-old male with a history of COPD, CHF, hypertension, DANNA, tobacco dependence, diabetes mellitus, and several other medical problems who is seen in follow-up for COPD exacerbation. He reports using better today, however diffuse wheezing persists. Patient is short of breath after speak a few sentences. He previously reported orthopnea and has been sleeping in a recliner at home. Review of Systems Review of Systems: All systems reviewed & are unremarkable except as noted in HPI and below Exam Narrative: Mr. Garcia is a well-nourished, well-appearing 60-year-old male who is lying semi recumbent in bed. He appears uncomfortable and is in NARD. Tmax 98.9F, pulse 100-115, pulse oximetry 87-94% on 2 liters Neuro: awake, alert and oriented x4, speech clear, no focal neuro deficits noted HEENMT: normocephalic, atraumatic, EOMI, sclerae anicteric, moist oral mucosa Neck: supple, no lymphadenopathy Respiratory: Mild expiratory wheezes on anterior and posterior lung exam, resolution of bilateral diffuse crackles, nonlabored breathing, able to speak in complete sentences Cardio: regular rate, regular rhythm with S1-S2 Abdomen: nondistended, normoactive bowel sounds, soft, nontender to palpation Extremities: no edema, erythema, or tenderness to palpation, DP pulses 2+ bilaterally Skin: no rashes or l
== END 2021-08-23 11:32 | disposition home or self-care (01) | DRG 140 ==
LOC: ANHED 21:19 → ANH2MED 22:28
PROVIDERS: Physician Assistant; Admitting Provider Internal Medicine; Emergency Provider Family Medicine; PCP Family Medicine; Visit Provider Internal Medicine
DX: J44.1 Chronic obstructive pulmonary disease with (acute) exacerbation (principal); I11.0 Hypertensive heart disease with heart failure; Z99.81 Dependence on supplemental oxygen; I50.32 Chronic diastolic (congestive) heart failure; K21.9 Gastro-esophageal reflux disease without esophagitis; F81.9 Developmental disorder of scholastic skills, unspecified; G47.33 Obstructive sleep apnea (adult) (pediatric); I27.20 Pulmonary hypertension, unspecified; R91.1 Solitary pulmonary nodule; F17.210 Nicotine dependence, cigarettes, uncomplicated; F12.90 Cannabis use, unspecified, uncomplicated; Z79.84 Long term (current) use of oral hypoglycemic drugs; M19.90 Unspecified osteoarthritis, unspecified site; J96.12 Chronic respiratory failure with hypercapnia; J96.11 Chronic respiratory failure with hypoxia; E11.42 Type 2 diabetes mellitus with diabetic polyneuropathy; K76.0 Fatty (change of) liver, not elsewhere classified; E66.9 Obesity, unspecified; Z68.30 Body mass index [BMI] 30.0-30.9, adult; E11.65 Type 2 diabetes mellitus with hyperglycemia
CPT/HCPCS: 36415; 36600; 71046; 80048; 80053; 82805; 82948; 85014; 85018; 85025; 85027; 93005; 94618; 94640; 96361; 96372; 96374; 96376; 99285; A9270; G0378; G0379; J1650; J1815; J1940; J2930; J7030

== ENCOUNTER 2021-08-25 12:36 | Outpatient (CLI) | payer OTHER, SELFPAY | END 2021-08-25 12:37 | disposition home or self-care (01) | LOC: ANHAUDIO 12:38 | PROVIDERS: PCP Family Medicine; Visit Provider Family Medicine | DX: H91.90 Unspecified hearing loss, unspecified ear (principal) | CPT/HCPCS: 92557; 92567 ==

== ENCOUNTER 2021-09-18 20:40 | Emergency (ER) | payer OTHER, SELFPAY ==
--- NOTE | ~2021-09-18 | XR_ITS ---
EXAMINATION: XR chest 1V portable INDICATION: Shortness of breath and congestion TECHNIQUE: Portable AP chest at 0357 hours COMPARISON: 08/20/2021 FINDINGS: There are minimal airspace opacities of the lung bases. No pleural effusion or pneumothorax is identified. The cardiomediastinal silhouette is normal. IMPRESSION: 1. Minimal airspace opacities of the lung bases, consistent with atelectasis versus pneumonia. Reviewed, dictated and finalized at location A. ANICAL MANAGER IMPRESSION: 1. Minimal airspace opacities of the lung bases, consistent with atelectasis ve rsus pneumonia.
--- NOTE | 2021-09-18 20:48 | ECG_ITS ---
Measurements Intervals [place] Rate: 72 P: 54 NC: 190 QRS: 72 QRSD: 85 T: 62 QT: 327 QTc: 359 Interpretive Statements SINUS RHYTHM WITH SINUS ARRHYTHMIA BASELINE ARTIFACT- I, II, AVR, AVL NORMAL ECG Electronically Signed On 09-19-2021 6:03:49 ACID DUMPER by Carmelo Graham D.O.
[2021-09-18 20:49] VITALS: BP 134/77; PULSE 91; RESP 23; TEMP 36.4; O2SAT 95
[2021-09-18 23:33] VITALS: BP 111/57; PULSE 74; RESP 24; TEMP 36.3; O2SAT 97
[2021-09-19 03:36] VITALS: PULSE 81; RESP 16; O2SAT 96
[2021-09-19] MEDS: ALBUTEROL SULFATE NEB 2.5 MG/0.5 ML INH 5 MG INHALATION (04:07)
[2021-09-19] MEDS: IPRATROPIUM BR 0.02% INH SOLN 0.5 MG/2.5 ML VIAL INHALATION (04:07)
[2021-09-19 04:13] VITALS: PULSE 91; RESP 28
[2021-09-19 04:13] LABS: Basophils Percent Auto 0.4 % (0.2-1.2); Eosinophils Absolute Auto 0.1 K/mm3 (0-0.3); Eosinophils Percent Auto 1.2 % (0-4.4); Hematocrit 42.9 % (42.0-52.0); Hemoglobin 13.6 g/dL (14.0-18.0); Immature Granulocyte Absolute 0.04 K/mm3 (0.00-0.031); Immature Granulocyte Percent A 0.4 % (0-0.5); Lymphocytes Absolute Auto 4.16 K/mm3 (0.9-3.2); Lymphocytes Percent Auto 44.2 % (18.3-44.2); Mean Corpuscular HGB Conc 31.7 g/dl (32-36); Mean Corpuscular Hemoglobin 29.2 pg (26-34); Mean Corpuscular Volume 92.3 fl (80-100); Mean Platelet Volume 9.4 fl (7.4-10.4); Monocytes Absolute Auto 0.7 K/mm3 (0.1-0.6); Monocytes Percent Auto 7.1 % (2.6-8.5); Neutrophils Absolute Auto 4.4 K/mm3 (1.3-6.7); Neutrophils Percent Auto 46.7 % (45.5-73.1); Platelet Count Result 369 k/mm3 (150-375); Red Blood Count 4.65 M/mm3 (4.6-6.20); White Blood Count 9.4 K/mm3 (4.5-10.0)
[2021-09-19 04:18] LABS: Alveolar/Arterial O2 Gradient 55.7 mmHg; Device NASAL CANNULA; Fractional Inspired Oxygen 28 %; HCO3 ABG 27.4 mEq/l (22.0-26.0); Modified Allen's Test Pass; Oxygen Content ABG 18.6 %vol (16.0-22.0); Oxygen Saturation ABG 96.8 % (95.0-100.0); Oxyhemoglobin 93.7 % THb (90.0-100.0); PCO2 ABG 45.6 mmHg (35.0-45.0); PO2 ABG 90.1 mmHg (80.0-100.0); PO2 FiO2 Ratio Arterial Blood 3.22 %; Site Drawn RIGHT RADIAL; Total Hemoglobin 14.1 g/dL (12.0-18.0); pH ABG 7.397 (7.350-7.450)
[2021-09-19 04:23] LABS: Alanine Aminotransferase 27 U/L (4-50); Albumin Level 4.3 g/dL (3.5-5.1); Alkaline Phosphatase 76 U/L (38-126); Anion Gap 6 mmol/L (8-16); Aspartate Amino Transferase 36 U/L (17-59); Bilirubin,Total 0.4 mg/dL (0.2-1.3); Blood Urea Nitrogen 27 mg/dL (9-20); Calcium 9.7 mg/dL (8.4-10.2); Carbon Dioxide 28 mmol/L (22-30); Chloride 104 mmol/L (98-107); Estimated CRCL calculation 85 ml/min; Estimated Glomerular Filt Rate > 60; Glucose 110 mg/dL (65-110); Potassium 4.4 mmol/L (3.4-5.0); Sodium 138 mmol/L (137-145)
[2021-09-19 04:24] LABS: Lactic Acid Reflex 0.9 mmol/L (0.7-2.1)
[2021-09-19 04:25] VITALS: PULSE 86; RESP 23
[2021-09-19 04:35] LABS: NT Pro B Type Natriuretic Pept 143 pg/mL (5-100); Troponin I 0.013 ng/mL (0.000-0.034)
--- NOTE | 2021-09-19 04:50 | ED.GENADULT ---
HPI - General Adult General Chief complaint: Shortness of Breath/Dyspnea Stated complaint: shortness of breath Time Seen by Provider: 09/19/21 03:37 History of Present Illness HPI narrative: Patient is a 60-year-old gentleman who presents to emergency department with chief complaint of shortness of breath. Patient reports that he is noticed he has been wheezing and coughing more than normal. Patient has history of respiratory issues and has been admitted before for hypercarbic respiratory failure. The patient states is also noticed that his legs have been swelling more reports that his had no chest pain with this. Patient states that this not improved by anything Related Data Home Medications Medication Instructions Recorded Confirmed gabapentin 300 mg capsule 1,200 mg PO TID 02/17/21 08/20/21 hydrocodone-acetaminophen 1 tablet PO Q4-6H PRN 03/16/21 08/20/21 Dulera 2 puff INHALATION Q12H 04/30/21 08/20/21 albuterol sulfate 2 inh INHALATION Q6H PRN 08/04/21 08/20/21 ipratropium-albuterol 3 ml INHALATION BID 08/04/21 08/20/21 metformin 500 mg PO BID 08/04/21 08/20/21 trazodone 50 mg PO HS 08/04/21 08/20/21 lisinopril 20 mg PO DAILY 08/15/21 08/20/21 Allergies Allergy/AdvReac Type Severity Reaction Status Date / Time codeine Allergy Unknown Itching Verified 08/15/21 18:39 iohexol Allergy Unknown Redness of Verified 08/15/21 18:39 [From CONTRAST - CT, XRAY] Skin Review of Systems Review of Systems: A 10 system review of systems was completed on the patient and is negative except for what is stated in the HPI. Nursing and ancillary documentation was reviewed. [facility] Past Medical History Medical History Acute kidney injury with severe hyperkalemia requiring temporary dialysis 03/2021 Arthritis Asthma Back pain Chronic obstructive pulmonary disease Chronic respiratory failure with hypoxia and hypercapnia Requiring intubation 03/2021 COVID-19 (04/2021) Diabetes mellitus Diastolic congestive heart failure Echocardiogram 03/25/2021: Left ventricular systolic function 60-65%, mildly increased left ventricular wall thickness, diastolic dysfunction grade 1, dilated IVC Gastroesophageal reflux disease Hepatic steatosis Hypertension Kidney stones Learning disability Patient is unable to read or write fluently. Obstructive sleep apnea Uses 2 L nasal cannula at nighttime in lieu of CPAP. Peripheral neuropathy Pseudomonas pneumonia (05/2021) Pulmonary hypertension Pulmonary nodule Tobacco dependence Surgical History Surgical History History of cataract extraction History of cholecystectomy Status post prostatectomy Family History Family History Father Family history of chronic obstructive pulmonary disease, Onset Age: 74 Acute myocardial infarction Cerebrovascular accident Mother End stage renal disease on dialysis Acute myocardial infarction Cerebrovascular accident Sibling History of blood clots Diabetes mellitus Sibling Chronic obstructive pulmonary disease Hypertension Grandparent Diabetes mellitus Son Leukemia Other Carcinoma of colon Social History Social History Social History: The patient lives in a trailer in [place]. He is but he and his have been for well over 20 years. 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 He smokes about 1.5 packs of cigarettes a day and has for 50 years and is currently smoking 1 pack per day. No alcohol or illicit substance use. He designates his step daughter, Karely Flores, as his surrogate decision maker. He has 1 biologic son. Code status: Full code. Smoking packs per day: 1 Smoking cigarettes per day: 20.0 Years smoked: 50 Smoking pack-years: 50.00
[2021-09-19] MEDS: methylPREDNISolone SOD SUCC 125 MG VIAL IV PUSH (05:14)
[2021-09-19] MEDS: FUROSEMIDE INJ 40 MG/4 ML VIAL IV PUSH (05:14)
[2021-09-19 05:20] VITALS: PULSE 80; RESP 20; O2SAT 98
== END 2021-09-19 05:20 | disposition home or self-care (01) ==
PROVIDERS: Emergency Provider Emergency Medicine; PCP Family Medicine
DX: J44.1 Chronic obstructive pulmonary disease with (acute) exacerbation (principal); I11.0 Hypertensive heart disease with heart failure; I50.30 Unspecified diastolic (congestive) heart failure; E11.9 Type 2 diabetes mellitus without complications; F17.210 Nicotine dependence, cigarettes, uncomplicated
CPT/HCPCS: 36415; 36600; 71045; 80053; 82805; 83605; 83880; 84484; 85025; 93005; 94640; 96374; 96375; 99284; J1940; J2930

== ENCOUNTER 2021-10-08 10:43 | Outpatient (RCR) | payer OTHER, SELFPAY | END 2021-10-08 23:59 | disposition home or self-care (01) | LOC: ANHAUDIO 10:43 | PROVIDERS: PCP Family Medicine; Visit Provider Family Medicine | DX: Z46.1 Encounter for fitting and adjustment of hearing aid (principal) | CPT/HCPCS: V5221; V5240 ==

== ENCOUNTER 2022-11-18 10:50 | Outpatient (CLI) | payer OTHER, SELFPAY ==
[2022-11-18 11:12] LABS: Basophils Absolute Auto 0.1 K/mm3 (0.0-0.1); Basophils Percent Auto 0.4 % (0.2-1.2); Eosinophils Absolute Auto 0.2 K/mm3 (0-0.3); Eosinophils Percent Auto 1.1 % (0-4.4); Hematocrit 51.7 % (42.0-52.0); Hemoglobin 16.3 g/dL (14.0-18.0); Immature Granulocyte Absolute 0.06 K/mm3 (0.00-0.031); Immature Granulocyte Percent A 0.4 % (0-0.5); Lymphocytes Absolute Auto 7.09 K/mm3 (0.9-3.2); Lymphocytes Percent Auto 44.6 % (18.3-44.2); Mean Corpuscular HGB Conc 31.5 g/dl (32-36); Mean Corpuscular Hemoglobin 29.2 pg (26-34); Mean Corpuscular Volume 92.7 fl (80-100); Mean Platelet Volume 9.2 fl (7.4-10.4); Monocytes Percent Auto 6.5 % (2.6-8.5); Neutrophils Absolute Auto 7.5 K/mm3 (1.3-6.7); Platelet Count Result 272 k/mm3 (150-375); Red Blood Count 5.58 M/mm3 (4.6-6.20); Red Cell Distribution Width 16.2 % (11.5-14.5); White Blood Count 15.9 K/mm3 (4.5-10.0)
[2022-11-18 11:21] LABS: Hemoglobin A1C 6.3 % (<5.7)
[2022-11-18 11:22] LABS: Alanine Aminotransferase 25 U/L (6-50); Albumin Level 4.6 g/dL (3.5-5.1); Alkaline Phosphatase 91 U/L (38-126); Anion Gap 8 mmol/L (8-16); Aspartate Amino Transferase 29 U/L (17-59); Bilirubin,Total 0.5 mg/dL (0.2-1.3); Blood Urea Nitrogen 42 mg/dL (9-20); Calcium 9.3 mg/dL (8.4-10.2); Carbon Dioxide 31 mmol/L (22-30); Chloride 97 mmol/L (98-107); Cholesterol 134 mg/dL (0-200); Estimated Glomerular Filt Rate 38; Glucose 98 mg/dL (65-110); HDL Direct 29 mg/dL; Potassium 5.7 mmol/L (3.4-5.0); Sodium 136 mmol/L (137-145); Triglycerides 219 mg/dL (<150)
[2022-11-18 11:33] LABS: LDL Cholesterol Direct 64 mg/dL
[2022-11-18 11:39] LABS: Creatinine Urine 95.7 mg/dL
[2022-11-18 11:41] LABS: Iron 64 ug/dL (49-181)
[2022-11-18 11:49] LABS: Atypical Lymphocytes Present; Platelet Estimate Adequate (Adequate); Schistocytes None Seen (NORMAL)
[2022-11-18 11:51] LABS: Percent Iron Saturation 15 % (20-50)
[2022-11-18 11:54] LABS: Prostate Specific Antigen 0.9 ng/mL (< OR = 4.0); Thyroid Stimulating Hormone 0.985 uIU/mL (0.465-4.680); Total Triiodothyronine (T3) 1.09 NG/ML (0.97-1.69)
[2022-11-18 12:01] LABS: Free T4 Free Thyroxine 1.31 ng/mL (0.78-2.19); MALB Creatinine Ratio < 6.3 mg/g (0-30); Microalbumin Urine Random < 6.0 mg/L (0-16.7)
[2022-11-20 11:40] LABS: PCP NEGATIVE ng/mL (<25)
[2022-11-24 11:15] LABS: Amphetamines Negative; Barbiturates Negative; Benzodiazepines Negative; Cocaine Metabolites Negative; Marijuana Metabolites Positive
== END 2022-11-18 10:51 | disposition home or self-care (01) ==
LOC: ANHLAB 10:52
PROVIDERS: PCP Family Medicine; Visit Provider Nurse Practitioner Adult Health
DX: E78.5 Hyperlipidemia, unspecified (principal); I10 Essential (primary) hypertension; E11.9 Type 2 diabetes mellitus without complications; R53.1 Weakness; R53.83 Other fatigue; G62.9 Polyneuropathy, unspecified
CPT/HCPCS: 36415; 80053; 80061; 80307; 82043; 82306; 83036; 83540; 83550; 84153; 84439; 84443; 84480; 85025